=== PATIENT | male | born 1970 | race Caucasian/White ===

== ENCOUNTER 2017-12-23 00:07 | Emergency (ER) | payer MEDICARE, MEDICAID, SELFPAY ==
[2017-12-23] VITALS (23 sets, daily range): BP systolic 109–158; BP diastolic 71–82; PULSE 67–77; RESP 10–20; TEMP 36.5; O2SAT 95–98
--- NOTE | 2017-12-23 00:29 | ED.GENADUL_ITS ---
Disposition Clinical Impression: Chest pain Disposition: AGAINST MEDICAL ADVICE Instructions: Against Medical Advice (ED) Additional Instructions: It was recommended today that you stay in the emergency department for further testing and be admitted to the hospital for further diagnostic testing. You have refused this treatment plan. You are leaving AGAINST MEDICAL ADVICE and you may have life-threatening or lifestyle modifying disease. Please return to emergency department at anytime for further workup and treatment. Please follow-up with your doctor. Please take aspirin 325mg daily. Referrals: Juliann Hicks MD [Primary Care Provider] - Medical Decision Making - Lab Data Laboratory Tests 12/23/17 12/23/17 00:24 00:24 WBC 9.97 RBC 5.19 Hgb 14.8 Hct 43.6 MCV 84.0 MCH 28.5 MCHC 33.9 RDW 14.8 H Plt Count 349 MPV 9.8 Immature Gran % 0.6 Neutrophils % 48.8 Lymphocytes % 39.7 Monocytes % 6.5 Eosinophils % 3.4 Basophils % 1.0 Absolute Neutrophils 4.86 Absolute Lymphocytes 3.96 H Absolute Monocytes 0.65 Absolute Eosinophils 0.34 Absolute Basophils 0.10 Sodium 139 Potassium 3.6 Chloride 104 Carbon Dioxide 25.4 Anion Gap 9.6 BUN 6 L Creatinine 1.16 Estimated GFR/1.73 m2 >= 60.00 Glucose 194 H Calcium 8.2 L Magnesium 2.1 Total Bilirubin 0.2 AST 14 L ALT 31 Alkaline Phosphatase 95 Troponin I < 0.02 Total Protein 6.9 Albumin 3.9 Results reviewed for labs ordered during visit: Yes - Medical Decision Making 00:30 -- 47-year-old male with multiple medical problems including hypertension , hyperlipidemia, diabetes, smoker, here with chest pain. Pain is improved since onset and is now nearly resolved without treatment. ECG reviewed and interpreted by me: Normal sinus rhythm 76 bpm, upright T wave noted in V1, no STEMI, nondiagnostic. Plan to check troponin. PERC criteria applies. 1:38 -- Labs reviewed and trop neg cxr reviewed and interpreted by me: No pneumothorax, mediastinum normal Patient is high risk for ACS. Plan to admit for further diagnostics. I spoke with Dr. Gongora who will admit the patient. 1:57 --patient now wishes to leave AGAINST MEDICAL ADVICE. I explained to the patient that he may have life-threatening or lifestyle modifying disease that is not been ruled out and that additional diagnostic testing should be performed. Patient verbalized understanding of my concerns and refuses additional diagnostic testing. He does not wish to stay any longer and wants to go home. I again recommended he stay for further testing including serial blood tests and EKGs as well as potential stress testing or other needed test and he refused. I offered an abbreviated treatment course including ED observation and delta troponin at 4 hours and he refused. I strongly encourage the patient to follow-up with his primary care physician as soon as possible and return to the ER at any time for further testing. History of Present Illness - General Chief complaint: Chest Pain Stated complaint: CHEST PAIN Time Seen by Provider: 12/23/17 00:13 Source: patient, RN notes reviewed Mode of arrival: ambulatory Limitations: no limitations - History of Present Illness Initial comments: 47-year-old male with multiple medical problems including hypertension, hyperlipidemia, diabetes, GERD and anxiety disorder, smoker, presents with chief complaint of chest pain. Patient notes he woke up with chest pain about 15 minutes prior to arrival. Pain described as sharp and localized retrosternally. No radiation. Patient also notes an odd metallic taste in his mouth and is also had some discomfort and tingling in his left arm since onset of symptoms. - Related Data Atorvastatin Calcium 40 mg PO DAILY #90 tab-cap 03/30/17 Amlodipine Besylate [Norvasc] 10 mg PO DAILY #90 tab 07/22/17 Clopidogrel Bisulfate [Clopidogrel] 75 mg PO DAILY #90 tab 07/22/17 Fluticasone Propionate [Flonase] 50 mcg NS BID #1 inh NS 07/22/17 Labetalol HCl 200 mg PO See Instructions #135 tab-cap 07/22/17 Meclizine HCl 25 mg PO QID PRN #100 tab-cap 07/22/17 Omeprazole 20 mg PO DAILY #90 cap 07/22/17 Hydroxyzine HCl 25 mg PO QID PRN #100 tab-cap 09/01/17 Topiramate 100 mg PO BID #360 tab-cap 09/01/17 Bupropion HCl [Wellbutrin Xl] 150 mg PO DAILY #90 tab-cap 09/23/17 Proventil Hfa 2 puff IH Q4H PRN #1 inhaler 09/23/17 Allergies Allergy/AdvReac Type Severity Reaction Status Date / Time No Known Allergies Allergy Unverified 10/05/17 13:05 Review of Systems Constitutional: denies: fever Respiratory: denies: cough, shortness of breath Cardiovascular: chest pain. denies: palpitations Gastrointestinal: denies: abdominal pain, nausea, vomiting Neurological: denies: headache Comment: All other systems reviewed and negative Past Medical History - Past Medical History Medical history: diabetes, GERD, hyperlipidemia, hypertension hearing impaired Surgical history: no surgical history - Social History Smoking status: current everyday smoker Alcohol use: none (current sobriety since 2009) Drug use: none General Exam - General Limitations: no limitations General appearance: alert, in no apparent distress - Eye Eye exam: Absent: scleral icterus, conjunctival injection - ENT ENT exam: Present: mucous membranes moist - Neck Neck exam: Present: other (no jvd) - Respiratory Respiratory exam: Present: normal lung sounds bilaterally. Absent: wheezes, rales, rhonchi - Cardiovascular Cardiovascular Exam: Present: regular rate, normal rhythm, normal heart sounds - GI/Abdominal GI/Abdominal exam: Present: soft, normal bowel sounds. Absent: distended, tenderness - Extremities Exam Extremities exam: Absent: pedal edema, calf tenderness - Neurological Exam Neurological exam: Present: alert. Absent: altered - Psychiatric Psychiatric exam: Present: normal affect - Skin Skin exam: Present: warm, dry, intact. Absent: diaphoretic Course Vital Signs - 24 hr 12/23/17 00:10 Temperature 36.5 C Pulse 73 Respiratory 20 Rate Blood Pressure 131/82 Pulse Oximetry 98
[2017-12-23 00:39] LABS: Abs Immature Grans 0.06 k/cumm (0.0-0.09); Absolute Eosinophil Count 0.34 k/cumm (0.0-0.7); Absolute Lymphocyte Count 3.96 k/cumm (1.2-3.4); Absolute Monocyte Count 0.65 k/cumm (0.11-0.7); Absolute Neutrophil Count 4.86 k/cumm (1.2-6.7); Eosinophils % 3.4; HCT 43.6 % (40.0-50.0); HGB 14.8 g/dL (13.5-17.5); Immature Grans % 0.6; Lymphocytes % 39.7; Mean Corp. HGB Concentration 33.9 g/dL (32.0-36.0); Mean Corpuscular Hemoglobin 28.5 pg (27.0-33.0); Mean Platelet Volume 9.8 fL (8.0-11.0); Monocytes % 6.5; Neutrophils % 48.8; Platelet Count 349 x1000/uL (130-400); RBC 5.19 m/cumm (4.50-6.00); RBC Distribution Width 14.8 % (11.8-14.1); White Blood Cell Count 9.97 k/cumm (4.4-10.8)
[2017-12-23 00:57] LABS: ALT 31 U/L (12-78); AST 14 U/L (15-37); Albumin 3.9 g/dL (3.4-5.0); Alkaline Phosphatase 95 U/L (46-116); Anion Gap 9.6 mmol/L (3-11); BUN 6 mg/dL (7-18); Bilirubin, Total 0.2 mg/dL (0.2-1.0); CO2 25.4 mmol/L (21.0-32.0); CREATININE 1.16 mg/dL (0.70-1.30); Calcium 8.2 mg/dL (8.5-10.1); Chloride 104 mmol/L (98-107); Glucose 194 mg/dL (70-100); Magnesium 2.1 mg/dL (1.8-2.4); Potassium 3.6 mmol/L (3.5-5.1); Sodium 139 mmol/L (136-145); Total Protein 6.9 g/dL (6.4-8.2)
[2017-12-23 00:58] LABS: Troponin I < 0.02 ng/mL (0.00-0.06)
--- NOTE | 2017-12-23 01:35 | DI.REPORT_ITS ---
SYMPTOM/DIAGNOSIS: CHEST PAIN CHEST X-RAY: PA, lateral. Comparison 06/13/16 The heart is normal in size. The lungs are clear. The mediastinal structures and pleura appear intact. CONCLUSION: Normal chest.
--- NOTE | 2017-12-23 01:48 | HPE_ITS ---
HISTORY/PHYSICIAL- EMERGENCY ROOM CONSULTATION DATE: DECEMBER 23, 20172017 CHIEF COMPLAINT: Chest pain IMPRESSION: Chest pain. I would regard this as atypical. However the patient certainly has multiple coronary risk factors and will plan on rule out and might benefit, if negative, from stress test. ADDITIONAL NOTE @01:56 on 12/23/17: The patient has now made it known that he does not wish to stay in the hospital and is going to be leaving against medical advice. HISTORY OF PRESENT ILLNESS: The patient is a 47 year-old male with history of hypertension, hyperlipidemia and smoker. There is also reported history of stroke although the only documentation I can find at present references a normal MRI in 2017. At any rate, the patient states he was woken up this evening by chest discomfort. He has some difficulty characterizing this but there was no shortness of breath, nausea or diaphoresis. Apparently the pain lasted approximately 10 minutes but he came to the Emergency Room for evaluation. He has had no pain here. Initial evaluation of note for normal chest x-ray, EKG and negative troponin. Due to multiple coronary risk factors, he was admitted for rule out protocol. PAST MEDICAL HISTORY: 1. Anxiety 2. Gastroesophageal reflux disease 3. Hypertension 4. Hyperlipidemia 5. Migraine 6. Sleep apnea 7. History of stroke (see above) ALLERGIES: None known MEDICATIONS: Norvasc 10 daily Lipitor 40 daily Wellbutrin XL 150 daily Plavix 7 daily Flonase Vistaril 25 q.i.d. Labetalol unknown dose Prilosec 20 daily Ventolin Albuterol p.r.n. Topamax 100 b.i.d. PHYSICAL EXAMINATION: The patient is lying flat on the stretcher in no distress. Temperature 36.5, blood pressure 110/72, pulse 73, respirations 20, O2 sat 98% on room air. HENT: Unremarkable. Neck: Supple. Lungs: Clear. Heart: Regular rate and rhythm without murmurs, rubs or gallops. Abdomen: Soft and nontender. /Rectal: Deferred Extremities: Without edema. Calves are nontender. Neurological: The patient is alert and oriented and moves all four extremities. LABORATORY DATA: White count 99, hematocrit 43, platelets 349. Sodium 139, potassium 3.6, chloride 104, bicarb 25, BUN 6, creatinine 1.1. Glucose 194. Troponin negative. Chest x-ray is unremarkable. EKG: EKG shows normal sinus rhythm. There was some T-wave flattening in V-4 through 6 and one in AVL. These findings have been present to a degree on prior tracing.
--- NOTE | 2017-12-23 01:59 | DI.VRAD_ITS ---
EXAM: XR Chest, 2 Views CLINICAL HISTORY: 47 years old, male; Pain; Chest pain; Type not specified TECHNIQUE: Frontal and lateral views of the chest. COMPARISON: CR - CHEST 2 VIEWS PA,LAT 2016-06-13 18:08 FINDINGS: Lungs: Unremarkable. No consolidation. Pleural space: Unremarkable. No pneumothorax. Heart: Unremarkable. No cardiomegaly. Mediastinum: Unremarkable. Bones/joints: Unremarkable. IMPRESSION: Normal chest x-rays. Dictated and Authenticated by: Derik Gilmore MD. Ordering:LAURO NINO MD
[2017-12-23] MEDS: Aspirin 325 MG TAB PO (02:51)
[2017-12-23 04:16] LABS: Troponin I < 0.02 ng/mL (0.00-0.06)
--- NOTE | 2017-12-23 08:32 | PDOC.ERCMPRO ---
Care Management Progress Note 12/23-Dr. Vu requested exercise stress test for Alon Karmen. Order has been completed, signed, and faxed to [facility]. Called [facility] in [facility] and he stated they have the order and are all set. [facility] stated they will reach out to patient with appt time.
== END 2017-12-23 04:58 | disposition left against medical advice (07) ==
PROVIDERS: Emergency Provider Student in an Organized Health Care Education/Training Program; PCP Internal Medicine
DX: R07.9 Chest pain, unspecified (principal); R20.2 Paresthesia of skin; F17.210 Nicotine dependence, cigarettes, uncomplicated; Z53.29 Procedure and treatment not carried out because of patient's decision for other reasons; I10 Essential (primary) hypertension; E11.9 Type 2 diabetes mellitus without complications
CPT/HCPCS: 71046; 93005; 99283; 99285 ×2; 36415; 80053; 83735; 84484; 85025; 93010

== ENCOUNTER → 2017-12-28 00:10 | Outpatient (CLI) | payer MEDICARE, MEDICAID, SELFPAY ==
--- NOTE | 2017-12-28 08:30 | ETT_ITS ---
*[facility]* *[facility]* [address] [place] [address] Stress Electrocardiography Ibrahima protocol Date of study: 12/28/2017 *PATIENT PRESENTATION* Height: 162.6cm (64in) Blood Pressure: Weight: 81.8kg (180lb) BSA: 1.95m^2 Ordering physician: Modesto Vu Impressions: Normal study after maximal exercise. Summary: 1. Stress ECG conclusions: The stress ECG is negative. Ellis treadmill score: 7. This score predicts a low risk of cardiac events. 2. Stress: The target heart rate was not achieved. Indication: R07.9. History: Patient's presenting symptoms: asymptomatic. REASON FOR VISIT: PATIENT SEEN IN THE EMERGENCY ROOM 12/23/17 FOR COMPLAINT OF CHEST PAIN THAT HAD WOKEN PATIENT UP FROM SLEEP. CHEST PAIN IS DESCRIBED 5/10 SHARP, STERNAL, NONRADIATING, LASTING 10 MINUTES, WITH ASSOCIATED TINGLING/NUMBESS IN LEFT ARM AND ODD METALLIC TASTE IN MOUTH. WORKUP IN EMERGENCY ROOM INCLUDED NORMAL CHEST XRAY, EKG, AND NEGATIVE TROPONIN X 1. PAST MEDICAL HISTORY: HYPERTENSION, HYPERLIPIDEMIA, DIABETES, GASTROESOPHAGEAL REFLUX DISEASE, ANXIETY, MIGRAINE, SLEEP APNEA, HEARING IMPAIRED, VERTIGO. FAMILY HISTORY: UNSURE. SMOKING STATUS: CURRENT SMOKER. 29 PACK YEARS. EXERCISE ROUTINE: NONE. Risk factors: Current tobacco use. Hypertension. Dyslipidemia. Cholesterol: 168mg/dl. HDL: 35mg/dl. LDL: 96mg/dl. Triglycerides: 336mg/dl. ALLERGIES: NO KNOWN ALLERGIES. MEDICATIONS: AMLODIPINE BESYLATE 10MG, DAILY. ASPIRIN E.C. 325MG, DAILY. ATORVASTATIN CALCIUM 40MG, DAILY. BUPROPION HCL 150MG, DAILY. CLOPIDOGREL BISULFATE 75MG, DAILY. FLUTICASONE PROPIONATE 50MCG BASAL, BID. HYDROXYZINE HCL 25MG, PRN. LABETALOL HCL 100MG IN AM, 200MG IN PM. MECLIZINE HCL 25MG, PRN. OMEPRAZOLE 20MG, DAILY. TOPIRAMATE 100MG, BID. Protocol: Ibrahima protocol. Baseline ECG: SINUS RHYTHM. HEART RATE 88 BPM. Stress protocol: + +---+ + + !Stage !HR !BP (mmHg) !Symptoms ! + +---+ + + !Baseline supine !88 !140/82 (101)! ! + +---+ + + !Baseline standing !98 !136/80 (99) ! ! + +---+ + + !Stage I; 1.7mph, 10degrees; 3!117!158/84 (109)! ! !min ! ! ! ! + +---+ + + !Stage II; 2.5mph, 12degrees; !132!170/82 (111)!Hip pain ! !3 min ! ! ! ! + +---+ + + !Stage III; 3.4mph, 14degrees;!---! !Mild dyspnea, dizziness! !3 min ! ! ! ! + +---+ + + !Recovery; 1 min !128!150/72 (98) ! ! + +---+ + + !Recovery; 3 min !110!160/78 (105)! ! + +---+ + + !Recovery; 6 min !102!148/80 (103)!Resolved ! + +---+ + + * Stress results: The target heart rate was not achieved. The rate-pressure product for the peak heart rate and blood pressure was 73734tz Hg/min. Stress ECG: TREADMILL PORTION OF EXERCISE STRESS TEST ENDED IN 1LIM45ARU DUE TO PATIENT COMPLAINT OF HIP PAIN, SHORTNESS OF BREATH, AND DIZZINESS. APPROPRIATE HEART RATE AND BLOOD PRESSURE RESPONSE TO EXERCISE. HYPOTENSIVE RESPONSE WITH CESSATION OF EXERCISE. MAX HEART RATE ACHIEVED 135 BPM, 77% OF TARGET. PATIENT UNABLE TO REACH TARGET HEART RATE. APPROXIMATE METS 7.34. NO ANGINA REPORTED. COMPLAINTS OF WORSENING DIZZINESS, WHICH APPEARS TO BE A CHRONIC PROBLEM FOR PATIENT. NO ECTOPY NOTED. NO SIGNIFICANT ST SEGMENT CHANGES. MODERATELY DIMINISHED FUNCTIONAL CAPACITY. The stress ECG is negative. Ellis treadmill score: 7. This score predicts a low risk of cardiac events. Study data: Derik Ortiz MD supervised and was readily available during the procedure. This study was interpreted by [facility]. Study status: Routine. Consent: The risks, benefits, and alternatives to the procedure were explained to the patient and informed consent was obtained. Procedure: Initial setup. A baseline ECG was recorded. Surface ECG leads and manual cuff blood pressure measurements were monitored. Heart sounds: Normal. Lung sounds: Normal. Treadmill exercise testing was performed using the Ibrahima protocol. Study completion: The patient tolerated the procedure well and was discharged from the lab. Discharge: The patient left the laboratory in stable condition. Birthdate: Patient birthdate: 1970. Sex: Gender: male. Study date: Study date: 12/28/2017. Study time: 08:30 AM. Electronically signed by Derik Ortiz MD 12/28/2017 16:46
== END ==
PROVIDERS: PCP Internal Medicine; Visit Provider Student in an Organized Health Care Education/Training Program
DX: R07.89 Other chest pain (principal); R20.0 Anesthesia of skin; I10 Essential (primary) hypertension; E78.5 Hyperlipidemia, unspecified; E11.9 Type 2 diabetes mellitus without complications; F17.210 Nicotine dependence, cigarettes, uncomplicated
CPT/HCPCS: 93017; 93016; 93018

== ENCOUNTER → 2018-01-04 00:17 | Outpatient (CLI) | payer MEDICARE, MEDICAID, SELFPAY ==
--- NOTE | 2018-01-04 07:00 | MERGEMPI_ITS ---
*[facility]* *[facility]* [address] [place] [address] Myocardial Perfusion Imaging - SPECT Regadenoson Date of study: 01/04/2018 *PATIENT PRESENTATION* Height: 162.6cm (64in) Blood Pressure: Weight: 81.8kg (180lb) BSA: 1.95m^2 Referring physician: Berna Inman Ordering physician: rAiella Cardoza Aprn Impressions: Normal perfusion by Tc99m Sestamibi Imaging. Summary: 1. Myocardial perfusion imaging: No myocardial perfusion defects noted. 2. The calculated left ventricular ejection fraction after stress: 56%. No left ventricular regional motion abnormality. Indication: R07.9. History: REASON FOR VISIT: CHEST PAIN. PT HAD A REGULAR STRESS TEST ON 12/28/17 THE TARGET HEART RATE WAS NOT ACHIEVED. PT IS HERE TODAY FOR A LEXISCAN MPI STRESS TEST. Risk factors: CURRENT SMOKER. 29 PACK YEARS. Current tobacco use. Hypertension. Diabetes mellitus. Obesity. Dyslipidemia. Cholesterol: 168mg/dl. HDL: 35mg/dl. LDL: 96mg/dl. Triglycerides: 336mg/dl. ALLERGIES: NO KNOWN ALLERGIES. MEDICATIONS: AMLODIPINE BESYLATE 10 MG DAILY. ASPIRIN E.C. 325 MG DAILY. ATORVASTATIN CALCIUM 40 MG DAILY. CLOPIDOGREL BISULFATE 75 MG DAILY. FLONASE NASAL SPRAY TWICE A DAY. HYDROXYZINE HCL 25 MG PRN ANXIETY. LABETOLOL HCL 100 MG IN AM. LABETOLOL 200 MG IN EVENING. MECLIZINE HCL 25 MG QID. RANITIDINE HCL 150 MG TWICE A DAY. TOPIRAMATE 100 TWICE A DAY. Imaging Technique: Protocol: Regadenoson. Acquisition: Gated SPECT; 1 day - rest/stress. The patient was imaged in the supine position. Attenuation correction used. Isotope administration: - Rest. Tc[99m]-sestamibi. Dose: 10.6mCi. Injection time: 08:30 AM. Injection to stress time: 00:45. - Stress. Tc[99m]-sestamibi. Dose: 33mCi. Injection time: 09:55 AM. 1-2 min before end of exercise Baseline ECG: SINUS RHYTHM. HR 85 BPM. Stress protocol: +--------+---+ + + !Stage !HR !BP (mmHg) !Comments ! +--------+---+ + + !Baseline!85 !160/98 (119)! ! +--------+---+ + + !1 min !106!172/90 (117)!Inject Regadenoson.! +--------+---+ + + !3 min !96 !168/90 (116)! ! +--------+---+ + + !6 min !85 !166/88 (114)! ! +--------+---+ + + * Stress results: The rate-pressure product for the peak heart rate and blood pressure was 84582av Hg/min. Stress ECG: STRESS TEST ENDED IN 6 MINUTES AND 17 SECONDS. PT EXPERIENCED NO SIGNIFICANT SIDE EFFECTS FROM LEXISCAN INJECTION. HYPERTENSIVE BLOODPRESSURE AT BASELINE. NORMAL HEART RATE AND BLOOD PRESSURE RESPONSE TO LEXISCAN INJECTION. NO ECTOPY. NO ANGINA. NO SIGNIFICANT ST SEGMENT CHANGES. Myocardial perfusion: Imaging information: gated. No myocardial perfusion defects noted. Ventricular Function (Wall Motion): The calculated left ventricular ejection fraction after stress: 56%. No left ventricular regional motion abnormality. Study data: Derik Ortiz MD supervised and was readily available during the procedure. This study was interpreted by [facility]. Study status: Routine. Consent: The risks, benefits, and alternatives to the procedure were explained to the patient and informed consent was obtained. Procedure: Initial setup. A baseline ECG was recorded. Surface ECG leads and manual cuff blood pressure measurements were monitored. Heart sounds: Normal. Lung sounds: Normal. Regadenoson stress test. Stress testing was performed, with regadenoson by intravenous bolus, for a total dose of 0.4mgover 10.00sec, followed by a 5ml saline flush. The infusion was terminated due to per protocol. Study completion: All catheters inserted during the procedure were removed. The patient tolerated the procedure well and was discharged from the lab. Discharge: The patient left the laboratory in stable condition. Birthdate: Patient birthdate: 1970. Sex: Gender: male. Study date: Study date: 01/04/2018. Study time: 07:00 AM. Electronically signed by Derik Ortiz MD 01/04/2018 17:05
[2018-01-04] MEDS: Regadenoson 0.4 MG/5 ML SYR IVP (09:42)
== END ==
PROVIDERS: PCP Internal Medicine; Visit Provider Nurse Practitioner Adult Health
DX: R07.89 Other chest pain (principal); F17.200 Nicotine dependence, unspecified, uncomplicated; I10 Essential (primary) hypertension; I63.9 Cerebral infarction, unspecified
CPT/HCPCS: 78452; 93016 ×2; 93017; 93018 ×2; J2785

== ENCOUNTER 2018-01-20 14:28 | Emergency (ER) | payer MEDICARE, MEDICAID, SELFPAY ==
[2018-01-20 14:36] VITALS: BP 129/85; PULSE 82; RESP 18; TEMP 36.7; O2SAT 98
--- NOTE | 2018-01-20 15:01 | ED.GENADUL ---
Disposition Clinical Impression: Vertigo Disposition: HOME Condition: Fair Instructions: Vertigo (ED) Additional Instructions: Continue to encourage hydration. Take meclizine as previously prescribed if you have recurrence of your vertigo symptoms. If you develop headache, visual changes, vomiting, inability to stay hydrated, fever/chills or other new/worsening symptoms please seek care urgently once again. Please go to [facility] tomorrow to discuss your food shortage and other options throughout the end of the month. You may also discuss how to use your food stamps more sparingly. Please follow-up with primary care in the next week. Seek care urgently once again if you develop new or worsening symptoms. Referrals: Juliann Hicks MD [Primary Care Provider] - Medical Decision Making - Medical Decision Making Patient presents today with chief complaint of vertigo. He reports that at the moment he is asymptomatic. Did take his meclizine prior to arrival. Patient has long history of vertigo. He was concerned he may be dehydrated. He does report that he has been drinking a large amount of water over the past 24 hours. Believes at this time from being outside with friends early yesterday and not drinking much water in the 90+? heat. Patient appears hydrated on exam. He seems frustrated that he does not have his bottled water. I did advise a tap water is safe to drink here. Patient's primary complaint seems to be his lack of food secondary to shortness of food stamps. When I questioned him if he is ever discussed this with local services, he advised that he is not as of yet. I did encourage that he speak with them regarding his lack of food stamps particularly as he is reporting that 2-3 weeks out of the month he is unable to purchase food. States that he is on a limited income which makes it difficult for him to buy food. Patient is requesting food at this time. I did question, at length, if he was having any new symptoms and he denies anything new. Rather, he reports that he had a spell of vertigo, which he has had for years, which responded well to his meclizine as he has in the past. Patient received lunch. Reports that he is feeling much improved with a full stomach. We will send him home with a to go meal. Our healthcare administration intern spoke with the patient regarding local options to help with food. She gave him pamphlets on [facility]. Patient reports he will go there tomorrow to discuss his case. We will send him home with food for tonight. We discussed new/worsening symptoms and when to seek care urgently once again. All his questions and concerns were addressed and he is in agreement this plan. History of Present Illness - General Chief complaint: Dizzy/Sync Stated complaint: VERTIGO AND DEHYDRATED Time Seen by Provider: 01/20/18 14:45 Source: patient, RN notes reviewed Mode of arrival: ambulatory Limitations: no limitations - History of Present Illness Initial comments: Patient is a 47-year-old male presenting today with chief complaint of vertigo. Patient has long history of vertigo. Reports that he took his meclizine prior to arrival and symptoms have now resolved. Patient also has history of anxiety, CVA, hypertension, hyperlipidemia, GERD, CHINO, type 2 diabetes, bilateral deafness. Reports that starting yesterday he began having vertigo. States that typically when he has since onset of vertigo he becomes very fatigued and has visual changes. The onset of true dizziness. [place] that he had exacerbation of his vertigo secondary to dehydration. Reports he has been drinking a large amount of water over the past 24 hours. Is concerned that he ran out of a bottle of water and his need to drink tap water. He denies any headache. Denies any nausea vomiting. No abdominal pain. Patient has chronic tremor in the left hand which is unchanged. No new neuro deficits on questioning. Denies any head trauma. - Related Data Hydroxyzine HCl 25 mg PO QID PRN #100 tab-cap 09/01/17 Topiramate 100 mg PO BID #360 tab-cap 09/01/17 Aspirin E.c. [Ecotrin] 325 mg PO DAILY tab-cap 12/23/17 Amlodipine Besylate [Norvasc] 10 mg PO DAILY #90 tab 12/28/17 Atorvastatin Calcium 40 mg PO DAILY #90 tab-cap 12/28/17 Clopidogrel Bisulfate [Clopidogrel] 75 mg PO DAILY #90 tab 12/28/17 Fluticasone Propionate [Flonase] 50 mcg NS BID #1 inh NS 12/28/17 Labetalol HCl 200 mg PO See Instructions #135 tab-cap 12/28/17 Meclizine HCl 25 mg PO QID PRN #100 tab-cap 12/28/17 Ranitidine HCl 150 mg PO BID #180 tab-cap 12/28/17 Allergies Allergy/AdvReac Type Severity Reaction Status Date / Time No Known Allergies Allergy Unverified 01/20/18 14:39 Review of Systems Constitutional: no symptoms reported, see HPI Eyes: as per HPI ENT: denies: ear pain (Patient has a hearing aid in the right ear), throat pain, congestion Respiratory: no symptoms reported. denies: cough, shortness of breath Cardiovascular: denies: chest pain (Patient reports chronic chest pain but none currently), palpitations Gastrointestinal: as per HPI. denies: abdominal pain, nausea, vomiting, diarrhea Genitourinary: denies: urgency (Denies any change in urinary habits) Musculoskeletal: denies: back pain Skin: denies: rash Neurological: as per HPI, vertigo. denies: headache, abnormal gait Past Medical History - Past Medical History Medical history: CVA/TIA, diabetes, GERD, hyperlipidemia, hypertension hearing impaired, CHINO, migraine Surgical history: no surgical history Psychiatric history: anxiety - Social History Alcohol use: none (current sobriety since 2009) Drug use: none Living Situation: lives with parent(s) General Exam - General Limitations: no limitations General appearance: alert, in no apparent distress, obese - Head Head exam: Present: atraumatic - Eye Eye exam: Present: normal apperance, PERRL, EOMI. Absent: scleral icterus, conjunctival injection, nystagmus, periorbital swelling Pupils: Present: normal accommodation - ENT ENT exam: Present: normal exam, normal orophraynx, mucous membranes moist, TM's normal bilaterally, normal external ear exam - Neck Neck exam: Present: normal inspection. Absent: tenderness, lymphadenopathy - Respiratory Respiratory exam: Present: normal lung sounds bilaterally. Absent: respiratory distress - Cardiovascular Cardiovascular Exam: Present: regular rate, normal rhythm, normal heart sounds - GI/Abdominal GI/Abdominal exam: Present: soft, normal bowel sounds. Absent: distended, tenderness, guarding - Rectal Rectal exam: Present: deferred - Extremities Exam Extremities exam: Present: normal inspection (5/5 strength equal bilaterally in upper and lower extremities) - Back Exam Back exam: Present: normal inspection - Neurological Exam Neurological exam: Present: alert, CN II-XII intact, normal gait, reflexes normal. Absent: motor sensory deficit - Expanded Neurological Exam No standard instances Speech: Present: fluid speech Cranial nerves: EOM's Intact: Normal, Nystagmus: Normal, Facial Sensation: Normal Cerebellar function: Finger to Nose: Normal, Heel to Arroyo: Normal, Romberg: Normal Sensory exam: Upper Extremity Light Touch: Normal, Lower Extremity Light Touch: Normal Best Eye Response (Parsons): (4) open spontaneously Best Motor Response (Mary): (6) obeys commands Best Verbal Response (Mary): (5) oriented - Psychiatric Psychiatric exam: Present: normal affect, normal mood - Skin Skin exam: Present: warm, dry, normal color Course Vital Signs - 24 hr 01/20/18 14:36 Temperature 36.7 C Pulse 82 Respiratory 18 Rate Blood Pressure 129/85 Pulse Oximetry 98
--- NOTE | 2018-01-20 15:07 | ED.GENADUL_ITS ---
Disposition Clinical Impression: Vertigo Disposition: HOME Condition: Fair Instructions: Vertigo (ED) Additional Instructions: Continue to encourage hydration. Take meclizine as previously prescribed if you have recurrence of your vertigo symptoms. If you develop headache, visual changes, vomiting, inability to stay hydrated, fever/chills or other new/ worsening symptoms please seek care urgently once again. Please go to [employer] tomorrow to discuss your food shortage and other options throughout the end of the month. You may also discuss how to use your food stamps more sparingly. Please follow-up with primary care in the next week. Seek care urgently once again if you develop new or worsening symptoms. Referrals: Juliann Hicks MD [Primary Care Provider] - Medical Decision Making - Medical Decision Making Patient presents today with chief complaint of vertigo. He reports that at the moment he is asymptomatic. Did take his meclizine prior to arrival. Patient has long history of vertigo. He was concerned he may be dehydrated. He does report that he has been drinking a large amount of water over the past 24 hours. Believes at this time from being outside with friends early yesterday and not drinking much water in the 90+ heat. Patient appears hydrated on exam. He seems frustrated that he does not have his bottled water. I did advise a tap water is safe to drink here. Patient's primary complaint seems to be his lack of food secondary to shortness of food stamps. When I questioned him if he is ever discussed this with local services, he advised that he is not as of yet. I did encourage that he speak with them regarding his lack of food stamps particularly as he is reporting that 2-3 weeks out of the month he is unable to purchase food. States that he is on a limited income which makes it difficult for him to buy food. Patient is requesting food at this time. I did question, at length, if he was having any new symptoms and he denies anything new. Rather, he reports that he had a spell of vertigo, which he has had for years, which responded well to his meclizine as he has in the past. Patient received lunch. Reports that he is feeling much improved with a full stomach. We will send him home with a to go meal. Our ocular care technologist spoke with the patient regarding local options to help with food. She gave him pamphlets on [facility]. Patient reports he will go there tomorrow to discuss his case. We will send him home with food for tonight. We discussed new/worsening symptoms and when to seek care urgently once again. All his questions and concerns were addressed and he is in agreement this plan. History of Present Illness - General Chief complaint: Dizzy/Sync Stated complaint: VERTIGO AND DEHYDRATED Time Seen by Provider: 01/20/18 14:45 Source: patient, RN notes reviewed Mode of arrival: ambulatory Limitations: no limitations - History of Present Illness Initial comments: Patient is a 47-year-old male presenting today with chief complaint of vertigo. Patient has long history of vertigo. Reports that he took his meclizine prior to arrival and symptoms have now resolved. Patient also has history of anxiety, CVA, hypertension, hyperlipidemia, GERD, CHINO, type 2 diabetes, bilateral deafness. Reports that starting yesterday he began having vertigo. States that typically when he has since onset of vertigo he becomes very fatigued and has visual changes. The onset of true dizziness. [place] that he had exacerbation of his vertigo secondary to dehydration. Reports he has been drinking a large amount of water over the past 24 hours. Is concerned that he ran out of a bottle of water and his need to drink tap water. He denies any headache. Denies any nausea vomiting. No abdominal pain. Patient has chronic tremor in the left hand which is unchanged. No new neuro deficits on questioning. Denies any head trauma. - Related Data Hydroxyzine HCl 25 mg PO QID PRN #100 tab-cap 09/01/17 Topiramate 100 mg PO BID #360 tab-cap 09/01/17 Aspirin E.c. [Ecotrin] 325 mg PO DAILY tab-cap 12/23/17 Amlodipine Besylate [Norvasc] 10 mg PO DAILY #90 tab 12/28/17 Atorvastatin Calcium 40 mg PO DAILY #90 tab-cap 12/28/17 Clopidogrel Bisulfate [Clopidogrel] 75 mg PO DAILY #90 tab 12/28/17 Fluticasone Propionate [Flonase] 50 mcg NS BID #1 inh NS 12/28/17 Labetalol HCl 200 mg PO See Instructions #135 tab-cap 12/28/17 Meclizine HCl 25 mg PO QID PRN #100 tab-cap 12/28/17 Ranitidine HCl 150 mg PO BID #180 tab-cap 12/28/17 Allergies Allergy/AdvReac Type Severity Reaction Status Date / Time No Known Allergies Allergy Unverified 01/20/18 14:39 Review of Systems Constitutional: no symptoms reported, see HPI Eyes: as per HPI ENT: denies: ear pain (Patient has a hearing aid in the right ear), throat pain , congestion Respiratory: no symptoms reported. denies: cough, shortness of breath Cardiovascular: denies: chest pain (Patient reports chronic chest pain but none currently), palpitations Gastrointestinal: as per HPI. denies: abdominal pain, nausea, vomiting, diarrhea Genitourinary: denies: urgency (Denies any change in urinary habits) Musculoskeletal: denies: back pain Skin: denies: rash Neurological: as per HPI, vertigo. denies: headache, abnormal gait Past Medical History - Past Medical History Medical history: CVA/TIA, diabetes, GERD, hyperlipidemia, hypertension hearing impaired, CHINO, migraine Surgical history: no surgical history Psychiatric history: anxiety - Social History Alcohol use: none (current sobriety since 2009) Drug use: none Living Situation: lives with parent(s) General Exam - General Limitations: no limitations General appearance: alert, in no apparent distress, obese - Head Head exam: Present: atraumatic - Eye Eye exam: Present: normal apperance, PERRL, EOMI. Absent: scleral icterus, conjunctival injection, nystagmus, periorbital swelling Pupils: Present: normal accommodation - ENT ENT exam: Present: normal exam, normal orophraynx, mucous membranes moist, TM's normal bilaterally, normal external ear exam - Neck Neck exam: Present: normal inspection. Absent: tenderness, lymphadenopathy - Respiratory Respiratory exam: Present: normal lung sounds bilaterally. Absent: respiratory distress - Cardiovascular Cardiovascular Exam: Present: regular rate, normal rhythm, normal heart sounds - GI/Abdominal GI/Abdominal exam: Present: soft, normal bowel sounds. Absent: distended, tenderness, guarding - Rectal Rectal exam: Present: deferred - Extremities Exam Extremities exam: Present: normal inspection (5/5 strength equal bilaterally in upper and lower extremities) - Back Exam Back exam: Present: normal inspection - Neurological Exam Neurological exam: Present: alert, CN II-XII intact, normal gait, reflexes normal. Absent: motor sensory deficit - Expanded Neurological Exam No standard instances Speech: Present: fluid speech Cranial nerves: EOM's Intact: Normal, Nystagmus: Normal, Facial Sensation: Normal Cerebellar function: Finger to Nose: Normal, Heel to [place]: Normal, Romberg: Normal Sensory exam: Upper Extremity Light Touch: Normal, Lower Extremity Light Touch: Normal Best Eye Response (Mary): (4) open spontaneously Best Motor Response (Mary): (6) obeys commands Best Verbal Response (Mary): (5) oriented - Psychiatric Psychiatric exam: Present: normal affect, normal mood - Skin Skin exam: Present: warm, dry, normal color Course Vital Signs - 24 hr 01/20/18 14:36 Temperature 36.7 C Pulse 82 Respiratory 18 Rate Blood Pressure 129/85 Pulse Oximetry 98
[2018-01-20 17:07] VITALS: RESP 18
--- NOTE | 2018-01-20 17:09 | NUR.NOTE ---
Nursing Note: ate turkey sandwich here. a bag of sandwiches, chips, apple, banana went home with pt.
== END 2018-01-20 15:49 | disposition home or self-care (01) ==
PROVIDERS: Emergency Provider Student in an Organized Health Care Education/Training Program; PCP Internal Medicine
DX: R42 Dizziness and giddiness (principal); E11.9 Type 2 diabetes mellitus without complications; I10 Essential (primary) hypertension
CPT/HCPCS: 99281

== ENCOUNTER 2018-04-27 19:59 | Emergency (ER) | payer MEDICARE, SELFPAY ==
[2018-04-27] VITALS (33 sets, daily range): BP systolic 143–180; BP diastolic 84–103; PULSE 79–111; RESP 11–19; TEMP 36.6–37.4; O2SAT 95–99
--- NOTE | 2018-04-27 20:59 | DI.CT_ITS ---
SYMPTOMS/DIAGNOSIS: HEADACHE NONCONTRAST HEAD CT: Comparison is made with November,. No intracranial hemorrhage or skull fracture is seen. There is no evidence of mass or infarct. The ventricles are normal in size. The orbits and visualized portions of the sinuses and mastoid air cells are unremarkable. IMPRESSION: Negative head CT.
--- NOTE | 2018-04-27 21:05 | W.ED.GENAD ---
Discharge Plan Disposition Patient Disposition: HOME Condition: Good Discharge Details Chief Complaint: Headache Clinical Impression: Throbbing headache Primary Care Provider: Juliann Hicks ED Provider: Dwayne Crowell [place] Meds and New Rx's Prescriptions: Continue Cannabidiol oil 1 drp PO BID PRN (Reason: anxiety) RF: 0 bupropion HCl 150 mg tablet extended release 24 hr 150 mg PO QAM Qty: 90 RF: 1 ipratropium bromide 42 mcg (0.06 %) spray,non-aerosol 2 spray KALEE HS Qty: 1 RF: 0 hydroxyzine HCl 25 MG tablet 25 mg PO QID PRNQty: 100 RF: 3 topiramate 50 MG tablet 100 mg PO BID Qty: 360 RF: 3 atorvastatin 40 MG tablet 40 mg PO DAILY Qty: 90 RF: 3 labetalol 200 MG tablet 200 mg PO See Instructions Qty: 135 RF: 2 clopidogrel 75 MG tablet 75 mg PO DAILY Qty: 90 RF: 2 meclizine 25 MG tablet 25 mg PO QID PRNQty: 100 RF: 2 amlodipine [Norvasc] 10 MG tablet 10 mg PO DAILY Qty: 90 RF: 2 fluticasone 16 GM spray,suspension 50 mcg NS BID Qty: 1 RF: 0 ranitidine HCl 150 MG tablet 150 mg PO BID Qty: 180 RF: 3 Discharge Instructions Instructions: General Headache (ED) Additional Instructions: Stay hydrated and get some rest. Follow-up with primary care physician in the next week or so if continued bothersome headaches. Return to ED for fever, neurologic changes, severe worsening headache. Referrals: Juliann Hicks MD [Primary Care Provider] - Medical Decision Making Patient presenting with right-sided throbbing headache. Originally had told nursing 2 days. However, sounds like he had mild headache for a couple of days and then developed this right-sided throbbing headache which he describes as bad an hour prior to arrival. He had taken Tylenol this morning and resolved his mild headache. He has no fever. He has no meningeal signs. He has a normal neurologic exam. The tingling he complains of in his upper extremities is chronic and not new. He has no tenderness over the temporal artery. Suspect this is a migraine-like headache. Doubt that it is related to subarachnoid hemorrhage. Doubt temporal arteritis. Will treat with fluids, Reglan, Benadryl. Will get a head CT as he is only an hour into the severe headache. If his hemoglobin is normal not going to be overly concerned for subarachnoid. Check a sed rate but I doubt this is temporal arteritis. Patient laboratory studies are normal. Sed rate is normal. Head CT is negative per radiology. Patient is sleeping and when woken up reports no headache. He had received only Reglan and Benadryl and fluids. We did discuss the remote possibility of subarachnoid hemorrhage. However, given CT scan being negative within the 6-hour window of onset of headache with normal hemoglobin seems unlikely. He feels comfortable going home. Will follow up with primary care if continued intermittent headaches. Return to ED for fever, worsening severe headache, neurologic changes. Imaging Data Radiologic Study: Imaging: CT Scan Radiologist's impression: Patient Name: Alon Peraza #: [id number]: ER Ordering Provider: : [facility] Primary Care Provider: Juliann Hicks M.D.Date of Exam: 04/27/18ex: M : 1970Age: 48 Exam(s) EXAM: CT Head Without Intravenous Contrast EXAM DATE/TIME: 04/27/2018 9:05 PM CLINICAL HISTORY: 48 years old, male; Signs and symptoms; Other: Headache TECHNIQUE: Axial computed tomography images of the head/brain without intravenous contrast. All CT scans at this facility use at least one of these dose optimization techniques: automated exposure control; mA and/or kV adjustment per patient size (includes targeted exams where dose is matched to clinical indication); or iterative reconstruction. Coronal and sagittal reformatted images were created and reviewed. COMPARISON: CT HEAD WITHOUT CONTRAST 12/01/2014 10:53 PM FINDINGS: Brain: Unremarkable. No hemorrhage. No significant white matter disease. No edema. Ventricles: Unremarkable. No ventriculomegaly. Bones/joints: Unremarkable. No acute fracture. Sinuses: Unremarkable as visualized. No acute sinusitis. Mastoid air cells: Unremarkable as visualized. No mastoid effusion. Soft tissues: Unremarkable. IMPRESSION: 1. Unremarkable noncontrast CT of the brain. 2. If symptoms/signs persist, or if there is concern of an occult intracranial abnormality, then followup short interval CT or MRI would be recommended for further evaluation. Dictated and Authenticated by: Omkar Perez MD. Ordering:MARE MCRAE MD Lab Data Lab results reviewed: Yes I reviewed the patient's lab results. HPI General Mode of arrival: ambulatory. Date/Time Provider Initiated Documentation: 04/27/18 20:34. Limitations to Documentation: no limitations. Information obtained by: patient and old records reviewed. HPI Narrative: Patient presents to ED with complaint of right sided throbbing headache. Patient initially states he has had it for 2 days. On further questioning he had a headache Thursday but it was mild. Continue to have a mild headache on Thursday. Had difficulty sleeping Thursday night so this morning when he got up he went to the store and bought Tylenol. Took the Tylenol and his headache completely resolved. This evening about an hour prior headache returned and was worse. It is now throbbing and behind the right eye. Complains of tinnitus but that is chronic and old. Also complains of bilateral upper extremity tingling and numbness but that is also old. He denies any visual disturbance. He does have photophobia. He does have nausea but no vomiting. He has had no fever or URI symptoms. He is a smoker and when he coughs the headache is worse. He does feel some discomfort in the neck. He denies any trauma. He has had headaches similar to this, just not as severe. Related Data Home Medications Medication Instructions Recorded Confirmed hydroxyzine HCl 25 mg PO QID PRN #100 tab-cap 09/01/17 04/27/18 topiramate 100 mg PO BID #360 tab-cap 09/01/17 04/27/18 amlodipine [Norvasc] 10 mg PO DAILY #90 tab 12/28/17 04/01/18 atorvastatin 40 mg PO DAILY #90 tab-cap 12/28/17 04/01/18 clopidogrel 75 mg PO DAILY #90 tab 12/28/17 04/27/18 fluticasone 50 mcg NS BID #1 inh NS 12/28/17 04/27/18 labetalol 200 mg PO See Instructions #135 12/28/17 04/27/18 tab-cap meclizine 25 mg PO QID PRN #100 tab-cap 12/28/17 04/27/18 ranitidine HCl 150 mg PO BID #180 tab-cap 12/28/17 04/27/18 bupropion HCl XL 150 mg 24 hr 150 mg PO QAM #90 tab 18 04/27/18 tablet, extended release Cannabidiol 1 drp PO BID PRN 03/17/18 04/27/18 ipratropium bromide 42 mcg (0.06 2 spray KALEE HS #1 inh 03/31/18 04/27/18 %) nasal spray Previous Rx's Medication Instructions Recorded topiramate 100 mg PO BID #360 tab-cap 09/01/17 amlodipine [Norvasc] 10 mg PO DAILY #90 tab 12/28/17 atorvastatin 40 mg PO DAILY #90 tab-cap 12/28/17 clopidogrel 75 mg PO DAILY #90 tab 12/28/17 fluticasone 50 mcg NS BID #1 inh NS 12/28/17 labetalol 200 mg PO See Instructions #135 12/28/17 tab-cap ranitidine HCl 150 mg PO BID #180 tab-cap 12/28/17 bupropion HCl XL 150 mg 24 hr 150 mg PO QAM #90 tab 02/10/18 tablet, extended release ipratropium bromide 42 mcg (0.06 2 spray KALEE HS #1 inh 03/31/18 %) nasal spray Allergies Allergy/AdvReac Type Severity Reaction Status Date / Time No Known Allergies Allergy Verified 03/31/18 10:52 General Stated Complaint: Headache EDMUND: 2 Review of Systems Constitutional Denies chills, Denies fever(s) and Reports headache(s) Eyes Denies change in vision, Denies loss of vision, Denies eye pain and Reports photophobia ENT Denies vertigo, Denies otalgia, Reports headache(s), Denies nasal congestion, Reports neck pain, Denies sinus pain and Denies sore throat Cardiovascular Denies chest pain and Denies dyspnea Respiratory Reports cough (smoker's cough) and Denies dyspnea Gastrointestinal Denies abdominal pain, Denies diarrhea, Reports nausea and Denies vomiting Musculoskeletal Denies back pain, Denies arthralgias, Reports neck pain, Denies numbness and Reports tingling Integumentary/Breasts Denies rash Neurologic Denies abnormal speech, Denies confusion, Denies vertigo, Reports headache(s), Denies loss of vision, Denies numbness, Denies other visual disturbances, Denies sensory deficit and Reports tingling Psychiatric Denies confusion [facility] Anxiety (Chronic) Borderline diabetes (Chronic) CVA (cerebral vascular accident) (Chronic) HTN (hypertension) (Chronic) Hypercholesterolemia (Chronic) CHINO (obstructive sleep apnea) (Chronic) Deafness Family History Mother Essential hypertension Family History Mother Essential hypertension Medical History Anxiety (Chronic) Borderline diabetes (Chronic) CVA (cerebral vascular accident) (Chronic) HTN (hypertension) (Chronic) Hypercholesterolemia (Chronic) CHINO (obstructive sleep apnea) (Chronic) Deafness Social History household members: none housing: apartment lives independently: Yes number of children: 3 number of grandchildren: 2 current occupational status: employed and disabled 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 [employer] Smoking/Tobacco Use Status: Current every day alcohol intake: never seatbelt use: always working smoke detector in home: Yes fire extinguisher in home: Yes carbon monox detector in home: Yes Social History household members: none housing: apartment lives independently: Yes number of children: 3 number of grandchildren: 2 current occupational status: employed and disabled 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 [employer] Smoking/Tobacco Use Status: Current every day alcohol intake: never seatbelt use: always working smoke detector in home: Yes fire extinguisher in home: Yes carbon monox detector in home: Yes Exam Const General: cooperative, comfortable and no acute distress Orientation: alert and oriented x3 HENMT Head: normal to inspection, normocephalic, atraumatic and no temporal artery tenderness Face and sinus: normal facial exam and sinuses nontender Mouth: oropharynx normal and moist mucous membranes Throat: posterior oropharynx normal Eyes Pupils: PERRL EOM: EOM intact bilaterally Neck Neck: normal visual inspection, no meningeal signs, trachea midline and supple Resp Effort & Inspection: normal respiratory effort Auscultation: clear to auscultation bilaterally Cardio Rate: regular rate Rhythm: regular rhythm Heart Sounds: S1 normal and S2 normal Pulses: radial pulses present GI Palpation: soft, not firm, no guarding and nontender Skin General skin exam: no rashes or lesions noted Neuro General: alert, oriented x3, no focal motor deficits, CN's II-XI intact bilaterally and not confused Sensory Exam: no sensory deficits noted (has sensation in UE but complains decreased - old) Extrem General: normal to inspection, full ROM and no clubbing, cyanosis or edema Course Vital Signs Temperature 97.9 F 04/27/18 20:07 Pulse 90 04/27/18 20:07 Respiratory Rate 16 04/27/18 20:07 Blood Pressure 180/97 H 04/27/18 20:07 Pulse Oximetry 99 04/27/18 20:07 Temperature 97.9 F 04/27/18 20:07 Temperature Source Skin 04/27/18 20:07 Pulse 90 04/27/18 20:07 Respiratory Rate 16 04/27/18 20:07 Respiratory Effort 04/27/18 20:17 Blood Pressure 180/97 H 04/27/18 20:07 Blood Pressure Position Sitting 04/27/18 20:07 Pulse Oximetry 99 04/27/18 20:07 Oxygen Delivery Method Room Air 04/27/18 20:07 Oxygen Flow Rate 0 04/27/18 20:07
[2018-04-27 21:19] LABS: Absolute Lymphocyte Count 3.72 k/cumm (1.2-3.4); Absolute Monocyte Count 0.92 k/cumm (0.11-0.7); Basophils % 0.9; Eosinophils % 2.7; HCT 45.5 % (40.0-50.0); HGB 15.4 g/dL (13.5-17.5); Immature Grans % 0.9; Mean Corp. HGB Concentration 33.8 g/dL (32.0-36.0); Mean Corpuscular Hemoglobin 29.1 pg (27.0-33.0); Mean Corpuscular Volume 85.8 fL (80-95); Mean Platelet Volume 9.9 fL (8.0-11.0); Monocytes % 8.4; Neutrophils % 53.1; Platelet Count 365 x1000/uL (130-400); RBC Distribution Width 15.4 % (11.8-14.1); White Blood Cell Count 10.93 k/cumm (4.4-10.8)
[2018-04-27] MEDS: diphenhydrAMINE 50 MG/ML VIAL 25 MG IVP (21:24)
[2018-04-27] MEDS: Normal Saline Flush 10 ML SYR IVP (21:24)
[2018-04-27] MEDS: Normal Saline 1,000 ML 1000 ML IV (21:24)
[2018-04-27] MEDS: Metoclopramide 10 MG/2 ML VIAL IVP (21:25)
[2018-04-27 21:29] LABS: Anion Gap 10.4 mmol/L (3-11); BUN 10 mg/dL (7-18); CO2 27.6 mmol/L (21.0-32.0); CREATININE 1.16 mg/dL (0.70-1.30); Calcium 8.8 mg/dL (8.5-10.1); Chloride 101 mmol/L (98-107); Glucose 125 mg/dL (70-100); Potassium 3.9 mmol/L (3.5-5.1); Sodium 139 mmol/L (136-145)
--- NOTE | 2018-04-27 22:20 | DI.VRAD_ITS ---
EXAM: CT Head Without Intravenous Contrast EXAM DATE/TIME: 04/27/2018 9:05 PM CLINICAL HISTORY: 48 years old, male; Signs and symptoms; Other: Headache TECHNIQUE: Axial computed tomography images of the head/brain without intravenous contrast. All CT scans at this facility use at least one of these dose optimization techniques: automated exposure control; mA and/or kV adjustment per patient size (includes targeted exams where dose is matched to clinical indication); or iterative reconstruction. Coronal and sagittal reformatted images were created and reviewed. COMPARISON: CT HEAD WITHOUT CONTRAST 12/01/2014 10:53 PM FINDINGS: Brain: Unremarkable. No hemorrhage. No significant white matter disease. No edema. Ventricles: Unremarkable. No ventriculomegaly. Bones/joints: Unremarkable. No acute fracture. Sinuses: Unremarkable as visualized. No acute sinusitis. Mastoid air cells: Unremarkable as visualized. No mastoid effusion. Soft tissues: Unremarkable. IMPRESSION: 1. Unremarkable noncontrast CT of the brain. 2. If symptoms/signs persist, or if there is concern of an occult intracranial abnormality, then followup short interval CT or MRI would be recommended for further evaluation. Dictated and Authenticated by: Omkar Perez MD. Ordering:MARE MCRAE MD
[2018-04-27 22:55] LABS: ESR 9 MM/HR (0-15)
== END 2018-04-27 23:30 | disposition home or self-care (01) ==
LOC: ER 23:36
PROVIDERS: Emergency Provider Emergency Medicine; PCP Internal Medicine
DX: R51 Headache (principal); I10 Essential (primary) hypertension
CPT/HCPCS: 36415; 80048; 85652; 96361; 96374; 96375; 99284; 70450; 85025; J1200; J2765

== ENCOUNTER 2018-06-12 08:48 | Emergency (ER) | payer MEDICARE, SELFPAY ==
[2018-06-12 08:54] VITALS: BP 137/92; PULSE 95; RESP 18; TEMP 36.8; O2SAT 97
--- NOTE | 2018-06-12 09:03 | W.ED.GENAD ---
Discharge Plan Disposition Patient Disposition: HOME Condition: Stable Discharge Details Chief Complaint: RespSymp Clinical Impression: Cough, Bronchitis Primary Care Provider: Juliann Hicks ED Provider: Amarilys Calixto Home Meds and New Rx's Prescriptions: Continued Cannabidiol oil 1 drp PO BID PRN (Reason: anxiety) RF: 0 bupropion HCl 150 mg tablet extended release 24 hr 150 mg PO QAM Qty: 90 RF: 1 ipratropium bromide 42 mcg (0.06 %) spray,non-aerosol 2 spray KALEE HS Qty: 1 RF: 0 hydroxyzine HCl 25 MG tablet 25 mg PO QID PRNQty: 100 RF: 3 topiramate 50 MG tablet 100 mg PO BID Qty: 360 RF: 3 atorvastatin 40 MG tablet 40 mg PO DAILY Qty: 90 RF: 3 labetalol 200 MG tablet 200 mg PO See Instructions Qty: 135 RF: 2 clopidogrel 75 MG tablet 75 mg PO DAILY Qty: 90 RF: 2 meclizine 25 MG tablet 25 mg PO QID PRNQty: 100 RF: 2 amlodipine [Norvasc] 10 MG tablet 10 mg PO DAILY Qty: 90 RF: 2 fluticasone 16 GM spray,suspension 50 mcg NS BID Qty: 1 RF: 0 ranitidine HCl 150 MG tablet 150 mg PO BID Qty: 180 RF: 3 Discharge Instructions Instructions: Acute Bronchitis (ED), Acute Cough (ED) Additional Instructions: Take [id number] cough and cold medicine to help with your symptoms. Use the albuterol inhaler as needed and directed for shortness of breath. Attempt to quit smoking. Follow-up with your primary care doctor in 1 week for reevaluation. Return to the emergency department with any worsening or new concerning symptoms. Stand Alone Forms: Work Release Discharge Data Discharge Physician: Amarilys Cailxto Medical Decision Making 48yo M who is hearing loss, HTN, HLD, CVA, GERD who presents for cough with occasional yellow sputum, chest congestion, and shortness of breath since yesterday. Denies fever. States he has been eating and drinking normally. States received a flu shot this season. Patient is able to speak and understand and read lips. Vitals within normal limits. Afebrile. Patient appears nontoxic and in no acute distress. He is speaking in full sentences. Patient states he is mainly here for a work note. He has no wheezing so I do not see any indication for steroids. Patient offered chest x-ray but declines. As his symptoms have been present for 1 day, he has no fever and appears nontoxic, I do not see any indication for antibiotics but he was offered a prescription if his symptoms worsen and he declines. Patient was instructed to quit smoking. It was discussed that his symptoms are likely viral in nature but may turn bacterial, and to follow-up with his primary care doctor next week for reevaluation and to return here at any time if worse. HPI General Mode of arrival: ambulatory. Date/Time Provider Initiated Documentation: 06/12/18 09:02. Limitations to Documentation: no limitations. Information obtained by: patient. HPI Narrative: Pt is a 48yo M w/ a h/o deafness, HTN, HLD, CVA, GERD, Migraines who presents with c/o cough with occasional yellow sputum, chest congestion and shortness of breath since yesterday. Denies fever, recent antibiotics or steroids. States he received a flu shot this year. States he took NyQuil last night. 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 Related Data Home Medications Medication Instructions Recorded Confirmed hydroxyzine HCl 25 mg PO QID PRN #100 tab-cap 09/01/17 06/12/18 topiramate 100 mg PO BID #360 tab-cap 09/01/17 06/12/18 amlodipine [Norvasc] 10 mg PO DAILY #90 tab 12/28/17 06/12/18 atorvastatin 40 mg PO DAILY #90 tab-cap 12/28/17 06/12/18 clopidogrel 75 mg PO DAILY #90 tab 12/28/17 06/12/18 fluticasone 50 mcg NS BID #1 inh NS 12/28/17 06/12/18 labetalol 200 mg PO See Instructions #135 12/28/17 06/12/18 tab-cap meclizine 25 mg PO QID PRN #100 tab-cap 12/28/17 06/12/18 ranitidine HCl 150 mg PO BID #180 tab-cap 12/28/17 06/12/18 bupropion HCl XL 150 mg 24 hr 150 mg PO QAM #90 tab 02/10/18 06/12/18 tablet, extended release Cannabidiol 1 drp PO BID PRN 03/17/18 06/12/18 ipratropium bromide 42 mcg (0.06 2 spray KALEE HS #1 inh 03/31/18 06/12/18 %) nasal spray Previous Rx's Medication Instructions Recorded topiramate 100 mg PO BID #360 tab-cap 09/01/17 amlodipine [Norvasc] 10 mg PO DAILY #90 tab 12/28/17 atorvastatin 40 mg PO DAILY #90 tab-cap 12/28/17 clopidogrel 75 mg PO DAILY #90 tab 12/28/17 fluticasone 50 mcg NS BID #1 inh NS 12/28/17 labetalol 200 mg PO See Instructions #135 12/28/17 tab-cap ranitidine HCl 150 mg PO BID #180 tab-cap 12/28/17 bupropion HCl XL 150 mg 24 hr 150 mg PO QAM #90 tab 02/10/18 tablet, extended release ipratropium bromide 42 mcg (0.06 2 spray KALEE HS #1 inh 03/31/18 %) nasal spray Allergies Allergy/AdvReac Type Severity Reaction Status Date / Time No Known Allergies Allergy Verified 03/31/18 10:52 General Stated Complaint: RespSymp EDMUND: 3 Review of Systems Review of Systems All systems reviewed & are unremarkable except as noted in HPI and below Constitutional Reports as per HPI, Denies chills and Denies fever(s) Eyes Denies blurry vision ENT Denies dizziness, Denies sore throat and Denies throat swelling Cardiovascular Denies chest pain and Reports dyspnea Respiratory Reports chest congestion, Reports cough and Reports dyspnea Gastrointestinal Denies abdominal pain, Denies diarrhea and Denies vomiting Genitourinary Denies hematuria and Denies dysuria Musculoskeletal Denies back pain and Denies numbness Integumentary/Breasts Denies lesions and Denies rash Neurologic Denies dizziness and Denies numbness Allergic/Immunologic Denies throat swelling [facility], [facility]1983 Medical History Anxiety (Chronic) Borderline diabetes (Chronic) CVA (cerebral vascular accident) (Chronic) GERD (gastroesophageal reflux disease) (Chronic) HTN (hypertension) (Chronic) Hypercholesterolemia (Chronic) Migraine (Chronic) CHINO (obstructive sleep apnea) (Chronic) Deafness Family History Mother Essential hypertension Social History household members: none housing: apartment lives independently: Yes number of children: 3 number of grandchildren: 2 current occupational status: employed and disabled 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 [employer] Smoking/Tobacco Use Status: Current every day alcohol intake: never substance use type: does not use seatbelt use: always working smoke detector in home: Yes fire extinguisher in home: Yes carbon monox detector in home: Yes Exam Const General: cooperative and healthy appearing Orientation: alert and awake HENMT Head: normal to inspection Ears: hearing grossly normal bilaterally, external ears normal and TM's normal bilaterally General nose exam: external nose normal Face and sinus: normal facial exam and sinuses nontender Mouth: oral mucosae normal Teeth and gingiva: dentition normal Throat: posterior oropharynx normal Eyes General: appearance normal, both eyes and all related structures Eyelids: eyelids normal EOM: EOM intact bilaterally Neck Neck: normal visual inspection Lymphatic: no lymphadenopathy noted Chest Chest: normal inspection of the chest Resp Effort & Inspection: normal respiratory effort and able to speak in complete sentences Auscultation: clear to auscultation bilaterally Cardio Rate: regular rate Rhythm: regular rhythm GI Inspection: normal to inspection Palpation: soft, not firm, no guarding, no hepatosplenomegaly, no masses and nontender Auscultation: normal bowel sounds Skin General skin exam: no rashes or lesions noted Neuro General: alert and awake Cognition: normal cognition Speech: speech normal Gait: normal gait Motor: muscle tone normal throughout Sensory Exam: no sensory deficits noted Extrem General: normal to inspection, full ROM, normal capillary refill and no edema Psych Appearance: grossly normal Mental Status: mental status grossly normal Speech and Movement: speech and movement normal Affect: normal affect Thought Process: normal Course Vital Signs Temperature 98.2 F 06/12/18 08:54 Pulse 95 H 06/12/18 08:54 Respiratory Rate 18 06/12/18 08:54 Blood Pressure 137/92 H 06/12/18 08:54 Pulse Oximetry 97 06/12/18 08:54 Temperature 98.2 F 06/12/18 08:54 Temperature Source Temporal Artery Scan 06/12/18 08:54 Pulse 95 H 06/12/18 08:54 Respiratory Rate 18 06/12/18 08:54 Respiratory Effort 06/12/18 08:57 Blood Pressure 137/92 H 06/12/18 08:54 Blood Pressure Position Sitting 06/12/18 08:54 Pulse Oximetry 97 06/12/18 08:54 Oxygen Delivery Method Room Air 06/12/18 08:54 Oxygen Flow Rate 0 06/12/18 08:54
[2018-06-12] MEDS: Albuterol HFA 8 GM 60 PUFF INH IH (09:16)
== END 2018-06-12 09:18 | disposition home or self-care (01) ==
LOC: ER 09:17
PROVIDERS: Emergency Provider Physician Assistant; PCP Internal Medicine
DX: J20.9 Acute bronchitis, unspecified (principal); R06.02 Shortness of breath; I10 Essential (primary) hypertension; F17.210 Nicotine dependence, cigarettes, uncomplicated
CPT/HCPCS: 94640; 99283

== ENCOUNTER 2018-07-21 05:22 | Emergency (ER) | payer MEDICARE, SELFPAY ==
[2018-07-21 05:28] VITALS: BP 114/86; PULSE 79; RESP 18; TEMP 36; O2SAT 98
[2018-07-21 05:42] LABS: Bilirubin Negative (Negative); Blood Small (Negative); Clarity Clear; Glucose Negative (Negative); Ketones Negative (Negative); Leukocyte Esterase Negative (Negative); Nitrite Negative (Negative); Urobilinogen 0.2 EU/dL (Up TO 0.2)
[2018-07-21 05:48] LABS: Bacteria Rare HPF (Negative); C & S Indicated? No; Casts Negative LPF (Negative); Crystals Negative HPF (Negative); Epithelial Cells Negative HPF (Negative); Mucus Negative (Negative); WBC 0-2 HPF (0-5)
[2018-07-21] MEDS: Ibuprofen 600 MG TAB PO (05:53)
--- NOTE | 2018-07-21 06:02 | W.ED.GENAD ---
Discharge Plan Disposition Patient Disposition: HOME Condition: Improving Discharge Details Chief Complaint: FlankPain Clinical Impression: Low back pain Primary Care Provider: Juliann Hicks ED Provider: Adolfo Clark Home Meds and New Rx's Prescriptions: No Action Cannabidiol oil 1 drp PO BID PRN (Reason: anxiety) RF: 0 bupropion HCl 150 mg tablet extended release 24 hr 150 mg PO QAM Qty: 90 RF: 1 ipratropium bromide 42 mcg (0.06 %) spray,non-aerosol 2 spray KALEE HS Qty: 1 RF: 0 albuterol sulfate 90 mcg/actuation HFA aerosol inhaler 2 puff IH QID PRN (Reason: shortness of breath or wheezing) RF: 0 topiramate 50 MG tablet 100 mg PO BID Qty: 360 RF: 3 atorvastatin 40 MG tablet 40 mg PO DAILY Qty: 90 RF: 3 labetalol 200 MG tablet 200 mg PO See Instructions Qty: 135 RF: 2 clopidogrel 75 MG tablet 75 mg PO DAILY Qty: 90 RF: 2 meclizine 25 MG tablet 25 mg PO QID PRNQty: 100 RF: 2 amlodipine [Norvasc] 10 MG tablet 10 mg PO DAILY Qty: 90 RF: 2 fluticasone 16 GM spray,suspension 50 mcg NS BID Qty: 1 RF: 0 ranitidine HCl 150 MG tablet 150 mg PO BID Qty: 180 RF: 3 Discharge Instructions Instructions: Low Back Strain (ED) Additional Instructions: 1. Drink plenty of fluids. 2. Continue all medications as prescribed. 3. Acetaminophen 1000mg every 4 hours (up to 5 time a day) pain. 4. Ice sore areas frequently. Activity as tolerated Return to the Emergency Department (ED) if your condition worsens, does not improve as expected, or for ANY other concerns. Specifically, return if you have new or uncontrolled pain, worsening fever, difficulty breathing, vomiting, or are unable to drink fluids. Medical Decision Making 48-year-old gentleman with history of GERD, migraine headaches, hypertension and anxiety who presents with progressive low back pain. Pain localized to the lower lumbar region/sacroiliac joints and worse with positional change and direct palpation. Exam significant for a low lumbar and paraspinal tenderness which reproduces subjective pain. Bedside renal ultrasound negative for evidence of acute hydronephrosis or UVJ stone. Patient clinically improved after receiving OTC analgesia. He is chronically on clopidogrel and was discharged with plan for regular acetaminophen and outpatient follow-up as needed. Pt evaluated immediately prior to discharge with improved symptoms, normal vital signs, and tolerating PO. The patient feels appropriate for discharge home. Discussed clinical/diagnostic findings. Discharged with a clear plan for outpatient follow up. Given usual and customary return instructions prior to discharge. Medical Records Medical records reviewed: Yes I reviewed the patient's medical records. Imaging Data Radiologic Study: Attestation: I personally reviewed and interpreted this imaging study as follows: Imaging: Ultrasound (Bedside renal) My impression: Limited renal bedside Ultrasound. Findings include no significant bilateral hydronephrosis, hydroureter, or UVJ stone appreciated. Images obtained, reviewed, and interpreted independently by myself. Images saved on ultrasound system for review. Lab Data Lab results reviewed: Yes I reviewed the patient's lab results. Lab results narrative: UA with trace blood HPI General Date/Time Provider Initiated Documentation: 07/21/18 05:34. Related Data Home Medications Medication Instructions Recorded Confirmed topiramate 100 mg PO BID #360 tab-cap 09/01/17 07/21/18 amlodipine [Norvasc] 10 mg PO DAILY #90 tab 12/28/17 07/21/18 atorvastatin 40 mg PO DAILY #90 tab-cap 12/28/17 07/21/18 clopidogrel 75 mg PO DAILY #90 tab 12/28/17 07/21/18 fluticasone 50 mcg NS BID #1 inh NS 12/28/17 07/21/18 labetalol 200 mg PO See Instructions #135 12/28/17 07/21/18 tab-cap meclizine 25 mg PO QID PRN #100 tab-cap 12/28/17 07/21/18 ranitidine HCl 150 mg PO BID #180 tab-cap 12/28/17 07/21/18 bupropion HCl XL 150 mg 24 hr 150 mg PO QAM #90 tab 02/10/18 07/21/18 tablet, extended release Cannabidiol 1 drp PO BID PRN 03/17/18 07/21/18 ipratropium bromide 42 mcg (0.06 2 spray KALEE HS #1 inh 03/31/18 07/21/18 %) nasal spray albuterol sulfate HFA 90 2 puff IH QID PRN 06/15/18 07/21/18 mcg/actuation aerosol inhaler Previous Rx's Medication Instructions Recorded topiramate 100 mg PO BID #360 tab-cap 09/01/17 amlodipine [Norvasc] 10 mg PO DAILY #90 tab 12/28/17 atorvastatin 40 mg PO DAILY #90 tab-cap 12/28/17 clopidogrel 75 mg PO DAILY #90 tab 12/28/17 fluticasone 50 mcg NS BID #1 inh NS 12/28/17 labetalol 200 mg PO See Instructions #135 12/28/17 tab-cap ranitidine HCl 150 mg PO BID #180 tab-cap 12/28/17 bupropion HCl XL 150 mg 24 hr 150 mg PO QAM #90 tab 02/10/18 tablet, extended release ipratropium bromide 42 mcg (0.06 2 spray KALEE HS #1 inh 03/31/18 %) nasal spray Allergies Allergy/AdvReac Type Severity Reaction Status Date / Time No Known Allergies Allergy Verified 06/15/18 15:36 General Stated Complaint: FlankPain EDMUND: 3 Review of Systems Review of Systems All systems are reviewed and are unremarkable except as noted in HPI and below: CONSTITUTIONAL: no fevers/chills, no weakness or change in appetite EYES: no change in vision HEENT: no throat pain or difficulty swallowing; no neck pain CARDIOVASCULAR: no chest pain, palpitations, leg swelling, or diaphoresis RESPIRATORY: no cough, dyspnea, wheezing GASTROINTESTINAL: no abdominal pain, melena, nausea/emesis GENITOURINARY: Dysuria and urinary urgency, flank pain, MUSCULOSKELETAL: Bilateral low back pain, myalgias, arthralgias INTEGUMENTARY: no rash, no wounds NEUROLOGIC: no headache, focal weakness, difficulty with speech, numbness PSYCHIATRIC: no confusion, no anxiety HEME: no easy bruising or bleeding ALLERGIC: no urticaria PFSH Medical History Anxiety (Chronic) Borderline diabetes (Chronic) CVA (cerebral vascular accident) (Chronic) GERD (gastroesophageal reflux disease) (Chronic) HTN (hypertension) (Chronic) Hypercholesterolemia (Chronic) Migraine (Chronic) CHINO (obstructive sleep apnea) (Chronic) Deafness Social History household members: none housing: apartment lives independently: Yes number of children: 3 number of grandchildren: 2 highest education level completed: high school graduate current occupational status: employed and disabled 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 GENERAL: alert, active, no acute distress, well -hydrated, well-nourished HEENT: atraumatic/normocephalic, PERRLA, EOMI, conjunctiva clear, external ears/canals normal, nasal mucosa normal NECK: supple, full range of motion, no mass, normal lymphadenopathy, no thyromegaly CARDIOVASCULAR: RRR, no murmurs, nl pulses, no edema PULMONARY: nl effort, no audible wheezing or stridor, nl breath sounds with no focal deficit. no chest wall tenderness ABDOMEN: soft, non-tender, non-distended, no mass, no organomegaly EXTREMITY: normal muscle tone, all joints with FROM, no deformity or tenderness SKIN: no exanthem appreciated NEURO: gross motor exam normal, normal stance and gait PSYCH: alert and oriented, BACK: Mild low lumbar and bilateral para spinal tenderness which reproduces subjective pain. No erythema, ecchymosis, or soft tissue swelling. Course Vital Signs Temperature 96.8 F L 07/21/18 05:28 Pulse 79 07/21/18 05:28 Respiratory Rate 18 07/21/18 05:28 Blood Pressure 114/86 07/21/18 05:28 Pulse Oximetry 98 07/21/18 05:28 Temperature 96.8 F L 07/21/18 05:28 Temperature Source Temporal Artery Scan 07/21/18 05:28 Pulse 79 07/21/18 05:28 Respiratory Rate 18 07/21/18 05:28 Respiratory Effort 07/21/18 05:28 Blood Pressure 114/86 07/21/18 05:28 Blood Pressure Position Sitting 07/21/18 05:28 Pulse Oximetry 98 07/21/18 05:28 Oxygen Delivery Method Room Air 07/21/18 05:28 Oxygen Flow Rate 0 07/21/18 05:28 Pain Level 8 07/21/18 05:59 Lab/Test Results Lab/Test Results: Laboratory Tests Range/Units 07/21/18 05:36 Urine Color (Yellow) Yellow Urine Clarity Clear Urine pH (5-8) 6.0 Ur Specific [place] (1.005-1.025) 1.020 Urine Protein (Negative) mg/dL Negative Urine Ketones (Negative) mg/dL Negative Urine Blood (Negative) Small H Urine Nitrite (Negative) Negative Urine Bilirubin (Negative) Negative Urine Urobilinogen (Up TO 0.2) EU/dL 0.2 Ur Leukocyte Esterase (Negative) Negative Urine RBC (0-2) 5-10 H Urine WBC (0-5) HPF 0-2 Ur Epithelial Cells (Negative) HPF Negative Urine Crystals (Negative) HPF Negative Urine Bacteria (Negative) HPF Rare Urine Casts (Negative) LPF Negative Urine Mucus (Negative) Negative Ur Culture Indicated? No Urine Glucose (Negative) mg/dL Negative
== END 2018-07-21 06:50 | disposition home or self-care (01) ==
PROVIDERS: Emergency Provider Emergency Medicine; PCP Internal Medicine
DX: M54.5 Low back pain (principal); I10 Essential (primary) hypertension
CPT/HCPCS: 99284; 81003; 81015

== ENCOUNTER 2018-08-14 20:07 | Emergency (ER) | payer MEDICARE, SELFPAY ==
[2018-08-14 20:10] VITALS: BP 130/88; PULSE 96; RESP 16; TEMP 36.8; O2SAT 100
[2018-08-14 20:30] LABS: Bilirubin Negative (Negative); Blood Trace-intact (Negative); Clarity Clear; Glucose 100 mg/dL (Negative); Ketones Negative (Negative); Leukocyte Esterase Negative (Negative); Nitrite Negative (Negative); Urobilinogen 0.2 EU/dL (Up TO 0.2)
--- NOTE | 2018-08-14 20:32 | W.ED.GENAD ---
Discharge Plan Disposition Patient Disposition: HOME Condition: Good Discharge Details Chief Complaint: Dizzy/Sync Clinical Impression: Vertigo, Dehydration Primary Care Provider: Juliann Hicks ED Provider: Jeffry Marin Home Meds and New Rx's Prescriptions: No Action Cannabidiol oil 1 drp PO BID PRN (Reason: anxiety) RF: 0 acetaminophen 500 mg capsule 1,000 mg PO Q4H PRNRF: 0 cyclobenzaprine 10 mg tablet 10 mg PO TID PRN (Reason: muscle spasm) Qty: 14 RF: 0 ipratropium bromide 42 mcg (0.06 %) spray,non-aerosol 2 spray KALEE HS Qty: 1 RF: 0 albuterol sulfate 90 mcg/actuation HFA aerosol inhaler 2 puff IH QID PRN (Reason: shortness of breath or wheezing) RF: 0 topiramate 50 MG tablet 100 mg PO BID Qty: 360 RF: 3 atorvastatin 40 MG tablet 40 mg PO DAILY Qty: 90 RF: 3 labetalol 200 MG tablet 200 mg PO See Instructions Qty: 135 RF: 2 clopidogrel 75 MG tablet 75 mg PO DAILY Qty: 90 RF: 2 meclizine 25 MG tablet 25 mg PO QID PRNQty: 100 RF: 2 amlodipine [Norvasc] 10 MG tablet 10 mg PO DAILY Qty: 90 RF: 2 fluticasone propionate 16 GM spray,suspension 50 mcg NS BID Qty: 1 RF: 0 ranitidine HCl 150 MG tablet 150 mg PO BID Qty: 180 RF: 3 Discharge Instructions Instructions: Dehydration (ED), Vertigo (ED) Additional Instructions: Please drink 10-12 cups of water per day. Please continue to take your meclizine. Please eliminate carbs, bread, pasta, and sugars from your diet to help with your blood sugars. Please follow-up at your scheduled appointment with your primary care provider next week. If you notice any worsening of your symptoms, or any new symptoms such as vomiting, diarrhea, fever, chills, shortness of breath, chest pain, numbness, weakness, or fainting , please return immediately to the emergency department for reevaluation. Please follow up with your primary care provider as soon as possible for reassessment and reevaluation. As always, it was a pleasure participating in your medical care today. Referrals: Juliann Hicks MD [Primary Care Provider] - Medical Decision Making This is a pleasant 48-year-old male who presents for evaluation of mild dizziness which is improved with meclizine, as well as elevated blood sugar that he noted at home. He has a history of vertigo, and he states that his current dizziness is similar to his previous episodes. He has taken meclizine and is feeling much better after this. Does admit to not drinking much at all today, and feels that this is most likely the cause of his symptoms. Mucous membranes are slightly dry. Physical exam demonstrates minimal horizontal nystagmus, the patient ambulates very well, he shows no signs of a central event on neurologic exam or physical exam. No signs of trauma, no history of actual syncope. He denies any chest pain, the other complaint. His initial blood sugar at home per the patient was 250, but here it is 199-200. Patient is been eating regularly. With a currently benign blood sugar, he benign physical exam, and a negative EKG for a significant abnormality I feel he can be safely discharged home. I feel signs and symptoms are consistent with his chronic vertigo, improved with meclizine. Recommend continued hydration at home, avoidance of carb foods, sugary foods, and close follow-up with his primary care provider at his already scheduled appointment later this week for further evaluation of diabetes. Discussed red flags for which to return the patient understand. I have extensively reviewed the treatment plan and discharge instructions with the patient. I have addressed all patient concerns at this time. The patient was made aware of what symptoms to monitor for that would warrant a return to the emergency department. Discussed the plan with the patient, they demonstrate verbal understanding and agreement with our assessment and plan at this time. EKG 20: 18 Rate 89, intervals normal, normal sinus rhythm, no significant ST elevations or depressions, single inverted T wave in V1. Questionable Q wave in lead III and II. These findings were consistent on prior EKG on 12/23/17 [facility] General Date/Time Provider Initiated Documentation: 08/14/18 20:18. HPI Narrative: This is a 48-year-old male with past medical history of asthma, vertigo, high cholesterol, who has been checking his home glucose levels and his close follow-up scheduled with his PCP later this week for further evaluation of potential diabetes. Patient presents today for evaluation of dizziness. He did not think, pass out, or lose consciousness. Patient states that since noon he has been having mild room spinning sensation consistent with his chronic history of vertigo. He did take meclizine at home and this notably improved his symptoms. He feels that his symptoms are most likely secondary to not drinking much at all today, which is been a cause in the past. He denies any headache, chest pain, shortness of breath. He also did notice that his blood sugar was up on home Accu-Chek test, was 250 at home. Here in the ER his blood sugar is 200 on Accu-Chek. Patient denies any other complaints. Denies any numbness tingling or weakness. Of note he does admit to chronic left eye blurry vision and chronic left hand tremor. He denies any acute change in this. Other complaints at this time, no other modifying factors Related Data Home Medications Medication Instructions Recorded Confirmed topiramate 100 mg PO BID #360 tab-cap 09/01/17 07/21/18 amlodipine [Norvasc] 10 mg PO DAILY #90 tab 12/28/17 07/21/18 atorvastatin 40 mg PO DAILY #90 tab-cap 12/28/17 07/21/18 clopidogrel 75 mg PO DAILY #90 tab 12/28/17 07/21/18 fluticasone propionate 50 mcg NS BID #1 inh NS 12/28/17 07/21/18 labetalol 200 mg PO See Instructions #135 12/28/17 07/21/18 tab-cap meclizine 25 mg PO QID PRN #100 tab-cap 12/28/17 07/21/18 ranitidine HCl 150 mg PO BID #180 tab-cap 12/28/17 07/21/18 Cannabidiol 1 drp PO BID PRN 03/17/18 07/21/18 ipratropium bromide 42 mcg (0.06 2 spray KALEE HS #1 inh 03/31/18 07/21/18 %) nasal spray albuterol sulfate HFA 90 2 puff IH QID PRN 06/15/18 07/21/18 mcg/actuation aerosol inhaler acetaminophen 500 mg capsule 1,000 mg PO Q4H PRN cap 07/21/18 07/21/18 cyclobenzaprine 10 mg tablet 10 mg PO TID PRN #14 tab-cap 07/21/18 07/21/18 Previous Rx's Medication Instructions Recorded topiramate 100 mg PO BID #360 tab-cap 09/01/17 amlodipine [Norvasc] 10 mg PO DAILY #90 tab 12/28/17 atorvastatin 40 mg PO DAILY #90 tab-cap 12/28/17 clopidogrel 75 mg PO DAILY #90 tab 12/28/17 fluticasone propionate 50 mcg NS BID #1 inh NS 12/28/17 labetalol 200 mg PO See Instructions #135 12/28/17 tab-cap ranitidine HCl 150 mg PO BID #180 tab-cap 12/28/17 ipratropium bromide 42 mcg (0.06 2 spray KALEE HS #1 inh 03/31/18 %) nasal spray cyclobenzaprine 10 mg tablet 10 mg PO TID PRN #14 tab-cap 07/21/18 Allergies Allergy/AdvReac Type Severity Reaction Status Date / Time No Known Allergies Allergy Verified 07/21/18 13:51 General Stated Complaint: Dizzy/Sync EDMUND: 3 Review of Systems Review of Systems All systems reviewed & are unremarkable except as noted in HPI and below PFSH Social History Smoking/Tobacco Use Status: Current every day Alcohol Intake: never Drug use: Never Substance use type: does not use Household members: none Housing: apartment Number of Children: 3 number of grandchildren: 2 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 3.ENT: Atraumatic external nose and ears. Dry MM. Neck: Symmetric, trachea midline, No thyromegaly. 4.CVS: +S1/S2, No murmurs or gallops. Peripheral pulses 2+ and equal in all extremities. Brisk capillary refill in all extremities. 5.RESP: Unlabored respiratory effort. Clear to auscultation bilaterally. No wheezes rales or rhonchi 6.GI: Soft, Nontender/Nondistended, No hepatosplenomegaly. No guarding or rebound. 7.MSK: Normocephalic/Atraumatic, Extremities w/o deformity or ttp No cyanosis or clubbing, Normal movement of all extremities. Minimal tremor in left hand. Patient states that this is chronic. 8.Skin: Warm, Dry. No rashes or lesions. 9.Neuro: co founder and ceo II-XII grossly intact. Sensation grossly intact, no focal neurologic deficits. All 6 cardinal planes of vision are fully intact. No evidence of rotatory or vertical nystagmus. The patient demonstrated a normal [id number], good dexterity. There was no evidence of dysdiadochokinesia. Patient was able to ambulate without difficulty. There was no wide-based gait. [place], and [id number] are both normal on testing. Sensation was intact bilaterally as well as muscle strength bilaterally for all extremities. Patient was able to verbalize butter cup with no slurring, or miss pronunciation. Cerebellar function testing is normal. The patient demonstrates a normal hints exam with no findings concerning for a central event. No vertical nystagmus. He does have minimal horizontal nystagmus. The head impulse test is negative for any significant central abnormality. Normal test of skew. No suggestion of a central cerebellar event. 10.Psych: (AAO) x3. Appropriate mood and affect Course Vital Signs Temperature 36.8 C 08/14/18 20:10 Pulse 96 H 08/14/18 20:10 Respiratory Rate 16 08/14/18 20:10 Blood Pressure 130/88 08/14/18 20:10 Pulse Oximetry 100 08/14/18 20:10 Temperature 36.8 C 08/14/18 20:10 Temperature Source Temporal Artery Scan 08/14/18 20:10 Pulse 96 H 08/14/18 20:10 Respiratory Rate 16 08/14/18 20:10 Blood Pressure 130/88 08/14/18 20:10 Blood Pressure Position Sitting 08/14/18 20:10 Pulse Oximetry 100 08/14/18 20:10 Oxygen Delivery Method Room Air 08/14/18 20:10 Oxygen Flow Rate 0 08/14/18 20:10 Pain Level 0 08/14/18 20:10
[2018-08-14 20:34] VITALS: RESP 16
--- NOTE | 2018-08-14 20:38 | ED.GENADUL_ITS ---
Discharge Plan Disposition Patient Disposition: HOME Condition: Good Discharge Details Chief Complaint: Dizzy/Sync Clinical Impression: Vertigo, Dehydration Primary Care Provider: Juliann Hicks ED Provider: Jeffry Marin Home Meds and New Rx's Prescriptions: No Action Cannabidiol oil 1 drp PO BID PRN (Reason: anxiety) RF: 0 acetaminophen 500 mg capsule 1,000 mg PO Q4H PRNRF: 0 cyclobenzaprine 10 mg tablet 10 mg PO TID PRN (Reason: muscle spasm) Qty: 14 RF: 0 ipratropium bromide 42 mcg (0.06 %) spray,non-aerosol 2 spray KALEE HS Qty: 1 RF: 0 albuterol sulfate 90 mcg/actuation HFA aerosol inhaler 2 puff IH QID PRN (Reason: shortness of breath or wheezing) RF: 0 topiramate 50 MG tablet 100 mg PO BID Qty: 360 RF: 3 atorvastatin 40 MG tablet 40 mg PO DAILY Qty: 90 RF: 3 labetalol 200 MG tablet 200 mg PO See Instructions Qty: 135 RF: 2 clopidogrel 75 MG tablet 75 mg PO DAILY Qty: 90 RF: 2 meclizine 25 MG tablet 25 mg PO QID PRNQty: 100 RF: 2 amlodipine [Norvasc] 10 MG tablet 10 mg PO DAILY Qty: 90 RF: 2 fluticasone propionate 16 GM spray,suspension 50 mcg NS BID Qty: 1 RF: 0 ranitidine HCl 150 MG tablet 150 mg PO BID Qty: 180 RF: 3 Discharge Instructions Instructions: Dehydration (ED), Vertigo (ED) Additional Instructions: Please drink 10-12 cups of water per day. Please continue to take your meclizine. Please eliminate carbs, bread, pasta, and sugars from your diet to help with your blood sugars. Please follow-up at your scheduled appointment with your primary care provider next week. If you notice any worsening of your symptoms, or any new symptoms such as vomiting, diarrhea, fever, chills, shortness of breath, chest pain, numbness, weakness, or fainting , please return immediately to the emergency department for reevaluation. Please follow up with your primary care provider as soon as possible for reassessment and reevaluation. As always, it was a pleasure participating in your medical care today. Referrals: Juliann Hicks MD [Primary Care Provider] - Medical Decision Making This is a pleasant 48-year-old male who presents for evaluation of mild dizziness which is improved with meclizine, as well as elevated blood sugar that he noted at home. He has a history of vertigo, and he states that his current dizziness is similar to his previous episodes. He has taken meclizine and is feeling much better after this. Does admit to not drinking much at all today, and feels that this is most likely the cause of his symptoms. Mucous membranes are slightly dry. Physical exam demonstrates minimal horizontal nystagmus, the patient ambulates very well, he shows no signs of a central event on neurologic exam or physical exam. No signs of trauma, no history of actual syncope. He denies any chest pain, the other complaint. His initial blood sugar at home per the patient was 250, but here it is 199-200. Patient is been eating regularly. With a currently benign blood sugar, he benign physical exam, and a negative EKG for a significant abnormality I feel he can be safely discharged home. I feel signs and symptoms are consistent with his chronic vertigo, improved with meclizine. Recommend continued hydration at home, avoidance of carb foods, sugary foods, and close follow-up with his primary care provider at his already scheduled appointment later this week for further evaluation of diabetes. Discussed red flags for which to return the patient understand. I have extensively reviewed the treatment plan and discharge instructions with the patient. I have addressed all patient concerns at this time. The patient was made aware of what symptoms to monitor for that would warrant a return to the emergency department. Discussed the plan with the patient, they demonstrate verbal understanding and agreement with our assessment and plan at this time. EKG 20: 18 Rate 89, intervals normal, normal sinus rhythm, no significant ST elevations or depressions, single inverted T wave in V1. Questionable Q wave in lead III and II. These findings were consistent on prior EKG on 12/23/17 [facility] General Date/Time Provider Initiated Documentation: 08/14/18 20:18 . HPI Narrative: This is a 48-year-old male with past medical history of asthma, vertigo, high cholesterol, who has been checking his home glucose levels and his close follow-up scheduled with his PCP later this week for further evaluation of potential diabetes. Patient presents today for evaluation of dizziness. He did not think, pass out, or lose consciousness. Patient states that since noon he has been having mild room spinning sensation consistent with his chronic history of vertigo. He did take meclizine at home and this notably improved his symptoms. He feels that his symptoms are most likely secondary to not drinking much at all today, which is been a cause in the past. He denies any headache, chest pain, shortness of breath. He also did notice that his blood sugar was up on home Accu-Chek test, was 250 at home. Here in the ER his blood sugar is 200 on Accu-Chek. Patient denies any other complaints. Denies any numbness tingling or weakness. Of note he does admit to chronic left eye blurry vision and chronic left hand tremor. He denies any acute change in this. Other complaints at this time, no other modifying factors Related Data Home Medications Medication Instructions Recorded Confirmed topiramate 100 mg PO BID #360 tab-cap 09/01/17 07/21/18 amlodipine [Norvasc] 10 mg PO DAILY #90 tab 12/28/17 07/21/18 atorvastatin 40 mg PO DAILY #90 tab-cap 12/28/17 07/21/18 clopidogrel 75 mg PO DAILY #90 tab 12/28/17 07/21/18 fluticasone propionate 50 mcg NS BID #1 inh NS 12/28/17 07/21/18 labetalol 200 mg PO See Instructions #135 12/28/17 07/21/18 tab-cap meclizine 25 mg PO QID PRN #100 tab-cap 12/28/17 07/21/18 ranitidine HCl 150 mg PO BID #180 tab-cap 12/28/17 07/21/18 Cannabidiol 1 drp PO BID PRN 03/17/18 07/21/18 ipratropium bromide 42 mcg (0.06 2 spray KALEE HS #1 inh 03/31/18 07/21/18 %) nasal spray albuterol sulfate HFA 90 2 puff IH QID PRN 06/15/18 07/21/18 mcg/actuation aerosol inhaler acetaminophen 500 mg capsule 1,000 mg PO Q4H PRN cap 07/21/18 07/21/18 cyclobenzaprine 10 mg tablet 10 mg PO TID PRN #14 tab-cap 07/21/18 07/21/18 Previous Rx's Medication Instructions Recorded topiramate 100 mg PO BID #360 tab-cap 09/01/17 amlodipine [Norvasc] 10 mg PO DAILY #90 tab 12/28/17 atorvastatin 40 mg PO DAILY #90 tab-cap 12/28/17 clopidogrel 75 mg PO DAILY #90 tab 12/28/17 fluticasone propionate 50 mcg NS BID #1 inh NS 12/28/17 labetalol 200 mg PO See Instructions #135 12/28/17 tab-cap ranitidine HCl 150 mg PO BID #180 tab-cap 12/28/17 ipratropium bromide 42 mcg (0.06 2 spray KALEE HS #1 inh 03/31/18 %) nasal spray cyclobenzaprine 10 mg tablet 10 mg PO TID PRN #14 tab-cap 07/21/18 Allergies Allergy/AdvReac Type Severity Reaction Status Date / Time No Known Allergies Allergy Verified 07/21/18 13:51 General Stated Complaint: Dizzy/Sync EDMUND: 3 Review of Systems Review of Systems All systems reviewed & are unremarkable except as noted in HPI and below PFSH Social History Smoking/Tobacco Use Status: Current every day Alcohol Intake: never Drug use: Never Substance use type: does not use Household members: none Housing: apartment Number of Children: 3 number of grandchildren: 2 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 3.ENT: Atraumatic external nose and ears. Dry MM. Neck: Symmetric, trachea midline, No thyromegaly. 4.CVS: +S1/S2, No murmurs or gallops. Peripheral pulses 2+ and equal in all ex tremities. Brisk capillary refill in all extremities. 5.RESP: Unlabored respiratory effort. Clear to auscultation bilaterally. No wheezes rales or rhonchi 6.GI: Soft, Nontender/Nondistended, No hepatosplenomegaly. No guarding or rebound. 7.MSK: Normocephalic/Atraumatic, Extremities w/o deformity or ttp No cyanosis or clubbing, Normal movement of all extremities. Minimal tremor in left hand. Patient states that this is chronic. 8.Skin: Warm, Dry. No rashes or lesions. 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 Sensation grossly intact, no focal neurologic deficits. All 6 cardinal planes of vision are fully intact. No evidence of rotatory or vertical nystagmus. The patient demonstrated a normal ucilav-[id number], good dexterity. There was no evidence of dysdiadochokinesia. Patient was able to ambulate without difficulty. There was no wide-based gait. Romberg, and mabe-yk-zgux are both normal on testing. Sensation was intact bilaterally as well as muscle strength bilaterally for all extremities. Patient was able to verbalize butter cup with no slurring, or miss pronunciation. Cerebellar function testing is normal. The patient demonstrates a normal hints exam with no findings concerning for a central event. No vertical nystagmus. He does have minimal horizontal nystagmus. The head impulse test is negative for any significant central abnormality. Normal test of skew. No suggestion of a central cerebellar event. 10.Psych: (AAO) x3. Appropriate mood and affect Course Vital Signs Temperature 36.8 C 08/14/18 20:10 Pulse 96 H 08/14/18 20:10 Respiratory Rate 16 08/14/18 20:10 Blood Pressure 130/88 08/14/18 20:10 Pulse Oximetry 100 08/14/18 20:10 Temperature 36.8 C 08/14/18 20:10 Temperature Source Temporal Artery Scan 08/14/18 20:10 Pulse 96 H 08/14/18 20:10 Respiratory Rate 16 08/14/18 20:10 Blood Pressure 130/88 08/14/18 20:10 Blood Pressure Position Sitting 08/14/18 20:10 Pulse Oximetry 100 08/14/18 20:10 Oxygen Delivery Method Room Air 08/14/18 20:10 Oxygen Flow Rate 0 08/14/18 20:10 Pain Level 0 08/14/18 20:10
[2018-08-14 20:43] LABS: Bacteria Negative HPF (Negative); C & S Indicated? No; Casts Negative LPF (Negative); Crystals Negative HPF (Negative); Epithelial Cells Rare HPF (Negative); Mucus Negative (Negative); RBC 0-2 (0-2); WBC Negative HPF (0-5)
== END 2018-08-14 20:40 | disposition home or self-care (01) ==
PROVIDERS: Emergency Provider Student in an Organized Health Care Education/Training Program; PCP Internal Medicine
DX: R42 Dizziness and giddiness (principal); E86.0 Dehydration; I10 Essential (primary) hypertension; E11.9 Type 2 diabetes mellitus without complications
CPT/HCPCS: 93005; 99283; 81003; 81015; 93010; 99282

== ENCOUNTER 2018-08-17 01:45 | Emergency (ER) | payer MEDICARE, SELFPAY ==
[2018-08-17 01:47] VITALS: BP 135/76; PULSE 83; RESP 20; TEMP 36.2; O2SAT 96
--- NOTE | 2018-08-17 02:00 | W.ED.GENAD ---
Discharge Plan Disposition Patient Disposition: HOME Condition: Improving Discharge Details Chief Complaint: Dizzy/Sync Clinical Impression: Anxiety Reason For Visit: HETAL Primary Care Provider: Juliann Hicks ED Provider: Cecil Wolfe Home Meds and New Rx's Prescriptions: Continued Cannabidiol oil 1 drp PO BID PRN (Reason: anxiety) RF: 0 acetaminophen 500 mg capsule 1,000 mg PO Q4H PRNRF: 0 cyclobenzaprine 10 mg tablet 10 mg PO TID PRN (Reason: muscle spasm) Qty: 14 RF: 0 ipratropium bromide 42 mcg (0.06 %) spray,non-aerosol 2 spray KALEE HS Qty: 1 RF: 0 albuterol sulfate 90 mcg/actuation HFA aerosol inhaler 2 puff IH QID PRN (Reason: shortness of breath or wheezing) RF: 0 topiramate 50 MG tablet 100 mg PO BID Qty: 360 RF: 3 atorvastatin 40 MG tablet 40 mg PO DAILY Qty: 90 RF: 3 labetalol 200 MG tablet 200 mg PO See Instructions Qty: 135 RF: 2 clopidogrel 75 MG tablet 75 mg PO DAILY Qty: 90 RF: 2 meclizine 25 MG tablet 25 mg PO QID PRNQty: 100 RF: 2 amlodipine [Norvasc] 10 MG tablet 10 mg PO DAILY Qty: 90 RF: 2 fluticasone propionate 16 GM spray,suspension 50 mcg NS BID Qty: 1 RF: 0 ranitidine HCl 150 MG tablet 150 mg PO BID Qty: 180 RF: 3 Discharge Instructions Additional Instructions: Your blood glucose today was 139. We will make a follow-up appointment for you in clinic with Dr. Hicks. We will also ask our care management team to touch base with you for increased assistance with your financial obligations. Return for any acute concerns Medical Decision Making 48-year-old male presents from home via EMS after he felt dizzy and anxious at home. He admits that he did not eat much food today as he spent his money on recent home bills. He has been worried as he was recently diagnosed with diabetes, but has been attempting diet control with no current medications. Improved without intervention on route by EMS. He arrives feeling better, and without complaint. He did not have any chest pain, recent illness, did not fall. He arrives with normal vital signs. He is pleasant and in no acute distress. His exam is unrevealing. Screening chemistries and hemoglobin A1c obtained. Sodium 134, potassium 3.3, chloride 97, bicarb 23, BUN 10, creatinine 1.0, glucose 139. A1C pending. Improved with a meal. Do not find there is any evidence to pursue further workup. We will ask care management to touch base with the patient to improve his outpatient assistance. He stable for discharge to home. HPI General Mode of arrival: EMS. Date/Time Provider Initiated Documentation: 08/17/18 02:06. Limitations to Documentation: no limitations. Information obtained by: patient and EMS. History of Present Illness 48 year old M presents to the emergency department with the chief complaint of Anxious at home. Minimal food intake due to lack of money, described as mild, Patient reports no radiation. Patient started experiencing this minute(s) and it has been now resolved. No relieving factors improve symptom(s), No exacerbating factors reported . Patient notes no other symptoms. and other (Fitzgerald lightheaded and anxious); denies chest pain, headaches, loss of appetite and nausea/vomiting. Patient did receive the following treatments prior to arrival, none Related Data Home Medications Medication Instructions Recorded Confirmed topiramate 100 mg PO BID #360 tab-cap 09/01/17 08/17/18 amlodipine [Norvasc] 10 mg PO DAILY #90 tab 12/28/17 08/17/18 atorvastatin 40 mg PO DAILY #90 tab-cap 12/28/17 08/17/18 clopidogrel 75 mg PO DAILY #90 tab 12/28/17 08/17/18 fluticasone propionate 50 mcg NS BID #1 inh NS 12/28/17 08/17/18 labetalol 200 mg PO See Instructions #135 12/28/17 08/17/18 tab-cap meclizine 25 mg PO QID PRN #100 tab-cap 12/28/17 08/17/18 ranitidine HCl 150 mg PO BID #180 tab-cap 12/28/17 08/17/18 Cannabidiol 1 drp PO BID PRN 03/17/18 07/21/18 ipratropium bromide 42 mcg (0.06 2 spray KALEE HS #1 inh 03/31/18 08/17/18 %) nasal spray albuterol sulfate HFA 90 2 puff IH QID PRN 06/15/18 08/17/18 mcg/actuation aerosol inhaler acetaminophen 500 mg capsule 1,000 mg PO Q4H PRN cap 07/21/18 08/17/18 cyclobenzaprine 10 mg tablet 10 mg PO TID PRN #14 tab-cap 07/21/18 08/17/18 Previous Rx's Medication Instructions Recorded topiramate 100 mg PO BID #360 tab-cap 09/01/17 amlodipine [Norvasc] 10 mg PO DAILY #90 tab 12/28/17 atorvastatin 40 mg PO DAILY #90 tab-cap 12/28/17 clopidogrel 75 mg PO DAILY #90 tab 12/28/17 fluticasone propionate 50 mcg NS BID #1 inh NS 12/28/17 labetalol 200 mg PO See Instructions #135 12/28/17 tab-cap ranitidine HCl 150 mg PO BID #180 tab-cap 12/28/17 ipratropium bromide 42 mcg (0.06 2 spray KALEE HS #1 inh 03/31/18 %) nasal spray cyclobenzaprine 10 mg tablet 10 mg PO TID PRN #14 tab-cap 07/21/18 Allergies Allergy/AdvReac Type Severity Reaction Status Date / Time No Known Allergies Allergy Verified 08/17/18 01:58 General Stated Complaint: Dizzy/Sync EDMUND: 3 Review of Systems Review of Systems 8 systems reviewed and otherwise neg [facility] Medical History Anxiety (Chronic) Borderline diabetes (Chronic) CVA (cerebral vascular accident) (Chronic) Diabetes (Chronic) GERD (gastroesophageal reflux disease) (Chronic) HTN (hypertension) (Chronic) Hypercholesterolemia (Chronic) Migraine (Chronic) CHINO (obstructive sleep apnea) (Chronic) Deafness Family History Mother Essential hypertension Social History Smoking/Tobacco Use Status: Current every day Alcohol Intake: never Drug use: Never Substance use type: does not use Household members: none Housing: apartment Number of Children: 3 number of grandchildren: 2 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 Pleasant, well groomed, interactive. HEAD: Normocephalic, atraumatic ENT: Mucous membranes moist. EYES: PERRL, EOMI NECK: Full ROM, no KRISTINA, no menigismus CHEST/RESP: Nontender, clear to auscultation bilateral, no wheeze/rhonchi/rales CARDIOVASCULAR: RRR, no murmur, rub braydon. 2+ Rad pulse bilateral ABDOMEN: Soft, nontender, no mass. +Bowel sounds EXT: Full ROM, no edema, no rash Neuro: Grossly normal neurologic exam, conversant, interactive. Psych: Speech fluent, thoughts congruent, affect normal Course Vital Signs Temperature 36.2 C L 08/17/18 01:47 Pulse 83 08/17/18 01:47 Respiratory Rate 20 08/17/18 01:47 Blood Pressure 135/76 08/17/18 01:47 Pulse Oximetry 96 08/17/18 01:47 Temperature 36.2 C L 08/17/18 01:47 Pulse 83 08/17/18 01:47 Respiratory Rate 20 08/17/18 01:47 Blood Pressure 135/76 08/17/18 01:47 Blood Pressure Position Sitting 08/17/18 01:47 Pulse Oximetry 96 08/17/18 01:47 Oxygen Delivery Method Room Air 08/17/18 01:47 Oxygen Flow Rate 0 08/17/18 01:47 Pain Level 0 08/17/18 01:47
[2018-08-17 02:01] VITALS: RESP 18
--- NOTE | 2018-08-17 02:03 | ED.GENADUL_ITS ---
Discharge Plan Disposition Patient Disposition: HOME Condition: Improving Discharge Details Chief Complaint: Dizzy/Sync Clinical Impression: Anxiety Reason For Visit: HETAL Primary Care Provider: Juliann Hicks ED Provider: Cecil Wolfe Home Meds and New Rx's Prescriptions: Continued Cannabidiol oil 1 drp PO BID PRN (Reason: anxiety) RF: 0 acetaminophen 500 mg capsule 1,000 mg PO Q4H PRNRF: 0 cyclobenzaprine 10 mg tablet 10 mg PO TID PRN (Reason: muscle spasm) Qty: 14 RF: 0 ipratropium bromide 42 mcg (0.06 %) spray,non-aerosol 2 spray KALEE HS Qty: 1 RF: 0 albuterol sulfate 90 mcg/actuation HFA aerosol inhaler 2 puff IH QID PRN (Reason: shortness of breath or wheezing) RF: 0 topiramate 50 MG tablet 100 mg PO BID Qty: 360 RF: 3 atorvastatin 40 MG tablet 40 mg PO DAILY Qty: 90 RF: 3 labetalol 200 MG tablet 200 mg PO See Instructions Qty: 135 RF: 2 clopidogrel 75 MG tablet 75 mg PO DAILY Qty: 90 RF: 2 meclizine 25 MG tablet 25 mg PO QID PRNQty: 100 RF: 2 amlodipine [Norvasc] 10 MG tablet 10 mg PO DAILY Qty: 90 RF: 2 fluticasone propionate 16 GM spray,suspension 50 mcg NS BID Qty: 1 RF: 0 ranitidine HCl 150 MG tablet 150 mg PO BID Qty: 180 RF: 3 Discharge Instructions Additional Instructions: Your blood glucose today was 139. We will make a follow-up appointment for you in clinic with Dr. Hicks. We will also ask our care management team to touch base with you for increased assistance with your financial obligations. Return for any acute concerns Medical Decision Making 48-year-old male presents from home via EMS after he felt dizzy and anxious at home. He admits that he did not eat much food today as he spent his money on recent home bills. He has been worried as he was recently diagnosed with diabetes, but has been attempting diet control with no current medications. Improved without intervention on route by EMS. He arrives feeling better, and without complaint. He did not have any chest pain, recent illness, did not fall. He arrives with normal vital signs. He is pleasant and in no acute distress. His exam is unrevealing. Screening chemistries and hemoglobin A1c obtained. Sodium 134, potassium 3.3, chloride 97, bicarb 23, BUN 10, creatinine 1.0, glucose 139. A1C pending. Improved with a meal. Do not find there is any evidence to pursue further workup. We will ask care management to touch base with the patient to improve his outpatient assistance. He stable for discharge to home. HPI General Mode of arrival: EMS . Date/Time Provider Initiated Documentation: 08/17/18 02:06 . Limitations to Documentation: no limitations . Information obtained by: patient and EMS . History of Present Illness 48 year old M presents to the emergency department with the chief complaint of Anxious at home. Minimal food intake due to lack of money, described as mild, Pat ient reports no radiation. Patient started experiencing this minute(s) and it has been now resolved. No relieving factors improve symptom(s), No exacerbating factors reported . Patient notes no other symptoms. and other ([place] lightheaded and anxious); denies chest pain, headaches, loss of appetite and nausea/vomiting. Patient did receive the following treatments prior to arrival, none Related Data Home Medications Medication Instructions Recorded Confirmed topiramate 100 mg PO BID #360 tab-cap 09/01/17 08/17/18 amlodipine [Norvasc] 10 mg PO DAILY #90 tab 12/28/17 08/17/18 atorvastatin 40 mg PO DAILY #90 tab-cap 12/28/17 08/17/18 clopidogrel 75 mg PO DAILY #90 tab 12/28/17 08/17/18 fluticasone propionate 50 mcg NS BID #1 inh NS 12/28/17 08/17/18 labetalol 200 mg PO See Instructions #135 12/28/17 08/17/18 tab-cap meclizine 25 mg PO QID PRN #100 tab-cap 12/28/17 08/17/18 ranitidine HCl 150 mg PO BID #180 tab-cap 12/28/17 08/17/18 Cannabidiol 1 drp PO BID PRN 03/17/18 07/21/18 ipratropium bromide 42 mcg (0.06 2 spray KALEE HS #1 inh 03/31/18 08/17/18 %) nasal spray albuterol sulfate HFA 90 2 puff IH QID PRN 06/15/18 08/17/18 mcg/actuation aerosol inhaler acetaminophen 500 mg capsule 1,000 mg PO Q4H PRN cap 07/21/18 08/17/18 cyclobenzaprine 10 mg tablet 10 mg PO TID PRN #14 tab-cap 07/21/18 08/17/18 Previous Rx's Medication Instructions Recorded topiramate 100 mg PO BID #360 tab-cap 09/01/17 amlodipine [Norvasc] 10 mg PO DAILY #90 tab 12/28/17 atorvastatin 40 mg PO DAILY #90 tab-cap 12/28/17 clopidogrel 75 mg PO DAILY #90 tab 12/28/17 fluticasone propionate 50 mcg NS BID #1 inh NS 12/28/17 labetalol 200 mg PO See Instructions #135 12/28/17 tab-cap ranitidine HCl 150 mg PO BID #180 tab-cap 12/28/17 ipratropium bromide 42 mcg (0.06 2 spray KALEE HS #1 inh 03/31/18 %) nasal spray cyclobenzaprine 10 mg tablet 10 mg PO TID PRN #14 tab-cap 07/21/18 Allergies Allergy/AdvReac Type Severity Reaction Status Date / Time No Known Allergies Allergy Verified 08/17/18 01:58 General Stated Complaint: Dizzy/Sync EDMUND: 3 Review of Systems Review of Systems 8 systems reviewed and otherwise neg [facility] Medical History Anxiety (Chronic) Borderline diabetes (Chronic) CVA (cerebral vascular accident) (Chronic) Diabetes (Chronic) GERD (gastroesophageal reflux disease) (Chronic) HTN (hypertension) (Chronic) Hypercholesterolemia (Chronic) Migraine (Chronic) CHINO (obstructive sleep apnea) (Chronic) Deafness Family History Mother Essential hypertension Social History Smoking/Tobacco Use Status: Current every day Alcohol Intake: never Drug use: Never Substance use type: does not use Household members: none Housing: apartment Number of Children: 3 number of grandchildren: 2 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 Pleasant, well groomed, interactive. HEAD: Normocephalic, atraumatic ENT: Mucous membranes moist. EYES: PERRL, EOMI NECK: Full ROM, no KRISTINA, no menigismus CHEST/RESP: Nontender, clear to auscultation bilateral, no wheeze/rhonchi/rales CARDIOVASCULAR: RRR, no murmur, rub braydon. 2+ Rad pulse bilateral ABDOMEN: Soft, nontender, no mass. +Bowel sounds EXT: Full ROM, no edema, no rash Neuro: Grossly normal neurologic exam, conversant, interactive. Psych: Speech fluent, thoughts congruent, affect normal Course Vital Signs Temperature 36.2 C L 08/17/18 01:47 Pulse 83 08/17/18 01:47 Respiratory Rate 20 08/17/18 01:47 Blood Pressure 135/76 08/17/18 01:47 Pulse Oximetry 96 08/17/18 01:47 Temperature 36.2 C L 08/17/18 01:47 Pulse 83 08/17/18 01:47 Respiratory Rate 20 08/17/18 01:47 Blood Pressure 135/76 08/17/18 01:47 Blood Pressure Position Sitting 08/17/18 01:47 Pulse Oximetry 96 08/17/18 01:47 Oxygen Delivery Method Room Air 08/17/18 01:47 Oxygen Flow Rate 0 08/17/18 01:47 Pain Level 0 08/17/18 01:47
[2018-08-17 02:22] LABS: Anion Gap 13.3 mmol/L (3-11); BUN 10 mg/dL (7-18); CO2 23.7 mmol/L (21.0-32.0); CREATININE 1.06 mg/dL (0.70-1.30); Calcium 8.7 mg/dL (8.5-10.1); Chloride 97 mmol/L (98-107); Glucose 139 mg/dL (70-100); Potassium 3.3 mmol/L (3.5-5.1); Sodium 134 mmol/L (136-145)
[2018-08-17 02:29] LABS: Hemoglobin A1C 8.1 % (4.5-6.2)
--- NOTE | 2018-08-17 14:05 | PDOC.ERCMPRO ---
Care Management Progress Note 08/17-This CM was asked to call Alon as he states he is out of food and he is a diabetic. Called Alon, he is deaf, and had to speak through an hand wood sander. [facility] [employer] [facility] today. Also discussed the soup rudolph at the [facility]. Recommended that Alon call and talk with [facility] about diabetic education. Alon states he will go to [employer] this afternoon. Alon states they have a lot of pasta and canned foods that he can not have. Again, this CM reiterated that he needed to reach out to [facility] and discuss with the staff development educator. Alon states he has a f/u appt with [facility] medicine tomorrow. Alon has this CM's contact information if further assistance is needed.
--- NOTE | 2018-08-17 14:08 | CMPROGNOTE_ITS ---
Care Management Progress Note 08/17-This CM was asked to call Alon as he states he is out of food and he is a diabetic. 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 [facility] [employer] for food today. Also discussed the soup rudolph at the [facility]. Recommended that Alon call and talk with [facility] about diabetic education. Alon states he will go to [employer] this afternoon. Alon states they have a lot of pasta and canned foods that he can not have. Again, this CM reiterated that he needed to reach out to [facility] and discuss with the senior health educator. Alon states he has a f/u appt with [facility] medicine tomorrow. Alon has this CM's contact information if further assistance is needed.
[2018-08-18 15:43] LABS: Cholesterol 174 mg/dL (50-200); HDL Cholesterol 32 mg/dL (40-60); LDL CHOLESTEROL 104 mg/dL (<100); Triglyceride 249 mg/dL (30-150)
== END 2018-08-17 02:40 | disposition home or self-care (01) ==
LOC: ER 02:40
PROVIDERS: Emergency Provider Emergency Medicine; PCP Internal Medicine
DX: R42 Dizziness and giddiness (principal); F41.9 Anxiety disorder, unspecified; E11.9 Type 2 diabetes mellitus without complications; I10 Essential (primary) hypertension
CPT/HCPCS: 80048; 80061; 83721; 99283; 83036

== ENCOUNTER 2018-08-28 09:00 | Outpatient (CLI) | payer MEDICARE, SELFPAY ==
[2018-08-28 10:29] LABS: Cholesterol 133 mg/dL (50-200); HDL Cholesterol 26 mg/dL (40-60); LDL CHOLESTEROL 78 mg/dL (<100); Triglyceride 157 mg/dL (30-150)
== END 2018-08-28 09:20 ==
PROVIDERS: PCP Internal Medicine; Visit Provider Internal Medicine
DX: E78.01 Familial hypercholesterolemia (principal)
CPT/HCPCS: 36415; 80061; 83721

== ENCOUNTER 2019-08-05 23:03 | Emergency (ER) | payer MEDICARE, MEDICAID, SELFPAY ==
[2019-08-05 23:18] VITALS: BP 114/76; PULSE 75; RESP 161; TEMP 36.6; O2SAT 98
--- NOTE | 2019-08-05 23:22 | ED.GENADUL_ITS ---
Discharge Plan Disposition Patient Disposition: HOME Condition: Good Discharge Details Chief Complaint: DentalOral Clinical Impression: Dental infection Primary Care Provider: Juliann Hicks ED Provider: Silke Kang Home Meds and New Rx's Prescriptions: New penicillin V potassium 500 mg tablet 500 mg PO QID 7 Days Qty: 28 RF: 0 Continued Cannabidiol oil 1 drp PO BID PRN (Reason: anxiety) RF: 0 acetaminophen 500 mg capsule 1,000 mg PO Q4H PRNRF: 0 bupropion HCl [Wellbutrin XL] 150 mg tablet extended release 24 hr 150 mg PO QAM Qty: 30 RF: 1 Hold Instructions: Home Medication placed on hold at Doctor's office hydroxyzine HCl 25 mg tablet 25 mg PO QID PRNRF: 0 buspirone 5 mg tablet 5 mg PO BID Qty: 60 RF: 0 Hold Instructions: Home Medication placed on hold at Doctor's office meclizine 25 mg tablet 25 mg PO QID PRN (Reason: dizziness) Qty: 30 RF: 2 ranitidine HCl 150 mg tablet 150 mg PO BID Qty: 180 RF: 3 atorvastatin 40 mg tablet 40 mg PO DAILY Qty: 90 RF: 3 albuterol sulfate 90 mcg/actuation HFA aerosol inhaler 2 puff IH QID PRN (Reason: shortness of breath or wheezing) RF: 0 citalopram 10 mg tablet 10 mg PO QHS Qty: 30 RF: 1 Hold Instructions: Home Medication placed on hold at Doctor's office bisacodyl [Dulcolax (bisacodyl)] 10 mg suppository 10 mg CA .COMPLEX PRN (Reason: constipation) Qty: 5 RF: 0 (DME) OneTouch Verio Strip See Rx Instructions .ROUTE .MEDSUPPLY Qty: 100 RF: 3 (DME) lancets [OneTouch Delica Lancets] 33 gauge misc See Rx Instructions .ROUTE .MEDSUPPLY Qty: 100 RF: 3 benzonatate [Tessalon Perles] 100 mg capsule 100 mg PO BID-TID PRN (Reason: cough) Qty: 30 RF: 0 ipratropium bromide 42 mcg (0.06 %) spray,non-aerosol 2 spray KALEE HS Qty: 1 RF: 0 amlodipine [Norvasc] 10 mg tablet 10 mg PO DAILY Qty: 90 RF: 3 clopidogrel 75 mg tablet 75 mg PO DAILY Qty: 90 RF: 3 labetalol 200 mg tablet 200 mg PO See Instructions Qty: 135 RF: 3 topiramate 50 mg tablet 100 mg PO BID Qty: 360 RF: 3 Discharge Instructions Instructions: Penicillin V (By mouth), Benzocaine (By mouth), Dental Abscess (ED) Additional Instructions: Encourage water intake. Tylenol and/or ibuprofen as needed for discomfort. Please take the penicillin as prescribed. You will be given a dose for tonight and tomorrow morning, you will need to fill the remaining prescription at the pharmacy tomorrow. You may apply the Hurricaine gel every 8 hours as needed for discomfort. You will need definitive care with a dentist, attached is a list of local dentist. If you develop fever/chills, increased pain, difficulty swallowing or other new/worsening symptoms please seek care urgently once again. Referrals: Juliann Hicks MD [Primary Care Provider] - Discharge Data Discharge Date/Time-TO BE ENTERED AT DEPARTURE: 08/06/19 00:05 Medical Decision Making Patient is a pleasant 49-year-old gentleman. Patient is hard of hearing but communicates well by writing and prefers this method with us particularly as he is unable to read lips without a mask sign at this time. Communication is completed easily and seamlessly, patient is able to speak all of his answers. Her presents today with 1 day of right upper posterior dental pain that radiates up to the right ear. Denies any headache. No visual change. Denies any fevers or chills. Endorses severe pain with chewing and is having to chew on the contralateral side. Denies any difficulty swallowing. Has been able to hydrate. Tried Tylenol as well as hydrogen peroxide rinses to help with discomfort without success. On exam, patient does have mild swelling on the buccal side of the #2 tooth with associated discomfort. He has no area of fluctuance to suggest a drainable abscess. Ear exam is normal, no lymphadenopathy, no swelling under the tongue, no swelling in the posterior oropharynx. Appears well-hydrated. Plan to treat discomfort with christianity benzocaine. Encourage hydration. We will begin the patient on penicillin. He was given first dosing here and sent home dosing for tomorrow morning. He does have a dentist and I have asked that he call to schedule follow-up appointment. As he has had insurance changes, list of local dentist and what insurances they accept is also given to the patient. He was given return precautions. All his questions and concerns were addressed and he is in agreement with this plan. HPI General Mode of arrival: ambulatory . Date/Time Provider Initiated Documentation: 08/05/19 23:22 . Limitations to Documentation: no limitations . Information obtained by: patient and RN notes reviewed . History of Present Illness 49 year old M presents to the emergency department with the chief complaint of right upper dental pain, described as severe, with intensity rated at 8. Quality is described as aching, and is localized to the mouth. Patient reports radiation to (to right ear). Patient started experiencing this day(s) and it has been constant. No relieving factors improve symptom(s), No exacerbating factors reported . Patient notes no other symptoms.; denies cough, fever/chills, nausea/vomiting, rash, shortness of breath and weakness. Patient did receive the following treatments prior to arrival, none Related Data Home Medications Medication Instructions Recorded Confirmed Cannabidiol 1 drp PO BID PRN 03/17/18 05/31/19 albuterol sulfate 90 mcg/actuation 2 puff IH QID PRN 06/15/18 05/31/19 aerosol inhaler acetaminophen 500 mg capsule 1,000 mg PO Q4H PRN cap 07/21/18 05/31/19 bupropion HCl 150 mg 24 hr tablet, 150 mg PO QAM #30 tab 09/01/18 05/31/19 extended release citalopram 10 mg tablet 10 mg PO QHS #30 tab 10/13/18 05/31/19 buspirone 5 mg tablet 5 mg PO BID #60 tab 11/03/18 05/31/19 hydroxyzine HCl 25 mg tablet 25 mg PO QID PRN 11/03/18 05/31/19 meclizine 25 mg tablet 25 mg PO QID PRN #30 tab-cap 11/03/18 05/31/19 bisacodyl 10 mg rectal suppository 10 mg CA .COMPLEX PRN #5 each 12/23/18 05/31/19 atorvastatin 40 mg tablet 40 mg PO DAILY #90 tab-cap 01/04/19 08/05/19 ranitidine HCl 150 mg tablet 150 mg PO BID #180 tab-cap 01/04/19 08/05/19 benzonatate 100 mg capsule 100 mg PO BID-TID PRN #30 cap 02/25/19 05/31/19 blood sugar diagnostic #100 each 05/31/19 05/31/19 lancets 33 gauge #100 each 05/31/19 05/31/19 amlodipine 10 mg tablet 10 mg PO DAILY #90 tab 07/28/19 08/05/19 clopidogrel 75 mg tablet 75 mg PO DAILY #90 tab 07/28/19 08/05/19 ipratropium bromide 42 mcg (0.06 2 spray KALEE HS #1 inh 07/28/19 %) nasal spray labetalol 200 mg tablet 200 mg PO See Instructions #135 07/28/19 08/05/19 tab-cap topiramate 50 mg tablet 100 mg PO BID #360 tab-cap 07/28/19 08/05/19 penicillin V potassium 500 mg PO QID 7 Days #28 tab 08/05/19 Previous Rx's Medication Instructions Recorded bupropion HCl 150 mg 24 hr tablet, 150 mg PO QAM #30 tab 09/01/18 extended release citalopram 10 mg tablet 10 mg PO QHS #30 tab 10/13/18 buspirone 5 mg tablet 5 mg PO BID #60 tab 11/03/18 meclizine 25 mg tablet 25 mg PO QID PRN #30 tab-cap 11/03/18 bisacodyl 10 mg rectal suppository 10 mg CA .COMPLEX PRN #5 each 12/23/18 atorvastatin 40 mg tablet 40 mg PO DAILY #90 tab-cap 01/04/19 ranitidine HCl 150 mg tablet 150 mg PO BID #180 tab-cap 01/04/19 benzonatate 100 mg capsule 100 mg PO BID-TID PRN #30 cap 02/25/19 blood sugar diagnostic #100 each 05/31/19 lancets 33 gauge #100 each 05/31/19 amlodipine 10 mg tablet 10 mg PO DAILY #90 tab 07/28/19 clopidogrel 75 mg tablet 75 mg PO DAILY #90 tab 07/28/19 ipratropium bromide 42 mcg (0.06 2 spray KALEE HS #1 inh 07/28/19 %) nasal spray labetalol 200 mg tablet 200 mg PO See Instructions #135 03/05/20 tab-cap topiramate 50 mg tablet 100 mg PO BID #360 tab-cap 07/28/19 penicillin V potassium 500 mg PO QID 7 Days #28 tab 08/05/19 Allergies Allergy/AdvReac Type Severity Reaction Status Date / Time No Known Allergies Allergy Verified 05/31/19 13:42 General Stated Complaint: DentalOral EDMUND: 4 Review of Systems Constitutional Constitutional: Reports as per HPI, Denies chills, Denies fatigue, Denies fever(s), Denies headache(s) and Denies poor appetite Eyes Eyes: Denies change in vision and Denies irritation ENT Ears, Nose, Mouth, and Throat: Reports as per HPI, Reports dental pain, Denies dysphagia, Denies dizziness, Denies dry mouth, Denies ear discharge, Denies otalgia, Reports facial pain, Denies headache(s), Denies hoarseness, Denies lip swelling, Denies nasal congestion, Denies odynophagia and Denies sore throat Cardiovascular Cardiovascular: Reports as per HPI and Denies chest pain Respiratory Respiratory: Reports as per HPI and Denies cough Gastrointestinal Gastrointestinal: Reports as per HPI, Denies dysphagia, Denies nausea, Denies odynophagia and Denies vomiting Integumentary/Breasts Skin/Breast: Reports as per HPI, Denies erythema, Denies rash and Denies skin pain Neurologic Neurologic: Reports as per HPI, Denies dizziness and Denies headache(s) Endocrine Endocrine: Denies fatigue Allergic/Immunologic Allergic/Immunologic: Denies lip swelling [facility] Social History (Updated 05/31/19 @ 13:49 by Tigist Dias LPN) Smoking/Tobacco Use Status: Current every day Quit status: not considering quitting Alcohol Intake: never Drug use: Never Substance use type: does not use Household members: none Housing: apartment Number of Children: 3 number of grandchildren: 2 Communication Needs: Hard of Hearing Do you need help understanding health information?: Often 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 [employer] Current gender identity: male What type of physical activity do you participate in: none Seatbelt use: always Drive intox or ride w/intox semi driver: No Water heater temp set <120 deg: Yes Working smoke detector in home: Yes Fire extinguisher in home: Yes Carbon monox detector in home: Yes Do you feel safe at home: Yes Do you feel safe in your relationship?: Yes Exam Const General: cooperative, healthy appearing, comfortable, no acute distress, well developed and well groomed Nutritional Appearance: average body habitus and well nourished Orientation: alert and awake [facility] Head: normal to inspection, normocephalic and atraumatic Ears: hearing grossly normal bilaterally, external ears normal and TM's normal bilaterally General nose exam: external nose normal and nares normal Face and sinus: normal facial exam, sinuses nontender and face symmetric Mouth: oral mucosae normal, lip normal, tongue normal, salivary ducts normal, oropharynx normal and moist mucous membranes Teeth and gingiva: caries and poor dentition (swelling buccal side #2 tooth with discomfort on palp. No fluctuance palpab) Throat: posterior oropharynx normal, tonsils normal and uvula midline Eyes General: appearance normal, both eyes and all related structures Neck Neck: normal visual inspection, full ROM, no lymphadenopathy, supple and no anterior neck swelling Resp Effort & Inspection: normal respiratory effort, able to speak in complete sentences and no respiratory distress Auscultation: clear to auscultation bilaterally, no rales, no rhonchi and no wheezes Cardio Rate: regular rate Rhythm: regular rhythm Heart Sounds: S1 normal and S2 normal Skin General skin exam: no rashes or lesions noted Trauma: no lacerations or abrasions Neuro General: patient alert and patient awake Cognition: normal cognition Speech: speech normal Gait: normal gait Psych Appearance: grossly normal and well kempt Mental Status: mental status grossly normal Speech and Movement: speech and movement normal Course Vital Signs Vital signs: Vital Signs Temperature 36.6 C 08/05/19 23:18 Pulse 75 08/05/19 23:18 Respiratory Rate 161 H 08/05/19 23:18 Blood Pressure 114/76 08/05/19 23:18 Pulse Oximetry 98 08/05/19 23:18 Temperature 36.6 C 08/05/19 23:18 Pulse 75 08/05/19 23:18 Respiratory Rate 161 H 08/05/19 23:18 Blood Pressure 114/76 08/05/19 23:18 Blood Pressure Position Sitting 08/05/19 23:18 Pulse Oximetry 98 08/05/19 23:18 Oxygen Delivery Method Room Air 08/05/19 23:18 Oxygen Flow Rate 0 08/05/19 23:18 Pain Level 8 08/05/19 23:18
[2019-08-06 00:05] VITALS: BP 114/76; PULSE 75; RESP 20; TEMP 36.6; O2SAT 98
[2019-08-06] MEDS: Benzocaine 20% Gel 30 GM JAR MM (00:05)
[2019-08-06] MEDS: Penicillin V POTASSIUM 500 MG TAB 1000 MG PO (00:05)
== END 2019-08-06 00:05 | disposition home or self-care (01) ==
PROVIDERS: Emergency Provider Physician Assistant; PCP Internal Medicine
DX: R68.84 Jaw pain (principal); K04.7 Periapical abscess without sinus; H91.93 Unspecified hearing loss, bilateral; R22.0 Localized swelling, mass and lump, head
CPT/HCPCS: 99283

== ENCOUNTER 2019-09-30 02:32 | Outpatient (CLI) | payer MEDICARE, MEDICAID, SELFPAY ==
[2019-09-30 08:57] LABS: COMMENT (LAB VIEW ONLY) 130.81 mg/dL; Microalb ug/mg Crea 11.8 ug/mg Cr
[2019-09-30 08:59] LABS: Anion Gap 8.5 mmol/L (3-11); BUN 12 mg/dL (7-18); CO2 27.5 mmol/L (21.0-32.0); CREATININE 1.09 mg/dL (0.70-1.30); Calcium 9.5 mg/dL (8.5-10.1); Chloride 100 mmol/L (98-107); Cholesterol 212 mg/dL (<200); Glucose 299 mg/dL (74-106); HDL Cholesterol 34 mg/dL (40-60); Potassium 4.5 mmol/L (3.5-5.1); Sodium 136 mmol/L (136-145); Triglyceride 497 mg/dL (<150)
[2019-09-30 09:11] LABS: LDL CHOLESTEROL 97 mg/dL (<100)
== END 2019-09-30 02:52 ==
PROVIDERS: PCP Internal Medicine; Visit Provider Internal Medicine
DX: E78.00 Pure hypercholesterolemia, unspecified (principal); I10 Essential (primary) hypertension; E11.9 Type 2 diabetes mellitus without complications
CPT/HCPCS: 36415; 80048; 80061; 83721; 82043; 82570

== ENCOUNTER 2019-10-20 13:49 | Emergency (ER) | payer MEDICARE, MEDICAID, SELFPAY ==
[2019-10-20 13:56] VITALS: BP 154/98; PULSE 98; RESP 19; TEMP 36.4; O2SAT 97
--- NOTE | 2019-10-20 15:15 | DI.CT_ITS ---
EXAM: CT BRAIN NECK CTA CLINICAL HISTORY: headache, positional, posterior neck pain. TECHNIQUE: Imaging Protocol: Axial CT angiography was performed with multi-slice acquisition and mu lti-planar and/or 3D reconstructions. CONTRAST MATERIAL: Intravenous: Omnipaque 350 Contrast volume:structured data in ml COMPARISON: MR MRI IAC W/WO CONTRAST from 03/01/2014 MR MRI - BRAIN WO CONTRAST from 08/26/2016 CT RENAL COLIC WO CONTRAST from 07/24/[address] HEAD WO from 04/27/[address] HEAD WO from 04/27/2018 FINDINGS: CT Head W/O: Ventricles and Extra axial spaces: Normal in size and morphology for the patient's age. Hemorrhage: None. Cerebral parenchyma: Normal. Midline shift: None. Brainstem/Cerebellum: Normal. Calvarium: Normal. Visualized Paranasal sinuses/Mastoids: Clear. Soft Tissues: Unremarkable. CTA Brain W: Internal Carotid Arteries: Petrous: Normal. Cavernous: Normal. Cerebral: Normal. Middle Cerebral Arteries: Right: No aneurysm, occlusion or significant stenosis. Left: No aneurysm, occlusion or significant stenosis. Anterior Cerebral Arteries: Right: No aneurysm, occlusion or significant stenosis. Left: No aneurysm, occlusion or significant stenosis. Posterior cerebral Arteries: Right: No aneurysm, occlusion or significant stenosis. Left: No aneurysm, occlusion or significant stenosis. Vertebral Arteries: Right: No aneurysm, occlusion or significant stenosis. The right vertebral artery is dominant as was seen on previous exams. Left: No aneurysm. Contrast is visible in the mid to distal left vertebral artery which may be celine nstituted via collaterals. More distally into the neck, the vertebral artery is not visible. Basilar Artery: No aneurysm, occlusion or significant stenosis. CTA Neck W: Common Carotid: Right: No aneurysm, occlusion or significant stenosis. Left: No aneurysm, occlusion or significant stenosis. External Carotid: Right: No aneurysm, occlusion or significant stenosis. Left: No aneurysm, occlusion or significant stenosis. Internal Carotid: Right: No aneurysm, occlusion or significant stenosis. Left: No aneurysm, occlusion. There is soft plaque seen at the left common carotid bulb and proximal left internal carotid artery creating approximately 50 percent stenosis. Vertebral Artery: Right: No aneurysm, occlusion or significant stenosis. Left: The left vertebral artery is not visible. Findings could represent occlusion versus congenita lly diminutive vertebral artery.. Lung Apices: Normal. Bones: Normal. Soft Tissues: Normal. IMPRESSION: 1. Normal CTA examination of the [place]. 2. Unremarkable noncontrast CT Head. 3. 50 percent stenosis secondary to soft plaque in the proximal left internal carotid artery.. 4. Non visualization of the left vertebral artery which could be secondary to occlusion versus congen itally diminutive vessel. The distal left vertebral artery is reconstituted via collaterals. RADIATION DOSE DELIVERED: 1,099.93mGy.cm Total DLP 1,099.93mGy.cm Total DLP DATA REPOSITORY: All CT scans at this facility are submitted to the National Radiology Data Registry (NRDR) Dose Index Registry (DIR) with the [employer] ([employer]). RADIATION OPTIMIZATION: All CT scans at this facility use at least one of these dose optimization te chniques: automated exposure control; mA and/or kV adjustment per patient size (includes targeted exa ms where dose is matched to clinical indication); or iterative reconstruction.
--- NOTE | 2019-10-20 15:29 | W.ED.GENAD ---
Discharge Plan Disposition Patient Disposition: HOME Condition: Serious Discharge Details Chief Complaint: Headache Clinical Impression: Occlusion of left vertebral artery, Headache Primary Care Provider: Juliann Hicks ED Provider: Modesto Vu Home Meds and New Rx's Prescriptions: Continued ranitidine HCl 150 mg tablet 150 mg PO BID Qty: 180 RF: 3 atorvastatin 40 mg tablet 40 mg PO DAILY Qty: 90 RF: 3 Laxative (sennosides) 15 mg tablet 15 mg PO QHS PRN (Reason: constipation) Qty: 30 RF: 1 famotidine 40 mg tablet 20 mg PO BID Qty: 90 RF: 3 (DME) blood-glucose meter [OneTouch Verio Meter] Misc See Rx Instructions .ROUTE .MEDSUPPLY Qty: 1 RF: 0 albuterol sulfate 90 mcg/actuation HFA aerosol inhaler 2 puff IH QID PRN (Reason: shortness of breath or wheezing) RF: 0 (DME) blood sugar diagnostic [OneTouch Verio test strips] Strip See Rx Instructions .ROUTE .MEDSUPPLY Qty: 100 RF: 3 (DME) lancets [OneTouch Delica Lancets] 33 gauge misc See Rx Instructions .ROUTE .MEDSUPPLY Qty: 100 RF: 3 ipratropium bromide 42 mcg (0.06 %) spray,non-aerosol 2 spray KALEE HS Qty: 1 RF: 0 amlodipine [Norvasc] 10 mg tablet 10 mg PO DAILY Qty: 90 RF: 3 clopidogrel 75 mg tablet 75 mg PO DAILY Qty: 90 RF: 3 labetalol 200 mg tablet 200 mg PO See Instructions Qty: 135 RF: 3 topiramate 50 mg tablet 100 mg PO BID Qty: 360 RF: 3 meclizine 25 mg tablet 25 mg PO QID PRN (Reason: dizziness) Qty: 30 RF: 2 Discharge Instructions Instructions: Acute Headache (ED) Additional Instructions: Please follow-up with neurology regarding your headaches. Call tomorrow. Please contact your primary care physician to arrange follow-up. Return to the ER for any worsening or new concerning symptoms. Referrals: Juliann Hicks MD [Primary Care Provider] - Bibi Vang MD [ [facility] STAFF PHYSICIAN] - Discharge Data Discharge Date/Time-TO BE ENTERED AT DEPARTURE: 10/20/19 18:45 Medical Decision Making 49-year-old male with history of multiple medical problems including hypertension, migraine headaches, CVA with residual right paresthesia, here with intermittent headache over the past 3 days. Headache seems worse in the morning. He has had some associated neck pain as well. Currently has moderate left frontal parietal headache. Patient neurologically at baseline with no changes to chronic right paresthesia post remote CVA. Patient is afebrile with no signs of meningitis. 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 Left PICA is patent. No acute findings on the noncontrast head. 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 Approximately 50% stenosis of the proximal left ICA. I spoke with the radiologist who raises a question for potential prior dissection resulting in occlusion. [place] [facility] [place] [facility] 18:33 --I spoke with Dr. Pierre, neurology compensation and hris analyst [place] [facility] he reviewed the CTA and CT and feels occlusion is likely chronic and not related to any acute dissection. Patient reassessed and completely pain-free. Plan will be for discharge with outpatient follow-up. I will refer him to neurology. Disposition decision was made weighing the risks and benefits of hospitalization versus outpatient treatment, the risk for further decompensation, and the patient's wishes. The patient was stable and requested discharge. Prior to discharge, my usual and customary return precautions were reviewed with the patient - this included follow-up instructions and reason to return to the emergency department if condition worsens, does not improve as expected, or other new concerns arise. HPI General Mode of arrival: ambulatory. Date/Time Provider Initiated Documentation: 10/20/19 14:25. Limitations to Documentation: no limitations. Information obtained by: patient. HPI Narrative: 49-year-old male with history of remote CVA in 1997 and residual right-sided paresthesia chronic and unchanged, hypertension, diabetes, deafness, anxiety, migraine headache, here with chief complaint of headache. Patient notes a typical headache over the past 3 days. Headache seems worse in the morning when he wakes up. Headache has waxed and waned. Headache currently mild to moderate. He also notes associated pain in his neck intermittently. No recent trauma. He denies any new numbness or weakness. He does state he has chronic intermittent vertigo for years. Patient denies fevers. No neck stiffness. Related Data Home Medications Medication Instructions Recorded Confirmed albuterol sulfate 90 mcg/actuation 2 puff IH QID PRN 06/15/18 10/20/19 aerosol inhaler atorvastatin 40 mg tablet 40 mg PO DAILY #90 tab-cap 01/04/19 08/05/19 ranitidine HCl 150 mg tablet 150 mg PO BID #180 tab-cap 01/04/19 10/20/19 blood sugar diagnostic #100 each 05/31/19 05/31/19 lancets 33 gauge #100 each 05/31/19 05/31/19 amlodipine 10 mg tablet 10 mg PO DAILY #90 tab 07/28/19 10/20/19 clopidogrel 75 mg tablet 75 mg PO DAILY #90 tab 07/28/19 10/20/19 ipratropium bromide 42 mcg (0.06 2 spray KALEE HS #1 inh 07/28/19 10/20/19 %) nasal spray labetalol 200 mg tablet 200 mg PO See Instructions #135 07/28/19 10/20/19 tab-cap topiramate 50 mg tablet 100 mg PO BID #360 tab-cap 07/28/19 10/20/19 meclizine 25 mg tablet 25 mg PO QID PRN #30 tab-cap 09/13/19 10/20/19 blood-glucose meter #1 each 09/27/19 09/27/19 famotidine 40 mg tablet 20 mg PO BID #90 tab 09/27/19 10/20/19 sennosides 15 mg tablet 15 mg PO QHS PRN #30 tab 09/27/19 10/20/19 Previous Rx's Medication Instructions Recorded atorvastatin 40 mg tablet 40 mg PO DAILY #90 tab-cap 01/04/19 ranitidine HCl 150 mg tablet 150 mg PO BID #180 tab-cap 01/04/19 blood sugar diagnostic #100 each 05/31/19 lancets 33 gauge #100 each 05/31/19 amlodipine 10 mg tablet 10 mg PO DAILY #90 tab 07/28/19 clopidogrel 75 mg tablet 75 mg PO DAILY #90 tab 07/28/19 ipratropium bromide 42 mcg (0.06 2 spray KALEE HS #1 inh 07/28/19 %) nasal spray labetalol 200 mg tablet 200 mg PO See Instructions #135 07/28/19 tab-cap topiramate 50 mg tablet 100 mg PO BID #360 tab-cap 07/28/19 meclizine 25 mg tablet 25 mg PO QID PRN #30 tab-cap 09/13/19 blood-glucose meter #1 each 09/27/19 famotidine 40 mg tablet 20 mg PO BID #90 tab 09/27/19 sennosides 15 mg tablet 15 mg PO QHS PRN #30 tab 09/27/19 Allergies Allergy/AdvReac Type Severity Reaction Status Date / Time No Known Allergies Allergy Verified 10/20/19 14:03 General Stated Complaint: Headache EDMUND: 3 Review of Systems All systems reviewed & are unremarkable except as noted in HPI and below Constitutional Constitutional: Denies fever(s) Cardiovascular Cardiovascular: Denies chest pain [facility] Social History (Updated 05/31/19 @ 13:49 by Tigist Dias LPN) Smoking/Tobacco Use Status: Current every day Tobacco Type: cigarettes Quit status: not considering quitting Alcohol Intake: never Drug use: Never Substance use type: does not use Household members: none Housing: apartment Number of Children: 3 number of grandchildren: 2 Communication Needs: Hard of Hearing Do you need help understanding health information?: Often 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 [employer] Current gender identity: male What type of physical activity do you participate in: none Seatbelt use: always Drive intox or ride w/intox otr flatbed driver: No Water heater temp set <120 deg: Yes Working smoke detector in home: Yes Fire extinguisher in home: Yes Carbon monox detector in home: Yes Do you feel safe at home: Yes Do you feel safe in your relationship?: Yes Exam Const General: cooperative and no acute distress HENMT Mouth: moist mucous membranes Eyes Conjunctivae: normal conjunctivae Sclera: normal sclerae Neck Neck: full ROM and trachea midline Resp Auscultation: clear to auscultation bilaterally, no rales, no rhonchi and no wheezes Cardio Jugular venous pressure: no JVD Rate: regular rate and not tachycardic Rhythm: regular rhythm GI Palpation: soft, not firm, no guarding, no masses, not rigid and nontender Skin General skin exam: no rashes or lesions noted Neuro General: patient alert, patient awake, patient oriented x3 and tone normal Cognition: normal cognition Motor: strength 5/5 throughout Sensory Exam: other (Diminished sensation right upper extremity and right lower extremity) Coordination: rapid alternating movement UE normal (Normal) and other (Gtyxmo-ci-gezm normal on right, abnormal on left with some tremor) Extrem General: no edema Psych Appearance: grossly normal Mental Status: mental status grossly normal Course Vital Signs Vital signs: Vital Signs Temperature 36.4 C L 10/20/19 13:56 Pulse 98 H 10/20/19 13:56 Respiratory Rate 19 10/20/19 13:56 Blood Pressure 154/98 H 10/20/19 13:56 Pulse Oximetry 97 10/20/19 13:56 Temperature 36.4 C L 10/20/19 13:56 Temperature Source Temporal Artery Scan 10/20/19 13:56 Pulse 98 H 10/20/19 13:56 Respiratory Rate 19 10/20/19 13:56 Respiratory Effort 10/20/19 14:35 Blood Pressure 154/98 H 10/20/19 13:56 Blood Pressure Position Sitting 10/20/19 13:56 Pulse Oximetry 97 10/20/19 13:56 Oxygen Delivery Method Room Air 10/20/19 13:56 Oxygen Flow Rate 0 10/20/19 13:56 Pain Level 7 10/20/19 14:02
[2019-10-20 16:14] LABS: Abs Immature Grans 0.07 k/cumm (0.0-0.09); Absolute Basophil Count 0.07 k/cumm (0.0-0.2); Absolute Eosinophil Count 0.19 k/cumm (0.0-0.7); Absolute Monocyte Count 0.66 k/cumm (0.11-0.7); Absolute Neutrophil Count 4.64 k/cumm (1.2-6.7); Basophils % 0.9; Eosinophils % 2.3; HCT 41.2 % (40.0-50.0); HGB 13.7 g/dL (13.5-17.5); Immature Grans % 0.9 %; Lymphocytes % 31.6; Mean Corp. HGB Concentration 33.3 g/dL (32.0-36.0); Mean Corpuscular Hemoglobin 28.8 pg (27.0-33.0); Mean Corpuscular Volume 86.7 fL (80-95); Mean Platelet Volume 10.1 fL (8.0-11.0); Neutrophils % 56.3; Platelet Count 344 x1000/uL (130-400); RBC 4.75 m/cumm (4.50-6.00); White Blood Cell Count 8.23 k/cumm (4.4-10.8)
[2019-10-20 16:23] LABS: ALT 48 U/L (16-63); AST 25 U/L (15-37); Albumin 3.7 g/dL (3.4-5.0); Alkaline Phosphatase 76 U/L (46-116); Anion Gap 6.5 mmol/L (3-11); BUN 13 mg/dL (7-18); Bilirubin, Total 0.2 mg/dL (0.2-1.0); CO2 26.5 mmol/L (21.0-32.0); CREATININE 1.02 mg/dL (0.70-1.30); Calcium 8.6 mg/dL (8.5-10.1); Chloride 102 mmol/L (98-107); Glucose 217 mg/dL (74-106); Potassium 3.9 mmol/L (3.5-5.1); Sodium 135 mmol/L (136-145)
[2019-10-20] MEDS: Omnipaque 350 MG/ML 100 ML BTL IJ (16:39)
--- NOTE | 2019-10-20 16:55 | DI.VRAD_ITS ---
Addendum created by Charles Escobar MD on 10/20/2019 5:06:26 PM EDT THIS REPORT CONTAINS FINDINGS THAT MAY BE CRITICAL TO PATIENT CARE. The findings were verbally communicated via telephone conference with MICA LIAO at 5:06 PM EDT on 10/20/2019. The findings were acknowledged and understood. Initial report created on 10/20/2019 4:55:23 PM EDT PROCEDURE INFORMATION: Exam: CT Angiography Head Without And With Contrast Exam date and time: 10/20/2019 4:29 PM Age: 49 years old Clinical indication: Headache and other: Positional headache, posterior neck pain TECHNIQUE: Imaging protocol: Computed tomographic angiography of the head without and with intravenous contrast. 3D rendering: MIP and/or 3D reconstructed images were created by the technologist. Contrast material: OMNIPAQUE 350; Contrast volume: 100 ml; Contrast route: R AC; COMPARISON: CT HEAD WO 04/27/2018 9:47 PM FINDINGS: Anterior cerebral arteries: No occlusion or significant stenosis. No aneurysm. Right internal carotid artery: Intracranial segment is patent with no evidence of hemodynamically significant stenosis. No aneurysm. Right middle cerebral artery: No occlusion or significant stenosis. No aneurysm. Right posterior cerebral artery: No occlusion or significant stenosis. No aneurysm. Right vertebral artery: Intracranial right vertebral artery is patent. Right PICA is patent. Left internal carotid artery: Intracranial segment is patent with no evidence of hemodynamically significant stenosis. No aneurysm. Left middle cerebral artery: No occlusion or significant stenosis. No aneurysm. Left posterior cerebral artery: No occlusion or significant stenosis. No aneurysm. 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 The mid to superior intracranial left vertebral artery is patent. Left PICA is patent. Basilar artery: No occlusion or significant stenosis. No aneurysm. HEAD: Brain: No intracranial hemorrhage or extra-axial fluid collection. No evidence of mass effect or midline shift. Tapia-white matter differentiation is intact. Ventricles: Normal. No ventriculomegaly. Bones/joints: Unremarkable. No acute fracture. Sinuses: Visualized sinuses are normal. No fluid levels. Mastoid air cells: Visualized mastoids are normal. No mastoid effusion. Soft tissues: Unremarkable. IMPRESSION: 1. Complete occlusion of the inferior aspect of the intracranial left vertebral artery. Left PICA is patent. 2. No acute findings on non-contrast head CT images. PROCEDURE INFORMATION: Exam: CT Angiography Neck With Contrast Exam date and time: 10/20/2019 4:29 PM Age: 49 years old Clinical indication: Headache and other: Positional headache, posterior neck pain TECHNIQUE: Imaging protocol: Computed tomography angiography of the neck with intravenous contrast. 3D rendering: MIP and/or 3D reconstructed images were created by the technologist. Contrast material: OMNIPAQUE 350; Contrast volume: 100 ml; Contrast route: R AC; COMPARISON: CT HEAD WO 04/27/2018 9:47 PM FINDINGS: Limitations: Aortic arch and inferior most portions of the great vessel origins are not included within the [id number] of the examination. Right common carotid artery: Inferior most aspect of the right common carotid artery is not included within the [id number] of the examination. Visualized portions of the right common carotid artery are otherwise patent. Right internal carotid artery: Extracranial segment is patent with no significant stenosis (0% stenosis by NASCET criteria). No dissection or occlusion. Right external carotid artery: No occlusion or significant stenosis. Right vertebral artery: No significant stenosis. No dissection or occlusion. Left common carotid artery: Inferior most aspect of the left common carotid artery is not included within the [id number] of the examination. Visualized portions of the left common carotid artery are otherwise patent. Left internal carotid artery: Soft atherosclerotic plaques within the proximal extracranial left internal carotid artery cause approximately 50 % stenosis by NASCET criteria. Remaining portions of the extracranial left ICA are patent. Left external carotid artery: No occlusion or significant stenosis. 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 Bones/joints: No acute fracture. Soft tissues: Unremarkable. IMPRESSION: 1. 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 2. Approximately 50% stenosis of the proximal left ICA. REFERENCES: NASCET CRITERIA. The degree of internal carotid artery stenosis is based on NASCET criteria. Normal is no stenosis. Mild is less than 50% stenosis. Moderate is 50-69% stenosis. Severe is 70% to 99% stenosis. Total occlusion is no detectable patent lumen. Dictated and Authenticated by: Charles Escobar MD. Ordering:LAURO Salvador MD
[2019-10-20 17:06] VITALS: BP 150/82; PULSE 84; RESP 17; TEMP 37; O2SAT 98
[2019-10-20 18:45] VITALS: BP 134/84; PULSE 86; RESP 18; TEMP 36.6; O2SAT 97
== END 2019-10-20 18:45 | disposition home or self-care (01) ==
PROVIDERS: Emergency Provider Student in an Organized Health Care Education/Training Program; PCP Internal Medicine
DX: I65.02 Occlusion and stenosis of left vertebral artery (principal); R51 Headache; M54.2 Cervicalgia; I69.398 Other sequelae of cerebral infarction; R20.2 Paresthesia of skin; I10 Essential (primary) hypertension; H91.3 Deaf nonspeaking, not elsewhere classified; E11.9 Type 2 diabetes mellitus without complications
CPT/HCPCS: 36415; 70496; 70498; 80053; 99285; 85025; J3490

== ENCOUNTER 2019-10-21 11:37 | Outpatient (CLI) | payer MEDICARE, MEDICAID, SELFPAY ==
[2019-10-22 10:42] LABS: COVID-19 RT-PCR Result NEGATIVE (Negative)
== END 2019-10-21 11:57 ==
PROVIDERS: PCP Internal Medicine; Visit Provider Family Medicine
DX: Z03.818 Encounter for observation for suspected exposure to other biological agents ruled out (principal)
CPT/HCPCS: U0003

== ENCOUNTER 2019-11-14 03:16 | Emergency (ER) | payer MEDICARE, MEDICAID, SELFPAY ==
[2019-11-14 03:20] VITALS: BP 145/84; PULSE 88; RESP 16; TEMP 36.8; O2SAT 97
--- NOTE | 2019-11-14 03:31 | W.ED.GENAD ---
Discharge Plan Disposition Patient Disposition: HOME Condition: Good Discharge Details Chief Complaint: DentalOral Clinical Impression: Acute dehydration Primary Care Provider: Juliann Hicks ED Provider: Jeffry Marin Home Meds and New Rx's Prescriptions: Continued ranitidine HCl 150 mg tablet 150 mg PO BID Qty: 180 RF: 3 atorvastatin 40 mg tablet 40 mg PO DAILY Qty: 90 RF: 3 Laxative (sennosides) 15 mg tablet 15 mg PO QHS PRN (Reason: constipation) Qty: 30 RF: 1 famotidine 40 mg tablet 20 mg PO BID Qty: 90 RF: 3 albuterol sulfate 90 mcg/actuation HFA aerosol inhaler 2 puff IH QID PRN (Reason: shortness of breath or wheezing) RF: 0 acetaminophen 500 mg tablet 1,500 mg PO TID PRNRF: 0 Dexilant 60 mg capsule,biphase delayed releas 60 mg PO DAILY Qty: 90 RF: 3 ipratropium bromide 42 mcg (0.06 %) spray,non-aerosol 2 spray KALEE HS Qty: 1 RF: 0 amlodipine [Norvasc] 10 mg tablet 10 mg PO DAILY Qty: 90 RF: 3 clopidogrel 75 mg tablet 75 mg PO DAILY Qty: 90 RF: 3 labetalol 200 mg tablet 200 mg PO See Instructions Qty: 135 RF: 3 topiramate 50 mg tablet 100 mg PO BID Qty: 360 RF: 3 meclizine 25 mg tablet 25 mg PO QID PRN (Reason: dizziness) Qty: 30 RF: 2 (DME) blood-glucose meter [OneTouch Verio Meter] Misc See Rx Instructions .ROUTE .MEDSUPPLY Qty: 1 RF: 0 (DME) blood sugar diagnostic [OneTouch Verio test strips] Strip See Rx Instructions .ROUTE .MEDSUPPLY Qty: 100 RF: 3 (DME) lancets [OneTouch Delica Lancets] 33 gauge misc See Rx Instructions .ROUTE .MEDSUPPLY Qty: 100 RF: 3 Discharge Instructions Instructions: Dehydration (ED) Additional Instructions: At this time you are suffering from very mild dehydration. This is likely a combination of your sugars being slightly high, and the extra salty foods that you have had today. Please drink 10 to 12 cups of water over the next 12 hours. Avoid salty sugary or carbohydrate rich foods. Please fill the prescriptions that were given to you for the new glucose testing kit so you can check your blood sugar at home. If you notice any worsening of your symptoms, or any new symptoms such as vomiting, diarrhea, fever, chills, shortness of breath, chest pain, numbness, weakness, or fainting , please return immediately to the emergency department for reevaluation. Please follow up with your primary care provider as soon as possible for reassessment and reevaluation. As always, it was a pleasure participating in your medical care today. Referrals: Juliann Hicks MD [Primary Care Provider] - Medical Decision Making This is a pleasant 49-year-old male with a past medical history of diabetes, hypertension, high cholesterol, near deafness, who presents today for evaluation of dry mouth. Patient states that today he ate multiple Bready meals, as well as multiple preserved meats and cheeses. This evening when he woke up he noticed that his mouth was very dry took a cup of water and stated that it still felt dry and came to the ER for further evaluation. He denies pain or burning in his tongue or mouth. He denies any peripheral edema. He denies any chest pain shortness of breath numbness tingling or weakness. He denies any new medications, or any recent Benadryl or antihistamines. He does admit to a slight increase in urination after the salty and breaded foods. He denies any dysuria though. He has no other complaints at this time. He denies any other modifying factors. Sickle exam demonstrates no pitting edema or signs of fluid overload. Heart rate and vital signs are notably stable. Blood sugar is elevated at 200. Mucous membranes are dry appearing. After prolonged discussion his signs and symptoms appear clinically consistent with mild dehydration likely secondary to increased urination from having a salty foods and a slightly elevated sugar. Recommend continued water at home, and avoiding high carb foods, high sugary foods, and salty foods for the next 24 to 48 hours. I have refilled and given new prescriptions for diabetes testing kits at home. Discussed red flags for which to return I have extensively reviewed the treatment plan and discharge instructions with the patient. I have addressed all patient concerns at this time. The patient was made aware of what symptoms to monitor for that would warrant a return to the emergency department. Discussed the plan with the patient, they demonstrate verbal understanding and agreement with our assessment and plan at this time. HPI General Date/Time Provider Initiated Documentation: 11/14/19 03:17. HPI Narrative: This is a pleasant 49-year-old male with a past medical history of diabetes, hypertension, high cholesterol, near deafness, who presents today for evaluation of dry mouth. Patient states that today he ate multiple Bready meals, as well as multiple preserved meats and cheeses. This evening when he woke up he noticed that his mouth was very dry took a cup of water and stated that it still felt dry and came to the ER for further evaluation. He denies pain or burning in his tongue or mouth. He denies any peripheral edema. He denies any chest pain shortness of breath numbness tingling or weakness. He denies any new medications, or any recent Benadryl or antihistamines. He does admit to a slight increase in urination after the salty and breaded foods. He denies any dysuria though. He has no other complaints at this time. He denies any other modifying factors. Related Data Home Medications Medication Instructions Recorded Confirmed albuterol sulfate 90 mcg/actuation 2 puff IH QID PRN 06/15/18 10/20/19 aerosol inhaler atorvastatin 40 mg tablet 40 mg PO DAILY #90 tab-cap 01/04/19 08/05/19 ranitidine HCl 150 mg tablet 150 mg PO BID #180 tab-cap 01/04/19 10/20/19 amlodipine 10 mg tablet 10 mg PO DAILY #90 tab 07/28/19 10/20/19 clopidogrel 75 mg tablet 75 mg PO DAILY #90 tab 07/28/19 10/20/19 ipratropium bromide 42 mcg (0.06 2 spray KALEE HS #1 inh 07/28/19 10/20/19 %) nasal spray labetalol 200 mg tablet 200 mg PO See Instructions #135 07/28/19 10/20/19 tab-cap topiramate 50 mg tablet 100 mg PO BID #360 tab-cap 07/28/19 10/20/19 meclizine 25 mg tablet 25 mg PO QID PRN #30 tab-cap 09/13/19 10/20/19 famotidine 40 mg tablet 20 mg PO BID #90 tab 09/27/19 10/20/19 sennosides 15 mg tablet 15 mg PO QHS PRN #30 tab 09/27/19 10/20/19 acetaminophen 500 mg tablet 1,500 mg PO TID PRN tab 11/02/19 11/02/19 dexlansoprazole 60 mg 60 mg PO DAILY #90 cap 11/02/19 11/02/19 capsule,biphase delayed release blood sugar diagnostic [OneTouch #100 each 11/14/19 Verio test strips] blood-glucose meter [OneTouch #1 each 11/14/19 Verio Meter] lancets [OneTouch Delica Lancets] #100 each 11/14/19 Previous Rx's Medication Instructions Recorded atorvastatin 40 mg tablet 40 mg PO DAILY #90 tab-cap 01/04/19 ranitidine HCl 150 mg tablet 150 mg PO BID #180 tab-cap 01/04/19 amlodipine 10 mg tablet 10 mg PO DAILY #90 tab 07/28/19 clopidogrel 75 mg tablet 75 mg PO DAILY #90 tab 07/28/19 ipratropium bromide 42 mcg (0.06 2 spray KALEE HS #1 inh 07/28/19 %) nasal spray labetalol 200 mg tablet 200 mg PO See Instructions #135 07/28/19 tab-cap topiramate 50 mg tablet 100 mg PO BID #360 tab-cap 07/28/19 meclizine 25 mg tablet 25 mg PO QID PRN #30 tab-cap 09/13/19 famotidine 40 mg tablet 20 mg PO BID #90 tab 09/27/19 sennosides 15 mg tablet 15 mg PO QHS PRN #30 tab 09/27/19 dexlansoprazole 60 mg 60 mg PO DAILY #90 cap 11/02/19 capsule,biphase delayed release blood sugar diagnostic [OneTouch #100 each 11/14/19 Verio test strips] blood-glucose meter [OneTouch #1 each 11/14/19 Verio Meter] lancets [OneTouch Delica Lancets] #100 each 11/14/19 Allergies Allergy/AdvReac Type Severity Reaction Status Date / Time No Known Allergies Allergy Verified 11/14/19 03:26 General Stated Complaint: DentalOral EDMUND: 4 Review of Systems All systems reviewed & are unremarkable except as noted in HPI and below [facility] Medical History Anxiety (Chronic) Borderline diabetes (Chronic) CVA (cerebral vascular accident) (Chronic) Deafness Diabetes (Chronic) Type 2 GERD (gastroesophageal reflux disease) (Chronic) HTN (hypertension) (Chronic) Hypercholesterolemia (Chronic) Migraine (Chronic) CHINO (obstructive sleep apnea) (Chronic) Type 2 diabetes mellitus without complication (Acute ~07/2017) Family History Mother , in 50's Essential hypertension Alcohol abuse Substance abuse Other Breast cancer Social History Smoking/Tobacco Use Status: Current every day Tobacco Type: cigarettes Quit status: not considering quitting Alcohol Intake: never Drug use: Never Substance use type: does not use Household members: none Housing: apartment Number of Children: 3 number of grandchildren: 2 Communication Needs: Hard of Hearing Do you need help understanding health information?: Often 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 3.ENT: Atraumatic external nose and ears. Dry MM. Neck: Symmetric, trachea midline, No thyromegaly. 4.CVS: +S1/S2, No murmurs or gallops. Peripheral pulses 2+ and equal in all extremities. Brisk capillary refill in all extremities. 5.RESP: Unlabored respiratory effort. Clear to auscultation bilaterally. No wheezes rales or rhonchi 6.GI: Soft, Nontender/Nondistended, No hepatosplenomegaly. No guarding or rebound. 7.MSK: Normocephalic/Atraumatic, Extremities w/o deformity or ttp No cyanosis or clubbing, Normal movement of all extremities 8.Skin: Warm, Dry. No rashes or lesions. 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 Sensation grossly intact, no focal neurologic deficits. 10.Psych: (AAO) x3. Appropriate mood and affect Course Vital Signs Vital signs: Vital Signs Temperature 36.8 C 11/14/19 03:20 Pulse 88 11/14/19 03:20 Respiratory Rate 16 11/14/19 03:20 Blood Pressure 145/84 H 11/14/19 03:20 Pulse Oximetry 97 11/14/19 03:20 Temperature 36.8 C 11/14/19 03:20 Temperature Source Skin 11/14/19 03:20 Pulse 88 11/14/19 03:20 Respiratory Rate 16 11/14/19 03:20 Respiratory Effort Non-Labored 11/14/19 03:24 Blood Pressure 145/84 H 11/14/19 03:20 Blood Pressure Position Supine 11/14/19 03:20 Pulse Oximetry 97 11/14/19 03:20 Oxygen Delivery Method Room Air 11/14/19 03:20 Oxygen Flow Rate 0 11/14/19 03:20 Pain Level 0 11/14/19 03:20
== END 2019-11-14 03:42 | disposition home or self-care (01) ==
PROVIDERS: Emergency Provider Student in an Organized Health Care Education/Training Program; PCP Internal Medicine
DX: E86.0 Dehydration (principal); H91.93 Unspecified hearing loss, bilateral; I10 Essential (primary) hypertension; E11.9 Type 2 diabetes mellitus without complications
CPT/HCPCS: 99283

== ENCOUNTER 2019-11-30 14:44 | Emergency (ER) | payer MEDICARE, MEDICAID, SELFPAY ==
[2019-11-30 14:54] VITALS: BP 145/97; PULSE 92; RESP 16; TEMP 36.9
--- NOTE | 2019-11-30 15:06 | NUR.NOTE ---
Nursing Note: 74ml bladder scan post void.
[2019-11-30 15:08] LABS: Abs Immature Grans 0.04 k/cumm (0.0-0.09); Absolute Basophil Count 0.04 k/cumm (0.0-0.2); Absolute Eosinophil Count 0.14 k/cumm (0.0-0.7); Absolute Lymphocyte Count 2.95 k/cumm (1.2-3.4); Absolute Monocyte Count 0.55 k/cumm (0.11-0.7); Absolute Neutrophil Count 4.69 k/cumm (1.2-6.7); Basophils % 0.5; Eosinophils % 1.7; HCT 45.7 % (40.0-50.0); HGB 15.2 g/dL (13.5-17.5); Immature Grans % 0.5 %; Lymphocytes % 35.1; Mean Corp. HGB Concentration 33.3 g/dL (32.0-36.0); Mean Corpuscular Hemoglobin 28.4 pg (27.0-33.0); Mean Corpuscular Volume 85.4 fL (80-95); Mean Platelet Volume 9.8 fL (8.0-11.0); Monocytes % 6.5; Neutrophils % 55.7; Platelet Count 380 x1000/uL (130-400); RBC 5.35 m/cumm (4.50-6.00); RBC Distribution Width 14.8 % (11.8-14.1); White Blood Cell Count 8.41 k/cumm (4.4-10.8)
[2019-11-30 15:17] LABS: Bilirubin Negative (Negative); Blood Negative (Negative); Clarity Clear (Clear); Glucose Negative (Negative); Ketones Negative (Negative); Leukocyte Esterase Negative (Negative); Nitrite Negative (Negative); Urobilinogen 0.2 EU/dL (Up TO 0.2)
[2019-11-30 15:25] LABS: ALT 47 U/L (16-63); AST 25 U/L (15-37); Albumin 4.3 g/dL (3.4-5.0); Alkaline Phosphatase 87 U/L (46-116); Anion Gap 11.7 mmol/L (3-11); BUN 10 mg/dL (7-18); Bilirubin, Total 0.4 mg/dL (0.2-1.0); CO2 24.3 mmol/L (21.0-32.0); CREATININE 0.98 mg/dL (0.70-1.30); Calcium 9.2 mg/dL (8.5-10.1); Chloride 101 mmol/L (98-107); Glucose 112 mg/dL (74-106); Potassium 3.8 mmol/L (3.5-5.1); Sodium 137 mmol/L (136-145); Total Protein 7.8 g/dL (6.4-8.2)
--- NOTE | 2019-11-30 15:30 | DI.CT_ITS ---
EXAM: CT ABDOMEN PELVIS WO CLINICAL HISTORY: Sudden left flank pain, dysuria. TECHNIQUE: Imaging Protocol: Axial computed tomography images with coronal and sagittal reformatted images were created and reviewed. Oral: / no COMPARISON: CT RENAL COLIC WO CONTRAST from 07/24/[address] BRAIN NECK CTA from 10/20/2019 FINDINGS: Visualized portions of the lung bases are clear. No lower rib fractures or pneumothorax is seen. Th e liver is again noted to be enlarged and shows geographic fatty infiltration. The spleen, gallbladd er, adrenals and pancreas are unremarkable. There are no renal calculi or hydronephrosis. There is calcification in the aorta and mild calcification in the renal arteries. There is no evidence of ane urysm. The bladder and prostate are unremarkable. The appendix is normal. There is no small bowel or colonic dilatation. There is a normal quantity of stool. There are mild degenerative changes in the lumbar spine. There is a small fatty containing umbilical hernia. IMPRESSION: No evidence of renal calculi, hydronephrosis or other acute abnormality. RADIATION DOSE DELIVERED: Total DLP DATA REPOSITORY: All CT scans at this facility are submitted to the National Radiology Data Registry (NRDR) Dose Index Registry (DIR) with the [employer] (A[employer]). RADIATION OPTIMIZATION: All CT scans at this facility use at least one of these dose optimization te chniques: automated exposure control; mA and/or kV adjustment per patient size (includes targeted exa ms where dose is matched to clinical indication); or iterative reconstruction.
--- NOTE | 2019-11-30 15:34 | W.ED.GENAD ---
Discharge Plan Disposition Patient Disposition: HOME Condition: Good Discharge Details Chief Complaint: Abd Prob Clinical Impression: Abdominal pain Primary Care Provider: Juliann Hicks ED Provider: Silke Kang Meds and New Rx's Prescriptions: Continued ranitidine HCl 150 mg tablet 150 mg PO BID Qty: 180 RF: 3 atorvastatin 40 mg tablet 40 mg PO DAILY Qty: 90 RF: 3 Laxative (sennosides) 15 mg tablet 15 mg PO QHS PRN (Reason: constipation) Qty: 30 RF: 1 famotidine 40 mg tablet 20 mg PO BID Qty: 90 RF: 3 albuterol sulfate 90 mcg/actuation HFA aerosol inhaler 2 puff IH QID PRN (Reason: shortness of breath or wheezing) RF: 0 acetaminophen 500 mg tablet 1,500 mg PO TID PRNRF: 0 Dexilant 60 mg capsule,biphase delayed releas 60 mg PO DAILY Qty: 90 RF: 3 ipratropium bromide 42 mcg (0.06 %) spray,non-aerosol 2 spray KALEE HS Qty: 1 RF: 0 amlodipine [Norvasc] 10 mg tablet 10 mg PO DAILY Qty: 90 RF: 3 clopidogrel 75 mg tablet 75 mg PO DAILY Qty: 90 RF: 3 labetalol 200 mg tablet 200 mg PO See Instructions Qty: 135 RF: 3 topiramate 50 mg tablet 100 mg PO BID Qty: 360 RF: 3 meclizine 25 mg tablet 25 mg PO QID PRN (Reason: dizziness) Qty: 30 RF: 2 (DME) blood-glucose meter [OneTouch Verio Meter] Misc See Rx Instructions .ROUTE .MEDSUPPLY Qty: 1 RF: 0 (DME) OneTouch Verio test strips Strip See Rx Instructions .ROUTE .MEDSUPPLY Qty: 100 RF: 3 (DME) lancets [OneTouch Delica Lancets] 33 gauge misc See Rx Instructions .ROUTE .MEDSUPPLY Qty: 100 RF: 3 Discharge Instructions Instructions: Abdominal Pain (ED) Additional Instructions: Encourage water intake. Tylenol and ibuprofen as needed for discomfort. At this time, your imaging and labs are reassuring with no acute abnormality. Please follow-up with primary care in the next 3-5 days if pain is not improving. If you develop fever/chills, increased pain, inability stay hydrated or other new/worsening symptom please seek care urgently once again. Referrals: Juliann Hicks MD [Primary Care Provider] - Discharge Data Discharge Date/Time-TO BE ENTERED AT DEPARTURE: 11/30/19 17:32 Medical Decision Making <TAMAR Olmedo - Last Filed: 12/01/19 08:07> 49-year-old gentleman with history of diabetes presents with sudden onset left flank discomfort that radiates from his back to left lower quadrant associated with the urgency for urination. Post void residual was 78 cc. He reports the pain was worse at onset and is actually getting better now. He appears well, nontoxic. Denies recent illness, fever, nausea, vomiting, diarrhea, constipation, dysuria or hematuria. Given the sudden onset, I do question if this is a renal stone. Certainly cannot rule out diagnosis such as diverticulitis however given his lack of diarrhea or fever, less likely. Certainly could be UTI. Torsion is extremely low on my differential as he denies any pain radiating to his groin or testicles. Will obtain CBC, CMP and urinalysis. Based upon this will likely obtain advanced imaging. Laboratory values do not reveal any obvious emergent process. Urinalysis unremarkable. Will obtain CT abdomen and pelvis without contrast. Medical Records Medical records reviewed: Yes I reviewed the patient's medical records. Lab Data Lab results reviewed: Yes I reviewed the patient's lab results. Lab results narrative: Laboratory Tests Range/Units 11/30/19 11/30/19 11/30/19 15:00 15:00 15:00 WBC (4.4-10.8) k/cumm 8.41 RBC (4.50-6.00) m/cumm 5.35 Hgb (13.5-17.5) g/dL 15.2 Hct (40.0-50.0) % 45.7 MCV (80-95) fL 85.4 MCH (27.0-33.0) pg 28.4 MCHC (32.0-36.0) g/dL 33.3 RDW (11.8-14.1) % 14.8 H Plt Count (130-400) x1000/uL 380 MPV (8.0-11.0) fL 9.8 Immature Gran % % 0.5 Neutrophils % 55.7 Lymphocytes % 35.1 Monocytes % 6.5 Eosinophils % 1.7 Basophils % 0.5 Absolute Neutrophils (1.2-6.7) k/cumm 4.69 Absolute Lymphocytes (1.2-3.4) k/cumm 2.95 Absolute Monocytes (0.11-0.7) k/cumm 0.55 Absolute Eosinophils (0.0-0.7) k/cumm 0.14 Absolute Basophils (0.0-0.2) k/cumm 0.04 Sodium (136-145) mmol/L 137 Potassium (3.5-5.1) mmol/L 3.8 Chloride (98-107) mmol/L 101 Carbon Dioxide (21.0-32.0) mmol/L 24.3 Anion Gap (3-11) mmol/L 11.7 H BUN (7-18) mg/dL 10 Creatinine (0.70-1.30) mg/dL 0.98 Estimated GFR/1.73 m2 (mL/min/1.73m2) >= 60.00 Glucose (74-106) mg/dL 112 H Calcium (8.5-10.1) mg/dL 9.2 Total Bilirubin (0.2-1.0) mg/dL 0.4 AST (15-37) U/L 25 ALT (16-63) U/L 47 Alkaline Phosphatase (46-116) U/L 87 Total Protein (6.4-8.2) g/dL 7.8 Albumin (3.4-5.0) g/dL 4.3 Urine Color (Yellow) Yellow Urine Clarity (Clear) Clear Urine pH (5-8) 7.0 Ur Specific [place] (1.005-1.025) 1.010 Urine Protein (Negative) mg/dL Negative Urine Ketones (Negative) mg/dL Negative Urine Blood (Negative) Negative Urine Nitrite (Negative) Negative Urine Bilirubin (Negative) Negative Urine Urobilinogen (Up TO 0.2) EU/dL 0.2 Ur Leukocyte Esterase (Negative) Negative Urine Glucose (Negative) mg/dL Negative <TAMAR Nugent - Last Filed: 11/30/19 17:12> Patient is a pleasant 49-year-old male, well-known to myself. Care was transitioned to myself from Brody Serrano PA-C. Please see his initial notes regarding history, presentation and exam. Care was transitioned myself with CT pending. In brief, patient presented after sudden onset of left-sided flank pain. Primary concern was for nephrolithiasis particular the patient has had this historically. Urine did not show any evidence of infection. No GI complaints. Discussed these findings with the patient. I did review his FINDINGS: Heart: Trace pericardial effusion. Calcifications are noted in the region of the aortic valve. Liver: There is increased heterogeneous fatty infiltration of the liver. Gallbladder and bile ducts: Unremarkable. Pancreas: Unremarkable. Spleen: Unremarkable. Adrenals: Unremarkable. Kidneys and ureters: Mild stranding about both kidneys is likely physiologic. Stable small hypoattenuating structure along the lateral aspect of the right kidney is subcentimeter and statistically benign. No hydronephrosis. Both ureters are within normal limits. Stomach and bowel: Unremarkable. Appendix: No evidence of appendicitis. Intraperitoneal space: Unremarkable. Vasculature: Scattered vascular calcifications. Lymph nodes: No suspicious lympadenpathy. Bladder: Bladder is unremarkable. Reproductive: Unremarkable. Bones/joints: Unremarkable. Soft tissues: Small fat containing umbilical hernia without evidence of complication. Small fat containing bilateral inguinal hernias. IMPRESSION: No findings to explain the patient's left flank pain. Specifically no evidence of radiopaque calculus within the urinary tract. Increased heterogeneous fatty infiltration of the liver. Laboratory evaluation do not see any significant abnormality. Patient is resting comfortably. He reports that the pain continues to diminish although during his movements he can have small increases in discomfort. We did discuss that this could be muscularly based. At this point, I do feel the patient is safe for discharge. He does have a primary care locally with whom he will follow-up in the next few days if pain persist. He was given strict return precautions. All his questions and concerns were addressed and he is in agreement this plan. HPI <TAMAR Olmedo - Last Filed: 12/01/19 08:07> General Mode of arrival: ambulatory. Date/Time Provider Initiated Documentation: 11/30/19 14:50. Limitations to Documentation: no limitations. Information obtained by: patient. HPI Narrative: This is a 49-year-old gentleman with history of diabetes, anxiety, bilateral deafness, CVA, hypertension, familial hypercholesterolemia, GERD, current smoker, presenting with acute onset moderate left flank discomfort and feeling as though he needed to urinate. He reports that this began roughly 30 minutes ago and is slightly better now. He denies ever feeling like this or history of renal stones however looking his medical records states that he has had kidney stones. He denies recent illness or trauma. Denies fever, chills, nausea, vomiting, pain in his testicles or groin, hematuria. He denies any penile discharge. Related Data Home Medications Medication Instructions Recorded Confirmed albuterol sulfate 90 mcg/actuation 2 puff IH QID PRN 06/15/18 11/30/19 aerosol inhaler atorvastatin 40 mg tablet 40 mg PO DAILY #90 tab-cap 01/04/19 11/30/19 ranitidine HCl 150 mg tablet 150 mg PO BID #180 tab-cap 01/04/19 11/30/19 amlodipine 10 mg tablet 10 mg PO DAILY #90 tab 07/28/19 11/30/19 clopidogrel 75 mg tablet 75 mg PO DAILY #90 tab 07/28/19 11/30/19 ipratropium bromide 42 mcg (0.06 2 spray KALEE HS #1 inh 07/28/19 11/30/19 %) nasal spray labetalol 200 mg tablet 200 mg PO See Instructions #135 07/28/19 11/30/19 tab-cap topiramate 50 mg tablet 100 mg PO BID #360 tab-cap 07/28/19 11/30/19 meclizine 25 mg tablet 25 mg PO QID PRN #30 tab-cap 09/13/19 11/30/19 famotidine 40 mg tablet 20 mg PO BID #90 tab 09/27/19 11/30/19 sennosides 15 mg tablet 15 mg PO QHS PRN #30 tab 09/27/19 11/30/19 acetaminophen 500 mg tablet 1,500 mg PO TID PRN tab 11/02/19 11/30/19 dexlansoprazole 60 mg 60 mg PO DAILY #90 cap 11/02/19 11/30/19 capsule,biphase delayed release OneTouch Verio test strips #100 each 11/14/19 11/30/19 blood-glucose meter [OneTouch #1 each 11/14/19 11/30/19 Verio Meter] lancets [OneTouch Delica Lancets] #100 each 11/14/19 11/30/19 Previous Rx's Medication Instructions Recorded atorvastatin 40 mg tablet 40 mg PO DAILY #90 tab-cap 01/04/19 ranitidine HCl 150 mg tablet 150 mg PO BID #180 tab-cap 01/04/19 amlodipine 10 mg tablet 10 mg PO DAILY #90 tab 07/28/19 clopidogrel 75 mg tablet 75 mg PO DAILY #90 tab 07/28/19 ipratropium bromide 42 mcg (0.06 2 spray KALEE HS #1 inh 07/28/19 %) nasal spray labetalol 200 mg tablet 200 mg PO See Instructions #135 07/28/19 tab-cap topiramate 50 mg tablet 100 mg PO BID #360 tab-cap 07/28/19 meclizine 25 mg tablet 25 mg PO QID PRN #30 tab-cap 09/13/19 famotidine 40 mg tablet 20 mg PO BID #90 tab 09/27/19 sennosides 15 mg tablet 15 mg PO QHS PRN #30 tab 09/27/19 dexlansoprazole 60 mg 60 mg PO DAILY #90 cap 11/02/19 capsule,biphase delayed release OneTouch Verio test strips #100 each 11/14/19 blood-glucose meter [OneTouch #1 each 11/14/19 Verio Meter] lancets [OneTouch Delica Lancets] #100 each 11/14/19 Allergies Allergy/AdvReac Type Severity Reaction Status Date / Time No Known Allergies Allergy Verified 11/30/19 15:02 General Stated Complaint: Abd Prob EDMUND: 3 Review of Systems <TAMAR Olmedo - Last Filed: 12/01/19 08:07> Constitutional Constitutional: Denies fatigue and Denies fever(s) Cardiovascular Cardiovascular: Denies chest pain and Denies dyspnea Respiratory Respiratory: Denies cough and Denies dyspnea Gastrointestinal Gastrointestinal: Reports abdominal pain, Denies diarrhea, Denies nausea and Denies vomiting Genitourinary Genitourinary: Denies hematuria, Denies genital pain, Denies dysuria, Denies penile discharge and Denies testicular pain Musculoskeletal Musculoskeletal: Reports back pain Integumentary/Breasts Skin/Breast: Denies rash Endocrine Endocrine: Denies fatigue Hematologic/Lymphatic Hematologic/Lymphatic: Denies easy bleeding and Denies easy bruising PFSH <TAMAR Olmedo - Last Filed: 12/01/19 08:07> Medical History Anxiety (Chronic) Borderline diabetes (Chronic) CVA (cerebral vascular accident) (Chronic) Deafness Diabetes (Chronic) Type 2 GERD (gastroesophageal reflux disease) (Chronic) HTN (hypertension) (Chronic) Hypercholesterolemia (Chronic) Migraine (Chronic) CHINO (obstructive sleep apnea) (Chronic) Type 2 diabetes mellitus without complication (Acute ~07/2017) Family History Mother , in 50's Essential hypertension Alcohol abuse Substance abuse Other Breast cancer Social History Smoking/Tobacco Use Status: Current every day Tobacco Type: cigarettes Quit status: not considering quitting Alcohol Intake: never Drug use: Never Substance use type: does not use Household members: none Housing: apartment Number of Children: 3 number of grandchildren: 2 Communication Needs: Hard of Hearing Do you need help understanding health information?: Often 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 [employer] Current gender identity: male What type of physical activity do you participate in: none Seatbelt use: always Drive intox or ride w/intox crude oil driver: No Water heater temp set <120 deg: Yes Working smoke detector in home: Yes Fire extinguisher in home: Yes Carbon monox detector in home: Yes Do you feel safe at home: Yes Do you feel safe in your relationship?: Yes Exam <TAMAR Olmedo - Last Filed: 12/01/19 08:07> Const General: cooperative, healthy appearing, comfortable and no acute distress Orientation: alert and awake [facility] Head: normal to inspection, normocephalic and atraumatic Mouth: moist mucous membranes Eyes Conjunctivae: conjunctivae normal Neck Neck: normal visual inspection, trachea midline and supple Resp Effort & Inspection: normal respiratory effort and able to speak in complete sentences Auscultation: clear to auscultation bilaterally Cardio Rate: regular rate Rhythm: regular rhythm GI Palpation: soft, not firm, no guarding, not rigid and tender in the LLQ (and right flank) Auscultation: normal bowel sounds Back/Spine/Pelvis Back: no CVA tenderness and back tenderness (Mild left lumbar) Skin General skin exam: no rashes or lesions noted Neuro General: patient alert, patient awake, moves all extremities and no focal motor deficits Sensory Exam: no sensory deficits noted Extrem General: normal to inspection, full ROM, capillary refill normal, no pedal edema and no calf tenderness Psych Appearance: grossly normal Mental Status: mental status grossly normal Course <TAMAR Olmedo - Last Filed: 12/01/19 08:07> Vital Signs Vital signs: Vital Signs Temperature 36.9 C 11/30/19 14:54 Pulse 92 H 11/30/19 14:54 Respiratory Rate 16 11/30/19 14:54 Blood Pressure 145/97 H 11/30/19 14:54 Temperature 36.9 C 11/30/19 14:54 Temperature Source Rectal 11/30/19 14:54 Pulse 92 H 11/30/19 14:54 Respiratory Rate 16 11/30/19 14:54 Respiratory Effort Non-Labored 11/30/19 14:59 Blood Pressure 145/97 H 11/30/19 14:54 Blood Pressure Position Sitting 11/30/19 14:54 Oxygen Delivery Method Room Air 11/30/19 14:54 Oxygen Flow Rate 0 11/30/19 14:54 Pain Level 5 11/30/19 15:00 Lab/Test Results Lab/Test Results: Laboratory Tests Range/Units 11/30/19 11/30/19 11/30/19 15:00 15:00 15:00 WBC (4.4-10.8) k/cumm 8.41 RBC (4.50-6.00) m/cumm 5.35 Hgb (13.5-17.5) g/dL 15.2 Hct (40.0-50.0) % 45.7 MCV (80-95) fL 85.4 MCH (27.0-33.0) pg 28.4 MCHC (32.0-36.0) g/dL 33.3 RDW (11.8-14.1) % 14.8 H Plt Count (130-400) x1000/uL 380 MPV (8.0-11.0) fL 9.8 Immature Gran % % 0.5 Neutrophils % 55.7 Lymphocytes % 35.1 Monocytes % 6.5 Eosinophils % 1.7 Basophils % 0.5 Absolute Neutrophils (1.2-6.7) k/cumm 4.69 Absolute Lymphocytes (1.2-3.4) k/cumm 2.95 Absolute Monocytes (0.11-0.7) k/cumm 0.55 Absolute Eosinophils (0.0-0.7) k/cumm 0.14 Absolute Basophils (0.0-0.2) k/cumm 0.04 Sodium (136-145) mmol/L 137 Potassium (3.5-5.1) mmol/L 3.8 Chloride (98-107) mmol/L 101 Carbon Dioxide (21.0-32.0) mmol/L 24.3 Anion Gap (3-11) mmol/L 11.7 H BUN (7-18) mg/dL 10 Creatinine (0.70-1.30) mg/dL 0.98 Estimated GFR/1.73 m2 (mL/min/1.73m2) >= 60.00 Glucose (74-106) mg/dL 112 H Calcium (8.5-10.1) mg/dL 9.2 Total Bilirubin (0.2-1.0) mg/dL 0.4 AST (15-37) U/L 25 ALT (16-63) U/L 47 Alkaline Phosphatase (46-116) U/L 87 Total Protein (6.4-8.2) g/dL 7.8 Albumin (3.4-5.0) g/dL 4.3 Urine Color (Yellow) Yellow Urine Clarity (Clear) Clear Urine pH (5-8) 7.0 Ur Specific [place] (1.005-1.025) 1.010 Urine Protein (Negative) mg/dL Negative Urine Ketones (Negative) mg/dL Negative Urine Blood (Negative) Negative Urine Nitrite (Negative) Negative Urine Bilirubin (Negative) Negative Urine Urobilinogen (Up TO 0.2) EU/dL 0.2 Ur Leukocyte Esterase (Negative) Negative Urine Glucose (Negative) mg/dL Negative Sign Out <TAMAR Olmedo - Last Filed: 12/01/19 08:07> Sign Out Data: Sign Out Comment: Pending CT results, reevaluation and final disposition Last updated by Vinny Serrano PA at 11/30/19 16:16
--- NOTE | 2019-11-30 16:47 | DI.VRAD_ITS ---
PROCEDURE INFORMATION: Exam: CT Abdomen And Pelvis Without Contrast Exam date and time: 11/30/2019 3:33 PM Age: 49 years old Clinical indication: Other: Lt flank pain, dysuria TECHNIQUE: Imaging protocol: Computed tomography of the abdomen and pelvis without contrast. COMPARISON: CT RENAL COLIC WO CONTRAST 07/24/2017 5:10 AM FINDINGS: Heart: Trace pericardial effusion. Calcifications are noted in the region of the aortic valve. Liver: There is increased heterogeneous fatty infiltration of the liver. Gallbladder and bile ducts: Unremarkable. Pancreas: Unremarkable. Spleen: Unremarkable. Adrenals: Unremarkable. Kidneys and ureters: Mild stranding about both kidneys is likely physiologic. Stable small hypoattenuating structure along the lateral aspect of the right kidney is subcentimeter and statistically benign. No hydronephrosis. Both ureters are within normal limits. Stomach and bowel: Unremarkable. Appendix: No evidence of appendicitis. Intraperitoneal space: Unremarkable. Vasculature: Scattered vascular calcifications. Lymph nodes: No suspicious lympadenpathy. Bladder: Bladder is unremarkable. Reproductive: Unremarkable. Bones/joints: Unremarkable. Soft tissues: Small fat containing umbilical hernia without evidence of complication. Small fat containing bilateral inguinal hernias. IMPRESSION: No findings to explain the patient's left flank pain. Specifically no evidence of radiopaque calculus within the urinary tract. Increased heterogeneous fatty infiltration of the liver. Dictated and Authenticated by: Haseeb Haines MD. Ordering:JULIO Casillas MD
[2019-11-30 17:30] VITALS: BP 138/92; PULSE 80; RESP 16; TEMP 37; O2SAT 98
== END 2019-11-30 17:32 | disposition home or self-care (01) ==
PROVIDERS: Physician Assistant; Emergency Provider Physician Assistant; PCP Internal Medicine
DX: R10.32 Left lower quadrant pain (principal); M54.5 Low back pain; R39.15 Urgency of urination; E11.9 Type 2 diabetes mellitus without complications; I10 Essential (primary) hypertension; Z87.442 Personal history of urinary calculi
CPT/HCPCS: 36415; 80053; 99284; 74176; 81003; 85025; 99285

== ENCOUNTER 2020-01-13 21:27 | Emergency (ER) | payer MEDICARE, MEDICAID, SELFPAY ==
[2020-01-13] VITALS (21 sets, daily range): BP systolic 78–130; BP diastolic 61–77; PULSE 76–84; RESP 9–16; TEMP 36.6; O2SAT 95–98
--- NOTE | 2020-01-13 21:30 | RT.EKG_ITS ---
APPROVED REPORT Exam: Resting ECG Patient Location: E HR:77 bpm ECG Measurements Heart Rate 77 AXIS MN 144 P 13 QRSd 96 QRS -1 QT 380 T 74 QTc 431 Conclusion Sinus rhythm...normal P axis, V-rate 60- 99 Inferior infarct, old...Q >35mS, II III aVF NONSPECIFIC ST-T CHANGES No STEMI Abnormal Electrocardiogram
[2020-01-13 22:05] LABS: Abs Immature Grans 0.06 10^3/uL (0.0-0.06); Absolute Basophil Count 0.06 10^3/uL (0.0-0.2); Absolute Eosinophil Count 0.21 10^3/uL (0.0-0.7); Absolute Lymphocyte Count 3.34 10^3/uL (1.2-3.4); Absolute Monocyte Count 0.74 10^3/uL (0.1-0.8); Absolute Neutrophil Count 5.61 10^3/uL (1.2-6.7); Basophils % 0.6; Eosinophils % 2.1; HCT 44.3 % (40.0-50.0); HGB 14.2 g/dL (13.5-17.5); Immature Grans % 0.6; Lymphocytes % 33.3; MCH 28.1 pg (27.0-33.0); MCHC 32.1 % (32.0-36.0); MCV 87.7 fL (80-95); MPV 9.7 fL (8.0-11.0); Monocytes % 7.4; Nucleated RBC 0 %; Platelet Count 328 10^3/uL (130-400); RBC 5.05 10^6/uL (4.36-5.78); RDW 13.7 % (11.8-14.1); RDW-SD 43.8 fL; WBC 10.02 10^3/uL (4.4-10.8)
[2020-01-13] MEDS: Aspirin 81 MG CHEW 324 MG CH (22:11)
--- NOTE | 2020-01-13 22:28 | DI.RAD_ITS ---
EXAM: XR CHEST 2V PA LATERAL CLINICAL HISTORY: chest pain TECHNIQUE: 2D digital imaging was performed. COMPARISON: CR CHEST 2 VIEWS PA,LAT from 12/23/2017 FINDINGS: The heart is not enlarged. The lungs are clear and well expanded. No pleural effusion seen. Mediastin al contours appear intact. IMPRESSION: Normal chest RADIATION DOSE DELIVERED: Total DLP
[2020-01-13 22:30] LABS: ALT 31 U/L (16-63); AST 14 U/L (15-37); Alkaline Phosphatase 63 U/L (46-116); Anion Gap 11.7 mmol/L (3-11); BUN 9 mg/dL (7-18); Bilirubin, Total 0.3 mg/dL (0.2-1.0); CO2 24.3 mmol/L (21.0-32.0); CREATININE 0.91 mg/dL (0.70-1.30); Calcium 8.9 mg/dL (8.5-10.1); Chloride 102 mmol/L (98-107); Glucose 119 mg/dL (74-106); Magnesium 1.9 mg/dL (1.8-2.4); Potassium 3.5 mmol/L (3.5-5.1); Sodium 138 mmol/L (136-145); Troponin I < 0.05 ng/mL (<0.06)
--- NOTE | 2020-01-13 22:33 | DI.VRAD_ITS ---
PROCEDURE INFORMATION: Exam: XR Chest, 2 Views Exam date and time: 01/13/2020 10:28 PM Age: 49 years old Clinical indication: Chest pain; Type not specified TECHNIQUE: Imaging protocol: XR of the chest Views: 2 views. COMPARISON: CR CHEST 2 VIEWS PA,LAT 12/23/2017 1:27 AM FINDINGS: Lungs: Question mild peribronchial thickening and perihilar stranding suggesting possible bronchitis. Normal pulmonary expansion. Pulmonary vasculature grossly normal. No infiltrates. Pleural space: No pleural effusion. No pneumothorax. Heart/Mediastinum: Heart size normal. No tracheal/mediastinal shift. Bones/joints: No acute osseous abnormalities are identified. Chronic healed fracture of the left posterolateral 9th rib. IMPRESSION: Question mild peribronchial thickening and perihilar stranding suggesting possible bronchitis. No gross pulmonary infiltrates. Dictated and Authenticated by: Mitchell Buchanan MD. Ordering:JULIO Casillas MD
--- NOTE | 2020-01-13 22:41 | W.ED.GENAD ---
Discharge Plan Disposition Patient Disposition: HOME Condition: Stable Discharge Details Chief Complaint: Chest Pain Clinical Impression: Chest pain Primary Care Provider: Juliann Hicks ED Provider: Vinny Serrano Home Meds and New Rx's Prescriptions: Continued ranitidine HCl 150 mg tablet 150 mg PO BID Qty: 180 RF: 3 atorvastatin 80 mg tablet 80 mg PO DAILY Qty: 90 RF: 3 Laxative (sennosides) 15 mg tablet 30 mg PO QHS PRN (Reason: constipation) Qty: 180 RF: 3 Trulicity 0.75 mg/0.5 mL pen injector 0.75 mg SC QWEEK Qty: 4 RF: 0 albuterol sulfate 90 mcg/actuation HFA aerosol inhaler 2 puff IH QID PRN (Reason: shortness of breath or wheezing) RF: 0 acetaminophen 500 mg tablet 1,500 mg PO TID PRNRF: 0 Dexilant 60 mg capsule,biphase delayed releas 60 mg PO DAILY Qty: 90 RF: 3 ipratropium bromide 42 mcg (0.06 %) spray,non-aerosol 2 spray KALEE HS Qty: 1 RF: 0 amlodipine [Norvasc] 10 mg tablet 10 mg PO DAILY Qty: 90 RF: 3 clopidogrel 75 mg tablet 75 mg PO DAILY Qty: 90 RF: 3 labetalol 200 mg tablet 200 mg PO See Instructions Qty: 135 RF: 3 topiramate 50 mg tablet 100 mg PO BID Qty: 360 RF: 3 meclizine 25 mg tablet 25 mg PO QID PRN (Reason: dizziness) Qty: 30 RF: 2 (DME) blood-glucose meter [OneTouch Verio Meter] Misc See Rx Instructions .ROUTE .MEDSUPPLY Qty: 1 RF: 0 (DME) OneTouch Verio test strips Strip See Rx Instructions .ROUTE .MEDSUPPLY Qty: 100 RF: 3 (DME) lancets [OneTouch Delica Lancets] 33 gauge misc See Rx Instructions .ROUTE .MEDSUPPLY Qty: 100 RF: 3 Discharge Instructions Instructions: Chest Pain (ED) Additional Instructions: At this time you responded nicely to the GI cocktail and your work-up here in the ER has been unremarkable for obvious emergent process. Please watch for new or worsening symptoms and return to the ER for any concerns. I recommend you contact your primary care provider on Thursday for prompt outpatient reevaluation. As we discussed, if symptoms persist outpatient evaluation through cardiology, GI, endoscopy, stress test, echocardiogram, etc. may all be indicated. Medical Decision Making 49-year-old gentleman with history of obesity, diabetes, anxiety, CVA, hypertension, hypercholesterolemia, GERD, current smoker, presenting with right-sided chest pain that began around 6:00 this evening. Pain does not radiate, nothing makes it better or worse. Is intermittent in nature. Changes between moderate and sharp and then low dull. No overwhelmingly cardiac in nature. Pain is nonreproducible. Will get a single dose aspirin, obtain cardiac work-up and discussed with patient staying in the ER for 3 hours for repeat EKG and troponin for cardiac rule out. EDACS score of 14. Age of 49, male, known coronary artery disease yes, diaphoresis no radiation of pain no pain occurred or worsened with inspiration no pain is reproduced by palpation no. Aspirin, labs pending. Initial laboratory values reveal a white count of 10.02 hemoglobin 14.2 hematocrit 44.3 platelet count 328. Chemistries unremarkable. Creatinine 0.91 with a GFR greater than 60. Glucose 119. Magnesium 1.9. Initial troponin less than 0.05. Did not obtain a d-dimer per the PERC criteria. Discussed initial work-up with patient. Patient agreeable to obtaining repeat troponin and EKG. At this time he was given Mylanta and lidocaine On reevaluation he reports that the Mylanta and lidocaine have alleviated his symptoms completely, he is currently asymptomatic. I was called into the room around 1120, patient states that he would like to leave. Patient reports that he is asymptomatic but the longer he stays here the more anxious he is becoming. He does not understand why he needs to be connected to the registered nurse cardiac telemetry. We discussed in length my concerns and the importance of a repeat troponin and EKG at [address] in the presence of JESS Funes. Patient understands that if he chooses to leave now he will leave AGAINST MEDICAL ADVICE. The more we discussed this, although he was upset that he was going to be in the ER for another hour and a half, he was agreeable to await repeat EKG and troponin. At time of signout to Dr. Crowell, repeat EKG, troponin and final disposition pending. Medical Records Medical records reviewed: Yes I reviewed the patient's medical records. Imaging Data Radiologic Study: Attestation: I personally reviewed and interpreted this imaging study as follows: Imaging: X-Ray Radiologist's impression: Question mild peribronchial thickening and perihilar stranding suggesting possible bronchitis, no gross pulmonary infiltrates Lab Data Lab results reviewed: Yes I reviewed the patient's lab results. Lab results narrative: Laboratory Tests Range/Units 01/13/20 01/13/20 21:58 21:58 WBC (4.4-10.8) 10^3/uL 10.02 RBC (4.36-5.78) 10^6/uL 5.05 Hgb (13.5-17.5) g/dL 14.2 Hct (40.0-50.0) % 44.3 MCV (80-95) fL 87.7 MCH (27.0-33.0) pg 28.1 MCHC (32.0-36.0) % 32.1 RDW (11.8-14.1) % 13.7 Plt Count (130-400) 10^3/uL 328 MPV (8.0-11.0) fL 9.7 Immature Gran % 0.6 Neutrophils % 56.0 Lymphocytes % 33.3 Monocytes % 7.4 Eosinophils % 2.1 Basophils % 0.6 Nucleated RBC % % 0 Absolute Neutrophils (1.2-6.7) 10^3/uL 5.61 Absolute Lymphocytes (1.2-3.4) 10^3/uL 3.34 Absolute Monocytes (0.1-0.8) 10^3/uL 0.74 Absolute Eosinophils (0.0-0.7) 10^3/uL 0.21 Absolute Basophils (0.0-0.2) 10^3/uL 0.06 Sodium (136-145) mmol/L 138 Potassium (3.5-5.1) mmol/L 3.5 Chloride (98-107) mmol/L 102 Carbon Dioxide (21.0-32.0) mmol/L 24.3 Anion Gap (3-11) mmol/L 11.7 H BUN (7-18) mg/dL 9 Creatinine (0.70-1.30) mg/dL 0.91 Estimated GFR/1.73 m2 (mL/min/1.73m2) >= 60.00 Glucose (74-106) mg/dL 119 H Calcium (8.5-10.1) mg/dL 8.9 Magnesium (1.8-2.4) mg/dL 1.9 Total Bilirubin (0.2-1.0) mg/dL 0.3 AST (15-37) U/L 14 L ALT (16-63) U/L 31 Alkaline Phosphatase (46-116) U/L 63 Troponin I (<0.06) ng/mL < 0.05 Total Protein (6.4-8.2) g/dL 7.0 Albumin (3.4-5.0) g/dL 4.0 ECG Data Attestation: I personally reviewed and interpreted this ECG (s) as follows: Interpretation: Reviewed and interpreted with Dr. Crowell, please see his official report. Sinus rhythm, ventricular of 77. Nonspecific ST-T changes, no STEMI HPI General Mode of arrival: ambulatory. Date/Time Provider Initiated Documentation: 01/13/20 21:34. Limitations to Documentation: no limitations. Information obtained by: patient. HPI Narrative: This is a 49-year-old gentleman with history of anxiety, diabetes, CVA, deafness, GERD, hypertension, hypercholesteremia, migraine, current smoker, presenting to the ER with what he describes as a right sided anterior chest wall pain. Began around 6 PM. At that time he reports mild dizziness but that resolved completely. The room did not feel as though it was spinning. He was not off balance to walk. It was more of a lightheaded sensation. He does report mild diarrhea-loose stools for 3 days and concern for mild dehydration. He reports the pain has been intermittent since it began, nothing makes it worse or better, it does not radiate. The pain has been moderate and sharp at times and other times is just a dull ache or tightness. He reports somewhat similar episodes in the past, not exactly the same, but it never lasted for this long and that is what prompted him to come to the ER. He denies recent illness or trauma. He denies headache, visual changes, radiation of pain into his neck, back, shoulder, down his arms, abdominal pain, nausea, vomiting, change of bowel or bladder function, numbness, tingling, weakness, pain or swelling in his legs. Denies early cardiac history with his family. Patient has never personally had a stress test or echocardiogram. Related Data Home Medications Medication Instructions Recorded Confirmed albuterol sulfate 90 mcg/actuation 2 puff IH QID PRN 06/15/18 01/13/20 aerosol inhaler ranitidine HCl 150 mg tablet 150 mg PO BID #180 tab-cap 01/04/19 01/13/20 amlodipine 10 mg tablet 10 mg PO DAILY #90 tab 07/28/19 01/13/20 clopidogrel 75 mg tablet 75 mg PO DAILY #90 tab 07/28/19 01/13/20 ipratropium bromide 42 mcg (0.06 2 spray KALEE HS #1 inh 07/28/19 01/13/20 %) nasal spray labetalol 200 mg tablet 200 mg PO See Instructions #135 07/28/19 01/13/20 tab-cap topiramate 50 mg tablet 100 mg PO BID #360 tab-cap 07/28/19 01/13/20 meclizine 25 mg tablet 25 mg PO QID PRN #30 tab-cap 09/13/19 01/13/20 acetaminophen 500 mg tablet 1,500 mg PO TID PRN tab 11/02/19 01/13/20 dexlansoprazole 60 mg 60 mg PO DAILY #90 cap 11/02/19 01/13/20 capsule,biphase delayed release OneTouch Verio test strips #100 each 11/14/19 01/13/20 blood-glucose meter [OneTouch #1 each 11/14/19 01/13/20 Verio Meter] lancets [OneTouch Delica Lancets] #100 each 11/14/19 01/13/20 atorvastatin 80 mg tablet 80 mg PO DAILY #90 tab 12/14/19 01/13/20 dulaglutide 0.75 mg/0.5 mL 0.75 mg SC QWEEK #4 syringe 12/14/19 01/13/20 subcutaneous pen injector sennosides 15 mg tablet 30 mg PO QHS PRN #180 tab 12/14/19 12/14/19 Previous Rx's Medication Instructions Recorded ranitidine HCl 150 mg tablet 150 mg PO BID #180 tab-cap 01/04/19 amlodipine 10 mg tablet 10 mg PO DAILY #90 tab 07/28/19 clopidogrel 75 mg tablet 75 mg PO DAILY #90 tab 07/28/19 ipratropium bromide 42 mcg (0.06 2 spray KALEE HS #1 inh 07/28/19 %) nasal spray labetalol 200 mg tablet 200 mg PO See Instructions #135 07/28/19 tab-cap topiramate 50 mg tablet 100 mg PO BID #360 tab-cap 07/28/19 meclizine 25 mg tablet 25 mg PO QID PRN #30 tab-cap 09/13/19 dexlansoprazole 60 mg 60 mg PO DAILY #90 cap 11/02/19 capsule,biphase delayed release OneTouch Verio test strips #100 each 11/14/19 blood-glucose meter [OneTouch #1 each 11/14/19 Verio Meter] lancets [OneTouch Delica Lancets] #100 each 11/14/19 atorvastatin 80 mg tablet 80 mg PO DAILY #90 tab 12/14/19 dulaglutide 0.75 mg/0.5 mL 0.75 mg SC QWEEK #4 syringe 12/14/19 subcutaneous pen injector sennosides 15 mg tablet 30 mg PO QHS PRN #180 tab 12/14/19 Allergies Allergy/AdvReac Type Severity Reaction Status Date / Time No Known Allergies Allergy Verified 01/11/20 14:30 General Stated Complaint: Chest Pain EDMUND: 2 Review of Systems Constitutional Constitutional: Denies fatigue, Denies fever(s), Denies headache(s) and Denies weakness Eyes Eyes: Denies change in vision ENT Ears, Nose, Mouth, and Throat: Denies headache(s) and Denies neck pain Cardiovascular Cardiovascular: Reports chest pain and Denies dyspnea Respiratory Respiratory: Reports cough (Mild, baseline, smoker.) and Denies dyspnea Gastrointestinal Gastrointestinal: Denies abdominal pain, Denies nausea and Denies vomiting Genitourinary Genitourinary: Denies dysuria Musculoskeletal Musculoskeletal: Denies back pain, Denies neck pain, Denies numbness and Denies tingling Integumentary/Breasts Skin/Breast: Denies rash Neurologic Neurologic: Denies headache(s), Denies numbness, Denies tingling and Denies weakness Endocrine Endocrine: Denies fatigue [facility] Medical History Anxiety (Chronic) Borderline diabetes (Chronic) CVA (cerebral vascular accident) (Chronic) Deafness Diabetes (Chronic) Type 2 GERD (gastroesophageal reflux disease) (Chronic) HTN (hypertension) (Chronic) Hypercholesterolemia (Chronic) Migraine (Chronic) CHINO (obstructive sleep apnea) (Chronic) Type 2 diabetes mellitus without complication (Acute ~07/2017) Family History Mother , in 50's Essential hypertension Alcohol abuse Substance abuse Other Breast cancer Social History Smoking/Tobacco Use Status: Current every day Tobacco Type: cigarettes Quit status: not considering quitting Alcohol Intake: never Drug use: Never Substance use type: does not use Household members: none Housing: apartment Number of Children: 3 number of grandchildren: 2 Communication Needs: Hard of Hearing Do you need help understanding health information?: Often 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 [employer] Current gender identity: male What type of physical activity do you participate in: none Seatbelt use: always Drive intox or ride w/intox lokie driver: No Water heater temp set <120 deg: Yes Working smoke detector in home: Yes Fire extinguisher in home: Yes Carbon monox detector in home: Yes Do you feel safe at home: Yes Do you feel safe in your relationship?: Yes Exam Const General: cooperative, healthy appearing, comfortable and no acute distress Orientation: alert, awake and oriented x3 HENMT Head: normal to inspection, normocephalic and atraumatic Mouth: moist mucous membranes Eyes Conjunctivae: conjunctivae normal Sclera: sclerae normal Neck Neck: normal visual inspection, full ROM, no meningeal signs, trachea midline, supple and nontender Chest Chest: normal inspection of the chest and normal palpation of entire chest wall Resp Effort & Inspection: normal respiratory effort and able to speak in complete sentences Auscultation: clear to auscultation bilaterally Cardio Rate: regular rate Rhythm: regular rhythm GI Inspection: obesity Palpation: soft, not firm, no guarding, not rigid and nontender Auscultation: normal bowel sounds Back/Spine/Pelvis Back: No back tenderness Skin General skin exam: no rashes or lesions noted Neuro General: patient alert, patient awake, patient oriented x3, moves all extremities and no focal motor deficits Cranial Nerves: CN's II-XI intact bilaterally Cognition: normal cognition Speech: speech normal Gait: normal gait Motor: muscle tone normal throughout and strength 5/5 throughout Sensory Exam: no sensory deficits noted Extrem General: normal to inspection, full ROM, capillary refill normal and no pedal edema Psych Appearance: grossly normal Mental Status: mental status grossly normal Course Vital Signs Vital signs: Vital Signs Temperature 36.6 C 01/13/20 21:32 Pulse 82 01/13/20 21:32 Respiratory Rate 16 01/13/20 21:32 Blood Pressure 130/77 01/13/20 21:32 Pulse Oximetry 98 01/13/20 21:32 Temperature 36.6 C 01/13/20 21:32 Temperature Source Tympanic 01/13/20 21:32 Pulse 82 01/13/20 21:32 Respiratory Rate 16 01/13/20 21:36 Respiratory Effort Non-Labored 01/13/20 21:36 Respiratory Depth Normal 01/13/20 21:36 Respiratory Pattern Normal 01/13/20 21:36 Blood Pressure 130/77 01/13/20 21:32 Blood Pressure Position Sitting 01/13/20 21:32 Pulse Oximetry 98 01/13/20 21:32 Oxygen Delivery Method Room Air 01/13/20 21:32 Oxygen Flow Rate 0 01/13/20 21:32 Lab/Test Results Lab/Test Results: Laboratory Tests Range/Units 01/13/20 01/13/20 21:58 21:58 WBC (4.4-10.8) 10^3/uL 10.02 RBC (4.36-5.78) 10^6/uL 5.05 Hgb (13.5-17.5) g/dL 14.2 Hct (40.0-50.0) % 44.3 MCV (80-95) fL 87.7 MCH (27.0-33.0) pg 28.1 MCHC (32.0-36.0) % 32.1 RDW (11.8-14.1) % 13.7 Plt Count (130-400) 10^3/uL 328 MPV (8.0-11.0) fL 9.7 Immature Gran % 0.6 Neutrophils % 56.0 Lymphocytes % 33.3 Monocytes % 7.4 Eosinophils % 2.1 Basophils % 0.6 Nucleated RBC % % 0 Absolute Neutrophils (1.2-6.7) 10^3/uL 5.61 Absolute Lymphocytes (1.2-3.4) 10^3/uL 3.34 Absolute Monocytes (0.1-0.8) 10^3/uL 0.74 Absolute Eosinophils (0.0-0.7) 10^3/uL 0.21 Absolute Basophils (0.0-0.2) 10^3/uL 0.06 Sodium (136-145) mmol/L 138 Potassium (3.5-5.1) mmol/L 3.5 Chloride (98-107) mmol/L 102 Carbon Dioxide (21.0-32.0) mmol/L 24.3 Anion Gap (3-11) mmol/L 11.7 H BUN (7-18) mg/dL 9 Creatinine (0.70-1.30) mg/dL 0.91 Estimated GFR/1.73 m2 (mL/min/1.73m2) >= 60.00 Glucose (74-106) mg/dL 119 H Calcium (8.5-10.1) mg/dL 8.9 Magnesium (1.8-2.4) mg/dL 1.9 Total Bilirubin (0.2-1.0) mg/dL 0.3 AST (15-37) U/L 14 L ALT (16-63) U/L 31 Alkaline Phosphatase (46-116) U/L 63 Troponin I (<0.06) ng/mL < 0.05 Total Protein (6.4-8.2) g/dL 7.0 Albumin (3.4-5.0) g/dL 4.0
[2020-01-14] VITALS: PULSE 77; O2SAT 96
[2020-01-14 00:01] VITALS: BP 91/47; PULSE 78; PULSE 83; RESP 14; O2SAT 98
== END 2020-01-14 01:10 | disposition left against medical advice (07) ==
PROVIDERS: Physician Assistant; Emergency Provider Emergency Medicine; PCP Internal Medicine
DX: R07.81 Pleurodynia (principal); R42 Dizziness and giddiness; F41.9 Anxiety disorder, unspecified; Z53.29 Procedure and treatment not carried out because of patient's decision for other reasons; E11.9 Type 2 diabetes mellitus without complications; I10 Essential (primary) hypertension; H91.93 Unspecified hearing loss, bilateral
CPT/HCPCS: 36415; 80053; 93005; 99285; 71046; 83735; 84484; 85025; 93010

== ENCOUNTER 2020-01-16 17:41 | Emergency (ER) | payer MEDICARE, MEDICAID, SELFPAY ==
[2020-01-16] VITALS (13 sets, daily range): BP systolic 125–156; BP diastolic 70–84; PULSE 78–93; RESP 14–21; TEMP 36.7; O2SAT 96–100
--- NOTE | 2020-01-16 18:15 | RT.EKG_ITS ---
APPROVED REPORT Exam: Resting ECG Patient Location: E HR:81 bpm ECG Measurements Heart Rate 81 AXIS MD 145 P 17 QRSd 100 QRS 1 QT 359 T 81 QTc 417 Conclusion Sinus rhythm...normal P axis, V-rate 60- 99 Inferior infarct, old...Q >35mS, II III aVF. Sinus. T wave inversion in aVL, seen in previous. No STEMI. Nondiagnostic.
--- NOTE | 2020-01-16 18:16 | ED.GENADUL_ITS ---
Discharge Plan Disposition Patient Disposition: HOME Condition: Improving Discharge Details Chief Complaint: Headache Clinical Impression: Headache, Dizziness, Dehydration Primary Care Provider: Juliann Hicks ED Provider: Amarilys Calixto Home Meds and New Rx's Prescriptions: Continued ranitidine HCl 150 mg tablet 150 mg PO BID Qty: 180 RF: 3 atorvastatin 80 mg tablet 80 mg PO DAILY Qty: 90 RF: 3 Laxative (sennosides) 15 mg tablet 30 mg PO QHS PRN (Reason: constipation) Qty: 180 RF: 3 Trulicity 0.75 mg/0.5 mL pen injector 0.75 mg SC QWEEK Qty: 4 RF: 0 albuterol sulfate 90 mcg/actuation HFA aerosol inhaler 2 puff IH QID PRN (Reason: shortness of breath or wheezing) RF: 0 acetaminophen 500 mg tablet 1,500 mg PO TID PRNRF: 0 Dexilant 60 mg capsule,biphase delayed releas 60 mg PO DAILY Qty: 90 RF: 3 ipratropium bromide 42 mcg (0.06 %) spray,non-aerosol 2 spray KALEE HS Qty: 1 RF: 0 amlodipine [Norvasc] 10 mg tablet 10 mg PO DAILY Qty: 90 RF: 3 clopidogrel 75 mg tablet 75 mg PO DAILY Qty: 90 RF: 3 labetalol 200 mg tablet 200 mg PO See Instructions Qty: 135 RF: 3 topiramate 50 mg tablet 100 mg PO BID Qty: 360 RF: 3 meclizine 25 mg tablet 25 mg PO QID PRN (Reason: dizziness) Qty: 30 RF: 2 (DME) blood-glucose meter [OneTouch Verio Meter] Misc See Rx Instructions .ROUTE .MEDSUPPLY Qty: 1 RF: 0 (DME) OneTouch Verio test strips Strip See Rx Instructions .ROUTE .MEDSUPPLY Qty: 100 RF: 3 (DME) lancets [OneTouch Delica Lancets] 33 gauge misc See Rx Instructions .ROUTE .MEDSUPPLY Qty: 100 RF: 3 Discharge Instructions Instructions: Dehydration (ED), Dizziness (ED), General Headache (ED) Additional Instructions: Drink plenty of fluids and get plenty of rest. Alternate tylenol and motrin as needed and directed for pain. Continue all of your regular medications including your plavix as directed. Follow-up with your primary care doctor in 1 week. Return to the emergency department with any worsening or new concerning sympt oms. Discharge Data Discharge Physician: Amarilys Calixto Medical Decision Making 49-year-old male with a history of deafness, anxiety, diabetes, CVA, GERD, hypertension, hyperlipidemia, migraines, sleep apnea who presents with headache, dizziness and nausea since this morning. Patient appears nontoxic. He has no focal deficits. No meningeal signs. Differential diagnosis includes acute CVA, dehydration, viral illness. History and presentation not consistent with subarachnoid hemorrhage. Will place an IV, bolus IV fluids, IV Tylenol, screening labs, CTA head and neck and reassess. Due to complaint of dizziness, EKG ordered which noted a rate of 81, sinus with no acute ST ischemic changes. Labs and imaging reviewed. CTA head negative for acute findings. 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 Review of ED note from 10/20/2019 noted that patient had this at that time and it was reviewed with neurology felt that it was chronic. Case discussed again with [facility] neurology who reviewed images and feel that this is chronic and no acute change. He is advised to continue with Plavix. Patient reassessed and he states he feels completely better and is requesting to go home. Advised to follow up with the primary care doctor for re-evaluation. Usual and customary return precautions given prior to discharge. Medical Records Medical records reviewed: Yes I reviewed the patient's medical records. Imaging Data Radiologic Study: Radiologist's impression: XR Chest, 2 Views Exam date and time: 01/16/2020 8:34 PM Age: 49 years old Clinical indication: Patient HX: Headache, dizziness; Additional info: R/O acute process TECHNIQUE: Imaging protocol: XR of the chest Views: 2 views. COMPARISON: CR XR CHEST 2V PA LATERAL 01/13/2020 10:28 PM FINDINGS: Lungs: Clear lungs. Pleural space: No pneumothorax. No sizable pleural effusion. Heart/Mediastinum: No cardiomegaly. Bones/joints: Unremarkable. IMPRESSION: Clear lungs. CT Angiography Head Without And With Contrast Exam date and time: 01/16/2020 7:33 PM Age: 49 years old Clinical indication: Pain; Dizziness and giddiness; Patient HX: Headache, dizziness; Additional info: R/O acute process TECHNIQUE: Imaging protocol: Computed tomographic angiography of the head without and with intravenous contrast. 3D rendering (Not supervised by radiologist): MIP and/or 3D reconstructed images were created by the technologist. COMPARISON: CT BRAIN NECK CTA 10/20/2019 4:24 PM FINDINGS: ANTERIOR CIRCULATION: Right internal carotid artery: Intracranial segment is patent with no significant stenosis or occlusion. No aneurysm. Right middle cerebral artery: No occlusion or significant stenosis. No aneurysm. Right anterior cerebral artery: No occlusion or significant stenosis. No aneurysm. Left internal carotid artery: Intracranial segment is patent with no significant stenosis. No aneurysm. Left middle cerebral artery: No occlusion or significant stenosis. No aneurysm. Left anterior cerebral artery: No occlusion or significant stenosis. No aneurysm. POSTERIOR CIRCULATION: Right vertebral artery: No occlusion or significant stenosis. No aneurysm. Left vertebral artery: No occlusion or significant stenosis. No aneurysm. Basilar artery: No occlusion or significant stenosis. No aneurysm. Right posterior cerebral artery: No occlusion or significant stenosis. No aneurysm. Left posterior cerebral artery: No occlusion or significant stenosis. No aneurysm. HEAD: Brain: No evidence for acute transcortical infarct. No mass effect or midline shift. No extra-axial collection. No acute intracranial hemorrhage. Basal cisterns are patent. Cerebral ventricles: Normal. No ventriculomegaly. Bones/joints: Unremarkable. No acute fracture. Paranasal sinuses: Visualized sinuses are normal. No fluid levels. Mastoid air cells: Visualized mastoids are normal. No mastoid effusion. Soft tissues: Unremarkable. IMPRESSION: 1. No evidence for acute transcortical infarct, acute intracranial hemorrhage, or mass effect. 2. No significant stenosis or aneurysm. CT Angiography Neck With Contrast Exam date and time: 01/16/2020 7:33 PM Age: 49 years old Clinical indication: Pain; Dizziness and giddiness; Patient HX: Headache, dizziness; Additional info: R/O acute process TECHNIQUE: Imaging protocol: Computed tomography angiography of the neck with intravenous contrast. 3D rendering (Not supervised by radiologist): MIP and/or 3D reconstructed images were created by the technologist. COMPARISON: CT BRAIN NECK CTA 10/20/2019 4:24 PM FINDINGS: Right common carotid artery: No stenosis. No dissection or occlusion. Right internal carotid artery: Atherosclerotic disease involving the origin of the right internal carotid artery resulting in mild stenosis. Right external carotid artery: No occlusion or stenosis of the origin. Right vertebral artery: No stenosis. No dissection or occlusion. Left common carotid artery: No stenosis. No dissection or occlusion. Left internal carotid artery: Atherosclerotic disease involving the origin of the left internal carotid artery resulting in moderate stenosis. Left external carotid artery: No occlusion or stenosis of the origin. Left vertebral artery: Occlusion of the left vertebral artery. Bones/joints: No acute fracture. Soft tissues: Normal. No significant soft tissue swelling. IMPRESSION: 1. Occlusion of the left vertebral artery. 2. Atherosclerotic disease involving the origin of the right internal carotid artery resulting in mild stenosis. 3. Atherosclerotic disease involving the origin of the left internal carotid artery resulting in moderate stenosis. REFERENCES: NASCET CRITERIA. The degree of internal carotid artery stenosis is based on NASCET criteria. Normal is no stenosis. Mild is less than 50% stenosis. Moderate is 50-69% stenosis. Severe is 70% to 99% stenosis. Total occlusion is no detectable patent lumen. Lab Data Lab results reviewed: Yes I reviewed the patient's lab results. Labs: Laboratory Tests Range/Units 01/16/20 01/16/20 01/16/20 18:17 18:17 18:17 WBC (4.4-10.8) 10^3/uL 11.09 H RBC (4.36-5.78) 10^6/uL 5.02 Hgb (13.5-17.5) g/dL 13.9 Hct (40.0-50.0) % 43.7 MCV (80-95) fL 87.1 MCH (27.0-33.0) pg 27.7 MCHC (32.0-36.0) % 31.8 L RDW (11.8-14.1) % 13.6 Plt Count (130-400) 10^3/uL 329 MPV (8.0-11.0) fL 9.6 Immature Gran % 0.7 Neutrophils % 61.8 Lymphocytes % 28.1 Monocytes % 6.8 Eosinophils % 2.0 Basophils % 0.6 Nucleated RBC % % 0 Absolute Neutrophils (1.2-6.7) 10^3/uL 6.85 H Absolute Lymphocytes (1.2-3.4) 10^3/uL 3.12 Absolute Monocytes (0.1-0.8) 10^3/uL 0.75 Absolute Eosinophils (0.0-0.7) 10^3/uL 0.22 Absolute Basophils (0.0-0.2) 10^3/uL 0.07 PT (9.3-11.0) sec 9.7 INR (0.9-1.1) 1.0 APTT (21.0-31.4) sec 23.6 Sodium (136-145) mmol/L 137 Potassium (3.5-5.1) mmol/L 3.5 Chloride (98-107) mmol/L 103 Carbon Dioxide (21.0-32.0) mmol/L 24.5 Anion Gap (3-11) mmol/L 9.5 BUN (7-18) mg/dL 12 Creatinine (0.70-1.30) mg/dL 0.97 Estimated GFR/1.73 m2 (mL/min/1.73m2) >= 60.00 Glucose (74-106) mg/dL 148 H Calcium (8.5-10.1) mg/dL 8.9 Magnesium (1.8-2.4) mg/dL 1.6 L Total Bilirubin (0.2-1.0) mg/dL 0.2 AST (15-37) U/L 11 L ALT (16-63) U/L 28 Alkaline Phosphatase (46-116) U/L 64 Troponin I (<0.06) ng/mL < 0.05 Total Protein (6.4-8.2) g/dL 6.7 Albumin (3.4-5.0) g/dL 3.7 ECG Data Attestation: I personally reviewed and interpreted this ECG (s) as follows: Interpretation: Rate of 81, sinus, no acute ST elevation or depression. T wave inversion in aVL, seen in previous. AK 145. QRS 100. QTc 417. HPI General Mode of arrival: ambulatory . Date/Time Provider Initiated Documentation: 01/16/20 18:14 . Limitations to Documentation: no limitations . Information obtained by: patient . HPI Narrative: Patient is a 49-year-old male with a history of anxiety, diabetes, hypertension, hyperlipidemia, CVA, obstructive sleep apnea who presents with headache, dizziness and nausea today. Patient states in a few hours after awakening this morning he developed diffuse headache which was aching and approximately 5/10. He states he took some Tylenol earlier this morning with some relief. He states he feels he may be dehydrated and has not been drinking much lately and did not sleep well last night. He denies any fever, neck pain, chest pain, shortness of breath, abdominal pain, vomiting, diarrhea, recent travel, recent known sick contacts. Related Data Home Medications Medication Instructions Recorded Confirmed albuterol sulfate 90 mcg/actuation 2 puff IH QID PRN 06/15/18 01/13/20 aerosol inhaler ranitidine HCl 150 mg tablet 150 mg PO BID #180 tab-cap 01/04/19 01/13/20 amlodipine 10 mg tablet 10 mg PO DAILY #90 tab 07/28/19 01/13/20 clopidogrel 75 mg tablet 75 mg PO DAILY #90 tab 07/28/19 01/13/20 ipratropium bromide 42 mcg (0.06 2 spray KALEE HS #1 inh 07/28/19 01/13/20 %) nasal spray labetalol 200 mg tablet 200 mg PO See Instructions #135 07/28/19 01/13/20 tab-cap topiramate 50 mg tablet 100 mg PO BID #360 tab-cap 07/28/19 01/13/20 meclizine 25 mg tablet 25 mg PO QID PRN #30 tab-cap 09/13/19 01/13/20 acetaminophen 500 mg tablet 1,500 mg PO TID PRN tab 11/02/19 01/13/20 dexlansoprazole 60 mg 60 mg PO DAILY #90 cap 11/02/19 01/13/20 capsule,biphase delayed release OneTouch Verio test strips #100 each 11/14/19 01/13/20 blood-glucose meter [OneTouch #1 each 11/14/19 01/13/20 Verio Meter] lancets [OneTouch Delica Lancets] #100 each 11/14/19 01/13/20 atorvastatin 80 mg tablet 80 mg PO DAILY #90 tab 12/14/19 01/13/20 dulaglutide 0.75 mg/0.5 mL 0.75 mg SC QWEEK #4 syringe 12/14/19 01/13/20 subcutaneous pen injector sennosides 15 mg tablet 30 mg PO QHS PRN #180 tab 12/14/19 12/14/19 Previous Rx's Medication Instructions Recorded ranitidine HCl 150 mg tablet 150 mg PO BID #180 tab-cap 01/04/19 amlodipine 10 mg tablet 10 mg PO DAILY #90 tab 07/28/19 clopidogrel 75 mg tablet 75 mg PO DAILY #90 tab 07/28/19 ipratropium bromide 42 mcg (0.06 2 spray KALEE HS #1 inh 07/28/19 %) nasal spray labetalol 200 mg tablet 200 mg PO See Instructions #135 07/28/19 tab-cap topiramate 50 mg tablet 100 mg PO BID #360 tab-cap 07/28/19 meclizine 25 mg tablet 25 mg PO QID PRN #30 tab-cap 09/13/19 dexlansoprazole 60 mg 60 mg PO DAILY #90 cap 11/02/19 capsule,biphase delayed release OneTouch Verio test strips #100 each 11/14/19 blood-glucose meter [OneTouch #1 each 11/14/19 Verio Meter] lancets [OneTouch Delica Lancets] #100 each 11/14/19 atorvastatin 80 mg tablet 80 mg PO DAILY #90 tab 12/14/19 dulaglutide 0.75 mg/0.5 mL 0.75 mg SC QWEEK #4 syringe 12/14/19 subcutaneous pen injector sennosides 15 mg tablet 30 mg PO QHS PRN #180 tab 12/14/19 Allergies Allergy/AdvReac Type Severity Reaction Status Date / Time No Known Allergies Allergy Verified 01/11/20 14:30 General Stated Complaint: Headache EDMUND: 3 Review of Systems All systems reviewed & are unremarkable except as noted in HPI and below Constitutional Constitutional: Reports as per HPI, Denies chills, Denies fever(s) and Reports headache(s) Eyes Eyes: Denies blurry vision ENT Ears, Nose, Mouth, and Throat: Reports dizziness, Reports headache(s), Denies sore throat and Denies throat swelling Cardiovascular Cardiovascular: Denies chest pain and Denies dyspnea Respiratory Respiratory: Denies cough and Denies dyspnea Gastrointestinal Gastrointestinal: Denies abdominal pain, Denies diarrhea and Denies vomiting Genitourinary Genitourinary: Denies hematuria and Denies dysuria Musculoskeletal Musculoskeletal: Denies back pain and Denies numbness Integumentary/Breasts Skin/Breast: Denies lesions and Denies rash Neurologic Neurologic: Reports dizziness, Reports headache(s), Denies localized weakness and Denies numbness Allergic/Immunologic Allergic/Immunologic: Denies throat swelling [facility] Medical History (Updated 01/16/20 @ 22:09 by Amarilys Calixto DO) Anxiety (Chronic) Borderline diabetes (Chronic) CVA (cerebral vascular accident) (Chronic) Deafness GERD (gastroesophageal reflux disease) (Chronic) HTN (hypertension) (Chronic) Hypercholesterolemia (Chronic) Migraine (Chronic) CHINO (obstructive sleep apnea) (Chronic) Sinusitis, acute (Resolved) Type 2 diabetes mellitus without complication (Acute ~07/2017) Family History Mother , in 50's Essential hypertension Alcohol abuse Substance abuse Other Breast cancer Social History Smoking/Tobacco Use Status: Current every day Tobacco Type: cigarettes Quit status: not considering quitting Alcohol Intake: never Drug use: Never Substance use type: does not use Household members: none Housing: apartment Number of Children: 3 number of grandchildren: 2 Communication Needs: Hard of Hearing Do you need help understanding health information?: Often 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 [employer] Current gender identity: male What type of physical activity do you participate in: none Seatbelt use: always Drive intox or ride w/intox team driver: No Water heater temp set <120 deg: Yes Working smoke detector in home: Yes Fire extinguisher in home: Yes Carbon monox detector in home: Yes Do you feel safe at home: Yes Do you feel safe in your relationship?: Yes Exam Const General: cooperative and healthy appearing Orientation: alert and awake HENMT Head: normal to inspection Ears: hearing grossly normal bilaterally, external ears normal and TM's normal bilaterally General nose exam: external nose normal Face and sinus: normal facial exam Mouth: oral mucosae normal Teeth and gingiva: dentition normal Throat: posterior oropharynx normal Eyes General: appearance normal, both eyes and all related structures Eyelids: eyelids normal Pupils: PERRL EOM: EOM intact bilaterally Neck Neck: normal visual inspection Lymphatic: no lymphadenopathy noted Chest Chest: normal inspection of the chest Resp Effort & Inspection: normal respiratory effort and able to speak in complete sentences Auscultation: clear to auscultation bilaterally Cardio Rate: regular rate Rhythm: regular rhythm GI Inspection: normal to inspection Palpation: soft, not firm, no guarding, no hepatosplenomegaly, no masses and nontender Auscultation: normal bowel sounds Back/Spine/Pelvis Back: no CVA tenderness Skin General skin exam: no rashes or lesions noted Neuro General: patient alert, patient awake, gait normal, moves all extremities, no meningeal signs and no focal motor deficits Cranial Nerves: CN's II-XI intact bilaterally Cognition: normal cognition Speech: speech normal Gait: normal gait Motor: muscle tone normal throughout and strength 5/5 throughout Sensory Exam: no sensory deficits noted Extrem General: normal to inspection, full ROM and capillary refill normal Psych Appearance: grossly normal Mental Status: mental status grossly normal Speech and Movement: speech and movement normal Affect: normal affect Thought Process: normal Course Vital Signs Vital signs: Vital Signs Temperature 98.1 F 01/16/20 17:53 Pulse 93 H 01/16/20 17:53 Blood Pressure 156/83 H 01/16/20 17:53 Pulse Oximetry 96 01/16/20 17:53 Temperature 98.1 F 01/16/20 17:53 Temperature Source Oral 01/16/20 17:53 Pulse 93 H 01/16/20 17:53 Respiratory Effort Non-Labored 01/16/20 17:55 Blood Pressure 156/83 H 01/16/20 17:53 Blood Pressure Position Sitting 01/16/20 17:53 Pulse Oximetry 96 01/16/20 17:53 Oxygen Delivery Method Room Air 01/16/20 17:53 Oxygen Flow Rate 0 01/16/20 17:53 Pain Level 6 01/16/20 18:09
[2020-01-16] MEDS: Normal Saline 1,000 ML 1000 ML IV ×2 (18:20→19:58)
[2020-01-16 18:29] LABS: Abs Immature Grans 0.08 10^3/uL (0.0-0.06); Absolute Basophil Count 0.07 10^3/uL (0.0-0.2); Absolute Eosinophil Count 0.22 10^3/uL (0.0-0.7); Absolute Lymphocyte Count 3.12 10^3/uL (1.2-3.4); Absolute Monocyte Count 0.75 10^3/uL (0.1-0.8); Absolute Neutrophil Count 6.85 10^3/uL (1.2-6.7); Basophils % 0.6; HCT 43.7 % (40.0-50.0); HGB 13.9 g/dL (13.5-17.5); Immature Grans % 0.7; Lymphocytes % 28.1; MCH 27.7 pg (27.0-33.0); MCHC 31.8 % (32.0-36.0); MCV 87.1 fL (80-95); MPV 9.6 fL (8.0-11.0); Monocytes % 6.8; Neutrophils % 61.8; Nucleated RBC 0 %; Platelet Count 329 10^3/uL (130-400); RBC 5.02 10^6/uL (4.36-5.78); RDW 13.6 % (11.8-14.1); WBC 11.09 10^3/uL (4.4-10.8)
[2020-01-16 18:42] LABS: PTT Activated 23.6 sec (21.0-31.4); Prothrombin Time 9.7 sec (9.3-11.0)
[2020-01-16 18:44] LABS: ALT 28 U/L (16-63); AST 11 U/L (15-37); Albumin 3.7 g/dL (3.4-5.0); Alkaline Phosphatase 64 U/L (46-116); Anion Gap 9.5 mmol/L (3-11); BUN 12 mg/dL (7-18); Bilirubin, Total 0.2 mg/dL (0.2-1.0); CO2 24.5 mmol/L (21.0-32.0); CREATININE 0.97 mg/dL (0.70-1.30); Calcium 8.9 mg/dL (8.5-10.1); Chloride 103 mmol/L (98-107); Glucose 148 mg/dL (74-106); Magnesium 1.6 mg/dL (1.8-2.4); Potassium 3.5 mmol/L (3.5-5.1); Sodium 137 mmol/L (136-145); Total Protein 6.7 g/dL (6.4-8.2)
[2020-01-16 18:45] LABS: Troponin I < 0.05 ng/mL (<0.06)
--- NOTE | 2020-01-16 19:30 | DI.RAD_ITS ---
EXAM: XR CHEST 2V PA LATERAL CLINICAL HISTORY: headache, dizziness, r/o acute disease TECHNIQUE: COMPARISON: CR CHEST 2 VIEWS PA,LAT from 08/14/2014 CR,XR XR CHEST 2V PA LATERAL from 01/13/2020 FINDINGS: Heart is not enlarged. Lungs are predominantly clear with some changes of scarring. On the lateral view, there is question of vague nodularity or masslike radiodensity projected infrahi lar posteriorly. Bloody of intrapulmonary mass not excluded. Correlation with chest CT recommended. No pleural effusion or pneumothorax. IMPRESSION: Chest CT recommended to exclude lower lobe pulmonary mass due to questionable finding on today's ches t radiograph as described above. RADIATION DOSE DELIVERED: Total DLP
--- NOTE | 2020-01-16 19:30 | DI.CT_ITS ---
EXAM: CT BRAIN NECK CTA CLINICAL HISTORY: headache, dizziness, r/o acute process. TECHNIQUE: Imaging Protocol: Axial CT angiography was performed with multi-slice acquisition and mu lti-planar and/or 3D reconstructions. CONTRAST MATERIAL: Intravenous: Omnipaque 350 Contrast volume:structured data in ml Incidental COMPARISON: CT CT BRAIN NECK CTA from 10/20/[address] BRAIN NECK CTA from 10/20/[address] ABDOMEN PELVIS WO from 11/30/2019 FINDINGS: CT angiography of the cervical cranial region was performed according to the usual protocol. Initial noncontrast scanning of the cranial region is unremarkable. Visualized lung apices are clear. Visualized portions of thoracic aorta and pulmonary arterial circul ation are unremarkable. There is no evidence of a cervical mass or adenopathy. The tracheal laryngeal structures appear intact. The common, internal, and external carotid arteries are within normal limits in the cervical region w ith no evidence of aneurysm, stenosis, or dissection. There is a previously noted chronic occlusion of the left vertebral artery. Right vertebral artery i s patent throughout and unremarkable. Intracranial portions of the internal carotid arteries appear normal with no evidence of aneurysm, st enosis, or dissection. Intracranial vertebral arteries and basilar artery appear normal with no evidence of aneurysm, stenos is or dissection. No aneurysm identified in the region of the [id number]. The anterior, middle, and posterior cer ebral arteries and major branches appear intact with no evidence of aneurysm, stenosis, or dissection . No enhancing brain lesion identified. IMPRESSION: No evidence of acute process. Previously noted chronic occlusion left vertebral artery. RADIATION DOSE DELIVERED: 1,289.91mGy.cmTotal DLP 1,289.91mGy.cm Total DLP DATA REPOSITORY: All CT scans at this facility are submitted to the National Radiology Data Registry (NRDR) Dose Index Registry (DIR) with the [employer] ([employer]). RADIATION OPTIMIZATION: All CT scans at this facility use at least one of these dose optimization te chniques: automated exposure control; mA and/or kV adjustment per patient size (includes targeted exa ms where dose is matched to clinical indication); or iterative reconstruction.
[2020-01-16] MEDS: ACETAMINOPHEN 1,000 MG/100 ML BTL 400 MG IVPB (19:58)
[2020-01-16] MEDS: Omnipaque 350 MG/ML 100 ML BTL IJ (20:30)
[2020-01-16] MEDS: Normal Saline - Diluent 50 ML VIAL IV (20:31)
--- NOTE | 2020-01-16 20:45 | DI.VRAD_ITS ---
PROCEDURE INFORMATION: Exam: CT Angiography Head Without And With Contrast Exam date and time: 01/16/2020 7:33 PM Age: 49 years old Clinical indication: Pain; Dizziness and giddiness; Patient HX: Headache, dizziness; Additional info: R/O acute process TECHNIQUE: Imaging protocol: Computed tomographic angiography of the head without and with intravenous contrast. 3D rendering (Not supervised by radiologist): MIP and/or 3D reconstructed images were created by the technologist. COMPARISON: CT BRAIN NECK CTA 10/20/2019 4:24 PM FINDINGS: ANTERIOR CIRCULATION: Right internal carotid artery: Intracranial segment is patent with no significant stenosis or occlusion. No aneurysm. Right middle cerebral artery: No occlusion or significant stenosis. No aneurysm. Right anterior cerebral artery: No occlusion or significant stenosis. No aneurysm. Left internal carotid artery: Intracranial segment is patent with no significant stenosis. No aneurysm. Left middle cerebral artery: No occlusion or significant stenosis. No aneurysm. Left anterior cerebral artery: No occlusion or significant stenosis. No aneurysm. POSTERIOR CIRCULATION: Right vertebral artery: No occlusion or significant stenosis. No aneurysm. Left vertebral artery: No occlusion or significant stenosis. No aneurysm. Basilar artery: No occlusion or significant stenosis. No aneurysm. Right posterior cerebral artery: No occlusion or significant stenosis. No aneurysm. Left posterior cerebral artery: No occlusion or significant stenosis. No aneurysm. HEAD: Brain: No evidence for acute transcortical infarct. No mass effect or midline shift. No extra-axial collection. No acute intracranial hemorrhage. Basal cisterns are patent. Cerebral ventricles: Normal. No ventriculomegaly. Bones/joints: Unremarkable. No acute fracture. Paranasal sinuses: Visualized sinuses are normal. No fluid levels. Mastoid air cells: Visualized mastoids are normal. No mastoid effusion. Soft tissues: Unremarkable. IMPRESSION: 1. No evidence for acute transcortical infarct, acute intracranial hemorrhage, or mass effect. 2. No significant stenosis or aneurysm. PROCEDURE INFORMATION: Exam: CT Angiography Neck With Contrast Exam date and time: 01/16/2020 7:33 PM Age: 49 years old Clinical indication: Pain; Dizziness and giddiness; Patient HX: Headache, dizziness; Additional info: R/O acute process TECHNIQUE: Imaging protocol: Computed tomography angiography of the neck with intravenous contrast. 3D rendering (Not supervised by radiologist): MIP and/or 3D reconstructed images were created by the technologist. COMPARISON: CT BRAIN NECK CTA 10/20/2019 4:24 PM FINDINGS: Right common carotid artery: No stenosis. No dissection or occlusion. Right internal carotid artery: Atherosclerotic disease involving the origin of the right internal carotid artery resulting in mild stenosis. Right external carotid artery: No occlusion or stenosis of the origin. Right vertebral artery: No stenosis. No dissection or occlusion. Left common carotid artery: No stenosis. No dissection or occlusion. Left internal carotid artery: Atherosclerotic disease involving the origin of the left internal carotid artery resulting in moderate stenosis. Left external carotid artery: No occlusion or stenosis of the origin. Left vertebral artery: Occlusion of the left vertebral artery. Bones/joints: No acute fracture. Soft tissues: Normal. No significant soft tissue swelling. IMPRESSION: 1. Occlusion of the left vertebral artery. 2. Atherosclerotic disease involving the origin of the right internal carotid artery resulting in mild stenosis. 3. Atherosclerotic disease involving the origin of the left internal carotid artery resulting in moderate stenosis. REFERENCES: NASCET CRITERIA. The degree of internal carotid artery stenosis is based on NASCET criteria. Normal is no stenosis. Mild is less than 50% stenosis. Moderate is 50-69% stenosis. Severe is 70% to 99% stenosis. Total occlusion is no detectable patent lumen. THIS REPORT CONTAINS FINDINGS THAT MAY BE CRITICAL TO PATIENT CARE. The findings were verbally communicated via telephone conference with TAMAR Kang at 8:40 PM EDT on 01/16/2020. The findings were acknowledged and understood. Dictated and Authenticated by: José Miguel Rosales MD. Ordering:CLAY Panda MD
--- NOTE | 2020-01-16 20:48 | DI.VRAD_ITS ---
PROCEDURE INFORMATION: Exam: XR Chest, 2 Views Exam date and time: 01/16/2020 8:34 PM Age: 49 years old Clinical indication: Patient HX: Headache, dizziness; Additional info: R/O acute process TECHNIQUE: Imaging protocol: XR of the chest Views: 2 views. COMPARISON: CR XR CHEST 2V PA LATERAL 01/13/2020 10:28 PM FINDINGS: Lungs: Clear lungs. Pleural space: No pneumothorax. No sizable pleural effusion. Heart/Mediastinum: No cardiomegaly. Bones/joints: Unremarkable. IMPRESSION: Clear lungs. Dictated and Authenticated by: José Miguel Rosales MD. Ordering:CLAY Panda MD
== END 2020-01-16 22:55 | disposition home or self-care (01) ==
PROVIDERS: Emergency Provider Physician Assistant; PCP Internal Medicine
DX: E86.0 Dehydration (principal); R51 Headache; R42 Dizziness and giddiness; H91.93 Unspecified hearing loss, bilateral; I10 Essential (primary) hypertension; E11.9 Type 2 diabetes mellitus without complications; Z79.84 Long term (current) use of oral hypoglycemic drugs
CPT/HCPCS: 36415; 70496; 70498; 80053; 93005; 96361; 96365; 99285; 71046; 83735; 84484; 85025; 85610; 85730; 93010; J0131; J3490

== ENCOUNTER 2020-05-10 10:33 | Outpatient (CLI) | payer MEDICARE, MEDICAID, SELFPAY ==
--- NOTE | 2020-05-10 14:00 | DI.RAD_ITS ---
EXAM: XR RIBS LT W PA LAT CHEST CLINICAL HISTORY: L lateral rib pain, r/o frx and pneumothorax, rib pain, pleurodynia, R07.81 TECHNIQUE: COMPARISON: CR,XR XR CHEST 2V PA LATERAL from 01/16/2020 FINDINGS: PA and lateral chest and 4 additional views of the ribs were obtained. The heart is not enlarged. T he lungs are clear and normally expanded. There is minimal smooth deformity of the left 9th rib posteriorly, this may represent an old fracture . There is no evidence of acute rib injury. IMPRESSION: Negative examination of the chest and left ribs. RADIATION DOSE DELIVERED: Total DLP
== END 2020-05-10 10:53 ==
PROVIDERS: PCP Internal Medicine; Visit Provider Family Medicine
DX: R07.81 Pleurodynia (principal)
CPT/HCPCS: 71046; 71100

== ENCOUNTER 2020-10-14 09:07 | Emergency (ER) | payer MEDICARE, MEDICAID, SELFPAY ==
--- NOTE | 2020-10-14 09:08 | ED.GENADUL_ITS ---
Discharge Plan Disposition Patient Disposition: HOME Condition: Improving Discharge Details Clinical Impression: Vertigo Primary Care Provider: Juliann Hicks ED Provider: Amarilys Calixto Home Meds and New Rx's Prescriptions: New meclizine 12.5 mg tablet 12.5 mg PO TID PRN (Reason: dizziness) Qty: 14 RF: 0 Continued atorvastatin 80 mg tablet 80 mg PO DAILY Qty: 90 RF: 3 Laxative (sennosides) 15 mg tablet 30 mg PO QHS PRN (Reason: constipation) Qty: 180 RF: 3 hydrocodone-acetaminophen 5-325 mg tablet 1 tab PO Q8H MDD 15 mg hydrocodone PRN (Reason: pain) Qty: 15 RF: 0 albuterol sulfate 90 mcg/actuation HFA aerosol inhaler 2 puff IH QID PRN (Reason: shortness of breath or wheezing) RF: 0 acetaminophen 500 mg tablet 1,500 mg PO TID PRNRF: 0 Dexilant 60 mg capsule,biphase delayed releas 60 mg PO DAILY Qty: 90 RF: 3 famotidine 20 mg tablet 20 mg PO DAILY RF: 0 labetalol 200 mg tablet 200 mg PO See Instructions Qty: 135 RF: 3 ipratropium bromide 42 mcg (0.06 %) spray,non-aerosol 2 spray KALEE HS Qty: 1 RF: 0 amlodipine [Norvasc] 10 mg tablet 10 mg PO DAILY Qty: 90 RF: 3 clopidogrel 75 mg tablet 75 mg PO DAILY Qty: 90 RF: 3 topiramate 50 mg tablet 100 mg PO BID Qty: 360 RF: 3 meclizine 25 mg tablet 25 mg PO QID PRN (Reason: dizziness) Qty: 30 RF: 2 (DME) blood-glucose meter [OneTouch Verio Meter] Misc See Rx Instructions .ROUTE .MEDSUPPLY Qty: 1 RF: 0 (DME) OneTouch Verio test strips Strip See Rx Instructions .ROUTE .MEDSUPPLY Qty: 100 RF: 3 (DME) lancets [OneTouch Delica Lancets] 33 gauge misc See Rx Instructions .ROUTE .MEDSUPPLY Qty: 100 RF: 3 Discharge Instructions Instructions: Vertigo (ED) Additional Instructions: Apply ice to the affected area several times daily for 20 minutes at a time. Alternate tylenol and motrin as needed and directed for pain. Your prescription for meclizine has been sent electronically to your pharmacy. Call the pharmacy to make sure your prescription is ready before pickup. Take the prescription as directed. Follow-up with your primary care doctor in 1 week. Return to the emergency department with any worsening or new concerning symptoms. Discharge Data Discharge Date/Time-TO BE ENTERED AT DEPARTURE: 10/14/20 11:27 Discharge Physician: Amarilys Calixto Medical Decision Making 0920 -- 50-year-old male with a history of vertigo, obesity, hypertension, hyperlipidemia, diabetes and CVA presents for vertigo since this morning. Patient is deaf and is able to read lips but history was obtained through language line. Vitals within normal limits. Patient appears comfortable and nontoxic. Normal ENT exam. No focal deficits. Suspect most likely this is an exacerbation of his vertigo, which may be worsened with potential dehydration. Will place an IV, check screening labs, chest x-ray, CT head and EKG and give bolus IV fluids and meclizine p.o. and reassess. EKG notes a rate of 73, sinus, no STEMI, nondiagnostic. 1120 -- Labs and imaging reviewed and unremarkable. CT head negative. Chest x- ray negative. Patient reassessed and he feels much better and he is requesting to go home. He was given 2 tabs meclizine for home and a prescription sent electronically to his pharmacy. Advised to follow up with the primary care doctor for re-evaluation. Usual and customary return precautions given prior to discharge. Medical Records Medical records reviewed: Yes I reviewed the patient's medical records. Imaging Data Radiologic Study: Radiologist's impression: CT Head Without Contrast Exam date and time: 10/14/2020 9:49 AM Age: 50 years old Clinical indication: Other: Dizziness, R/O acute disease TECHNIQUE: Imaging protocol: Computed tomography of the head without contrast. Radiation optimization: All CT scans at this facility use at least one of these dose optimization techniques: automated exposure control; mA and/or kV adjustment per patient size (includes targeted exams where dose is matched to clinical indication); or iterative reconstruction. COMPARISON: CT BRAIN NECK CTA 01/16/2020 8:05 PM FINDINGS: Brain: Normal. No hemorrhage. Unremarkable white matter. No mass effect. Cerebral ventricles: No ventriculomegaly. Bones/joints: Unremarkable. No acute fracture. Paranasal sinuses: Small amount ethmoid sinus mucosal thickening. No fluid levels. Mastoid air cells: Visualized mastoid air cells are well aerated. Vasculature: Mild atherosclerotic calcification of the carotid siphons. Soft tissues: Unremarkable. IMPRESSION: No acute intracranial abnormality. XR Chest Exam date and time: 10/14/2020 9:49 AM Age: 50 years old Clinical indication: Other: Dizziness, R/O acute disease TECHNIQUE: Imaging protocol: XR of the chest. Views: 2 views. COMPARISON: CR XR RIBS LT W PA LAT CHEST 05/10/2020 2:28 PM FINDINGS: Lungs: No consolidation. Pleural spaces: No pleural effusion. No pneumothorax. Heart/Mediastinum: No cardiomegaly. Bones/joints: Unremarkable. IMPRESSION: No acute findings. Lab Data Lab results reviewed: Yes I reviewed the patient's lab results. Labs: Laboratory Tests Range/Units 10/14/20 10/14/20 09:53 09:53 WBC (4.4-10.8) 10^3/uL 7.55 RBC (4.36-5.78) 10^6/uL 4.73 Hgb (13.5-17.5) g/dL 13.9 Hct (40.0-50.0) % 42.7 MCV (80-95) fL 90.3 MCH (27.0-33.0) pg 29.4 MCHC (32.0-36.0) % 32.6 RDW (11.8-14.1) % 14.6 H Plt Count (130-400) 10^3/uL 343 MPV (8.0-11.0) fL 9.1 Immature Gran % 0.8 Neutrophils % 60.1 Lymphocytes % 28.5 Monocytes % 7.2 Eosinophils % 2.6 Basophils % 0.8 Nucleated RBC % % 0 Absolute Neutrophils (1.2-6.7) 10^3/uL 4.54 Absolute Lymphocytes (1.2-3.4) 10^3/uL 2.15 Absolute Monocytes (0.1-0.8) 10^3/uL 0.54 Absolute Eosinophils (0.0-0.7) 10^3/uL 0.20 Absolute Basophils (0.0-0.2) 10^3/uL 0.06 Sodium (136-145) mmol/L 139 Potassium (3.5-5.1) mmol/L 4.1 Chloride (98-107) mmol/L 104 Carbon Dioxide (21.0-32.0) mmol/L 24.6 Anion Gap (3-11) mmol/L 10.4 BUN (7-18) mg/dL 12 Creatinine (0.70-1.30) mg/dL 0.9 Estimated GFR/1.73 m2 (mL/min/1.73m2) >= 60.00 Glucose (74-106) mg/dL 145 H Calcium (8.5-10.1) mg/dL 8.4 L Total Bilirubin (0.2-1.0) mg/dL 0.4 AST (15-37) U/L 10 L ALT (16-63) U/L 21 Alkaline Phosphatase (46-116) U/L 84 Total Protein (6.4-8.2) g/dL 6.9 Albumin (3.4-5.0) g/dL 3.8 ECG Data Attestation: I personally reviewed and interpreted this ECG (s) as follows: Interpretation: Rate of 73, sinus, no acute ST elevation or depression. LA 147. QTc 434. HPI General Mode of arrival: ambulatory . Date/Time Provider Initiated Documentation: 10/14/20 09:07 . Limitations to Documentation: no limitations . Information obtained by: patient . HPI Narrative: Patient is a 50-year-old male with a history of deafness, hypertension, hyperlipidemia, diabetes, anxiety, depression who presents for vertigo since this morning. Patient states he has had a history of vertigo for several years and states this feels similar to that. He describes a lightheadedness and spinning sensation that is worse with head movement. He states he has been out in the sun for the past 2 days and thinks he also may has not been drinking as much water. He states upon standing a few times today he saw black stars in his eyes which was resolved upon sitting. He states he drank some water this morning which usually helps with his symptoms but this did not help as much as usual. He also states he usually has meclizine at home for this that he takes as needed but he ran out recently. He does admit to some mild diffuse headache. He denies any fever, neck pain, chest pain, shortness of breath, cough, abdominal pain, nausea, vomiting, recent illness or new medications. Related Data Home Medications Medication Instructions Recorded Confirmed albuterol sulfate 90 mcg/actuation 2 puff IH QID PRN 06/15/18 10/14/20 aerosol inhaler amlodipine 10 mg tablet 10 mg PO DAILY #90 tab 07/28/19 10/14/20 clopidogrel 75 mg tablet 75 mg PO DAILY #90 tab 07/28/19 10/14/20 ipratropium bromide 42 mcg (0.06 2 spray KALEE HS #1 inh 07/28/19 06/24/20 %) nasal spray topiramate 50 mg tablet 100 mg PO BID #360 tab-cap 07/28/19 10/14/20 meclizine 25 mg tablet 25 mg PO QID PRN #30 tab-cap 09/13/19 10/14/20 acetaminophen 500 mg tablet 1,500 mg PO TID PRN tab 11/02/19 10/14/20 dexlansoprazole 60 mg 60 mg PO DAILY #90 cap 11/02/19 10/14/20 capsule,biphase delayed release OneTouch Verio test strips #100 each 11/14/19 06/24/20 blood-glucose meter [OneTouch #1 each 11/14/19 06/24/20 Verio Meter] lancets [OneTouch Delica Lancets] #100 each 11/14/19 06/24/20 atorvastatin 80 mg tablet 80 mg PO DAILY #90 tab 12/14/19 10/14/20 sennosides 15 mg tablet 30 mg PO QHS PRN #180 tab 12/14/19 06/24/20 hydrocodone 5 mg-acetaminophen 325 1 tab PO Q8H PRN #15 tab MDD 15 mg 05/10/20 06/24/20 mg tablet hydrocodone famotidine 20 mg tablet 20 mg PO DAILY 06/20/20 10/14/20 labetalol 200 mg tablet 200 mg PO See Instructions #135 06/20/20 10/14/20 tab-cap meclizine 12.5 mg PO TID PRN #14 tab 10/14/20 Previous Rx's Medication Instructions Recorded amlodipine 10 mg tablet 10 mg PO DAILY #90 tab 07/28/19 clopidogrel 75 mg tablet 75 mg PO DAILY #90 tab 07/28/19 ipratropium bromide 42 mcg (0.06 2 spray KALEE HS #1 inh 03/05/20 %) nasal spray topiramate 50 mg tablet 100 mg PO BID #360 tab-cap 07/28/19 meclizine 25 mg tablet 25 mg PO QID PRN #30 tab-cap 09/13/19 dexlansoprazole 60 mg 60 mg PO DAILY #90 cap 11/02/19 capsule,biphase delayed release OneTouch Verio test strips #100 each 11/14/19 blood-glucose meter [OneTouch #1 each 11/14/19 Verio Meter] lancets [OneTouch Delica Lancets] #100 each 11/14/19 atorvastatin 80 mg tablet 80 mg PO DAILY #90 tab 12/14/19 sennosides 15 mg tablet 30 mg PO QHS PRN #180 tab 12/14/19 hydrocodone 5 mg-acetaminophen 325 1 tab PO Q8H PRN #15 tab MDD 15 mg 05/10/20 mg tablet hydrocodone labetalol 200 mg tablet 200 mg PO See Instructions #135 06/20/20 tab-cap meclizine 12.5 mg PO TID PRN #14 tab 10/14/20 Allergies Allergy/AdvReac Type Severity Reaction Status Date / Time dulaglutide [From [facility]] AdvReac diarrhea Verified 06/20/20 15:30 General EDMUND: 3 Review of Systems All systems reviewed & are unremarkable except as noted in HPI and below Constitutional Constitutional: Reports as per HPI, Denies chills and Denies fever(s) Eyes Eyes: Denies blurry vision ENT Ears, Nose, Mouth, and Throat: Reports dizziness, Denies sore throat and Denies throat swelling Cardiovascular Cardiovascular: Denies chest pain and Denies dyspnea Respiratory Respiratory: Denies cough and Denies dyspnea Gastrointestinal Gastrointestinal: Denies abdominal pain, Denies diarrhea and Denies vomiting Genitourinary Genitourinary: Denies hematuria and Denies dysuria Musculoskeletal Musculoskeletal: Denies back pain and Denies numbness Integumentary/Breasts Skin/Breast: Denies lesions and Denies rash Neurologic Neurologic: Reports dizziness, Denies localized weakness and Denies numbness Allergic/Immunologic Allergic/Immunologic: Denies throat swelling [facility] Medical History (Updated 10/14/20 @ 11:18 by Amarilys Calixto DO) Anxiety Borderline diabetes CVA (cerebral vascular accident) Deafness Diarrhea due to drug GERD (gastroesophageal reflux disease) HTN (hypertension) Hypercholesterolemia Migraine CHINO (obstructive sleep apnea) Sinusitis, acute Type 2 diabetes mellitus without complication (~07/2017) Family History Mother , in 50's Essential hypertension Alcohol abuse Substance abuse Other Breast cancer Social History Smoking/Tobacco Use Status: Current every day Tobacco Type: cigarettes Quit status: not considering quitting Smoking risk assessment performed?: Yes Alcohol Intake: never Drug use: Never Substance use type: does not use Household members: none Housing: apartment Number of Children: 3 number of grandchildren: 2 Communication Needs: Hard of Hearing Do you need help understanding health information?: Often 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 [employer] Current gender identity: male What type of physical activity do you participate in: none Seatbelt use: always Drive intox or ride w/intox assembly line driver: No Water heater temp set <120 deg: Yes Working smoke detector in home: Yes Fire extinguisher in home: Yes Carbon monox detector in home: Yes Do you feel safe at home: Yes Do you feel safe in your relationship?: Yes Exam Const General: cooperative and no acute distress HENMT Head: normal to inspection Ears: hearing grossly normal bilaterally, external ears normal and TM's normal bilaterally General nose exam: external nose normal Mouth: oral mucosae normal Eyes General: appearance normal, both eyes and all related structures Neck Neck: normal visual inspection Resp Effort & Inspection: normal respiratory effort and able to speak in complete sentences Auscultation: clear to auscultation bilaterally Cardio Rate: regular rate Rhythm: regular rhythm GI Palpation: soft, not firm, no hepatosplenomegaly, not rigid and nontender Skin General skin exam: no rashes or lesions noted Neuro General: patient alert, patient awake, patient oriented x3, gait normal, moves all extremities, no meningeal signs and no focal motor deficits Cranial Nerves: CN's II-XI intact bilaterally Motor: muscle tone normal throughout and strength 5/5 throughout Extrem General: normal to inspection and full ROM Psych Appearance: grossly normal Affect: normal affect
[2020-10-14 09:14] VITALS: BP 111/69; PULSE 76; RESP 18; TEMP 36.3; O2SAT 98
--- NOTE | 2020-10-14 09:15 | RT.EKG_ITS ---
APPROVED REPORT Exam: Resting ECG Reason for Exam: dizziness Patient Location: E HR:73 bpm ECG Measurements Heart Rate 73 AXIS NV 147 P 31 QRSd 96 QRS 16 QT 394 T 66 QTc 434 Conclusion Sinus rhythm...normal P axis, V-rate 60- 99. No STEMI. I have reviewed and interpreted ECG and agree with software generated interpretation.
--- NOTE | 2020-10-14 09:45 | DI.RAD_ITS ---
Exam(s) XR CHEST 2V PA LATERAL EXAM: XR CHEST 2V PA LATERAL CLINICAL HISTORY: dizziness, r/o acute disease TECHNIQUE: 2D digital imaging was performed. COMPARISON: CR XR RIBS LT W PA LAT CHEST from 05/10/2020 FINDINGS: The heart is not enlarged. The lungs are clear and well expanded. No pleural effusion seen. Mediastin al contours appear intact. IMPRESSION: Normal chest. RADIATION DOSE DELIVERED: Total DLP
--- NOTE | 2020-10-14 09:45 | DI.CT_ITS ---
Exam(s) CT HEAD WO EXAM: CT HEAD WO CLINICAL HISTORY: dizziness, r/o acute process. TECHNIQUE: Imaging Protocol: Axial computed tomography images with coronal and sagittal reformatted images were created and reviewed COMPARISON: CT CT BRAIN NECK CTA from 01/16/2020 FINDINGS: The ventricular system is normal in appearance. No evidence of acute intracranial hemorrhage, mass effect, or midline shift. The orbital structures are unremarkable. The temporal bone structures appear intact. Calvarium: Normal. Mild mucoperiosteal thickening of maxillary and ethmoid sinuses noted. IMPRESSION: No evidence of acute intracranial process. RADIATION DOSE DELIVERED: 756.3mGy.cm Total DLP 756.3mGy.cm Total DLP DATA REPOSITORY: All CT scans at this facility are submitted to the National Radiology Data Registry (NRDR) Dose Index Registry (DIR) with the [employer] ([employer]). RADIATION OPTIMIZATION: All CT scans at this facility use at least one of these dose optimization te chniques: automated exposure control; mA and/or kV adjustment per patient size (includes targeted exa ms where dose is matched to clinical indication); or iterative reconstruction.
[2020-10-14 09:59] LABS: Abs Immature Grans 0.06 10^3/uL (0.0-0.06); Absolute Basophil Count 0.06 10^3/uL (0.0-0.2); Absolute Lymphocyte Count 2.15 10^3/uL (1.2-3.4); Absolute Monocyte Count 0.54 10^3/uL (0.1-0.8); Absolute Neutrophil Count 4.54 10^3/uL (1.2-6.7); Basophils % 0.8; Eosinophils % 2.6; HCT 42.7 % (40.0-50.0); HGB 13.9 g/dL (13.5-17.5); Immature Grans % 0.8; Lymphocytes % 28.5; MCH 29.4 pg (27.0-33.0); MCHC 32.6 % (32.0-36.0); MCV 90.3 fL (80-95); MPV 9.1 fL (8.0-11.0); Monocytes % 7.2; Neutrophils % 60.1; Nucleated RBC 0 %; Platelet Count 343 10^3/uL (130-400); RBC 4.73 10^6/uL (4.36-5.78); RDW 14.6 % (11.8-14.1); RDW-SD 48.2 fL; WBC 7.55 10^3/uL (4.4-10.8)
[2020-10-14 10:12] LABS: ALT 21 U/L (16-63); AST 10 U/L (15-37); Albumin 3.8 g/dL (3.4-5.0); Alkaline Phosphatase 84 U/L (46-116); Anion Gap 10.4 mmol/L (3-11); BUN 12 mg/dL (7-18); Bilirubin, Total 0.4 mg/dL (0.2-1.0); CO2 24.6 mmol/L (21.0-32.0); CREATININE 0.9 mg/dL (0.70-1.30); Calcium 8.4 mg/dL (8.5-10.1); Chloride 104 mmol/L (98-107); Glucose 145 mg/dL (74-106); Potassium 4.1 mmol/L (3.5-5.1); Sodium 139 mmol/L (136-145); Total Protein 6.9 g/dL (6.4-8.2)
[2020-10-14] MEDS: Normal Saline 1,000 ML 1000 ML IV (10:22)
[2020-10-14] MEDS: Meclizine 25 MG TAB PO (10:22)
--- NOTE | 2020-10-14 11:06 | DI.VRAD_ITS ---
PROCEDURE INFORMATION: Exam: CT Head Without Contrast Exam date and time: 10/14/2020 9:49 AM Age: 50 years old Clinical indication: Other: Dizziness, R/O acute disease TECHNIQUE: Imaging protocol: Computed tomography of the head without contrast. Radiation optimization: All CT scans at this facility use at least one of these dose optimization techniques: automated exposure control; mA and/or kV adjustment per patient size (includes targeted exams where dose is matched to clinical indication); or iterative reconstruction. COMPARISON: CT BRAIN NECK CTA 01/16/2020 8:05 PM FINDINGS: Brain: Normal. No hemorrhage. Unremarkable white matter. No mass effect. Cerebral ventricles: No ventriculomegaly. Bones/joints: Unremarkable. No acute fracture. Paranasal sinuses: Small amount ethmoid sinus mucosal thickening. No fluid levels. Mastoid air cells: Visualized mastoid air cells are well aerated. Vasculature: Mild atherosclerotic calcification of the carotid siphons. Soft tissues: Unremarkable. IMPRESSION: No acute intracranial abnormality. Dictated and Authenticated by: Mitchell Colón MD. Ordering:CLAY Panda MD
--- NOTE | 2020-10-14 11:08 | DI.VRAD_ITS ---
PROCEDURE INFORMATION: Exam: XR Chest Exam date and time: 10/14/2020 9:49 AM Age: 50 years old Clinical indication: Other: Dizziness, R/O acute disease TECHNIQUE: Imaging protocol: XR of the chest. Views: 2 views. COMPARISON: CR XR RIBS LT W PA LAT CHEST 05/10/2020 2:28 PM FINDINGS: Lungs: No consolidation. Pleural spaces: No pleural effusion. No pneumothorax. Heart/Mediastinum: No cardiomegaly. Bones/joints: Unremarkable. IMPRESSION: No acute findings. Dictated and Authenticated by: Mitchell Colón MD. Ordering:CLAY Panda MD
[2020-10-14 11:18] VITALS: BP 137/84; PULSE 74; TEMP 36.5; O2SAT 98
[2020-10-14] MEDS: Meclizine 12.5 MG TAB 25 MG PO (11:28)
== END 2020-10-14 11:27 | disposition home or self-care (01) ==
PROVIDERS: Emergency Provider Physician Assistant; PCP Internal Medicine
DX: R42 Dizziness and giddiness (principal); H90.3 Sensorineural hearing loss, bilateral; E86.0 Dehydration
CPT/HCPCS: 36415; 80053; 93005; 96360; 99285; 70450; 71046; 85025; 93010; 99284

== ENCOUNTER 2021-01-07 10:59 | Emergency (ER) | payer MEDICARE, MEDICAID, SELFPAY ==
[2021-01-07] VITALS (16 sets, daily range): BP systolic 122–132; BP diastolic 69–84; PULSE 80–87; RESP 11–16; TEMP 36.7; O2SAT 95–98
--- NOTE | 2021-01-07 11:00 | RT.EKG_ITS ---
APPROVED REPORT Exam: Resting ECG Reason for Exam: chest pain Patient Location: E HR:86 bpm ECG Measurements Heart Rate 86 AXIS IA 150 P 21 QRSd 88 QRS 3 QT 347 T 81 QTc 416 Conclusion Sinus rhythm...normal P axis, V-rate 60- 99
--- NOTE | 2021-01-07 11:08 | ED.GENADUL_ITS ---
Discharge Plan Disposition Patient Disposition: HOME Condition: Stable Discharge Details Clinical Impression: Cough, Vertigo, Daily headache, Chest pain Primary Care Provider: Juliann Hicks ED Provider: Derik Boston Home Meds and New Rx's Prescriptions: New prednisone 20 mg tablet 60 mg PO DAILY 5 Days Qty: 15 RF: 0 Continued Laxative (sennosides) 15 mg tablet 30 mg PO QHS PRN (Reason: constipation) Qty: 180 RF: 3 hydrocodone-acetaminophen 5-325 mg tablet 1 tab PO Q8H MDD 15 mg hydrocodone PRN (Reason: pain) Qty: 15 RF: 0 albuterol sulfate 90 mcg/actuation HFA aerosol inhaler 2 puff IH QID PRN (Reason: shortness of breath or wheezing) RF: 0 acetaminophen 500 mg tablet 1,500 mg PO TID PRNRF: 0 labetalol 200 mg tablet 200 mg PO See Instructions Qty: 135 RF: 3 amlodipine [Norvasc] 10 mg tablet 10 mg PO DAILY Qty: 90 RF: 3 atorvastatin 80 mg tablet 80 mg PO DAILY Qty: 90 RF: 3 clopidogrel 75 mg tablet 75 mg PO DAILY Qty: 90 RF: 3 Dexilant 60 mg capsule,biphase delayed releas 60 mg PO DAILY Qty: 90 RF: 3 topiramate 50 mg tablet 100 mg PO BID Qty: 360 RF: 3 bupropion HCl 150 mg tablet extended release 24 hr 150 mg PO QAM Qty: 90 RF: 3 ipratropium bromide 42 mcg (0.06 %) spray,non-aerosol 2 spray KALEE HS Qty: 1 RF: 0 meclizine 25 mg tablet 25 mg PO QID PRN (Reason: dizziness) Qty: 30 RF: 2 famotidine 20 mg tablet 20 mg PO DAILY Qty: 90 RF: 3 (DME) blood-glucose meter [OneTouch Verio Meter] Misc See Rx Instructions .ROUTE .MEDSUPPLY Qty: 1 RF: 0 (DME) OneTouch Verio test strips Strip See Rx Instructions .ROUTE .MEDSUPPLY Qty: 100 RF: 3 (DME) lancets [OneTouch Delica Lancets] 33 gauge misc See Rx Instructions .ROUTE .MEDSUPPLY Qty: 100 RF: 3 meclizine 12.5 mg tablet 12.5 mg PO TID PRN (Reason: dizziness) Qty: 14 RF: 0 Discharge Instructions Instructions: Vertigo (ED), Acute Cough (ED) Additional Instructions: your blood work and chest xray did not show concerning findings your covid test is still pending follow up with your primary care provider within a week if you feel more ill, have worsening pain or difficulty breathing return to the emergency department Stand Alone Forms: PENDING COVID-19 TESTING Medical Decision Making 50 yo male with hx of cva, t2dm, vertigo, frequent headaches/migraines, anxiety, htn, who is deaf comes in with multiple complaints but primary complaint on my exam is cough. He states he has had 3 days of productive cough and when he coughs he has anterior chest pain. Denies chest pain when he is not having a cough. HE states he has not had a fever. HE is vaccinated for covid. He also has had a headache not the worst of his life for 2 days and feels similar to his prior headaches he has had. He also has a history of vertigo and has had intermittent dizziness when he turns his head similar to prior. He is deaf and refused languange line as he prefers lip reading. He is walking with steady gait, has no focal motor or sensation deficits, does have very mild nystagmus when looking to the left in both eyes and it is horizontal nystagmus. HAs clear lungs, no murmurs, no leg swelling or calf tenderness. Based on his cough and well appearance suspect uri vs allergies but will obtain xray to evaluate for possible infiltrate. Symptoms seem more infectious but given heart score of 3 will obtain ecg and troponin. He is wells score low and perc negative so doubt PE at this time and has no tearing back pain so doubt disseciton. His headache and vertigo symptoms he gets frequently and are not worse than normal and exam is reassuring against central vertigo. no findings on history or exam to suggest intracranial hemorrhage or special loan officer infection patient remains stable and labs are unremarkable as is chest xray. He has no symptoms now other than dry cough and lungs are clear, will trial a short course of prednisone as he does use albuterol for reactive airway disease per patient. Given 3 days of symptoms do not feel delta troponin indicated. HE was advised to f/u with pcp and return precautions givfen Differential Diagnosis Differential Diagnosis: vertigo, migraine, pneumonia, nstemi Medical Records Medical records reviewed: Yes I reviewed the patient's medical records. Imaging Data Radiologic Study: Attestation: I personally reviewed and interpreted this imaging study as follows: Imaging: X-Ray My impression: no acute findings ECG Data Attestation: I personally reviewed and interpreted this ECG (s) as follows: Prior ECG tracings: available for review Interpretation: sinus rhythm, rate of 86, no acute st t wave ischemic findings HPI General Mode of arrival: ambulatory . Date/Time Provider Initiated Documentation: 01/07/21 11:02 . Limitations to Documentation: no limitations . Information obtained by: patient . History of Present Illness 50 year old M presents to the emergency department with the chief complaint of cough, described as moderate, Patient started experiencing this day(s) (3) and it has been constant. No relieving factors improve symptom(s), No exacerbating factors reported . Patient notes chest pain. Patient did receive the following treatments prior to arrival, none Related Data Home Medications Medication Instructions Recorded Confirmed albuterol sulfate 90 mcg/actuation 2 puff IH QID PRN 06/15/18 10/14/20 aerosol inhaler ipratropium bromide 42 mcg (0.06 2 spray KALEE HS #1 inh 07/28/19 06/24/20 %) nasal spray meclizine 25 mg tablet 25 mg PO QID PRN #30 tab-cap 09/13/19 10/14/20 acetaminophen 500 mg tablet 1,500 mg PO TID PRN tab 11/02/19 10/14/20 OneTouch Verio test strips #100 each 11/14/19 06/24/20 blood-glucose meter [OneTouch #1 each 11/14/19 06/24/20 Verio Meter] lancets [OneTouch Delica Lancets] #100 each 11/14/19 06/24/20 sennosides 15 mg tablet 30 mg PO QHS PRN #180 tab 12/14/19 06/24/20 hydrocodone 5 mg-acetaminophen 325 1 tab PO Q8H PRN #15 tab MDD 15 mg 05/10/20 06/24/20 mg tablet hydrocodone labetalol 200 mg tablet 200 mg PO See Instructions #135 06/20/20 10/14/20 tab-cap meclizine 12.5 mg PO TID PRN #14 tab 10/14/20 amlodipine 10 mg tablet 10 mg PO DAILY #90 tab 10/17/20 10/17/20 atorvastatin 80 mg tablet 80 mg PO DAILY #90 tab 10/17/20 10/17/20 bupropion HCl 150 mg 24 hr tablet, 150 mg PO QAM #90 tab 10/17/20 10/17/20 extended release clopidogrel 75 mg tablet 75 mg PO DAILY #90 tab 10/17/20 10/17/20 dexlansoprazole 60 mg 60 mg PO DAILY #90 cap 10/17/20 10/17/20 capsule,biphase delayed release topiramate 50 mg tablet 100 mg PO BID #360 tab-cap 10/17/20 10/17/20 famotidine 20 mg tablet 20 mg PO DAILY #90 tab 11/19/20 prednisone 60 mg PO DAILY 5 Days #15 tab 01/07/21 Previous Rx's Medication Instructions Recorded ipratropium bromide 42 mcg (0.06 2 spray KALEE HS #1 inh 07/28/19 %) nasal spray meclizine 25 mg tablet 25 mg PO QID PRN #30 tab-cap 09/13/19 OneTouch Verio test strips #100 each 11/14/19 blood-glucose meter [OneTouch #1 each 11/14/19 Verio Meter] lancets [OneTouch Delica Lancets] #100 each 11/14/19 sennosides 15 mg tablet 30 mg PO QHS PRN #180 tab 12/14/19 hydrocodone 5 mg-acetaminophen 325 1 tab PO Q8H PRN #15 tab MDD 15 mg 05/10/20 mg tablet hydrocodone labetalol 200 mg tablet 200 mg PO See Instructions #135 06/20/20 tab-cap meclizine 12.5 mg PO TID PRN #14 tab 10/14/20 amlodipine 10 mg tablet 10 mg PO DAILY #90 tab 10/17/20 atorvastatin 80 mg tablet 80 mg PO DAILY #90 tab 10/17/20 bupropion HCl 150 mg 24 hr tablet, 150 mg PO QAM #90 tab 10/17/20 extended release clopidogrel 75 mg tablet 75 mg PO DAILY #90 tab 10/17/20 dexlansoprazole 60 mg 60 mg PO DAILY #90 cap 10/17/20 capsule,biphase delayed release topiramate 50 mg tablet 100 mg PO BID #360 tab-cap 10/17/20 famotidine 20 mg tablet 20 mg PO DAILY #90 tab 11/19/20 prednisone 60 mg PO DAILY 5 Days #15 tab 01/07/21 Allergies Allergy/AdvReac Type Severity Reaction Status Date / Time [facility] AdvReac diarrhea Verified 01/07/21 11:08 General Stated Complaint: Chest Pain EDMUND: 2 Review of Systems All systems reviewed & are unremarkable except as noted in HPI and below Constitutional Constitutional: Denies chills, Denies fever(s) and Denies weakness Cardiovascular Cardiovascular: Denies dyspnea Respiratory Respiratory: Denies dyspnea Gastrointestinal Gastrointestinal: Denies abdominal pain and Denies vomiting Neurologic Neurologic: Denies weakness [facility] Medical History (Updated 01/07/21 @ 12:32 by Derik Boston MD) Anxiety Borderline diabetes CVA (cerebral vascular accident) Deafness Diarrhea due to drug GERD (gastroesophageal reflux disease) HTN (hypertension) Hypercholesterolemia Migraine CHINO (obstructive sleep apnea) Sinusitis, acute Type 2 diabetes mellitus without complication (~07/2017) Family History Mother , in 50's Essential hypertension Alcohol abuse Substance abuse Other Breast cancer Social History Smoking/Tobacco Use Status: Current every day Tobacco Type: cigarettes Quit status: not considering quitting Smoking risk assessment performed?: Yes Alcohol Intake: never Drug use: Never Substance use type: does not use Household members: none Housing: apartment Number of Children: 3 number of grandchildren: 2 Communication Needs: Hard of Hearing Do you need help understanding health information?: Often 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 [employer] Current gender identity: male What type of physical activity do you participate in: none Seatbelt use: always 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 Water heater temp set <120 deg: Yes Working smoke detector in home: Yes Fire extinguisher in home: Yes Carbon monox detector in home: Yes Do you feel safe at home: Yes Do you feel safe in your relationship?: Yes Exam Const General: no acute distress Orientation: alert HENMT Head: normal to inspection Ears: external ears normal General nose exam: external nose normal Mouth: moist mucous membranes Eyes General: appearance normal, both eyes and all related structures Neck Neck: normal visual inspection Chest Chest: normal inspection of the chest Resp Effort & Inspection: normal respiratory effort and able to speak in complete sentences Cardio Rate: regular rate GI Palpation: soft and nontender Skin General skin exam: no rashes or lesions noted Neuro General: patient alert and patient oriented x3 Extrem General: normal to inspection Psych Mental Status: mental status grossly normal Course Vital Signs Vital signs: Vital Signs Temperature 36.7 C 01/07/21 11:05 Temperature 36.7 C 01/07/21 11:05 Temperature Source Skin 01/07/21 11:05 Pain Level 5 01/07/21 11:05
--- NOTE | 2021-01-07 11:15 | DI.RAD_ITS ---
Exam(s) XR CHEST 2V PA LATERAL EXAM: XR CHEST 2V PA LATERAL CLINICAL HISTORY: chest pain. TECHNIQUE: 2D digital imaging was performed. COMPARISON: CR,XR XR CHEST 2V PA LATERAL from 10/14/2020 FINDINGS: Heart size is normal. The mediastinum is not widened. Lungs are clear. No infiltrates nor pleural effusions. IMPRESSION: No acute pulmonary findings. DATA REPOSITORY: RADIATION DOSE DELIVERED:
[2021-01-07] MEDS: Ketorolac 15 MG/ML VIAL IVP (11:34)
[2021-01-07 11:37] LABS: Abs Immature Grans 0.09 10^3/uL (0.0-0.06); Absolute Basophil Count 0.07 10^3/uL (0.0-0.2); Absolute Eosinophil Count 0.18 10^3/uL (0.0-0.7); Absolute Lymphocyte Count 2.56 10^3/uL (1.2-3.4); Absolute Monocyte Count 0.63 10^3/uL (0.1-0.8); Absolute Neutrophil Count 5.32 10^3/uL (1.2-6.7); Basophils % 0.8; HCT 41.5 % (40.0-50.0); HGB 13.7 g/dL (13.5-17.5); Lymphocytes % 28.9; MCH 29.3 pg (27.0-33.0); MCV 88.7 fL (80-95); MPV 9.3 fL (8.0-11.0); Monocytes % 7.1; Neutrophils % 60.2; Nucleated RBC 0 %; Platelet Count 364 10^3/uL (130-400); RBC 4.68 10^6/uL (4.36-5.78); RDW 14.7 % (11.8-14.1); RDW-SD 47.5 fL; WBC 8.85 10^3/uL (4.4-10.8)
[2021-01-07 11:43] LABS: Source Nasal/Nares
[2021-01-07 11:46] LABS: Magnesium 1.8 mg/dL (1.8-2.4)
[2021-01-07 11:52] LABS: ALT 37 U/L (16-63); AST 20 U/L (15-37); Alkaline Phosphatase 76 U/L (46-116); Anion Gap 7.5 mmol/L (3-11); BUN 12 mg/dL (7-18); Bilirubin, Total 0.3 mg/dL (0.2-1.0); CO2 26.5 mmol/L (21.0-32.0); CREATININE 0.9 mg/dL (0.70-1.30); Chloride 104 mmol/L (98-107); Glucose 182 mg/dL (74-106); Potassium 3.9 mmol/L (3.5-5.1); Sodium 138 mmol/L (136-145); Total Protein 6.9 g/dL (6.4-8.2); Troponin I < 0.05 ng/mL (<0.06)
[2021-01-07 13:33] LABS: COVID-19 PCR Negative (Negative)
--- NOTE | 2021-01-07 13:43 | NUR.NOTE ---
Message left with sign-language answering service--Negative Covid test result.Nursing Note:
== END 2021-01-07 12:46 | disposition home or self-care (01) ==
PROVIDERS: Emergency Provider Emergency Medicine; PCP Internal Medicine
DX: R05 Cough (principal); R07.9 Chest pain, unspecified; R42 Dizziness and giddiness; R51.9 Headache, unspecified; H91.93 Unspecified hearing loss, bilateral; Z20.822 Contact with and (suspected) exposure to COVID-19; Z03.818 Encounter for observation for suspected exposure to other biological agents ruled out
CPT/HCPCS: 36415; 80053; 87635; 93005; 96374; 99285; 71046; 83735; 84484; 85025; 93010; J1885

== ENCOUNTER 2021-01-29 20:52 | Emergency (ER) | payer MEDICARE, MEDICAID, SELFPAY ==
[2021-01-29 21:02] VITALS: BP 127/83; PULSE 75; RESP 14; TEMP 36.6; O2SAT 94
--- NOTE | 2021-01-29 21:20 | W.ED.GENAD ---
Discharge Plan Disposition Patient Disposition: HOME Condition: Stable Discharge Details Clinical Impression: Nasal congestion, Encounter for medication refill Primary Care Provider: Juliann Hicks ED Provider: Vinny Serrano Home Meds and New Rx's Prescriptions: Continued Laxative (sennosides) 15 mg tablet 30 mg PO QHS PRN (Reason: constipation) Qty: 180 RF: 3 labetalol 200 mg tablet 200 mg PO See Instructions RF: 0 albuterol sulfate 90 mcg/actuation HFA aerosol inhaler 2 puff IH QID PRN (Reason: shortness of breath or wheezing) RF: 0 acetaminophen 500 mg tablet 1,500 mg PO TID PRNRF: 0 amlodipine [Norvasc] 10 mg tablet 10 mg PO DAILY Qty: 90 RF: 3 atorvastatin 80 mg tablet 80 mg PO DAILY Qty: 90 RF: 3 clopidogrel 75 mg tablet 75 mg PO DAILY Qty: 90 RF: 3 Dexilant 60 mg capsule,biphase delayed releas 60 mg PO DAILY Qty: 90 RF: 3 topiramate 50 mg tablet 100 mg PO BID Qty: 360 RF: 3 bupropion HCl 150 mg tablet extended release 24 hr 150 mg PO QAM Qty: 90 RF: 3 ipratropium bromide 42 mcg (0.06 %) spray,non-aerosol 2 spray KALEE HS Qty: 1 RF: 0 meclizine 25 mg tablet 25 mg PO QID PRN (Reason: dizziness) Qty: 30 RF: 2 famotidine 20 mg tablet 20 mg PO DAILY Qty: 90 RF: 3 (DME) OneTouch Verio test strips Strip See Rx Instructions .ROUTE .MEDSUPPLY Qty: 100 RF: 3 (DME) lancets [OneTouch Delica Lancets] 33 gauge misc See Rx Instructions .ROUTE .MEDSUPPLY Qty: 100 RF: 3 meclizine 12.5 mg tablet 12.5 mg PO TID PRN (Reason: dizziness) Qty: 14 RF: 0 Discharge Instructions Additional Instructions: Covid test is pending, I recommend quarantining until the test comes back. If it is negative there is no need for quarantine longer however if positive you will need to quarantine for a longer period of time. A single dose of amlodipine was given now and I have given you 2 additional tablets until you are able to get your refill on Thursday. No clear indication for antibiotic therapy at this time. [id number] medications such as antihistamines or decongestions for symptomatic control. Please watch for new or worsening symptoms and return to the ER for any concerns. Lastly, please reach out to your primary care provider office tomorrow to discuss your ongoing symptoms and need for outpatient reevaluation. Discharge Data Discharge Date/Time-TO BE ENTERED AT DEPARTURE: 01/29/21 22:23 Medical Decision Making 50-year-old gentleman presents as he ran out of his amlodipine 3 days ago although currently blood pressure 127/83, pulse 75. He is afebrile, lungs are clear to auscultation O2 sats are 94% on room air. Also reports clear nasal congestion, sinus pressure, mild dry cough over the past few days. Given his presentation extremely low suspicion for strep pharyngitis or pneumonia. Symptoms have only been present for a few days, afebrile, no lymphadenopathy, no purulent drainage, no clear indication for antibiotic therapy. Will obtain Covid swab and recommend quarantining until test has resulted negative. Will provide a single dose of amlodipine now and will discharge home with 2 additional tablets that he will take 1 tablet once daily for the next 2 days until he can get his refill. We will also provide a single dose of loratadine for his congestion. Patient is comfortable with this plan and has no additional questions or concerns. Standard discharge and return precautions provided This documentation was generated using Image [employer] dictation system, please disregard any oddities of phrase or misspellings. Medical Records Medical records reviewed: Yes I reviewed the patient's medical records. HPI General Mode of arrival: ambulatory. Date/Time Provider Initiated Documentation: 01/29/21 20:58. Limitations to Documentation: no limitations (Patient is deaf but able to read lips without difficulty). Information obtained by: patient. HPI Narrative: This is a 50-year-old gentleman, past medical history of anxiety, CVA, deafness, GERD, migraines, hypertension, diabetes, presenting to the ER for evaluation of stuffy nose, sinus pressure, mild dry cough for 3 days and also concerned as he is out of his amlodipine. Patient states that he is able to fill his amlodipine prescription on Thursday but does not have the money to do so until then. He denies headache, ear pain, fever, sore throat, purulent nasal drainage, productive cough, shortness of breath, chest pain abdominal pain, nausea, vomiting. Patient did take swyo-bfx-bcaetul NyQuil which seemed to help alleviate some of his symptoms. Dizziness was stated in his triage note but he denies this to me, staff reports facial pressure. Patient denies recent sick contacts or travel. Related Data Home Medications Medication Instructions Recorded Confirmed albuterol sulfate 90 mcg/actuation 2 puff IH QID PRN 06/15/18 01/29/21 aerosol inhaler ipratropium bromide 42 mcg (0.06 2 spray KALEE HS #1 inh 07/28/19 01/29/21 %) nasal spray meclizine 25 mg tablet 25 mg PO QID PRN #30 tab-cap 09/13/19 01/29/21 acetaminophen 500 mg tablet 1,500 mg PO TID PRN tab 11/02/19 01/29/21 OneTouch Verio test strips #100 each 11/14/19 01/17/21 lancets [OneTouch Delica Lancets] #100 each 11/14/19 01/17/21 sennosides 15 mg tablet 30 mg PO QHS PRN #180 tab 12/14/19 01/29/21 meclizine 12.5 mg PO TID PRN #14 tab 10/14/20 01/29/21 amlodipine 10 mg tablet 10 mg PO DAILY #90 tab 10/17/20 01/29/21 atorvastatin 80 mg tablet 80 mg PO DAILY #90 tab 10/17/20 01/29/21 bupropion HCl 150 mg 24 hr tablet, 150 mg PO QAM #90 tab 10/17/20 01/29/21 extended release clopidogrel 75 mg tablet 75 mg PO DAILY #90 tab 10/17/20 01/29/21 dexlansoprazole 60 mg 60 mg PO DAILY #90 cap 10/17/20 01/29/21 capsule,biphase delayed release topiramate 50 mg tablet 100 mg PO BID #360 tab-cap 10/17/20 01/29/21 famotidine 20 mg tablet 20 mg PO DAILY #90 tab 11/19/20 01/29/21 labetalol 200 mg tablet 200 mg PO See Instructions tab-cap 01/17/21 01/29/21 Previous Rx's Medication Instructions Recorded ipratropium bromide 42 mcg (0.06 2 spray KALEE HS #1 inh 07/27/ %) nasal spray meclizine 25 mg tablet 25 mg PO QID PRN #30 tab-cap 09/13/19 OneTouch Verio test strips #100 each 11/14/19 lancets [OneTouch Delica Lancets] #100 each 11/14/19 sennosides 15 mg tablet 30 mg PO QHS PRN #180 tab 12/14/19 meclizine 12.5 mg PO TID PRN #14 tab 10/14/20 amlodipine 10 mg tablet 10 mg PO DAILY #90 tab 10/17/20 atorvastatin 80 mg tablet 80 mg PO DAILY #90 tab 10/17/20 bupropion HCl 150 mg 24 hr tablet, 150 mg PO QAM #90 tab 10/17/20 extended release clopidogrel 75 mg tablet 75 mg PO DAILY #90 tab 10/17/20 dexlansoprazole 60 mg 60 mg PO DAILY #90 cap 10/17/20 capsule,biphase delayed release topiramate 50 mg tablet 100 mg PO BID #360 tab-cap 10/17/20 famotidine 20 mg tablet 20 mg PO DAILY #90 tab 11/19/20 Allergies Allergy/AdvReac Type Severity Reaction Status Date / Time dulaglutide [From [facility]] AdvReac diarrhea Verified 01/17/21 13:55 General Stated Complaint: GenMedical EDMUND: 4 Review of Systems Constitutional Constitutional: Denies fever(s) and Denies headache(s) ENT Ears, Nose, Mouth, and Throat: Denies otalgia, Denies headache(s), Reports nasal discharge, Denies neck pain, Reports sinus pressure and Denies sore throat Cardiovascular Cardiovascular: Denies chest pain and Denies dyspnea Respiratory Respiratory: Reports cough and Denies dyspnea Gastrointestinal Gastrointestinal: Denies abdominal pain, Denies nausea and Denies vomiting Musculoskeletal Musculoskeletal: Denies neck pain Integumentary/Breasts Skin/Breast: Denies rash Neurologic Neurologic: Denies headache(s) [facility] Medical History Anxiety Borderline diabetes CVA (cerebral vascular accident) Deafness Diarrhea due to drug GERD (gastroesophageal reflux disease) Headache HTN (hypertension) Hypercholesterolemia Migraine CHINO (obstructive sleep apnea) Sinusitis, acute Type 2 diabetes mellitus without complication (~07/2017) Family History Mother , in 50's Essential hypertension Alcohol abuse Substance abuse Other Breast cancer Social History Smoking/Tobacco Use Status: Current every day Tobacco Type: cigarettes Quit status: not considering quitting Smoking risk assessment performed?: Yes Alcohol Intake: never Drug use: Never Substance use type: does not use Household members: none Housing: apartment Number of Children: 3 number of grandchildren: 2 Communication Needs: Hard of Hearing Do you need help understanding health information?: Often 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 [employer] Current gender identity: male What type of physical activity do you participate in: none Seatbelt use: always Drive 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 or ride w/intox 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: No Water heater temp set <120 deg: Yes Working smoke detector in home: Yes Fire extinguisher in home: Yes Carbon monox detector in home: Yes Do you feel safe at home: Yes Do you feel safe in your relationship?: Yes Exam Const General: cooperative, healthy appearing, comfortable and no acute distress Orientation: alert and awake HENMT Head: normal to inspection, normocephalic and atraumatic Ears: external ears normal, TM's normal bilaterally and EAC's normal General nose exam: nasal discharge clear Face and sinus: sinus tenderness frontal and maxillary Mouth: moist mucous membranes Throat: posterior oropharynx normal Eyes General: appearance normal, both eyes and all related structures Alignment and Position: alignment normal Periorbital: periorbital findings normal Eyelids: eyelids normal Conjunctivae: conjunctivae normal Sclera: sclerae normal Cornea: corneas normal Pupils: PERRL EOM: EOM intact bilaterally Direct ophthalmoscopy: normal light reflex Neck Neck: normal visual inspection, full ROM, no lymphadenopathy, no meningeal signs, trachea midline, supple and nontender Resp Effort & Inspection: normal respiratory effort and able to speak in complete sentences Auscultation: clear to auscultation bilaterally Cardio Rate: regular rate Rhythm: regular rhythm GI Palpation: soft and nontender Skin General skin exam: no rashes or lesions noted Neuro General: patient alert, patient awake, moves all extremities and no focal motor deficits Sensory Exam: no sensory deficits noted Psych Appearance: grossly normal Mental Status: mental status grossly normal Course Vital Signs Vital signs: Vital Signs Temperature 36.6 C 01/29/21 21:02 Pulse 75 01/29/21 21:02 Respiratory Rate 14 01/29/21 21:02 Blood Pressure 127/83 01/29/21 21:02 Pulse Oximetry 94 01/29/21 21:02 Temperature 36.6 C 01/29/21 21:02 Temperature Source Oral 01/29/21 21:02 Pulse 75 01/29/21 21:02 Respiratory Rate 14 01/29/21 21:02 Respiratory Effort Non-Labored 01/29/21 21:05 Respiratory Depth Normal 01/29/21 21:05 Respiratory Pattern Normal 01/29/21 21:05 Blood Pressure 127/83 01/29/21 21:02 Blood Pressure Position Sitting 01/29/21 21:02 Pulse Oximetry 94 01/29/21 21:02 Oxygen Delivery Method Room Air 01/29/21 21:02 Oxygen Flow Rate 0 01/29/21 21:02 Pain Level 7 01/29/21 21:02
[2021-01-29] MEDS: Loratidine 10 MG TAB PO (21:32)
[2021-01-29] MEDS: amLODIPine 10 MG TAB PO (22:03)
[2021-01-31 18:06] LABS: COVID-19 RT-PCR UVMMC Result Positive (Negative)
--- NOTE | 2021-01-31 18:44 | W.ED.FU ---
Date of service: 01/31/21 Time of Service: 18:45 Follow Up Plan: Positive Covid result obtained from Lab, Patient called and voicemail left with Hard of hearing answering service.
== END 2021-01-29 22:23 | disposition home or self-care (01) ==
PROVIDERS: Emergency Provider Physician Assistant; PCP Internal Medicine
DX: U07.1 COVID-19 (principal); I10 Essential (primary) hypertension
CPT/HCPCS: 99283; U0003; U0005

== ENCOUNTER 2021-02-04 13:09 | Outpatient (CLI) | payer MEDICARE, MEDICAID, SELFPAY ==
[2021-02-04 15:03] VITALS: BP 133/82; PULSE 85; RESP 20; TEMP 36.9; O2SAT 96
[2021-02-04 15:35] VITALS: BP 134/86; PULSE 83; RESP 20; TEMP 36.7; O2SAT 96
[2021-02-04] MEDS: Normal Saline 500 ML 30 ML IV (15:46)
[2021-02-04 16:04] VITALS: BP 114/71; PULSE 78; RESP 20; TEMP 36.7; O2SAT 95
[2021-02-04 17:06] VITALS: BP 132/82; PULSE 86; RESP 20; TEMP 36.3; O2SAT 95
== END 2021-02-04 13:10 | disposition home or self-care (01) ==
PROVIDERS: PCP Internal Medicine; Visit Provider Family Medicine
DX: U07.1 COVID-19 (principal)
CPT/HCPCS: 96365

== ENCOUNTER 2021-03-04 18:49 | Emergency (ER) | payer MEDICARE, MEDICAID, SELFPAY ==
[2021-03-04 19:05] VITALS: BP 166/92; PULSE 90; RESP 18; TEMP 37.2; O2SAT 100
--- NOTE | 2021-03-04 19:15 | RT.EKG_ITS ---
APPROVED REPORT Exam: Resting ECG Reason for Exam: dizzy Patient Location: E HR:83 bpm ECG Measurements Heart Rate 83 AXIS TX 148 P 33 QRSd 94 QRS -5 QT 366 T 66 QTc 431 Conclusion Sinus rhythm...normal P axis, V-rate 60- 99. Sinus. No STEMI. I have reviewed and interpreted ECG and agree with software generated interpretation.
[2021-03-04 19:37] VITALS: BP 127/75; PULSE 80; PULSE 83; RESP 12; O2SAT 97
[2021-03-04 19:43] LABS: Absolute Eosinophil Count 0.33 10^3/uL (0.0-0.7); Absolute Lymphocyte Count 3.07 10^3/uL (1.2-3.4); Absolute Monocyte Count 0.58 10^3/uL (0.1-0.8); Absolute Neutrophil Count 4.81 10^3/uL (1.2-6.7); Basophils % 1.1; Eosinophils % 3.7; HCT 41.2 % (40.0-50.0); HGB 13.3 g/dL (13.5-17.5); Immature Grans % 1.1; Lymphocytes % 34.1; MCH 28.7 pg (27.0-33.0); MCHC 32.3 % (32.0-36.0); MPV 9.2 fL (8.0-11.0); Monocytes % 6.5; Neutrophils % 53.5; Nucleated RBC 0 %; Platelet Count 351 10^3/uL (130-400); RBC 4.63 10^6/uL (4.36-5.78); RDW 14.5 % (11.8-14.1); RDW-SD 46.5 fL; WBC 8.99 10^3/uL (4.4-10.8)
[2021-03-04 20:00] LABS: ALT 29 U/L (16-63); AST 16 U/L (15-37); Albumin 3.9 g/dL (3.4-5.0); Alkaline Phosphatase 82 U/L (46-116); Anion Gap 10.7 mmol/L (3-11); BUN 10 mg/dL (7-18); Bilirubin, Total 0.2 mg/dL (0.2-1.0); CO2 23.3 mmol/L (21.0-32.0); CREATININE 0.9 mg/dL (0.70-1.30); Calcium 8.7 mg/dL (8.5-10.1); Chloride 102 mmol/L (98-107); Glucose 192 mg/dL (74-106); Magnesium 1.9 mg/dL (1.8-2.4); Potassium 3.4 mmol/L (3.5-5.1); Sodium 136 mmol/L (136-145)
[2021-03-04 20:02] LABS: Troponin I < 0.05 ng/mL (<0.06)
--- NOTE | 2021-03-04 20:15 | DI.CT_ITS ---
Exam(s) CT BRAIN NECK CTA EXAM: CT BRAIN NECK CTA CLINICAL HISTORY: dizziness, r/o acute mass, cva. TECHNIQUE: Imaging Protocol: Axial CT angiography was performed with multi-slice acquisition and mu lti-planar and/or 3D reconstructions. CONTRAST MATERIAL: Intravenous: Omnipaque 350 Contrast volume:85 cc COMPARISON: CT CT BRAIN NECK CTA from 01/16/2020 FINDINGS: CTA Neck W: Aortic arch anatomy: There is mild stenosis of the origin the great vessels off the aortic arch. Anterior circulation: Both common carotid arteries ascend with normal luminal diameters. Some noncalcified plaque is noted at the level the distal left common carotid artery and carotid bulb and proximal left internal carot id artery. Similar findings on the right side. There is approximately 60 percent stenosis at the pr oximal left internal carotid artery and approximately 40 percent stenosis proximal right internal car otid artery, similar to previous. Both internal carotid arteries are patent in the upper neck and sk ull base-carotid canals. Posterior circulation: The left vertebral artery is again noted to be occluded approximately not opacified within foramen tr ansversarium Right vertebral artery is patent without significant stenosis at its origin nor intraluminal thrombus nor dissection. It is sends in the foramen transversarium with 5 millimeter luminal diameter and fo darlene the basilar artery at the skull base. CTA Brain W: Anterior circulation: Both internal carotid arteries are patent in the skull base-carotid canals as well as within the cave rnous sinuses. Both supraclinoid aspects are patent and nonaneurysmal. Both A1 segments are patent and appear uncha nged. Both anterior cerebral arteries are patent. There is no evidence of aneurysm at the level of the anterior communicating artery Both middle cerebral arteries are patent. Posterior circulation: Basilar artery is formed at the skull base by the patent right vertebral artery.. The basilar artery ascends with normal luminal diameter. Distally it gives off patent bilateral superior cerebellar ar teries and above this level terminates as patent bilateral posterior cerebral arteries. No aneurysms evident. CT BRAIN: There is no evidence of intracranial hemorrhage, mass effect, or shift of midline structures. There are no extra-axial fluid collections. Ventricles are not enlarged or shifted. There are no ring enh ancing lesions in the brain and no abnormal meningeal enhancement. IMPRESSION: 1. 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 The dominant right vertebral artery remains patent. 2. Moderate stenosis in the proximal left internal carotid artery and mild-moderate stenosis in the proximal right internal carotid artery in the neck. 3. No acute intracranial findings. RADIATION DOSE DELIVERED: 2,131.3mGy.cm Total DLP DATA REPOSITORY: All CT scans at this facility are submitted to the National Radiology Data Registry (NRDR) Dose Index Registry (DIR) with the [employer] ([employer]). RADIATION OPTIMIZATION: All CT scans at this facility use at least one of these dose optimization te chniques: automated exposure control; mA and/or kV adjustment per patient size (includes targeted exa ms where dose is matched to clinical indication); or iterative reconstruction.
--- NOTE | 2021-03-04 20:15 | DI.RAD_ITS ---
Exam(s) XR CHEST 2V PA LATERAL EXAM: XR CHEST 2V PA LATERAL CLINICAL HISTORY: dizziness, r/o acute disease. TECHNIQUE: 2D digital imaging was performed. COMPARISON: CR XR CHEST 2V PA LATERAL from 01/07/2021 FINDINGS: Heart size is normal. The mediastinum is not widened. Lungs are clear. No infiltrates nor pleural effusions. IMPRESSION: No acute pulmonary findings. DATA REPOSITORY: RADIATION DOSE DELIVERED:
--- NOTE | 2021-03-04 20:23 | ED.GENADUL_ITS ---
Discharge Plan Disposition Patient Disposition: HOME Condition: Stable Discharge Details Clinical Impression: Vertigo Primary Care Provider: Juliann Hicks ED Provider: Amarilys Calixto Home Meds and New Rx's Prescriptions: Continued Laxative (sennosides) 15 mg tablet 30 mg PO QHS PRN (Reason: constipation) Qty: 180 RF: 3 labetalol 200 mg tablet 200 mg PO See Instructions RF: 0 albuterol sulfate 90 mcg/actuation HFA aerosol inhaler 2 puff IH QID PRN (Reason: shortness of breath or wheezing) RF: 0 acetaminophen 500 mg tablet 1,500 mg PO TID PRNRF: 0 amlodipine [Norvasc] 10 mg tablet 10 mg PO DAILY Qty: 90 RF: 3 atorvastatin 80 mg tablet 80 mg PO DAILY Qty: 90 RF: 3 clopidogrel 75 mg tablet 75 mg PO DAILY Qty: 90 RF: 3 Dexilant 60 mg capsule,biphase delayed releas 60 mg PO DAILY Qty: 90 RF: 3 topiramate 50 mg tablet 100 mg PO BID Qty: 360 RF: 3 bupropion HCl 150 mg tablet extended release 24 hr 150 mg PO QAM Qty: 90 RF: 3 ipratropium bromide 42 mcg (0.06 %) spray,non-aerosol 2 spray KALEE HS Qty: 1 RF: 0 meclizine 25 mg tablet 25 mg PO QID PRN (Reason: dizziness) Qty: 30 RF: 2 famotidine 20 mg tablet 20 mg PO DAILY Qty: 90 RF: 3 (DME) OneTouch Verio test strips Strip See Rx Instructions .ROUTE .MEDSUPPLY Qty: 100 RF: 3 (DME) lancets [OneTouch Delica Lancets] 33 gauge misc See Rx Instructions .ROUTE .MEDSUPPLY Qty: 100 RF: 3 meclizine 12.5 mg tablet 12.5 mg PO TID PRN (Reason: dizziness) Qty: 14 RF: 0 Discharge Instructions Instructions: Vertigo (ED) Additional Instructions: Your lab work and imaging today is reassuring and does not note evidence of any acute significant findings. Based on your chronic findings on the CAT scan of your head today, it is recommended that you consider obtaining an MRI of your brain for further evaluation. Please refer to the CAT scan of your brain report for further discussion regarding this finding. Drink plenty of fluids and get plenty of rest. Take your meclizine that you have at home as needed and directed for symptoms of dizziness. Take the Valium that you were given tonight to help with feelings of anxiety, dizziness or to help with sleep. Call your primary care doctor tomorrow to schedule a follow-up appointment for reevaluation. Return immediately to the emergency department if you develop any worsening or new concerning symptoms. Discharge Data Discharge Date/Time-TO BE ENTERED AT DEPARTURE: 03/04/21 23:04 Discharge Physician: Amarilys Calixto Medical Decision Making 50-year-old male with a history of obesity, vertigo, diabetes, hypertension, migraine, anxiety and depression presents for several episodes of vertigo since yesterday. States this feels slightly different than his previous episodes of vertigo but did have some relief with meclizine. He states he feels he is fully recovered from COVID-19 since last month. EKG notes a rate of 83, sinus, no STEMI and nondiagnostic. No focal deficits on exam. Considering patient's age and history, will obtain screening labs, CTA brain neck, chest x-ray and give fluids and meclizine, IV Tylenol and reassess. Labs and imaging reviewed and unremarkable for acute findings. Troponin negative. Normal white blood cell count. CTA head and neck note multiple stable occlusions but no acute findings. There is a finding of mild medialization of the temporal lobe uncus with recommendation for MRI for further evaluation. These findings were discussed with patient using language line and he was advised to follow-up with his primary care doctor for further evaluation and consideration for outpatient MRI. Patient feels much better and feels good to go home. He was given 2 tabs of Valium to go. He does admit to intermittent symptoms of anxiety since yesterday which he thinks may be contributing. Advised to follow up with the primary care doctor for re-evaluation. Usual and customary return precautions given prior to discharge. Medical Records Medical records reviewed: Yes I reviewed the patient's medical records. Imaging Data Radiologic Study: Radiologist's impression: XR Chest Exam date and time: 03/04/2021 8:23 PM Age: 50 years old Clinical indication: Patient HX: Dizziness, R/O acute disease TECHNIQUE: Imaging protocol: XR of the chest. Views: 2 views. COMPARISON: CR XR CHEST 2V PA LATERAL 01/07/2021 11:47 AM FINDINGS: Lungs: Unremarkable. No consolidation. Pleural spaces: Unremarkable. No pleural effusion. No pneumothorax. Heart/Mediastinum: Unremarkable. No cardiomegaly. Bones/joints: Unremarkable. IMPRESSION: No acute findings. CT Angiography Head With Contrast, Arteriography Exam date and time: 03/04/2021 8:23 PM Age: 50 years old Clinical indication: Dizziness and giddiness; Patient HX: Dizziness, R/O acute mass, CVA TECHNIQUE: Imaging protocol: Computed tomography angiography of the head with contrast. Exam focused on the arteries. 3D rendering (Not supervised by radiologist): MIP and/or 3D reconstructed images were created by the technologist. COMPARISON: CT BRAIN NECK CTA 01/16/2020 8:05 PM FINDINGS: ANTERIOR CIRCULATION: Right internal carotid artery: Mild calcified plaque of the cavernous and intradural right internal carotid artery, with moderate stenosis of the anterior paraclinoid segment. No evidence of aneurysm formation or occlusion. Right middle cerebral artery: Unremarkable. No occlusion or significant stenosis. No aneurysm. Right anterior cerebral artery: Unremarkable. No occlusion or significant stenosis. No aneurysm. Left internal carotid artery: Mild calcified plaque of the cavernous left internal carotid artery, with mild vessel stenosis. No evidence of occlusion or aneurysm formation. Left middle cerebral artery: Unremarkable. No occlusion or significant stenosis. No aneurysm. Left anterior cerebral artery: Unremarkable. No occlusion or significant stenosis. No aneurysm. POSTERIOR CIRCULATION: Right vertebral artery: Unremarkable. No occlusion or significant stenosis. No aneurysm. Left vertebral artery: The proximal left V4 segment does not opacify. There is distal opacification of the V4 segment to the left posterior inferior cerebellar artery, likely via reconstitution from the vertebrobasilar junction. Basilar artery: Unremarkable. No occlusion or significant stenosis. No aneurysm. Right posterior cerebral artery: Unremarkable. No occlusion or significant stenosis. No aneurysm. Left posterior cerebral artery: Unremarkable. No occlusion or significant stenosis. No aneurysm. Brain: Mild medialization of the right temporal lobe uncus, stable. No focal mass is identified. Cerebral ventricles: No ventriculomegaly. Bones/joints: Unremarkable. No acute fracture. Soft tissues: Unremarkable. IMPRESSION: 1. 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 2. Moderate stenosis of the anterior paraclinoid right internal carotid artery. 3. Mild medialization of the right temporal lobe uncus. The etiology is not clear from the current examination. MRI with dedicated hippocampal imaging may be of benefit for further evaluation. 4. No CT evidence of acute transcortical infarction. CT Angiography Neck With Contrast Exam date and time: 03/04/2021 8:23 PM Age: 50 years old Clinical indication: Dizziness and giddiness; Patient HX: Dizziness, R/O acute mass, CVA TECHNIQUE: Imaging protocol: Computed tomography angiography of the neck with contrast. 3D rendering (Not supervised by radiologist): MIP and/or 3D reconstructed images were created by the technologist. COMPARISON: CT BRAIN NECK CTA 01/16/2020 8:05 PM FINDINGS: Right common carotid artery: Mild narrowing of the distal right common carotid artery secondary to atheromatous plaque, mildly ulcerated. Right internal carotid artery: Predominantly atheromatous plaque at the right internal carotid artery origin. Stenosis measures 22% by NASCET criteria. Right external carotid artery: No occlusion or stenosis of the origin. Left common carotid artery: Mild narrowing of the distal left common carotid artery secondary to atheromatous plaque. Left internal carotid artery: Atheromatous plaque at the left internal carotid artery origin with stenosis measuring 62% by NASCET criteria. Left external carotid artery: No occlusion or stenosis of the origin. Right vertebral artery: No stenosis. No dissection or occlusion. Left vertebral artery: Complete occlusion of the left vertebral artery at its origin, stable from the prior CT angiogram. Aorta: Moderate atherosclerosis at the aortic arch and great vessel origins. Lymph nodes: Mediastinal lymphadenopathy is incompletely evaluated. Soft tissues: Normal. No significant soft tissue swelling. Bones/joints: No acute fracture. IMPRESSION: 1. Complete occlusion of the left vertebral artery, stable. 2. Stable atherosclerotic disease of the neck, with moderate stenosis at the left internal carotid artery origin and mild stenosis of the right internal carotid artery origin. REFERENCES: NASCET CRITERIA. The degree of internal carotid artery stenosis is based on NASCET criteria. Normal is no stenosis. Mild is less than 50% stenosis. Moderate is 50-69% stenosis. Severe is 70% to 99% stenosis. Total occlusion is no detectable patent lumen. Dictated and Authenticated by: Dwayne Aggarwal MD. Lab Data Lab results reviewed: Yes I reviewed the patient's lab results. Labs: Laboratory Tests Range/Units 03/04/21 03/04/21 19:32 19:32 WBC (4.4-10.8) 10^3/uL 8.99 RBC (4.36-5.78) 10^6/uL 4.63 Hgb (13.5-17.5) g/dL 13.3 L Hct (40.0-50.0) % 41.2 MCV (80-95) fL 89.0 MCH (27.0-33.0) pg 28.7 MCHC (32.0-36.0) % 32.3 RDW (11.8-14.1) % 14.5 H Plt Count (130-400) 10^3/uL 351 MPV (8.0-11.0) fL 9.2 Immature Gran % 1.1 Neutrophils % 53.5 Lymphocytes % 34.1 Monocytes % 6.5 Eosinophils % 3.7 Basophils % 1.1 Nucleated RBC % % 0 Absolute Neutrophils (1.2-6.7) 10^3/uL 4.81 Absolute Lymphocytes (1.2-3.4) 10^3/uL 3.07 Absolute Monocytes (0.1-0.8) 10^3/uL 0.58 Absolute Eosinophils (0.0-0.7) 10^3/uL 0.33 Absolute Basophils (0.0-0.2) 10^3/uL 0.10 Sodium (136-145) mmol/L 136 Potassium (3.5-5.1) mmol/L 3.4 L Chloride (98-107) mmol/L 102 Carbon Dioxide (21.0-32.0) mmol/L 23.3 Anion Gap (3-11) mmol/L 10.7 BUN (7-18) mg/dL 10 Creatinine (0.70-1.30) mg/dL 0.9 Estimated GFR/1.73 m2 (mL/min/1.73m2) >= 60.00 Glucose (74-106) mg/dL 192 H Calcium (8.5-10.1) mg/dL 8.7 Magnesium (1.8-2.4) mg/dL 1.9 Total Bilirubin (0.2-1.0) mg/dL 0.2 AST (15-37) U/L 16 ALT (16-63) U/L 29 Alkaline Phosphatase (46-116) U/L 82 Troponin I (<0.06) ng/mL < 0.05 Total Protein (6.4-8.2) g/dL 7.0 Albumin (3.4-5.0) g/dL 3.9 ECG Data Attestation: I personally reviewed and interpreted this ECG (s) as follows: Interpretation: EKG notes a rate of 83, sinus, no STEMI and nondiagnostic. HPI General Mode of arrival: ambulatory . Date/Time Provider Initiated Documentation: 03/04/21 19:28 . Limitations to Documentation: no limitations . Information obtained by: patient . HPI Narrative: Patient is a 50-year-old male with a history of obesity, vertigo, diabetes, hypertension, migraine, anxiety and depression presents for several episodes of vertigo since yesterday. He states this feels slightly different than his previous episodes of vertigo and that he feels like his eyes are crossing does admit that he did have some relief with meclizine yesterday. He describes it as a spinning sensation that is worse with moving around and with head movement. He does admit to occasional headache but denies any blurry vision, nausea, vomiting, fever, chest pain, shortness of breath, abdominal pain. Related Data Home Medications Medication Instructions Recorded Confirmed albuterol sulfate 90 mcg/actuation 2 puff IH QID PRN 06/15/18 03/06/21 aerosol inhaler ipratropium bromide 42 mcg (0.06 2 spray KALEE HS #1 inh 07/28/19 03/06/21 %) nasal spray meclizine 25 mg tablet 25 mg PO QID PRN #30 tab-cap 09/13/19 03/06/21 acetaminophen 500 mg tablet 1,500 mg PO TID PRN tab 11/02/19 03/06/21 OneTouch Verio test strips #100 each 11/14/19 03/06/21 lancets [OneTouch Delica Lancets] #100 each 11/14/19 03/06/21 sennosides 15 mg tablet 30 mg PO QHS PRN #180 tab 12/14/19 03/06/21 meclizine 12.5 mg PO TID PRN #14 tab 10/14/20 03/06/21 amlodipine 10 mg tablet 10 mg PO DAILY #90 tab 10/17/20 03/06/21 atorvastatin 80 mg tablet 80 mg PO DAILY #90 tab 10/17/20 03/06/21 bupropion HCl 150 mg 24 hr tablet, 150 mg PO QAM #90 tab 10/17/20 03/06/21 extended release clopidogrel 75 mg tablet 75 mg PO DAILY #90 tab 10/17/20 03/06/21 dexlansoprazole 60 mg 60 mg PO DAILY #90 cap 10/17/20 03/06/21 capsule,biphase delayed release topiramate 50 mg tablet 100 mg PO BID #360 tab-cap 10/17/20 03/06/21 famotidine 20 mg tablet 20 mg PO DAILY #90 tab 11/19/20 03/06/21 labetalol 200 mg tablet 200 mg PO See Instructions tab-cap 01/17/21 03/06/21 Previous Rx's Medication Instructions Recorded ipratropium bromide 42 mcg (0.06 2 spray KALEE HS #1 inh 07/28/19 %) nasal spray meclizine 25 mg tablet 25 mg PO QID PRN #30 tab-cap 09/13/19 OneTouch Verio test strips #100 each 11/14/19 lancets [OneTouch Delica Lancets] #100 each 11/14/19 sennosides 15 mg tablet 30 mg PO QHS PRN #180 tab 12/14/19 meclizine 12.5 mg PO TID PRN #14 tab 10/14/20 amlodipine 10 mg tablet 10 mg PO DAILY #90 tab 10/17/20 atorvastatin 80 mg tablet 80 mg PO DAILY #90 tab 10/17/20 bupropion HCl 150 mg 24 hr tablet, 150 mg PO QAM #90 tab 10/17/20 extended release clopidogrel 75 mg tablet 75 mg PO DAILY #90 tab 10/17/20 dexlansoprazole 60 mg 60 mg PO DAILY #90 cap 10/17/20 capsule,biphase delayed release topiramate 50 mg tablet 100 mg PO BID #360 tab-cap 10/17/20 famotidine 20 mg tablet 20 mg PO DAILY #90 tab 11/19/20 Allergies Allergy/AdvReac Type Severity Reaction Status Date / Time dulaglutide [From [facility]] AdvReac diarrhea Verified 03/05/21 14:08 General Stated Complaint: Dizzy/Sync EDMUND: 3 Review of Systems All systems reviewed & are unremarkable except as noted in HPI and below Constitutional Constitutional: Reports as per HPI, Denies chills and Denies fever(s) Eyes Eyes: Denies blurry vision ENT Ears, Nose, Mouth, and Throat: Reports dizziness, Denies sore throat and Denies throat swelling Cardiovascular Cardiovascular: Denies chest pain and Denies dyspnea Respiratory Respiratory: Denies cough and Denies dyspnea Gastrointestinal Gastrointestinal: Denies abdominal pain, Denies diarrhea and Denies vomiting Genitourinary Genitourinary: Denies hematuria and Denies dysuria Musculoskeletal Musculoskeletal: Denies back pain and Denies numbness Integumentary/Breasts Skin/Breast: Denies lesions and Denies rash Neurologic Neurologic: Reports dizziness, Denies localized weakness and Denies numbness Allergic/Immunologic Allergic/Immunologic: Denies throat swelling [facility] Medical History (Updated 03/04/21 @ 22:48 by Amarilys Calixto DO) Anxiety Borderline diabetes CVA (cerebral vascular accident) Deafness Diarrhea due to drug GERD (gastroesophageal reflux disease) HTN (hypertension) Hypercholesterolemia Migraine CHINO (obstructive sleep apnea) Sinusitis, acute Type 2 diabetes mellitus without complication (~07/2017) Family History Mother , in 50's Essential hypertension Alcohol abuse Substance abuse Other Breast cancer Social History Smoking/Tobacco Use Status: Current every day Tobacco Type: cigarettes Quit status: not considering quitting Smoking risk assessment performed?: Yes Alcohol Intake: never Drug use: Never Substance use type: does not use Household members: none Housing: apartment Number of Children: 3 number of grandchildren: 2 Communication Needs: Hard of Hearing Do you need help understanding health information?: Often 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 [employer] Current gender identity: male What type of physical activity do you participate in: none Seatbelt use: always 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 Water heater temp set <120 deg: Yes Working smoke detector in home: Yes Fire extinguisher in home: Yes Carbon monox detector in home: Yes Do you feel safe at home: Yes Do you feel safe in your relationship?: Yes Exam Const General: cooperative and no acute distress HENMT Head: normal to inspection Ears: hearing grossly normal bilaterally and external ears normal Face and sinus: normal facial exam Mouth: oral mucosae normal Eyes General: appearance normal, both eyes and all related structures Pupils: PERRL EOM: EOM intact bilaterally Neck Neck: normal visual inspection and No submandibular swelling Lymphatic: no lymphadenopathy noted Chest Chest: normal inspection of the chest and no tenderness Resp Effort & Inspection: normal respiratory effort and able to speak in complete sentences Auscultation: clear to auscultation bilaterally Cardio Rate: regular rate Rhythm: regular rhythm GI Inspection: normal to inspection Palpation: soft, not firm, not rigid and nontender Auscultation: normal bowel sounds Back/Spine/Pelvis Thoracic/Lumbar Spine: thoracic and lumbar spine normal to inspection Skin General skin exam: no rashes or lesions noted Neuro General: patient alert, patient awake, patient oriented x3, moves all extremities, no meningeal signs and no focal motor deficits Cranial Nerves: CN's II-XI intact bilaterally Cognition: normal cognition Speech: speech normal Motor: muscle tone normal throughout and strength 5/5 throughout Sensory Exam: no sensory deficits noted Extrem General: normal to inspection, full ROM, capillary refill normal, no calf tenderness bilaterally and no edema Psych Appearance: grossly normal Mental Status: mental status grossly normal Speech and Movement: speech and movement normal Affect: normal affect Course Vital Signs Vital signs: Vital Signs Temperature 99.0 F 03/04/21 19:05 Pulse 90 03/04/21 19:05 Respiratory Rate 18 03/04/21 19:05 Blood Pressure 166/92 H 03/04/21 19:05 Pulse Oximetry 100 03/04/21 19:05 Temperature 99.0 F 03/04/21 19:05 Temperature Source Skin 03/04/21 19:05 Pulse 83 03/04/21 19:37 Pulse 80 03/04/21 19:37 Respiratory Rate 12 03/04/21 19:37 Respiratory Effort Non-Labored 03/04/21 19:38 Respiratory Depth Normal 03/04/21 19:38 Respiratory Pattern Normal 03/04/21 19:38 Blood Pressure 127/75 03/04/21 19:37 Blood Pressure Mean 87 03/04/21 19:37 Pulse Oximetry 97 03/04/21 19:37 Pain Level 5 03/04/21 19:05 Lab/Test Results Lab/Test Results: Laboratory Tests Range/Units 03/04/21 03/04/21 19:32 19:32 WBC (4.4-10.8) 10^3/uL 8.99 RBC (4.36-5.78) 10^6/uL 4.63 Hgb (13.5-17.5) g/dL 13.3 L Hct (40.0-50.0) % 41.2 MCV (80-95) fL 89.0 MCH (27.0-33.0) pg 28.7 MCHC (32.0-36.0) % 32.3 RDW (11.8-14.1) % 14.5 H Plt Count (130-400) 10^3/uL 351 MPV (8.0-11.0) fL 9.2 Immature Gran % 1.1 Neutrophils % 53.5 Lymphocytes % 34.1 Monocytes % 6.5 Eosinophils % 3.7 Basophils % 1.1 Nucleated RBC % % 0 Absolute Neutrophils (1.2-6.7) 10^3/uL 4.81 Absolute Lymphocytes (1.2-3.4) 10^3/uL 3.07 Absolute Monocytes (0.1-0.8) 10^3/uL 0.58 Absolute Eosinophils (0.0-0.7) 10^3/uL 0.33 Absolute Basophils (0.0-0.2) 10^3/uL 0.10 Sodium (136-145) mmol/L 136 Potassium (3.5-5.1) mmol/L 3.4 L Chloride (98-107) mmol/L 102 Carbon Dioxide (21.0-32.0) mmol/L 23.3 Anion Gap (3-11) mmol/L 10.7 BUN (7-18) mg/dL 10 Creatinine (0.70-1.30) mg/dL 0.9 Estimated GFR/1.73 m2 (mL/min/1.73m2) >= 60.00 Glucose (74-106) mg/dL 192 H Calcium (8.5-10.1) mg/dL 8.7 Magnesium (1.8-2.4) mg/dL 1.9 Total Bilirubin (0.2-1.0) mg/dL 0.2 AST (15-37) U/L 16 ALT (16-63) U/L 29 Alkaline Phosphatase (46-116) U/L 82 Troponin I (<0.06) ng/mL < 0.05 Total Protein (6.4-8.2) g/dL 7.0 Albumin (3.4-5.0) g/dL 3.9
[2021-03-04] MEDS: Normal Saline 1,000 ML 1000 ML IV (20:32)
[2021-03-04] MEDS: Meclizine 25 MG TAB PO (20:32)
[2021-03-04] MEDS: Omnipaque 350 MG/ML 100 ML BTL IJ (20:58)
[2021-03-04] MEDS: Normal Saline - Diluent 50 ML VIAL IV (20:59)
--- NOTE | 2021-03-04 21:42 | DI.VRAD_ITS ---
PROCEDURE INFORMATION: Exam: CT Angiography Head With Contrast, Arteriography Exam date and time: 03/04/2021 8:23 PM Age: 50 years old Clinical indication: Dizziness and giddiness; Patient HX: Dizziness, R/O acute mass, CVA TECHNIQUE: Imaging protocol: Computed tomography angiography of the head with contrast. Exam focused on the arteries. 3D rendering (Not supervised by radiologist): MIP and/or 3D reconstructed images were created by the technologist. COMPARISON: CT BRAIN NECK CTA 01/16/2020 8:05 PM FINDINGS: ANTERIOR CIRCULATION: Right internal carotid artery: Mild calcified plaque of the cavernous and intradural right internal carotid artery, with moderate stenosis of the anterior paraclinoid segment. No evidence of aneurysm formation or occlusion. Right middle cerebral artery: Unremarkable. No occlusion or significant stenosis. No aneurysm. Right anterior cerebral artery: Unremarkable. No occlusion or significant stenosis. No aneurysm. Left internal carotid artery: Mild calcified plaque of the cavernous left internal carotid artery, with mild vessel stenosis. No evidence of occlusion or aneurysm formation. Left middle cerebral artery: Unremarkable. No occlusion or significant stenosis. No aneurysm. Left anterior cerebral artery: Unremarkable. No occlusion or significant stenosis. No aneurysm. POSTERIOR CIRCULATION: Right vertebral artery: Unremarkable. No occlusion or significant stenosis. No aneurysm. Left vertebral artery: The proximal left V4 segment does not opacify. There is distal opacification of the V4 segment to the left posterior inferior cerebellar artery, likely via reconstitution from the vertebrobasilar junction. Basilar artery: Unremarkable. No occlusion or significant stenosis. No aneurysm. Right posterior cerebral artery: Unremarkable. No occlusion or significant stenosis. No aneurysm. Left posterior cerebral artery: Unremarkable. No occlusion or significant stenosis. No aneurysm. Brain: Mild medialization of the right temporal lobe uncus, stable. No focal mass is identified. Cerebral ventricles: No ventriculomegaly. Bones/joints: Unremarkable. No acute fracture. Soft tissues: Unremarkable. IMPRESSION: 1. 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 2. Moderate stenosis of the anterior paraclinoid right internal carotid artery. 3. Mild medialization of the right temporal lobe uncus. The etiology is not clear from the current examination. MRI with dedicated hippocampal imaging may be of benefit for further evaluation. 4. No CT evidence of acute transcortical infarction. PROCEDURE INFORMATION: Exam: CT Angiography Neck With Contrast Exam date and time: 03/04/2021 8:23 PM Age: 50 years old Clinical indication: Dizziness and giddiness; Patient HX: Dizziness, R/O acute mass, CVA TECHNIQUE: Imaging protocol: Computed tomography angiography of the neck with contrast. 3D rendering (Not supervised by radiologist): MIP and/or 3D reconstructed images were created by the technologist. COMPARISON: CT BRAIN NECK CTA 01/16/2020 8:05 PM FINDINGS: Right common carotid artery: Mild narrowing of the distal right common carotid artery secondary to atheromatous plaque, mildly ulcerated. Right internal carotid artery: Predominantly atheromatous plaque at the right internal carotid artery origin. Stenosis measures 22% by NASCET criteria. Right external carotid artery: No occlusion or stenosis of the origin. Left common carotid artery: Mild narrowing of the distal left common carotid artery secondary to atheromatous plaque. Left internal carotid artery: Atheromatous plaque at the left internal carotid artery origin with stenosis measuring 62% by NASCET criteria. Left external carotid artery: No occlusion or stenosis of the origin. Right vertebral artery: No stenosis. No dissection or occlusion. Left vertebral artery: Complete occlusion of the left vertebral artery at its origin, stable from the prior CT angiogram. Aorta: Moderate atherosclerosis at the aortic arch and great vessel origins. Lymph nodes: Mediastinal lymphadenopathy is incompletely evaluated. Soft tissues: Normal. No significant soft tissue swelling. Bones/joints: No acute fracture. IMPRESSION: 1. Complete occlusion of the left vertebral artery, stable. 2. Stable atherosclerotic disease of the neck, with moderate stenosis at the left internal carotid artery origin and mild stenosis of the right internal carotid artery origin. REFERENCES: NASCET CRITERIA. The degree of internal carotid artery stenosis is based on NASCET criteria. Normal is no stenosis. Mild is less than 50% stenosis. Moderate is 50-69% stenosis. Severe is 70% to 99% stenosis. Total occlusion is no detectable patent lumen. Dictated and Authenticated by: Dwayne Aggarwal MD. Ordering:CLAY Panda MD
--- NOTE | 2021-03-04 21:45 | DI.VRAD_ITS ---
PROCEDURE INFORMATION: Exam: XR Chest Exam date and time: 03/04/2021 8:23 PM Age: 50 years old Clinical indication: Patient HX: Dizziness, R/O acute disease TECHNIQUE: Imaging protocol: XR of the chest. Views: 2 views. COMPARISON: CR XR CHEST 2V PA LATERAL 01/07/2021 11:47 AM FINDINGS: Lungs: Unremarkable. No consolidation. Pleural spaces: Unremarkable. No pleural effusion. No pneumothorax. Heart/Mediastinum: Unremarkable. No cardiomegaly. Bones/joints: Unremarkable. IMPRESSION: No acute findings. Dictated and Authenticated by: Dwayne Aggarwal MD. Ordering:CLAY Panda MD
[2021-03-04] MEDS: ACETAMINOPHEN 1,000 MG/100 ML BTL 400 MG IVPB (22:05)
[2021-03-04] MEDS: Normal Saline 500 ML IV (22:05)
[2021-03-04 22:53] VITALS: BP 141/80; PULSE 81; RESP 16; O2SAT 97
[2021-03-04] MEDS: diazePAM 5 MG TAB 10 MG PO (23:03)
== END 2021-03-04 23:04 | disposition home or self-care (01) ==
PROVIDERS: Emergency Provider Physician Assistant; PCP Internal Medicine
DX: R42 Dizziness and giddiness (principal); U09.9 Post COVID-19 condition, unspecified
CPT/HCPCS: 36415; 70496; 70498; 80053; 93005; 96361; 96365; 99285; 71046; 83735; 84484; 85025; 93010; J0131; J3490

== ENCOUNTER 2021-05-10 13:13 | Emergency (ER) | payer MEDICARE, MEDICAID, SELFPAY ==
[2021-05-10 13:42] VITALS: BP 119/75; PULSE 82; RESP 16; TEMP 36.8; O2SAT 99
--- NOTE | 2021-05-10 14:11 | ED.GENADUL_ITS ---
Discharge Plan Disposition Patient Disposition: HOME Condition: Stable Discharge Details Clinical Impression: Diarrhea Primary Care Provider: Juliann Hicks ED Provider: Wendy Persaud Home Meds and New Rx's Prescriptions: New ondansetron HCl [Zofran] 4 mg tablet 4 mg PO Q8H PRNQty: 10 RF: 0 Continued Laxative (sennosides) 15 mg tablet 30 mg PO QHS PRN (Reason: constipation) Qty: 180 RF: 3 bupropion HCl 300 mg tablet extended release 24 hr 300 mg PO QAM Qty: 30 RF: 1 albuterol sulfate 90 mcg/actuation HFA aerosol inhaler 2 puff IH QID PRN (Reason: shortness of breath or wheezing) RF: 0 acetaminophen 500 mg tablet 1,500 mg PO TID PRNRF: 0 amlodipine [Norvasc] 10 mg tablet 10 mg PO DAILY Qty: 90 RF: 3 atorvastatin 80 mg tablet 80 mg PO DAILY Qty: 90 RF: 3 clopidogrel 75 mg tablet 75 mg PO DAILY Qty: 90 RF: 3 Dexilant 60 mg capsule,biphase delayed releas 60 mg PO DAILY Qty: 90 RF: 3 topiramate 50 mg tablet 100 mg PO BID Qty: 360 RF: 3 bupropion HCl 150 mg tablet extended release 24 hr 150 mg PO QAM Qty: 90 RF: 3 ipratropium bromide 42 mcg (0.06 %) spray,non-aerosol 2 spray KALEE HS Qty: 1 RF: 0 meclizine 25 mg tablet 25 mg PO QID PRN (Reason: dizziness) Qty: 30 RF: 2 famotidine 20 mg tablet 20 mg PO DAILY Qty: 90 RF: 3 labetalol 200 mg tablet 200 mg PO See Instructions Qty: 135 RF: 3 (DME) OneTouch Verio test strips Strip See Rx Instructions .ROUTE .MEDSUPPLY Qty: 100 RF: 3 (DME) lancets [OneTouch Delica Lancets] 33 gauge misc See Rx Instructions .ROUTE .MEDSUPPLY Qty: 100 RF: 3 meclizine 12.5 mg tablet 12.5 mg PO TID PRN (Reason: dizziness) Qty: 14 RF: 0 Discharge Instructions Instructions: Acute Diarrhea (ED) Additional Instructions: Please stay out of work until your Covid test result returns Take Zofran as needed for nausea and vomiting You may take [id number] Imodium as needed for diarrhea Keep yourself hydrated Check your blood sugars Please return earlier should you have chest pain, shortness of breath, fever, chills, or with new or worsening complaints Stand Alone Forms: Work Release Referrals: Juliann Hicks MD [Primary Care Provider] - Discharge Data Discharge Date/Time-TO BE ENTERED AT DEPARTURE: 05/10/21 16:02 Medical Decision Making Patient appears well, he is requesting a work note and a Covid test He is ambulatory with steady gait and his vitals are stable I have given patient a lab slip to have stool sample performed I considered cardiac performing laboratory evaluation, however patient has not had an episode of diarrhea in the emergency room appears well, is ambulatory with steady gait and has stable vitals, at this time making patient is stable for discharge home with supportive care And a Covid swab was performed and pending at this time Given Zofran for home We will take Imodium Return precautions discussed and patient expressed understanding Repeat evaluation with primary care physician on Thursday recommending Medical Records Medical records reviewed: Yes I reviewed the patient's medical records. HPI General Mode of arrival: ambulatory . Date/Time Provider Initiated Documentation: 05/10/21 13:33 . Limitations to Documentation: no limitations . Information obtained by: patient . HPI Narrative: This 51-year-old male presents with diarrhea for the past 3 days. He states he felt nausea today. He denies any chest pain or shortness of breath. He denies any current dizziness or weakness. He is Covid vaccinated. He denies any cough or fever. He denies any blood in stool. He denies recent antibiotic use. He denies any exotic travel or spoiled food consumption but is known to him. His blood sugars have been stable at home per patient. He denies any additional complaints at this time. Related Data Home Medications Medication Instructions Recorded Confirmed albuterol sulfate 90 mcg/actuation 2 puff IH QID PRN 06/15/18 05/10/21 aerosol inhaler ipratropium bromide 42 mcg (0.06 2 spray KALEE HS #1 inh 07/28/19 05/10/21 %) nasal spray meclizine 25 mg tablet 25 mg PO QID PRN #30 tab-cap 09/13/19 05/10/21 acetaminophen 500 mg tablet 1,500 mg PO TID PRN tab 11/02/19 05/10/21 OneTouch Verio test strips #100 each 11/14/19 05/10/21 lancets [OneTouch Delica Lancets] #100 each 11/14/19 05/10/21 sennosides 15 mg tablet 30 mg PO QHS PRN #180 tab 12/14/19 05/10/21 meclizine 12.5 mg PO TID PRN #14 tab 10/14/20 05/10/21 amlodipine 10 mg tablet 10 mg PO DAILY #90 tab 10/17/20 05/10/21 atorvastatin 80 mg tablet 80 mg PO DAILY #90 tab 10/17/20 05/10/21 bupropion HCl 150 mg 24 hr tablet, 150 mg PO QAM #90 tab 10/17/20 05/10/21 extended release clopidogrel 75 mg tablet 75 mg PO DAILY #90 tab 10/17/20 05/10/21 dexlansoprazole 60 mg 60 mg PO DAILY #90 cap 10/17/20 05/10/21 capsule,biphase delayed release topiramate 50 mg tablet 100 mg PO BID #360 tab-cap 10/17/20 05/10/21 famotidine 20 mg tablet 20 mg PO DAILY #90 tab 11/19/20 05/10/21 bupropion HCl 300 mg 24 hr tablet, 300 mg PO QAM #30 tab 03/26/21 05/10/21 extended release labetalol 200 mg tablet 200 mg PO See Instructions #135 04/25/21 05/10/21 tab-cap ondansetron HCl [Zofran] 4 mg PO Q8H PRN #10 tab 05/10/21 Previous Rx's Medication Instructions Recorded ipratropium bromide 42 mcg (0.06 2 spray KALEE HS #1 inh 07/28/19 %) nasal spray meclizine 25 mg tablet 25 mg PO QID PRN #30 tab-cap 09/13/19 OneTouch Verio test strips #100 each 11/14/19 lancets [OneTouch Delica Lancets] #100 each 11/14/19 sennosides 15 mg tablet 30 mg PO QHS PRN #180 tab 12/14/19 meclizine 12.5 mg PO TID PRN #14 tab 10/14/20 amlodipine 10 mg tablet 10 mg PO DAILY #90 tab 10/17/20 atorvastatin 80 mg tablet 80 mg PO DAILY #90 tab 10/17/20 bupropion HCl 150 mg 24 hr tablet, 150 mg PO QAM #90 tab 10/17/20 extended release clopidogrel 75 mg tablet 75 mg PO DAILY #90 tab 10/17/20 dexlansoprazole 60 mg 60 mg PO DAILY #90 cap 10/17/20 capsule,biphase delayed release topiramate 50 mg tablet 100 mg PO BID #360 tab-cap 10/17/20 famotidine 20 mg tablet 20 mg PO DAILY #90 tab 11/19/20 bupropion HCl 300 mg 24 hr tablet, 300 mg PO QAM #30 tab 03/26/21 extended release labetalol 200 mg tablet 200 mg PO See Instructions #135 04/25/21 tab-cap ondansetron HCl [Zofran] 4 mg PO Q8H PRN #10 tab 05/10/21 Allergies Allergy/AdvReac Type Severity Reaction Status Date / Time dulaglutide [From [facility]] AdvReac diarrhea Verified 05/10/21 13:45 General Stated Complaint: Nausea/Vomit/Diar EDMUND: 3 Review of Systems All systems reviewed & are unremarkable except as noted in HPI and below PFSH All Active Problems (Updated 05/10/21 @ 14:31 by TAMAR Dash) Diarrhea (Acute) Vertigo (Acute) COVID-19 (Acute 01/2021) Vertigo (Acute) Nocturnal hypoxemia due to obesity (Chronic) 68% constance on room air during sleep study Daily headache (Acute) Probably due to hypoxia from [place]. 68% sat on Rm Air during sleep study Type 2 diabetes mellitus without complication (Acute ~07/2017) Constipation (Chronic) Financial problems (Chronic) Umbilical hernia (Acute) Flat feet, bilateral (Acute) Anxiety (Acute 09/07/12) 11/03/18 BECKS = 26 Bilateral deafnesses (Acute 02/20/14) Essential hypertension (Acute 09/07/12) Familial hypercholesterolemia (Acute 09/07/12) Gastroesophageal reflux disease (Acute 08/29/13) H/O acute bronchitis with bronchospasm (Acute 10/08/16) Migraine headache (Acute 03/23/14) Nephrolithiasis (Acute 07/24/17) Obesity (BMI 30-39.9) (Acute 01/09/15) Obstructive sleep apnea (Chronic 09/06/14) Untreated. 09/04/2014:Severe obstructive sleep apnea with associated signficant nocturnal hypoxemia; Constance 68% on RA, average 90% Sensorineural hearing loss, bilateral (Acute 12/27/13) Smoker (Acute 08/29/13) 1 ppd Vertigo (Acute 02/20/14) Depression (Chronic) 11/03/18 PHQ9 = 10 Medical History (Updated 05/10/21 @ 14:31 by TAMAR Dash) Anxiety Borderline diabetes CVA (cerebral vascular accident) Deafness Diarrhea due to drug GERD (gastroesophageal reflux disease) HTN (hypertension) Hypercholesterolemia Migraine CHINO (obstructive sleep apnea) Sinusitis, acute Family History Mother , in 50's Essential hypertension Alcohol abuse Substance abuse Other Breast cancer Social History Smoking/Tobacco Use Status: Current every day Tobacco Type: cigarettes Quit status: not considering quitting Smoking risk assessment performed?: Yes Alcohol Intake: never Drug use: Never Substance use type: does not use Household members: none Housing: apartment Number of Children: 3 number of grandchildren: 2 Communication Needs: Hard of Hearing Do you need help understanding health information?: Often 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 [employer] Current gender identity: male What type of physical activity do you participate in: none Seatbelt use: always Drive intox or ride w/intox local combination truck driver: No Water heater temp set <120 deg: Yes Working smoke detector in home: Yes Fire extinguisher in home: Yes Carbon monox detector in home: Yes Do you feel safe at home: Yes Do you feel safe in your relationship?: Yes Exam Const General: cooperative, comfortable and no acute distress Eyes Pupils: PERRL Resp Effort & Inspection: normal respiratory effort Auscultation: clear to auscultation bilaterally Cardio Rate: regular rate Rhythm: regular rhythm GI Other: Nontender abdominal exam Skin General skin exam: no rashes or lesions noted Neuro General: patient alert and patient oriented x3 Course Vital Signs Vital signs: Vital Signs Temperature 36.8 C 05/10/21 13:42 Pulse 82 05/10/21 13:42 Respiratory Rate 16 05/10/21 13:42 Blood Pressure 119/75 05/10/21 13:42 Pulse Oximetry 99 05/10/21 13:42 Temperature 36.8 C 05/10/21 13:42 Temperature Source Skin 05/10/21 13:42 Pulse 82 05/10/21 13:42 Respiratory Rate 16 05/10/21 13:42 Respiratory Effort Non-Labored 05/10/21 13:42 Blood Pressure 119/75 05/10/21 13:42 Blood Pressure Position Sitting 05/10/21 13:42 Pulse Oximetry 99 05/10/21 13:42 Oxygen Delivery Method Room Air 05/10/21 13:42 Oxygen Flow Rate 0 05/10/21 13:42 Pain Level 0 05/10/21 13:42
[2021-05-11 17:18] LABS: COVID-19 RT-PCR UVMMC Result Negative (Negative)
== END 2021-05-10 16:02 | disposition home or self-care (01) ==
PROVIDERS: Emergency Provider Physician Assistant; PCP Internal Medicine
DX: R19.7 Diarrhea, unspecified (principal); R11.0 Nausea; I10 Essential (primary) hypertension; E11.9 Type 2 diabetes mellitus without complications; Z20.822 Contact with and (suspected) exposure to COVID-19
CPT/HCPCS: 87635; 99283; U0003; U0005

== ENCOUNTER 2021-06-24 10:59 | Outpatient (CLI) | payer MEDICARE, MEDICAID, SELFPAY ==
[2021-06-24] MEDS: Albuterol HFA 18 GM 200 PUFF INH IH (14:16)
[2021-06-24] MEDS: Inhaler, Assist Device 1 EACH MC (14:17)
--- NOTE | 2021-06-25 13:51 | W.PFT ---
Date of service: 06/24/21 Time of Service: 13:10 Pulmonary Function Test Result Requesting Provider Duchene Indications: Dyspnea Interpretation Spirometry: There is no airflow limitation. There is technically no bronchodilator effect but FEV1 increased by 250cc with bronchodilator administration. Lung Volumes: Normal lung volumes Diffusion Capacity: Normal diffusion Airway Pressure: Airways resistance is normal Impression Normal pulmonary function test Clinical Correlation therefore is recommended.
== END 2021-06-24 11:00 | disposition home or self-care (01) ==
PROVIDERS: PCP Internal Medicine; Visit Provider Student in an Organized Health Care Education/Training Program
DX: E66.9 Obesity, unspecified (principal); G47.36 Sleep related hypoventilation in conditions classified elsewhere; R06.09 Other forms of dyspnea; F17.210 Nicotine dependence, cigarettes, uncomplicated
CPT/HCPCS: 94060; 94726; 94729

== ENCOUNTER 2021-06-24 11:05 | Outpatient (CLI) | payer MEDICARE, MEDICAID, SELFPAY | END 2021-06-24 11:06 | disposition home or self-care (01) | PROVIDERS: PCP Internal Medicine; Visit Provider Student in an Organized Health Care Education/Training Program | DX: G47.36 Sleep related hypoventilation in conditions classified elsewhere | CPT/HCPCS: 94762 ==

== ENCOUNTER 2021-12-10 14:52 | Emergency (ER) | payer MEDICARE, MEDICAID, SELFPAY ==
[2021-12-10 14:58] VITALS: BP 133/85; PULSE 86; RESP 20; TEMP 36.3; O2SAT 97
--- NOTE | 2021-12-10 15:15 | RT.EKG_ITS ---
APPROVED REPORT Exam: Resting ECG Reason for Exam: dizziness Patient Location: E HR:74 bpm ECG Measurements Heart Rate 74 AXIS [place] 159 P 22 QRSd 92 QRS -7 QT 383 T 57 QTc 426 Conclusion Sinus rhythm...normal P axis, V-rate 60- 99 Inferior infarct, old...Q >35mS, II III aVF. Sinus. No STEMI. I have reviewed and interpreted ECG and agree with software generated interpretation.
[2021-12-10 16:18] LABS: Abs Immature Grans 0.07 10^3/uL (0.0-0.06); Absolute Basophil Count 0.08 10^3/uL (0.0-0.2); Absolute Eosinophil Count 0.21 10^3/uL (0.0-0.7); Absolute Lymphocyte Count 2.64 10^3/uL (1.2-3.4); Absolute Monocyte Count 0.71 10^3/uL (0.1-0.8); Absolute Neutrophil Count 4.78 10^3/uL (1.2-6.7); Basophils % 0.9; Eosinophils % 2.5; HCT 43.5 % (40.0-50.0); HGB 14.2 g/dL (13.5-17.5); Immature Grans % 0.8; Lymphocytes % 31.1; MCH 27.8 pg (27.0-33.0); MCHC 32.6 % (32.0-36.0); MCV 85 fL (80-95); MPV 9.5 fL (8.0-11.0); Monocytes % 8.4; Neutrophils % 56.3; Platelet Count 301 10^3/uL (130-400); RDW 14.3 % (11.8-14.1); RDW-SD 44.2 fL; WBC 8.49 10^3/uL (4.4-10.8)
[2021-12-10 16:36] LABS: ALT 20 U/L (16-63); AST 8 U/L (15-37); Albumin 3.8 g/dL (3.4-5.0); Alkaline Phosphatase 67 U/L (46-116); Anion Gap 9.2 mmol/L (3-11); BUN 15 mg/dL (7-18); Bilirubin, Total 0.2 mg/dL (0.2-1.0); CO2 23.8 mmol/L (21.0-32.0); CREATININE 0.9 mg/dL (0.70-1.30); Calcium 8.8 mg/dL (8.5-10.1); Chloride 106 mmol/L (98-107); Glucose 125 mg/dL (74-106); Potassium 3.8 mmol/L (3.5-5.1); Sodium 139 mmol/L (136-145); Total Protein 6.9 g/dL (6.4-8.2); Troponin I < 50 ng/L (<or=60)
[2021-12-10] MEDS: Normal Saline 1,000 ML 1000 ML IV (16:54)
[2021-12-10] MEDS: Meclizine 12.5 MG TAB PO (16:54)
[2021-12-10 16:56] VITALS: RESP 16
[2021-12-10 17:21] LABS: Bilirubin Negative (Negative); Blood Negative (Negative); Clarity Clear (Clear); Glucose Negative (Negative); Ketones Negative (Negative); Leukocyte Esterase Negative (Negative); Nitrite Negative (Negative); Specific Gravity 1.015 (1.005-1.025); Urobilinogen 0.2 EU/dL (Up TO 0.2); pH 6.5 (5-8)
[2021-12-10] MEDS: Ketorolac 15 MG/ML VIAL 10 MG IVP (17:50)
--- NOTE | 2021-12-10 18:09 | W.ED.GENAD ---
Discharge Plan Disposition Patient Disposition: HOME Condition: Improving Discharge Details Clinical Impression: Vertigo Primary Care Provider: Juliann Hicks ED Provider: Froylan Mijares Home Meds and New Rx's Prescriptions: New meclizine 25 mg tablet 25 mg PO TID PRN (Reason: dizziness) Qty: 20 0RF Continued acetaminophen 500 mg tablet 1,500 mg PO TID PRN labetalol 200 mg tablet 200 mg PO See Instructions Qty: 135 3RF Rx Instructions: Take 1/2 tablet (100 mg) in the AM & 1 tablet (200 mg in the evening) famotidine 20 mg tablet 20 mg PO DAILY Qty: 90 3RF albuterol sulfate 90 mcg/actuation HFA aerosol inhaler 2 puff IH QID PRN (Reason: shortness of breath or wheezing) Qty: 1 12RF clopidogrel 75 mg tablet 75 mg PO DAILY Qty: 90 3RF atorvastatin 80 mg tablet 80 mg PO DAILY Qty: 90 3RF topiramate 50 mg tablet 100 mg PO BID Qty: 360 3RF topiramate 100 mg tablet 100 mg PO BID Qty: 180 3RF Discharge Instructions Instructions: Vertigo (ED) Additional Instructions: At this time your labs are reassuring and your symptoms are improving which is beneficial. If you have any new or significant worsening of symptoms or change in your symptoms please return immediately to the emergency department for reassessment. If not improving in the next week please call your primary care office for arrangement of follow-up appointment. Stand Alone Forms: Work Release Referrals: Juliann Hicks MD [Primary Care Provider] - 1 week Discharge Data Discharge Date/Time-TO BE ENTERED AT DEPARTURE: 12/10/21 18:37 Medical Decision Making Patient presenting to the emergency department for chief complaint of vertigo. Patient reports past history of vertigo and that today's episode was similar to episodes he has had in the past. He states slight feeling of rotation to the left and a mild headache both which are common for patient and denies any difference in pattern from previous episodes. Patient does have significant past medical history of hypertension, type 2 diabetes, CVA, recurrent headaches and vertigo. Patient does have decreased hearing but is able to communicate appropriately. Physical exam is unremarkable with no noted nystagmus, hints exam not revealing central source, normal cranial nerve exam, and otherwise unremarkable presentation with patient appearing stable. Given patient's history will check EKG, labs and give IV fluids and additional meclizine due to patient taking some prior to arrival with some benefit but not full resolution. For headache will give patient acetaminophen. Please see physician interpretation for full interpretation of EKG. Patient is in sinus rhythm rate of 74 with possible old inferior infarct but no acute STEMI is noted. Compared to 2 previous EKGs I do not notice any significant change in pattern. Reviewed patient's labs and CBC is unremarkable nondiagnostic, CMP shows a slight elevated glucose at 125 with low AST of 8 otherwise nondiagnostic, troponin less than 50 urine is also nondiagnostic. Patient reassessed and states improvement of dizziness but does have slight headache remaining. Did give patient 10 mg of ketorolac after discussion with patient whom states he does take other NSAIDs while on Plavix for occasional headaches. We will continue to monitor patient. Reassessed patient and patient is requesting to go home and states that he is improving. Will discharge patient and I suspect that these are more acute findings with chronic history of similar episodes. After discussion of diagnosis and plan of care patient has no further needs, questions, or concerns and states clear understanding to return to the emergency department for any worsening symptoms. This documentation was generated using [employer] dictation system, please disregard any oddities of phrase or misspellings. HPI General Mode of arrival: ambulatory. Date/Time Provider Initiated Documentation: 12/10/21 15:23. Limitations to Documentation: no limitations. Information obtained by: patient and RN notes reviewed. History of Present Illness 51 year old M presents to the emergency department with the chief complaint of Dizziness, described as similar to prior episodes, Quality is described as other (Denies pain), Patient started experiencing this hour(s) (1) and it has been constant. Medication improves symptom(s), No exacerbating factors reported . Patient notes no other symptoms.. Patient did receive the following treatments prior to arrival, other (Meclizine) Related Data Home Medications Medication Instructions Recorded Confirmed acetaminophen 500 mg tablet 1,500 mg PO TID PRN 11/02/19 08/21/21 albuterol sulfate 90 mcg/actuation 2 puff inhalation QID PRN 08/21/21 aerosol inhaler shortness of breath or wheezing #1 unit atorvastatin 80 mg tablet 80 mg PO DAILY #90 tabs 10/08/21 clopidogrel 75 mg tablet 75 mg PO DAILY #90 tabs 10/08/21 topiramate 50 mg tablet 100 mg PO BID #360 tab-caps 10/08/21 topiramate 100 mg tablet 100 mg PO BID #180 tabs 10/09/21 famotidine 20 mg tablet 20 mg PO DAILY #90 tabs 12/04/21 12/04/21 labetalol 200 mg tablet 200 mg PO See Instructions #135 12/04/21 12/04/21 tab-caps meclizine 25 mg tablet 25 mg PO TID PRN dizziness #20 tabs 12/10/21 Previous Rx's Medication Instructions Recorded albuterol sulfate 90 mcg/actuation 2 puff inhalation QID PRN 08/21/21 aerosol inhaler shortness of breath or wheezing #1 unit atorvastatin 80 mg tablet 80 mg PO DAILY #90 tabs 10/08/21 clopidogrel 75 mg tablet 75 mg PO DAILY #90 tabs 10/08/21 topiramate 50 mg tablet 100 mg PO BID #360 tab-caps 10/08/21 topiramate 100 mg tablet 100 mg PO BID #180 tabs 10/09/21 famotidine 20 mg tablet 20 mg PO DAILY #90 tabs 12/04/21 labetalol 200 mg tablet 200 mg PO See Instructions #135 12/04/21 tab-caps meclizine 25 mg tablet 25 mg PO TID PRN dizziness #20 tabs 12/10/21 Allergies Allergy/AdvReac Type Severity Reaction Status Date / Time dulaglutide [From [facility]] AdvReac diarrhea Verified 08/21/21 14:27 General Stated Complaint: Dizzy/Sync EDMUND: 4 Review of Systems Constitutional Constitutional: Denies body ache(s), Denies chills, Denies fever(s) and Denies headache(s) Eyes Eyes: Denies change in vision and Denies loss of vision ENT Ears, Nose, Mouth, and Throat: Reports vertigo, Reports dizziness, Denies otalgia, Denies headache(s) and Denies neck pain Cardiovascular Cardiovascular: Denies chest pain, Denies syncope and Reports dyspnea Respiratory Respiratory: Reports dyspnea Gastrointestinal Gastrointestinal: Denies abdominal pain, Denies nausea and Denies vomiting Musculoskeletal Musculoskeletal: Denies abnormal gait, Denies neck pain and Denies numbness Integumentary/Breasts Skin/Breast: Denies rash Neurologic Neurologic: Reports as per HPI, Denies abnormal movements, Denies abnormal speech, Denies abnormal gait, Reports vertigo, Reports dizziness, Denies syncope, Denies headache(s), Denies lack of coordination, Denies localized weakness, Denies loss of vision, Denies memory loss, Denies numbness, Denies other visual disturbances, Denies sensory deficit and Denies paresthesias Psychiatric Psychiatric: Denies memory loss PFSH All Active Problems (Updated 12/10/21 @ 18:10 by Froylan Mijares NP) Essential hypertension (Acute 09/07/12) Type 2 diabetes mellitus without complication (Acute ~07/2017) Obstructive sleep apnea (Chronic 09/06/14) Untreated. 09/04/2014:Severe obstructive sleep apnea with associated signficant nocturnal hypoxemia; Constance 68% on RA, average 90% Nocturnal hypoxemia due to obesity (Chronic) 68% constance on room air during sleep study Daily headache (Acute) Probably due to hypoxia from [place]. 68% sat on Rm Air during sleep study Smoker (Acute 08/29/13) 1 ppd Familial hypercholesterolemia (Acute 09/07/12) Sensorineural hearing loss, bilateral (Acute 12/27/13) Obesity (BMI 30-39.9) (Acute 01/09/15) Gastroesophageal reflux disease (Acute 08/29/13) Vertigo (Acute 02/20/14) Medical History (Updated 12/10/21 @ 18:10 by Froylan Mijares NP) Anxiety (09/07/12) 11/03/18 BECKS = 26 Anxiety Borderline diabetes Constipation COVID-19 (01/2021) CVA (cerebral vascular accident) Deafness Depression 11/03/18 PHQ9 = 10 Diarrhea Diarrhea due to drug Financial problems Flat feet, bilateral GERD (gastroesophageal reflux disease) H/O acute bronchitis with bronchospasm (10/08/16) History of [place] measles (02/20/14) HTN (hypertension) Hypercholesterolemia Lipoma (08/29/13) Migraine Migraine headache (03/23/14) Nephrolithiasis (07/24/17) CHINO (obstructive sleep apnea) Sinusitis, acute Umbilical hernia Family History Mother , in 50's Essential hypertension Alcohol abuse Substance abuse Other Breast cancer Social History Smoking/Tobacco Use Status: Current every day Tobacco Type: cigarettes Quit status: not considering quitting Smoking risk assessment performed?: Yes Alcohol Intake: never Drug use: Never Substance use type: does not use Household members: none Housing: apartment Number of Children: 3 number of grandchildren: 2 Communication Needs: Hard of Hearing Do you need help understanding health information?: Often 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 [employer] Current gender identity: male What type of physical activity do you participate in: none Seatbelt use: always Drive intox or ride w/intox local hazmat driver: No Water heater temp set <120 deg: Yes Working smoke detector in home: Yes Fire extinguisher in home: Yes Carbon monox detector in home: Yes Do you feel safe at home: Yes Do you feel safe in your relationship?: Yes Exam Const General: cooperative, healthy appearing, no acute distress and well groomed Orientation: alert, awake and oriented x3 HENMT Head: normal to inspection Ears: hearing grossly normal bilaterally Mouth: oral mucosae normal and moist mucous membranes Throat: posterior oropharynx normal Eyes Visual Baeza: normal visual baeza by confrontation Alignment and Position: alignment normal Periorbital: periorbital findings normal Eyelids: eyelids normal Sclera: sclerae normal Pupils: PERRL EOM: EOM intact bilaterally Neck Neck: normal visual inspection, full ROM and no meningeal signs Resp Effort & Inspection: normal respiratory effort and able to speak in complete sentences Auscultation: clear to auscultation bilaterally Cardio Rate: regular rate Rhythm: regular rhythm Heart Sounds: S1 normal and S2 normal Neuro General: patient alert, patient awake, patient oriented x3, gait normal, tone normal, moves all extremities, CN's II-XI intact bilaterally and not confused Cognition: normal cognition Speech: speech normal Motor: muscle tone normal throughout, strength 5/5 throughout, no pronator drift, no movement abnormalities noted and no fasciculations Sensory Exam: no sensory deficits noted Coordination: Romberg test normal, Does not sway with eyes open, rapid alternating movement UE normal and rapid alternating movement LE normal Course Vital Signs Vital signs: Vital Signs Temperature 36.3 C L 12/10/21 14:58 Pulse 86 12/10/21 14:58 Respiratory Rate 20 12/10/21 14:58 Blood Pressure 133/85 12/10/21 14:58 Pulse Oximetry 97 12/10/21 14:58 Temperature 36.3 C L 12/10/21 14:58 Temperature Source Skin 12/10/21 14:58 Pulse 86 12/10/21 14:58 Respiratory Rate 16 12/10/21 16:56 Respiratory Effort Non-Labored 12/10/21 16:56 Respiratory Depth Normal 12/10/21 16:56 Respiratory Pattern Normal 12/10/21 16:56 Blood Pressure 133/85 12/10/21 14:58 Blood Pressure Position Sitting 12/10/21 14:58 Pulse Oximetry 97 12/10/21 14:58 Oxygen Delivery Method Room Air 12/10/21 14:58 Oxygen Flow Rate 0 12/10/21 14:58 Pain Level 0 12/10/21 14:58 Comment 12/10/21 14:58 Lab/Test Results Lab/Test Results: Laboratory Tests Range/Units 12/10/21 12/10/21 12/10/21 16:06 16:06 17:10 WBC (4.4-10.8) 10^3/uL 8.49 RBC (4.36-5.78) 10^6/uL 5.10 Hgb (13.5-17.5) g/dL 14.2 Hct (40.0-50.0) % 43.5 MCV (80-95) fL 85 MCH (27.0-33.0) pg 27.8 MCHC (32.0-36.0) % 32.6 RDW (11.8-14.1) % 14.3 H Plt Count (130-400) 10^3/uL 301 MPV (8.0-11.0) fL 9.5 Immature Gran % 0.8 Neutrophils % 56.3 Lymphocytes % 31.1 Monocytes % 8.4 Eosinophils % 2.5 Basophils % 0.9 Nucleated RBC % (0.0-0.3) % 0.0 Absolute Neutrophils (1.2-6.7) 10^3/uL 4.78 Absolute Lymphocytes (1.2-3.4) 10^3/uL 2.64 Absolute Monocytes (0.1-0.8) 10^3/uL 0.71 Absolute Eosinophils (0.0-0.7) 10^3/uL 0.21 Absolute Basophils (0.0-0.2) 10^3/uL 0.08 Sodium (136-145) mmol/L 139 Potassium (3.5-5.1) mmol/L 3.8 Chloride (98-107) mmol/L 106 Carbon Dioxide (21.0-32.0) mmol/L 23.8 Anion Gap (3-11) mmol/L 9.2 BUN (7-18) mg/dL 15 Creatinine (0.70-1.30) mg/dL 0.9 Estimated GFR/1.73 m2 (mL/min/1.73m2) >= 60.00 Glucose (74-106) mg/dL 125 H Calcium (8.5-10.1) mg/dL 8.8 Magnesium (1.8-2.4) mg/dL 2.0 Total Bilirubin (0.2-1.0) mg/dL 0.2 AST (15-37) U/L 8 L ALT (16-63) U/L 20 Alkaline Phosphatase (46-116) U/L 67 Troponin I (<or=60) ng/L < 50 Total Protein (6.4-8.2) g/dL 6.9 Albumin (3.4-5.0) g/dL 3.8 Urine Color (Yellow) Yellow Urine Clarity (Clear) Clear Urine pH (5-8) 6.5 Ur Specific Pitman (1.005-1.025) 1.015 Urine Protein (Negative) mg/dL Negative Urine Ketones (Negative) mg/dL Negative Urine Blood (Negative) Negative Urine Nitrite (Negative) Negative Urine Bilirubin (Negative) Negative Urine Urobilinogen (Up TO 0.2) EU/dL 0.2 Ur Leukocyte Esterase (Negative) Negative Urine Glucose (Negative) mg/dL Negative
== END 2021-12-10 18:37 | disposition home or self-care (01) ==
PROVIDERS: Emergency Provider Nurse Practitioner Family; PCP Internal Medicine
DX: R42 Dizziness and giddiness (principal)
CPT/HCPCS: 36415; 80053; 93005; 96361; 96365; 96375; 99284; 81003; 83735; 84484; 85025; 93010; 99283; J0131; J1885

== ENCOUNTER 2022-04-16 14:09 | Emergency (ER) | payer MEDICARE, MEDICAID, SELFPAY ==
[2022-04-16] VITALS (29 sets, daily range): BP systolic 141–183; BP diastolic 70–91; PULSE 79–97; RESP 11–20; TEMP 37.2; O2SAT 97
--- NOTE | 2022-04-16 14:00 | RT.EKG_ITS ---
APPROVED REPORT Exam: Resting ECG Reason for Exam: sob chest pain Patient Location: E HR:87 bpm ECG Measurements Heart Rate [address] 158 P 15 QRSd 91 QRS -10 QT 366 T 68 QTc 441 Conclusion Sinus rhythm...normal P axis, V-rate 60- 99 Inferior infarct, old...Q >35mS, II III aVF sinus rhythm, left axis, normal intervals, non ischemic
--- NOTE | 2022-04-16 14:15 | DI.RAD_ITS ---
Exam(s) XR PORTABLE CHEST AP EXAM: XR PORTABLE CHEST AP CLINICAL HISTORY: Chest pain, SOB TECHNIQUE: 2D digital imaging was performed of the chest. One image was obtained. An AP view was ob tained. COMPARISON: CR,XR XR CHEST 2V PA LATERAL from 03/04/2021 FINDINGS: MEDIASTINUM: Normal. HEART: Normal. PULMONARY VASCULATURE: Normal. LUNGS: Clear. PLEURAL SPACE: No pleural effusion or pneumothorax. BONE:Within normal limits for the patient's age. OTHER FINDINGS:Normal. IMPRESSION: No acute pulmonary findings. DATA REPOSITORY: RADIATION DOSE DELIVERED:
--- NOTE | 2022-04-16 14:33 | ED.GENADUL_ITS ---
Discharge Plan Disposition Patient Disposition: Home Condition: Stable Discharge Details Clinical Impression: COVID Primary Care Provider: Yifan Grewal ED Provider: Froylan Mijares Home Meds and New Rx's Prescriptions: Continued Januvia 50 mg tablet 50 mg PO DAILY Qty: 90 1RF dexlansoprazole [Dexilant] 60 mg capsule,biphase delayed releas 60 mg PO DAILY Qty: 90 3RF acetaminophen 500 mg tablet 1,500 mg PO TID PRN famotidine 20 mg tablet 20 mg PO DAILY Qty: 90 3RF labetalol 200 mg tablet 200 mg PO See Instructions Qty: 135 3RF Rx Instructions: Take 1/2 tablet (100 mg) in the AM & 1 tablet (200 mg in the evening) prednisone 20 mg tablet 20 mg PO DAILY PRN (Reason: headaches) Qty: 10 0RF albuterol sulfate 90 mcg/actuation HFA aerosol inhaler 2 puff IH QID PRN (Reason: shortness of breath or wheezing) Qty: 1 12RF clopidogrel 75 mg tablet 75 mg PO DAILY Qty: 90 3RF atorvastatin 80 mg tablet 80 mg PO DAILY Qty: 90 3RF topiramate 100 mg tablet 100 mg PO BID Qty: 180 3RF meclizine 25 mg tablet 25 mg PO TID PRN (Reason: dizziness) Qty: 20 0RF Discharge Instructions Instructions: COVID-19 (Coronavirus Disease 2019) (ED) Additional Instructions: Your labs are none worrisome for cardiac source of your chest pain but you are positive for COVID. This makes sense with your symptoms with having cough, sore throat, and chest pain along with not feeling well. It is recommended that you remain isolated for the next 4 days and then if you are fever free and having some improvement of symptoms you may return to work and other activities but it is recommended that you wear a mask for a total of 10 days since onset of your symptoms. It is very important during viral illness that you stay well-hydrated and get plenty of rest. If you develop any new or worsening symptoms such as shortness of breath or difficulty breathing please return immediately to the emergency department for reassessment. Stand Alone Forms: Work Release Referrals: Yifan Grewal DO [Primary Care Provider] - 1 week (If not improving or for recheck of symptoms) Discharge Data Discharge Date/Time-TO BE ENTERED AT DEPARTURE: 04/16/22 18:35 Medical Decision Making <Sarah Forrest NP - Last Filed: 04/17/22 08:33> 51-year-old male with past medical history of type 2 diabetes, hypertension, obstructive sleep apnea, obesity, daily smoker, high cholesterol and bilateral hearing loss and vertigo presents to the ER with a chief complaint of generalized chest pain, shortness of breath and productive cough with dark chavez sputum which began 2 days ago. Patient reports that when he stands up he gets lightheaded. He does have some mild scattered bilateral expiratory wheezes on auscultation. He denies any fever chills no nausea vomiting diarrhea. He does take clopidogrel daily. He is vaccinated for COVID Cardiac work-up ordered including chest x-ray, CBC shows no leukocytosis, PT PTT INR within normal limits, EKG was reviewed by Dr. Dolly Maldonado ER attending, old EKG available for review. Please see his official report. Care is to be handed off to oncoming provider Chuck Mijares NP pending repeat troponin. Medical Records Medical records reviewed: Yes I reviewed the patient's medical records. Lab Data Lab results reviewed: Yes I reviewed the patient's lab results. Labs: Laboratory Tests Range/Units 04/16/22 04/16/22 04/16/22 14:30 14:30 14:30 WBC (4.4-10.8) 10^3/uL 8.22 RBC (4.36-5.78) 10^6/uL 5.07 Hgb (13.5-17.5) g/dL 14.3 Hct (40.0-50.0) % 44.3 MCV (80-95) fL 87 MCH (27.0-33.0) pg 28.2 MCHC (32.0-36.0) % 32.3 RDW (11.8-14.1) % 14.2 H Plt Count (130-400) 10^3/uL 317 MPV (8.0-11.0) fL 10.1 Immature Gran % 1.2 Neutrophils % 59.5 Lymphocytes % 27.0 Monocytes % 8.6 Eosinophils % 2.6 Basophils % 1.1 Nucleated RBC % (0.0-0.3) % 0.0 Absolute Neutrophils (1.2-6.7) 10^3/uL 4.89 Absolute Lymphocytes (1.2-3.4) 10^3/uL 2.22 Absolute Monocytes (0.1-0.8) 10^3/uL 0.71 Absolute Eosinophils (0.0-0.7) 10^3/uL 0.21 Absolute Basophils (0.0-0.2) 10^3/uL 0.09 PT (9.3-11.0) sec 9.3 INR (0.9-1.1) 0.9 APTT (21.0-27.5) sec 25.2 Sodium (136-145) mmol/L 136 Potassium (3.5-5.1) mmol/L 3.7 Chloride (98-107) mmol/L 102 Carbon Dioxide (21.0-32.0) mmol/L 25.9 Anion Gap (3-11) mmol/L 8.1 BUN (7-18) mg/dL 11 Creatinine (0.70-1.30) mg/dL 1.1 Est GFR (CKD-EPI 2020) (mL/min/1.73m2) 81.78 Glucose (74-106) mg/dL 258 H Calcium (8.5-10.1) mg/dL 8.5 Magnesium (1.8-2.4) mg/dL 1.8 Total Bilirubin (0.2-1.0) mg/dL 0.3 AST (15-37) U/L 11 L ALT (16-63) U/L 26 Alkaline Phosphatase (46-116) U/L 79 Troponin I (<or=60) ng/L < 50 NT-Pro-B Natriuret Pep (<300) pg/mL 38 Total Protein (6.4-8.2) g/dL 7.6 Albumin (3.4-5.0) g/dL 4.1 Sign Out Yes <Froylan Mijares NP - Last Filed: 04/17/22 22:06> 51-year-old male with past medical history of type 2 diabetes, hypertension, obstructive sleep apnea, obesity, daily smoker, high cholesterol and bilateral hearing loss and vertigo presents to the ER with a chief complaint of generalized chest pain, shortness of breath and productive cough with dark chavez sputum which began 2 days ago. Patient reports that when he stands up he gets lightheaded. He does have some mild scattered bilateral expiratory wheezes on auscultation. He denies any fever chills no nausea vomiting diarrhea. He does take clopidogrel daily. He is vaccinated for COVID Cardiac work-up ordered including chest x-ray, CBC shows no leukocytosis, PT PTT INR within normal limits, EKG was reviewed by Dr. Dolly Maldonado ER attending, old EKG available for review. Please see his official report. Care is to be handed off to oncoming provider Chuck Mijares NP pending repeat troponin. 1600-signout received from Sarah Forrest NP. Please see initial HPI, physical exam and initial plan of care. Patient signed out to me in stable condition pending repeat troponin with chief differential to include viral illness with rule out of cardiac. Reviewed patient's labs and patient is COVID-positive, second troponin is negative. Discussed findings with patient along with standard viral therapy. Patient is vaccinated and boosted and given that labs and vital signs are otherwise appropriate I do feel that patient is okay with outpatient monitoring of symptoms and conservative management. Discussed with patient return and follow-up precautions. After discussion of diagnosis and plan of care patient has no further needs, questions, or concerns and states clear understanding to return to the emergency department for any worsening symptoms. This documentation was generated using [employer] dictation system, please disregard any oddities of phrase or misspellings. HPI <Sarah Forrest NP - Last Filed: 04/17/22 08:33> General Mode of arrival: ambulatory . Date/Time Provider Initiated Documentation: 04/16/22 14:23 . Limitations to Documentation: physical limitation (Bilateral hearing loss, hard of hearing) . Information obtained by: patient, RN notes reviewed and old records reviewed . HPI Narrative: 51-year-old male with past medical history of type 2 diabetes, hypertension, obstructive sleep apnea, obesity, daily smoker, high cholesterol and bilateral hearing loss and vertigo presents to the ER with a chief complaint of generalized chest pain, shortness of breath and productive cough with dark chavez sputum which began 2 days ago. Patient reports that when he stands up he gets lightheaded. He does have some mild scattered bilateral expiratory wheezes on auscultation. He denies any fever chills no nausea vomiting diarrhea. He does take clopidogrel daily. He is vaccinated for COVID Related Data Home Medications Medication Instructions Recorded Confirmed acetaminophen 500 mg tablet 1,500 mg PO TID PRN 11/02/19 04/16/22 albuterol sulfate 90 mcg/actuation 2 puff inhalation QID PRN 08/21/21 04/16/22 aerosol inhaler shortness of breath or wheezing #1 unit atorvastatin 80 mg tablet 80 mg PO DAILY #90 tabs 10/08/21 04/16/22 clopidogrel 75 mg tablet 75 mg PO DAILY #90 tabs 10/08/21 04/16/22 topiramate 100 mg tablet 100 mg PO BID #180 tabs 10/09/21 04/16/22 famotidine 20 mg tablet 20 mg PO DAILY #90 tabs 12/04/21 04/16/22 meclizine 25 mg tablet 25 mg PO TID PRN dizziness #20 tabs 12/10/21 04/16/22 labetalol 200 mg tablet 200 mg PO See Instructions #135 02/18/22 04/16/22 tab-caps prednisone 20 mg tablet 20 mg PO DAILY PRN headaches #10 02/18/22 04/16/22 tabs dexlansoprazole 60 mg 60 mg PO DAILY #90 caps 03/20/22 04/16/22 capsule,biphase delayed release (Dexilant) sitagliptin phosphate 50 mg tablet 50 mg PO DAILY #90 tabs 03/20/22 04/16/22 (Hima) Previous Rx's Medication Instructions Recorded albuterol sulfate 90 mcg/actuation 2 puff inhalation QID PRN 08/21/21 aerosol inhaler shortness of breath or wheezing #1 unit atorvastatin 80 mg tablet 80 mg PO DAILY #90 tabs 10/08/21 clopidogrel 75 mg tablet 75 mg PO DAILY #90 tabs 10/08/21 topiramate 100 mg tablet 100 mg PO BID #180 tabs 10/09/21 famotidine 20 mg tablet 20 mg PO DAILY #90 tabs 12/04/21 meclizine 25 mg tablet 25 mg PO TID PRN dizziness #20 tabs 12/10/21 labetalol 200 mg tablet 200 mg PO See Instructions #135 02/18/22 tab-caps prednisone 20 mg tablet 20 mg PO DAILY PRN headaches #10 02/18/22 tabs dexlansoprazole 60 mg 60 mg PO DAILY #90 caps 03/20/22 capsule,biphase delayed release (Dexilant) sitagliptin phosphate 50 mg tablet 50 mg PO DAILY #90 tabs 03/20/22 (Januvia) Allergies Allergy/AdvReac Type Severity Reaction Status Date / Time metformin Allergy Severe Diarrhea Verified 04/16/22 14:24 dulaglutide [From Trulicity] AdvReac diarrhea Verified 04/16/22 14:24 General Stated Complaint: Chest Pain EDMUND: 2 Review of Systems <Sarah Forrest NP - Last Filed: 04/17/22 08:33> All systems reviewed & are unremarkable except as noted in HPI and below Cardiovascular Cardiovascular: Reports chest pain, Denies radiating jaw, neck or arm pain and Reports dyspnea Respiratory Respiratory: Reports change in phlegm color, Reports cough, Reports excessive phlegm production and Reports dyspnea PFSH <Sarah Forrest NP - Last Filed: 04/17/22 08:33> All Active Problems (Updated 04/16/22 @ 18:18 by Froylan Mijares NP) COVID (Acute) Tremor (Acute) Essential hypertension (Acute 09/07/12) Type 2 diabetes mellitus without complication (Acute ~07/2017) Obstructive sleep apnea (Chronic 09/06/14) Untreated. 09/04/2014:Severe obstructive sleep apnea with associated signficant nocturnal hypoxemia; Constance 68% on RA, average 90% Nocturnal hypoxemia due to obesity (Chronic) 68% constance on room air during sleep study Daily headache (Acute) Probably due to hypoxia from [place]. 68% sat on Rm Air during sleep study Smoker (Acute 08/29/13) 1 ppd Familial hypercholesterolemia (Acute 09/07/12) Sensorineural hearing loss, bilateral (Acute 12/27/13) Obesity (BMI 30-39.9) (Acute 01/09/15) Gastroesophageal reflux disease (Acute 08/29/13) Vertigo (Acute 02/20/14) Medical History Anxiety (09/07/12) 11/03/18 BECKS = 26 Anxiety Borderline diabetes Constipation COVID-19 (01/2021) CVA (cerebral vascular accident) Deafness Depression 11/03/18 PHQ9 = 10 Diarrhea Diarrhea due to drug Financial problems Flat feet, bilateral GERD (gastroesophageal reflux disease) H/O acute bronchitis with bronchospasm (10/08/16) History of [place] measles (02/20/14) HTN (hypertension) Hypercholesterolemia Lipoma (08/29/13) Migraine Migraine headache (03/23/14) Nephrolithiasis (07/24/17) [place] (obstructive sleep apnea) Sinusitis, acute Umbilical hernia Family History Mother , in 50's Essential hypertension Alcohol abuse Substance abuse Other Breast cancer Social History Smoking/Tobacco Use Status: Current every day Tobacco Type: cigarettes Quit status: not considering quitting Smoking risk assessment performed?: Yes Alcohol Intake: never Drug use: Never Substance use type: does not use Household members: none Housing: apartment Number of Children: 3 number of grandchildren: 2 Communication Needs: Hard of Hearing Do you need help understanding health information?: Often 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 Appears stated age. Normal body habitus. Head: Normocephalic, no trauma. Eyes: Pupils PERRL, Red reflex noted, EOM's intact. Eyelids symmetrical without lesions, discharge, or swelling. ENT: Bilateral TM's WNL, External ear normal to inspection, no mastoid TTP, swelling, or erythema, Nasal turbinates WNL, no nasal discharge. Normal dentition, Posterior pharynx WNL, no exudate. Chest: RRR, Normal S1, S2, distal pulses intact. Resp: Bilateral scattered expiratory wheezes with auscultation. Abdomen: Soft, non-distended, Normoactive bowel sounds all 4 quads. Musculoskeletal: Normal gait, 5/5 strength to all four extremities. Skin: No suspicious rashes or lesions. Capillary refill less than 2 sec. Neurologic: Cranial nerves II-XII intact. Alert and oriented x 3. Motor: No deficits noted. Sensory: Intact bilaterally all 4 extremities. Reflexes: DTR's intact bilaterally.. Hematologic/Lymphatic: No ecchymosis, no lymphadenopathy. Course <Sarah Forrest NP - Last Filed: 04/17/22 08:33> Vital Signs Vital signs: Vital Signs Temperature 37.2 C 04/16/22 14:13 Pulse 89 04/16/22 14:13 Respiratory Rate 20 04/16/22 14:13 Blood Pressure 149/79 H 04/16/22 14:13 Pulse Oximetry 97 04/16/22 14:13 Temperature 37.2 C 04/16/22 14:13 Temperature Source Temporal Artery Scan 04/16/22 14:13 Pulse 89 04/16/22 14:13 Respiratory Rate 14 04/16/22 14:24 Respiratory Effort Short of Breath 04/16/22 14:24 Respiratory Depth Normal 04/16/22 14:24 Respiratory Pattern Normal 04/16/22 14:24 Blood Pressure 149/79 H 04/16/22 14:13 Blood Pressure Position Sitting 04/16/22 14:13 Pulse Oximetry 97 04/16/22 14:13 Oxygen Delivery Method Room Air 04/16/22 14:13 Oxygen Flow Rate 0 04/16/22 14:13 Pain Level 0 04/16/22 14:24 Sign Out <Saarh Forrest NP - Last Filed: 04/17/22 08:33> Sign Out Data: Sign Out Comment: Pending repeat troponin and fluvid. Last updated by Sarah Forrest NP at 04/16/22 16:09
[2022-04-16 14:38] LABS: Absolute Basophil Count 0.09 10^3/uL (0.0-0.2); Absolute Eosinophil Count 0.21 10^3/uL (0.0-0.7); Absolute Lymphocyte Count 2.22 10^3/uL (1.2-3.4); Absolute Monocyte Count 0.71 10^3/uL (0.1-0.8); Absolute Neutrophil Count 4.89 10^3/uL (1.2-6.7); Basophils % 1.1; Eosinophils % 2.6; HCT 44.3 % (40.0-50.0); HGB 14.3 g/dL (13.5-17.5); Immature Grans % 1.2; MCH 28.2 pg (27.0-33.0); MCHC 32.3 % (32.0-36.0); MCV 87 fL (80-95); MPV 10.1 fL (8.0-11.0); Monocytes % 8.6; Neutrophils % 59.5; Platelet Count 317 10^3/uL (130-400); RBC 5.07 10^6/uL (4.36-5.78); RDW 14.2 % (11.8-14.1); RDW-SD 45.1 fL; WBC 8.22 10^3/uL (4.4-10.8)
[2022-04-16 14:50] LABS: INR 0.9 (0.9-1.1); PTT Activated 25.2 sec (21.0-27.5); Prothrombin Time 9.3 sec (9.3-11.0)
[2022-04-16 14:59] LABS: ALT 26 U/L (16-63); AST 11 U/L (15-37); Albumin 4.1 g/dL (3.4-5.0); Alkaline Phosphatase 79 U/L (46-116); Anion Gap 8.1 mmol/L (3-11); BUN 11 mg/dL (7-18); Bilirubin, Total 0.3 mg/dL (0.2-1.0); CO2 25.9 mmol/L (21.0-32.0); CREATININE 1.1 mg/dL (0.70-1.30); Calcium 8.5 mg/dL (8.5-10.1); Chloride 102 mmol/L (98-107); Estimated GFR 81.78 (mL/min/1.73m2); Glucose 258 mg/dL (74-106); Magnesium 1.8 mg/dL (1.8-2.4); NT-proBNP 38 pg/mL (<300); Potassium 3.7 mmol/L (3.5-5.1); Sodium 136 mmol/L (136-145); Total Protein 7.6 g/dL (6.4-8.2); Troponin I < 50 ng/L (<or=60)
[2022-04-16 16:30] LABS: Influenza A PCR Negative (Negative); Influenza B PCR Negative (Negative); RSV PCR Negative (Negative)
[2022-04-16 16:56] LABS: COVID-19 PCR Positive (Negative); Source Nasopharynx
[2022-04-16 18:13] LABS: Troponin I < 50 ng/L (<or=60)
== END 2022-04-16 18:35 | disposition home or self-care (01) ==
PROVIDERS: Registered Nurse Emergency; Emergency Provider Nurse Practitioner Family; PCP Family Medicine
DX: U07.1 COVID-19 (principal); I10 Essential (primary) hypertension; E11.9 Type 2 diabetes mellitus without complications; E78.00 Pure hypercholesterolemia, unspecified; F17.210 Nicotine dependence, cigarettes, uncomplicated; Z86.73 Personal history of transient ischemic attack (TIA), and cerebral infarction without residual deficits; Z86.16 Personal history of COVID-19
CPT/HCPCS: 36415; 80053; 87637; 93005; 99283; 99285; 71045; 83735; 83880; 84484; 85025; 85610; 85730; 93010

== ENCOUNTER → 2022-05-14 12:23 | Outpatient (BNVA) | payer MEDICARE, MEDICAID, SELFPAY | PROVIDERS: PCP Family Medicine; Referring Provider Family Medicine; Visit Provider Nurse Practitioner Adult Health | DX: G25.0 Essential tremor (principal); F41.9 Anxiety disorder, unspecified; I10 Essential (primary) hypertension; E11.9 Type 2 diabetes mellitus without complications; G43.909 Migraine, unspecified, not intractable, without status migrainosus; G47.33 Obstructive sleep apnea (adult) (pediatric) | CPT/HCPCS: 99204; 99215 ==

== ENCOUNTER → 2022-08-13 12:21 | Outpatient (BNVA) | payer MEDICARE, MEDICAID, SELFPAY | PROVIDERS: PCP Family Medicine; Referring Provider Family Medicine; Visit Provider Nurse Practitioner Adult Health | DX: G43.909 Migraine, unspecified, not intractable, without status migrainosus (principal); G25.0 Essential tremor | CPT/HCPCS: 99213; 99214 ==

== ENCOUNTER 2022-10-18 06:35 | Emergency (ER) | payer MEDICARE, MEDICAID, SELFPAY ==
--- NOTE | 2022-10-18 06:45 | DI.CT_ITS ---
Exam(s) CT ABDOMEN PELVIS W EXAM: CT ABDOMEN PELVIS W CLINICAL HISTORY: diarrhea, generalized abdominal pain. TECHNIQUE: Imaging Protocol: Axial computed tomography images with coronal and sagittal reformatted images were created and reviewed CONTRAST MATERIAL: Intravenous: Omnipaque-350 100cc Oral: None COMPARISON: CT CT BRAIN NECK CTA from 03/04/2021 FINDINGS: VISUALIZED LUNG BASES: No nodules nor pleural effusions evident. ABDOMEN: There is no ascites. LIVER: There is a small area of subcapsular hypodensity in the right hepatic lobe near the gallbladde r fossa measuring 1.7 x 1.5 cm. Possibly significant or possibly just focal steatosis.. Does not centeno ve the appearance of a simple cyst. May be a hemangioma but difficult to assess with this type of st udy. No dilated intrahepatic ducts. GALLBLADDER/BILIARY: No obvious gallbladder pathology. CBD is not dilated. PANCREAS: No evidence of pancreatic mass nor dilatation of the pancreatic duct. SPLEEN: Spleen is not enlarged. No obvious intrasplenic lesions. Splenic and portal veins are paten t. ADRENALS: There are no significant adrenal masses. KIDNEYS:No cysts evident. No solid renal masses. No calculi nor hydronephrosis.. ABDOMINAL AORTA: Atherosclerotic abdominal aorta and iliac arteries. There is a mild for views a for m infrarenal abdominal aortic aneurysm with maximum external diameter 2.5 cm but with abundant athero sclerotic plaque in the abdominal aorta at this level. Below this level the inferior mesenteric vikram ry is patent. There is atherosclerotic involvement of the aortic bifurcation as well as the nondilat ed iliac arteries. LYMPH NODES:There is no retroperitoneal nor paraaortic adenopathy. ABDOMINAL WALL: There is a fat only containing anterior abdominal wall midline umbilical hernia. No inguinal hernias. GI: There is a mild enteritis pattern. Also fluid-filled colon. No bowel obstruction. No free air. No abscess. PELVIS: GI: No evidence of appendicitis.No evidence of sigmoid diverticulitis. LYMPH NODES: There is no intrapelvic nor inguinal adenopathy. REPRODUCTIVE: Prostate size normal. Seminal vesicles unremarkable. URINARY BLADDER: Mild uniform thickening of the urinary bladder wall. No diverticuli in the bladder. OSSEOUS: No fractures and no significant osseous lesions. IMPRESSION: 1. Fluid-filled small and large bowel loops, probably enteritis. No bowel obstruction.. 2. Advanced atherosclerotic involvement of the abdominal aorta and iliac arteries. There is a mild f usiform infrarenal abdominal aortic aneurysm with maximum diameter only 2.5 cm but with abundant athe rosclerotic involvement at this level. 3. Anterior abdominal wall umbilical fat containing hernia. No bowel loops therein. No evidence of bowel obstruction. 4. Mild uniform thickening of the urinary bladder wall. RADIATION DOSE DELIVERED: 904.26mGy.cm Total DLP DATA REPOSITORY: All CT scans at this facility are submitted to the National Radiology Data Registry (NRDR) Dose Index Registry (DIR) with the [employer] (ACR). RADIATION OPTIMIZATION: All CT scans at this facility use at least one of these dose optimization te chniques: automated exposure control; mA and/or kV adjustment per patient size (includes targeted exa ms where dose is matched to clinical indication); or iterative reconstruction.
[2022-10-18 06:48] VITALS: BP 134/77; PULSE 80; RESP 16; TEMP 36.6; O2SAT 99
--- NOTE | 2022-10-18 06:51 | W.ED.GENAD ---
Discharge Plan Discharge Details Chief Complaint: Nausea/Vomit/Diar Primary Care Provider: Yifan Grewal ED Provider: Jeffry Marin Home Meds and New Rx's Prescriptions: No Action dexlansoprazole [Dexilant] 60 mg capsule,biphase delayed releas 60 mg PO DAILY Qty: 90 3RF Januvia 50 mg tablet 50 mg PO DAILY Qty: 90 3RF acetaminophen 500 mg tablet 1,500 mg PO TID PRN famotidine 20 mg tablet 20 mg PO DAILY Qty: 90 3RF labetalol 200 mg tablet 200 mg PO See Instructions Qty: 135 3RF Rx Instructions: Take 1/2 tablet (100 mg) in the AM & 1 tablet (200 mg in the evening) albuterol sulfate 90 mcg/actuation HFA aerosol inhaler 2 puff IH QID PRN (Reason: shortness of breath or wheezing) Qty: 1 12RF clopidogrel 75 mg tablet 75 mg PO DAILY Qty: 90 3RF topiramate 100 mg tablet 100 mg PO BID Qty: 180 3RF atorvastatin 80 mg tablet 80 mg PO DAILY Qty: 90 3RF meclizine 25 mg tablet 25 mg PO TID PRN (Reason: dizziness) Qty: 20 0RF Medical Decision Making 51-year-old male with past medical history of type 2 diabetes, hypertension, obstructive sleep apnea, obesity, daily smoker, high cholesterol and bilateral hearing loss and vertigo since today for evaluation of diarrhea. Patient states that a few weeks ago he had mild diarrhea which resolved on its own without intervention. Then again 2 days ago he had return of his diarrhea, he did cause a diffuse and watery, multiple episodes throughout the day. No blood. He denies drinking out of any streams, recent antibiotic use, any camping, or eating any game or wild animals. He admits to mild achiness and crampiness throughout. He denies any vomiting. He denies any fever or chills. No other complaints at this time. Exam demonstrates mild abdominal distention, mild achiness throughout. Dry mucous membranes. Concern for potential infectious diarrhea. Will send for stool cultures, C. difficile, get a CT scan of the abdomen to rule out enteritis or colitis, monitor closely and reassess. Patient will be signed out to my colleague Dr. Boston for follow-up on labs and imaging. HPI General Date/Time Provider Initiated Documentation: 10/18/22 06:41. HPI Narrative: 51-year-old male with past medical history of type 2 diabetes, hypertension, obstructive sleep apnea, obesity, daily smoker, high cholesterol and bilateral hearing loss and vertigo since today for evaluation of diarrhea. Patient states that a few weeks ago he had mild diarrhea which resolved on its own without intervention. Then again 2 days ago he had return of his diarrhea, he did cause a diffuse and watery, multiple episodes throughout the day. No blood. He denies drinking out of any streams, recent antibiotic use, any camping, or eating any game or wild animals. He admits to mild achiness and crampiness throughout. He denies any vomiting. He denies any fever or chills. No other complaints at this time. Related Data Home Medications Medication Instructions Recorded Confirmed acetaminophen 500 mg tablet 1,500 mg PO TID PRN 11/02/19 10/18/22 albuterol sulfate 90 mcg/actuation 2 puff inhalation QID PRN 08/21/21 10/18/22 aerosol inhaler shortness of breath or wheezing #1 unit clopidogrel 75 mg tablet 75 mg PO DAILY #90 tabs 10/08/21 10/18/22 topiramate 100 mg tablet 100 mg PO BID #180 tabs 10/09/21 10/18/22 famotidine 20 mg tablet 20 mg PO DAILY #90 tabs 12/04/21 10/18/22 meclizine 25 mg tablet 25 mg PO TID PRN dizziness #20 tabs 12/10/21 10/18/22 labetalol 200 mg tablet 200 mg PO See Instructions #135 02/18/22 10/18/22 tab-caps dexlansoprazole 60 mg 60 mg PO DAILY #90 caps 03/20/22 10/18/22 capsule,biphase delayed release (Dexilant) sitagliptin phosphate 50 mg tablet 50 mg PO DAILY #90 tabs 06/12/22 10/18/22 (Januvia) atorvastatin 80 mg tablet 80 mg PO DAILY #90 tabs 10/14/22 10/18/22 Previous Rx's Medication Instructions Recorded albuterol sulfate 90 mcg/actuation 2 puff inhalation QID PRN 08/21/21 aerosol inhaler shortness of breath or wheezing #1 unit clopidogrel 75 mg tablet 75 mg PO DAILY #90 tabs 10/08/21 topiramate 100 mg tablet 100 mg PO BID #180 tabs 10/09/21 famotidine 20 mg tablet 20 mg PO DAILY #90 tabs 12/04/21 meclizine 25 mg tablet 25 mg PO TID PRN dizziness #20 tabs 12/10/21 labetalol 200 mg tablet 200 mg PO See Instructions #135 02/18/22 tab-caps dexlansoprazole 60 mg 60 mg PO DAILY #90 caps 03/20/22 capsule,biphase delayed release (Dexilant) sitagliptin phosphate 50 mg tablet 50 mg PO DAILY #90 tabs 06/12/22 (Januvia) atorvastatin 80 mg tablet 80 mg PO DAILY #90 tabs 10/14/22 Allergies Allergy/AdvReac Type Severity Reaction Status Date / Time metformin Allergy Severe Diarrhea Verified 10/18/22 06:51 dulaglutide [[facility] AdvReac diarrhea Verified 10/18/22 06:51 General Stated Complaint: Nausea/Vomit/Diar EDMUND: 3 Review of Systems All systems reviewed & are unremarkable except as noted in HPI and below PFSH All Active Problems Essential hypertension (Acute 09/07/12) Familial hypercholesterolemia (Acute 09/07/12) Gastroesophageal reflux disease (Acute 08/29/13) Obesity (BMI 30-39.9) (Acute 01/09/15) Obstructive sleep apnea (Chronic 09/06/14) Untreated. 09/04/2014:Severe obstructive sleep apnea with associated signficant nocturnal hypoxemia; Constance 68% on RA, average 90% Sensorineural hearing loss, bilateral (Acute 12/27/13) Smoker (Acute 08/29/13) 1 ppd Vertigo (Acute 02/20/14) Type 2 diabetes mellitus without complication (Acute ~07/2017) Daily headache (Acute) Probably due to hypoxia from CHINO. 68% sat on Rm Air during sleep study Nocturnal hypoxemia due to obesity (Chronic) 68% constance on room air during sleep study Tremor (Acute) COVID (Acute) Essential tremor (Acute) Medical History Anxiety (09/07/12) 11/03/18 BECKS = 26 Anxiety Borderline diabetes Constipation COVID-19 (01/2021) CVA (cerebral vascular accident) Deafness Depression 11/03/18 PHQ9 = 10 Diarrhea Diarrhea due to drug Financial problems Flat feet, bilateral GERD (gastroesophageal reflux disease) H/O acute bronchitis with bronchospasm (10/08/16) History of Israeli measles (02/20/14) HTN (hypertension) Hypercholesterolemia Lipoma (08/29/13) Migraine Migraine headache (03/23/14) Nephrolithiasis (07/24/17) CHINO (obstructive sleep apnea) Sinusitis, acute Umbilical hernia Family History Mother , in 50's Essential hypertension Alcohol abuse Substance abuse Other Breast cancer Social History Smoking/Tobacco Use Status: Current every day Tobacco Type: cigarettes Quit status: not considering quitting Smoking risk assessment performed?: Yes Alcohol Intake: never Drug use: Never Substance use type: does not use Household members: none Housing: apartment Number of Children: 3 number of grandchildren: 2 Communication Needs: Hard of Hearing Do you need help understanding health information?: Often 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 3.ENT: Atraumatic external nose and ears. Notably dry MM. Neck: Symmetric, trachea midline, No thyromegaly. 4.CVS: +S1/S2, No murmurs or gallops. Peripheral pulses 2+ and equal in all extremities. Brisk capillary refill in all extremities. 5.RESP: Unlabored respiratory effort. Clear to auscultation bilaterally. No wheezes rales or rhonchi 6.GI: Soft, Nontender/Nondistended, No hepatosplenomegaly. No guarding or rebound. Mild diffuse achiness. 7.MSK: Normocephalic/Atraumatic, Extremities w/o deformity or ttp No cyanosis or clubbing, Normal movement of all extremities 8.Skin: Warm, Dry. No rashes or lesions. 9.Neuro: [employer] II-XII grossly intact. Sensation grossly intact, no focal neurologic deficits. 10.Psych: (AAO) x3. Appropriate mood and affect Course Vital Signs Vital signs: Vital Signs Temperature 36.6 C 10/18/22 06:48 Pulse 80 10/18/22 06:48 Respiratory Rate 16 10/18/22 06:48 Blood Pressure 134/77 10/18/22 06:48 Pulse Oximetry 99 10/18/22 06:48 Temperature 36.6 C 10/18/22 06:48 Temperature Source Oral 10/18/22 06:48 Pulse 80 10/18/22 06:48 Respiratory Rate 16 10/18/22 06:48 Respiratory Effort Normal 10/18/22 06:48 Blood Pressure 134/77 10/18/22 06:48 Blood Pressure Position Sitting 10/18/22 06:48 Pulse Oximetry 99 10/18/22 06:48 Oxygen Delivery Method Room Air 10/18/22 06:48 Oxygen Flow Rate 0 10/18/22 06:48
[2022-10-18 07:14] LABS: Lactate 0.9 mmol/L (0.6-1.4)
[2022-10-18] MEDS: Normal Saline 1,000 ML 1000 ML IV (07:14)
[2022-10-18 07:16] LABS: Absolute Basophil Count 0.11 10^3/uL (0.0-0.2); Absolute Lymphocyte Count 2.45 10^3/uL (1.2-3.4); Absolute Monocyte Count 0.71 10^3/uL (0.1-0.8); Absolute Neutrophil Count 6.39 10^3/uL (1.2-6.7); Basophils % 1.1; HCT 43.6 % (40.0-50.0); HGB 14.1 g/dL (13.5-17.5); Lymphocytes % 24.6; MCH 27.9 pg (27.0-33.0); MCHC 32.3 % (32.0-36.0); MCV 86 fL (80-95); MPV 9.4 fL (8.0-11.0); Monocytes % 7.1; Neutrophils % 64.2; Platelet Count 336 10^3/uL (130-400); RBC 5.06 10^6/uL (4.36-5.78); RDW 13.9 % (11.8-14.1); RDW-SD 43.2 fL; WBC 9.96 10^3/uL (4.4-10.8)
[2022-10-18 07:33] LABS: ALT 31 U/L (16-63); AST 13 U/L (15-37); Albumin 3.8 g/dL (3.4-5.0); Alkaline Phosphatase 88 U/L (46-116); Anion Gap 7.6 mmol/L (3-11); BUN 17 mg/dL (7-18); Bilirubin, Total 0.3 mg/dL (0.2-1.0); CO2 24.4 mmol/L (21.0-32.0); Calcium 8.5 mg/dL (8.5-10.1); Chloride 101 mmol/L (98-107); Estimated GFR 91.12 (mL/min/1.73m2); Glucose 227 mg/dL (74-106); Lipase 33 U/L (16-77); Potassium 3.8 mmol/L (3.5-5.1); Sodium 133 mmol/L (136-145)
[2022-10-18] MEDS: Omnipaque 350 MG/ML 100 ML BTL IJ (08:18)
[2022-10-18] MEDS: Normal Saline - Diluent 50 ML VIAL IJ (08:18)
[2022-10-18] MEDS: Normal Saline Flush 10 ML SYR IVP (08:21)
--- NOTE | 2022-10-18 08:33 | DI.VRAD_ITS ---
PROCEDURE INFORMATION: Exam: CT Abdomen And Pelvis With Contrast Exam date and time: 10/18/2022 8:16 AM Age: 52 years old Clinical indication: Other: Diarrhea, generalized abdominal pain TECHNIQUE: Imaging protocol: Computed tomography of the abdomen and pelvis with contrast. Contrast material: OMNIPAQUE 350; Contrast volume: 100 ml; Contrast route: INTRAVENOUS (IV); COMPARISON: CT ABDOMEN PELVIS WO 11/30/2019 4:23 PM FINDINGS: Coronary arteries: Coronary artery calcifications. Liver: Hepatomegaly. 1.5 cm hypodensity in the liver adjacent to the gallbladder fossa, possible focal steatosis but cannot exclude underlying lesion. Consider nonemergent follow-up. Gallbladder and bile ducts: No radiodense calculi seen. Pancreas: No CT evidence for acute pancreatitis. Spleen: No splenomegaly. Adrenal glands: No mass. Kidneys and ureters: No hydronephrosis or evidence for pyelonephritis. Stomach and bowel: No intestinal obstruction is evident. Fluid in nondilated small bowel, nonspecific. Fluid-filled colon. Appendix: No evidence of appendicitis. Intraperitoneal space: No free air. Vasculature: Arterial calcifications. Atherosclerotic changes in the aorta and its branches. Lymph nodes: No acute findings. Urinary bladder: No acute findings. Reproductive: Suspect small hydroceles, incompletely imaged. Bones/joints: No pertinent acute abnormality seen. Soft tissues: Fat containing inguinal hernias. Fat containing umbilical hernia. IMPRESSION: 1. Fluid-filled small and large bowel, nonspecific but suggestive of mild inflammation. 2. Nonacute findings for which follow-up may be indicated, as outlined above. Dictated and Authenticated by: Bhavna Reveles MD. Ordering:HAYLEE Teran MD
--- NOTE | 2022-10-18 08:50 | W.EDPROG ---
Date of service: 10/18/22 Time of Service: 08:50 Medical Decision Making pt stable, labs unremarkable and ct shows evidence of mild inflammation of small and large bowel consistent with likely viral gastroenteritis. He is not able to provide a stool sample. He has no abdominal tenderness on my exam. Do not feel he requires antibiotics at this time, he will bring back a sample for stool studies. He has f/u with his pcp already set up, return precautions given Imaging Data Radiologic Study: Attestation: I personally reviewed and interpreted this imaging study as follows: Imaging: CT Scan Radiologist's impression: IMPRESSION: 1. Fluid-filled small and large bowel, nonspecific but suggestive of mild inflammation. 2. Nonacute findings for which follow-up may be indicated, as outlined above. Lab Data Lab results reviewed: Yes I reviewed the patient's lab results. Sign Out Sign Out Data: Sign Out Comment: Nausea vomiting diarrhea, follow-up on CT scan and stool studies Last updated by Jeffry Marin DO at 10/18/22 08:12 Discharge Plan Disposition Patient Disposition: Home Condition: Stable Discharge Details Clinical Impression: Diarrhea, Abdominal pain Primary Care Provider: Yifan Grewal ED Provider: Derik Boston Home Meds and New Rx's Prescriptions: Continued dexlansoprazole [Dexilant] 60 mg capsule,biphase delayed releas 60 mg PO DAILY Qty: 90 3RF Januvia 50 mg tablet 50 mg PO DAILY Qty: 90 3RF acetaminophen 500 mg tablet 1,500 mg PO TID PRN famotidine 20 mg tablet 20 mg PO DAILY Qty: 90 3RF labetalol 200 mg tablet 200 mg PO See Instructions Qty: 135 3RF Rx Instructions: Take 1/2 tablet (100 mg) in the AM & 1 tablet (200 mg in the evening) albuterol sulfate 90 mcg/actuation HFA aerosol inhaler 2 puff IH QID PRN (Reason: shortness of breath or wheezing) Qty: 1 12RF clopidogrel 75 mg tablet 75 mg PO DAILY Qty: 90 3RF topiramate 100 mg tablet 100 mg PO BID Qty: 180 3RF atorvastatin 80 mg tablet 80 mg PO DAILY Qty: 90 3RF meclizine 25 mg tablet 25 mg PO TID PRN (Reason: dizziness) Qty: 20 0RF Discharge Instructions Instructions: Acute Diarrhea (ED) Additional Instructions: your blood work did not show any concerning findings Your cat scan showed findings consistent with a viral stomach bug. You also had a small area on your liver that is likely a small fat collection, but you should let your primary care provider know if this and have imaging done in the future to monitor this follow up as scheduled with your primary care provider If you feel more ill, have severe worsening pain or persistent vomiting return to the emergency department
[2022-10-18 09:06] VITALS: BP 132/69; PULSE 78; RESP 18; O2SAT 98
== END 2022-10-18 09:07 | disposition home or self-care (01) ==
PROVIDERS: Student in an Organized Health Care Education/Training Program; Emergency Provider Emergency Medicine; PCP Family Medicine
DX: R19.7 Diarrhea, unspecified (principal); R10.9 Unspecified abdominal pain; E11.9 Type 2 diabetes mellitus without complications; F17.210 Nicotine dependence, cigarettes, uncomplicated; I10 Essential (primary) hypertension
CPT/HCPCS: 36415; 80053; 83690; 96360; 99284; 99285; 74177; 83605; 85025; J3490

== ENCOUNTER 2023-03-01 11:36 | Emergency (ER) | payer MEDICARE, SELFPAY ==
[2023-03-01 11:41] VITALS: BP 123/74; PULSE 77; RESP 22; O2SAT 98
--- NOTE | 2023-03-01 12:43 | W.ED.GENAD ---
Discharge Plan Disposition Patient Disposition: Home Discharge Details Clinical Impression: FAN Primary Care Provider: Yifan Grewal ED Provider: Froylan Mijares Home Meds and New Rx's Prescriptions: New albuterol sulfate [Ventolin HFA] 90 mcg/actuation HFA aerosol inhaler 1 - 2 puff inhalation Q6H PRN (Reason: shortness of breath or wheezing) Qty: 6.7 0RF benzonatate 200 mg capsule 200 mg PO TID PRN (Reason: cough) Qty: 30 0RF prednisone 20 mg tablet 40 mg PO DAILY Qty: 8 0RF Continued dexlansoprazole [Dexilant] 60 mg capsule,biphase delayed releas 60 mg PO DAILY Qty: 90 3RF (DME) pen needle, diabetic [Pen Needle] 31 gauge x 5/16 needle See Rx Instructions .ROUTE .MEDSUPPLY Qty: 100 3RF Rx Instructions: As directed to administer insulin once daily. Dispense covered brand. acetaminophen 500 mg tablet 1,500 mg PO TID PRN albuterol sulfate 90 mcg/actuation HFA aerosol inhaler 2 puff IH QID PRN (Reason: shortness of breath or wheezing) Qty: 1 12RF topiramate 100 mg tablet 100 mg PO BID Qty: 180 3RF atorvastatin 80 mg tablet 80 mg PO DAILY Qty: 90 3RF labetalol 200 mg tablet 200 mg PO See Instructions Qty: 135 3RF Rx Instructions: Take 1/2 tablet (100 mg) in the AM & 1 tablet (200 mg in the evening) Levemir FlexPen 100 unit/mL (3 mL) insulin pen 17 unit subcut QHS Qty: 15 3RF clopidogrel 75 mg tablet 75 mg PO DAILY Qty: 90 3RF famotidine 20 mg tablet 20 mg PO DAILY Qty: 90 3RF Discharge Instructions Instructions: COVID-19 (Coronavirus Disease 2019) (ED) Additional Instructions: Please get plenty of rest and stay well-hydrated. You may continue to take [id number] cough and cold medication along with the prescribed medication as needed for your symptoms. If you have any new or significant worsening of symptoms feel free to return the emergency department for reassessment otherwise follow-up with your primary care provider if not improving. You may return to work on the stated date below but it is important that you wear a mask until the 09 of March to prevent spread of illness to anyone else. Stand Alone Forms: Work Release Referrals: Yifan Grewal DO [Primary Care Provider] - (As needed for reassessment or if not improving in the next week) Discharge Data Discharge Date/Time-TO BE ENTERED AT DEPARTURE: 03/01/23 12:56 Medical Decision Making Patient presenting to the emergency department with chief complaint of cough and intermittent shortness of breath, some dizziness and just not feeling well. Patient states this started approximately 4 days ago. Denies any chest pain, syncope, abdominal pain nausea vomiting diarrhea. Patient has a past medical history of type 2 diabetes, hypertension, CVA, obstructive sleep apnea. Physical exam is fairly unremarkable given patient's complaints and he has stable vital signs, afebrile, no tachycardia and no hypoxia. COVID antigen test was performed in department and patient is positive for COVID. Reviewed patient's meds with pharmacy and patient does have some contraindications to receiving Paxlovid given that he is on atorvastatin but more specifically on clopidogrel. Given that he has already had symptoms for 4 days and vital signs are stable with no severe illness and he is not toxic in appearance I do feel that symptomatic conservative management would be best. Did review patient's past medical records and he did have COVID previously and had unremarkable course of illness and recovered well. Given that patient is vaccinated, has had COVID in the past with good recovery I do not feel that stopping patient's meds to get antiviral is worth the risk. Patient was in agreement with this plan of care. After discussion of diagnosis and plan of care patient has no further needs, questions, or concerns and states clear understanding to return to the emergency department for any worsening symptoms. This documentation was generated using [employer] system, please disregard any oddities of phrase or misspellings. HPI General Mode of arrival: ambulatory. Date/Time Provider Initiated Documentation: 03/01/23 11:45. Limitations to Documentation: no limitations. Information obtained by: patient and RN notes reviewed. History of Present Illness 52 year old M presents to the emergency department with the chief complaint of Cough, mild shortness of breath, generalized malaise and intermittent dizzy, described as mild and moderate, Patient started experiencing this day(s) (4) and it has been constant. No relieving factors improve symptom(s), No exacerbating factors reported . Patient did receive the following treatments prior to arrival, none Related Data Home Medications Medication Instructions Recorded Confirmed acetaminophen 500 mg tablet 1,500 mg PO TID PRN 11/02/19 01/22/23 albuterol sulfate 90 mcg/actuation 2 puff inhalation QID PRN 08/21/21 01/22/23 aerosol inhaler shortness of breath or wheezing #1 unit topiramate 100 mg tablet 100 mg PO BID #180 tabs 10/09/21 01/22/23 dexlansoprazole 60 mg 60 mg PO DAILY #90 caps 03/20/22 01/22/23 capsule,biphase delayed release (Dexilant) atorvastatin 80 mg tablet 80 mg PO DAILY #90 tabs 10/14/22 01/22/23 pen needle, diabetic 31 gauge x #100 ea 10/21/22 01/22/23 5/16 (Pen Needle) labetalol 200 mg tablet 200 mg PO See Instructions #135 10/24/22 01/22/23 tab-caps insulin detemir U-100 100 unit/mL 17 unit (0.17 mL) subcut QHS #15 mL 10/27/22 01/22/23 (3 mL) subcutaneous pen (Levemir FlexPen) clopidogrel 75 mg tablet 75 mg PO DAILY #90 tabs 10/31/22 01/22/23 famotidine 20 mg tablet 20 mg PO DAILY #90 tabs 01/01/23 01/22/23 albuterol sulfate 90 mcg/actuation 1 - 2 puff inhalation Q6H PRN 03/01/23 aerosol inhaler (Ventolin HFA) shortness of breath or wheezing #6.7 grams benzonatate 200 mg capsule 200 mg PO TID PRN cough #30 caps 03/01/23 prednisone 20 mg tablet 40 mg PO DAILY #8 tabs 03/01/23 Previous Rx's Medication Instructions Recorded albuterol sulfate 90 mcg/actuation 2 puff inhalation QID PRN 08/21/21 aerosol inhaler shortness of breath or wheezing #1 unit topiramate 100 mg tablet 100 mg PO BID #180 tabs 10/09/21 dexlansoprazole 60 mg 60 mg PO DAILY #90 caps 03/20/22 capsule,biphase delayed release (Dexilant) atorvastatin 80 mg tablet 80 mg PO DAILY #90 tabs 05/23/23 pen needle, diabetic 31 gauge x #100 ea 10/21/22 5/16 (Pen Needle) labetalol 200 mg tablet 200 mg PO See Instructions #135 10/24/22 tab-caps insulin detemir U-100 100 unit/mL 17 unit (0.17 mL) subcut QHS #15 mL 10/27/22 (3 mL) subcutaneous pen (Levemir FlexPen) clopidogrel 75 mg tablet 75 mg PO DAILY #90 tabs 10/31/22 famotidine 20 mg tablet 20 mg PO DAILY #90 tabs 01/01/23 albuterol sulfate 90 mcg/actuation 1 - 2 puff inhalation Q6H PRN 03/01/23 aerosol inhaler (Ventolin HFA) shortness of breath or wheezing #6.7 grams benzonatate 200 mg capsule 200 mg PO TID PRN cough #30 caps 03/01/23 prednisone 20 mg tablet 40 mg PO DAILY #8 tabs 03/01/23 Allergies Allergy/AdvReac Type Severity Reaction Status Date / Time metformin Allergy Severe Diarrhea Verified 10/21/22 13:43 [facility] AdvReac diarrhea Verified 10/21/22 13:43 General Stated Complaint: GenMedical EDMUND: 3 Review of Systems Constitutional Constitutional: Reports body ache(s), Reports chills, Denies fever(s), Denies headache(s), Reports lethargy and Reports malaise Eyes Eyes: Denies eye discharge ENT Ears, Nose, Mouth, and Throat: Reports as per HPI, Denies ear discharge, Denies otalgia, Denies headache(s), Reports nasal congestion, Reports nasal discharge, Denies neck pain and Denies throat swelling Cardiovascular Cardiovascular: Denies chest pain, Denies syncope and Reports dyspnea Respiratory Respiratory: Reports cough and Reports dyspnea Gastrointestinal Gastrointestinal: Denies diarrhea, Denies nausea and Denies vomiting Musculoskeletal Musculoskeletal: Denies joint swelling and Denies neck pain Integumentary/Breasts Skin/Breast: Denies rash Neurologic Neurologic: Denies syncope and Denies headache(s) Allergic/Immunologic Allergic/Immunologic: Denies throat swelling PFSH All Active Problems Essential hypertension (Acute 09/07/12) Familial hypercholesterolemia (Acute 09/07/12) Gastroesophageal reflux disease (Acute 08/29/13) Obesity (BMI 30-39.9) (Acute 01/09/15) Obstructive sleep apnea (Chronic 09/06/14) Untreated. 09/04/2014:Severe obstructive sleep apnea with associated signficant nocturnal hypoxemia; Constance 68% on RA, average 90% Sensorineural hearing loss, bilateral (Acute 12/27/13) Smoker (Acute 08/29/13) 1 ppd Vertigo (Acute 02/20/14) Type 2 diabetes mellitus without complication (Acute ~07/2017) Daily headache (Acute) Probably due to hypoxia from [place]. 68% sat on Rm Air during sleep study Nocturnal hypoxemia due to obesity (Chronic) 68% constance on room air during sleep study Tremor (Acute) COVID (Acute) Essential tremor (Acute) Medical History Anxiety (09/07/12) 11/03/18 BECKS = 26 Anxiety Borderline diabetes Constipation COVID-19 (01/2021) CVA (cerebral vascular accident) Deafness Depression 11/03/18 PHQ9 = 10 Diarrhea Diarrhea due to drug Financial problems Flat feet, bilateral GERD (gastroesophageal reflux disease) H/O acute bronchitis with bronchospasm (10/08/16) History of Irish measles (02/20/14) HTN (hypertension) Hypercholesterolemia Lipoma (08/29/13) Migraine Migraine headache (03/23/14) Nephrolithiasis (07/24/17) CHINO (obstructive sleep apnea) Sinusitis, acute Umbilical hernia Family History Mother , in 50's Essential hypertension Alcohol abuse Substance abuse Other Breast cancer Social History Smoking/Tobacco Use Status: Current every day Tobacco Type: cigarettes Quit status: not considering quitting Smoking risk assessment performed?: Yes Alcohol Intake: never Drug use: Never Substance use type: does not use Household members: none Housing: apartment Number of Children: 3 number of grandchildren: 2 Communication Needs: Hard of Hearing Do you need help understanding health information?: Often 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 [employer] Current gender identity: male What type of physical activity do you participate in: none Seatbelt use: always 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 Water heater temp set <120 deg: Yes Working smoke detector in home: Yes Fire extinguisher in home: Yes Carbon monox detector in home: Yes Do you feel safe at home: Yes Do you feel safe in your relationship?: Yes Exam Const General: cooperative, comfortable and no acute distress Orientation: alert and awake [facility] Head: normal to inspection, normocephalic and atraumatic Ears: hearing grossly normal bilaterally and TM's normal bilaterally General nose exam: external nose normal Face and sinus: no erythema Mouth: oral mucosae normal, no drooling, no muffled voice and no trismus Throat: posterior oropharynx normal Neck Neck: normal visual inspection, full ROM, no lymphadenopathy, no meningeal signs, trachea midline and supple Resp Effort & Inspection: normal respiratory effort, able to speak in complete sentences and cough Quality of cough: dry Auscultation: clear to auscultation bilaterally Cardio Rate: regular rate Rhythm: regular rhythm Heart Sounds: S1 normal, S2 normal, normal S1 and S2, no click, no gallops, no murmurs and no rubs Skin General skin exam: no rashes or lesions noted and dry skin (warm) Neuro General: patient alert, patient awake, patient oriented x3, gait normal and moves all extremities Cognition: normal cognition Speech: speech normal Course Vital Signs Vital signs: Vital Signs Pulse 77 03/01/23 11:41 Respiratory Rate 22 03/01/23 11:41 Blood Pressure 123/74 03/01/23 11:41 Pulse Oximetry 98 03/01/23 11:41 Temperature Source Oral 03/01/23 11:41 Pulse 77 03/01/23 11:41 Respiratory Rate 22 03/01/23 11:41 Respiratory Effort Normal, Non-Labored 03/01/23 11:53 Blood Pressure 123/74 03/01/23 11:41 Blood Pressure Position Sitting 03/01/23 11:41 Pulse Oximetry 98 03/01/23 11:41 Oxygen Delivery Method Room Air 03/01/23 11:41 Oxygen Flow Rate 0 03/01/23 11:41
[2023-03-01 17:43] VITALS: RESP 16
== END 2023-03-01 12:56 | disposition home or self-care (01) ==
PROVIDERS: Emergency Provider Nurse Practitioner Family; PCP Family Medicine
DX: U07.1 COVID-19 (principal)
CPT/HCPCS: 87426; 99282; 99283

== ENCOUNTER 2023-04-21 05:55 | Emergency (ER) | payer MEDICARE, SELFPAY ==
[2023-04-21 05:59] VITALS: BP 138/79; PULSE 92; RESP 18; TEMP 36.8; O2SAT 98
[2023-04-21 06:07] VITALS: BP 132/68; PULSE 78; RESP 18; TEMP 36.8; O2SAT 98
--- NOTE | 2023-04-21 06:15 | ED.GENADUL_ITS ---
Discharge Plan Disposition Patient Disposition: Home Condition: Stable Discharge Details Chief Complaint: GenMedical Clinical Impression: Viral illness Primary Care Provider: Yifan Grewal ED Provider: Damien Lloyd Home Meds and New Rx's Prescriptions: No Action (DME) pen needle, diabetic [Pen Needle] 31 gauge x 5/16 needle See Rx Instructions .ROUTE .MEDSUPPLY Qty: 100 3RF Rx Instructions: As directed to administer insulin once daily. Dispense covered brand. acetaminophen 500 mg tablet 1,500 mg PO TID PRN albuterol sulfate 90 mcg/actuation HFA aerosol inhaler 2 puff IH QID PRN (Reason: shortness of breath or wheezing) Qty: 1 12RF topiramate 100 mg tablet 100 mg PO BID Qty: 180 3RF atorvastatin 80 mg tablet 80 mg PO DAILY Qty: 90 3RF labetalol 200 mg tablet 200 mg PO See Instructions Qty: 135 3RF Rx Instructions: Take 1/2 tablet (100 mg) in the AM & 1 tablet (200 mg in the evening) Levemir FlexPen 100 unit/mL (3 mL) insulin pen 17 unit subcut QHS Qty: 15 3RF clopidogrel 75 mg tablet 75 mg PO DAILY Qty: 90 3RF famotidine 20 mg tablet 20 mg PO DAILY Qty: 90 3RF dexlansoprazole [Dexilant] 60 mg capsule,biphase delayed releas 60 mg PO DAILY Qty: 90 3RF albuterol sulfate [Ventolin HFA] 90 mcg/actuation HFA aerosol inhaler 1 - 2 puff inhalation Q6H PRN (Reason: shortness of breath or wheezing) Qty: 6.7 0RF benzonatate 200 mg capsule 200 mg PO TID PRN (Reason: cough) Qty: 30 0RF prednisone 20 mg tablet 40 mg PO DAILY Qty: 8 0RF Discharge Instructions Instructions: Viral Syndrome (ED) Additional Instructions: Please stay hydrated at home. Continue with ibuprofen and/or acetaminophen as needed for body aches and fever. Follow-up closely with your primary care physician. Stand Alone Forms: Work Release Medical Decision Making 52-year-old male presents with fatigue body aches mild nausea over the last day. Decreased energy. No vomiting no shortness of breath no cough. Patient is afebrile nontoxic appears well-hydrated, nonmeningeal neurologically intact. Likely viral illness. Trial of anti-inflammatory and antiemetics. Patient will be given time off of work to recover. Home care instructions and return precaut ions to be given HPI General Date/Time Provider Initiated Documentation: 04/21/23 05:56 . HPI Narrative: 52-year-old male presents with general body aches joint pain mild nausea fatigue over the last day. Related Data Home Medications Medication Instructions Recorded Confirmed acetaminophen 500 mg tablet 1,500 mg PO TID PRN 11/02/19 04/21/23 albuterol sulfate 90 mcg/actuation 2 puff inhalation QID PRN 08/21/21 04/21/23 aerosol inhaler shortness of breath or wheezing #1 unit topiramate 100 mg tablet 100 mg PO BID #180 tabs 10/09/21 04/21/23 atorvastatin 80 mg tablet 80 mg PO DAILY #90 tabs 10/14/22 04/21/23 pen needle, diabetic 31 gauge x #100 ea 10/21/22 04/21/23 5/16 (Pen Needle) labetalol 200 mg tablet 200 mg PO See Instructions #135 10/24/22 04/21/23 tab-caps insulin detemir U-100 100 unit/mL 17 unit (0.17 mL) subcut QHS #15 mL 10/27/22 04/21/23 (3 mL) subcutaneous pen (Levemir FlexPen) clopidogrel 75 mg tablet 75 mg PO DAILY #90 tabs 10/31/22 04/21/23 famotidine 20 mg tablet 20 mg PO DAILY #90 tabs 01/01/23 04/21/23 albuterol sulfate 90 mcg/actuation 1 - 2 puff inhalation Q6H PRN 03/01/23 04/21/23 aerosol inhaler (Ventolin HFA) shortness of breath or wheezing #6.7 grams benzonatate 200 mg capsule 200 mg PO TID PRN cough #30 caps 03/01/23 04/21/23 prednisone 20 mg tablet 40 mg (2 x 20 mg) PO DAILY #8 tabs 03/01/23 04/21/23 dexlansoprazole 60 mg 60 mg PO DAILY #90 caps 04/06/23 04/21/23 capsule,biphase delayed release (Dexilant) Previous Rx's Medication Instructions Recorded albuterol sulfate 90 mcg/actuation 2 puff inhalation QID PRN 08/21/21 aerosol inhaler shortness of breath or wheezing #1 unit topiramate 100 mg tablet 100 mg PO BID #180 tabs 10/09/21 atorvastatin 80 mg tablet 80 mg PO DAILY #90 tabs 10/14/22 pen needle, diabetic 31 gauge x #100 ea 10/21/22/16 (Pen Needle) labetalol 200 mg tablet 200 mg PO See Instructions #135 10/24/22 tab-caps insulin detemir U-100 100 unit/mL 17 unit (0.17 mL) subcut QHS #15 mL 10/27/22 (3 mL) subcutaneous pen (Levemir FlexPen) clopidogrel 75 mg tablet 75 mg PO DAILY #90 tabs 10/31/22 famotidine 20 mg tablet 20 mg PO DAILY #90 tabs 01/01/23 albuterol sulfate 90 mcg/actuation 1 - 2 puff inhalation Q6H PRN 03/01/23 aerosol inhaler (Ventolin HFA) shortness of breath or wheezing #6.7 grams benzonatate 200 mg capsule 200 mg PO TID PRN cough #30 caps 03/01/23 prednisone 20 mg tablet 40 mg (2 x 20 mg) PO DAILY #8 tabs 03/01/23 dexlansoprazole 60 mg 60 mg PO DAILY #90 caps 04/06/23 capsule,biphase delayed release (Dexilant) Allergies Allergy/AdvReac Type Severity Reaction Status Date / Time metformin Allergy Severe Diarrhea Verified 04/21/23 06:10 dulaglutide [From [facility]] AdvReac diarrhea Verified 04/21/23 06:10 General Stated Complaint: GenMedical EDMUND: 4 Review of Systems Narrative: Review of Systems Constitutional: Fatigue, body aches Eyes: negative ENT: negative Cardiovascular: negative Respiratory: negative Gastrointestinal: Nausea : negative Musculoskeletal: negative Skin: negative Neurologic: negative Psych: negative PFSH All Active Problems (Updated 04/21/23 @ 06:18 by Damien Lloyd MD) Viral illness (Acute) Essential hypertension (Acute 09/07/12) Familial hypercholesterolemia (Acute 09/07/12) Gastroesophageal reflux disease (Acute 08/29/13) Obesity (BMI 30-39.9) (Acute 01/09/15) Obstructive sleep apnea (Chronic 09/06/14) Untreated. 09/04/2014:Severe obstructive sleep apnea with associated signficant nocturnal hypoxemia; [place]stance 68% on RA, average 90% Sensorineural hearing loss, bilateral (Acute 12/27/13) Smoker (Acute 08/29/13) 1 ppd Vertigo (Acute 02/20/14) Type 2 diabetes mellitus without complication (Acute ~07/2017) Daily headache (Acute) Probably due to hypoxia from [place]. 68% sat on Rm Air during sleep study Nocturnal hypoxemia due to obesity (Chronic) 68% constance on room air during sleep study Tremor (Acute) COVID (Acute) Essential tremor (Acute) Medical History Anxiety (09/07/12) 11/03/18 BECKS = 26 Anxiety Borderline diabetes Constipation COVID-19 (01/2021) CVA (cerebral vascular accident) Deafness Depression 11/03/18 PHQ9 = 10 Diarrhea Diarrhea due to drug Financial problems Flat feet, bilateral GERD (gastroesophageal reflux disease) H/O acute bronchitis with bronchospasm (10/08/16) History of [place] measles (02/20/14) HTN (hypertension) Hypercholesterolemia Lipoma (08/29/13) Migraine Migraine headache (03/23/14) Nephrolithiasis (07/24/17) CHINO (obstructive sleep apnea) Sinusitis, acute Umbilical hernia Family History Mother , in 50's Essential hypertension Alcohol abuse Substance abuse Other Breast cancer Social History Smoking/Tobacco Use Status: Current every day Tobacco Type: cigarettes Quit status: not considering quitting Smoking risk assessment performed?: Yes Alcohol Intake: never Drug use: Never Substance use type: does not use Household members: none Housing: apartment Number of Children: 3 number of grandchildren: 2 Communication Needs: Hard of Hearing Do you need help understanding health information?: Often 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 [employer] Current gender identity: male What type of physical activity do you participate in: none Seatbelt use: always 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 Water heater temp set <120 deg: Yes Working smoke detector in home: Yes Fire extinguisher in home: Yes Carbon monox detector in home: Yes Do you feel safe at home: Yes Do you feel safe in your relationship?: Yes Exam Narrative Exam Narrative: Physical Examination General: alert, awake, cooperative, resting comfortably, no acute distress HEENT: normocephalic, atraumatic; PERRL, EOM intact, conjunctiva normal; no nasal discharge; moist mucous membranes, oral and pharyngeal mucosa normal, tolerating secretions Neck: supple, trachea midline; full ROM Chest: normal to inspection Respiratory: normal respiratory effort, speaking in full sentences Skin: no lesions, rashes or trauma appreciated Neuro: AAOx3, normal speech, moving all extremities Psych: Appropriate mood and affect Course Vital Signs Vital signs: Vital Signs Temperature 36.8 C 04/21/23 05:59 Pulse 92 H 04/21/23 05:59 Respiratory Rate 18 04/21/23 05:59 Blood Pressure 138/79 04/21/23 05:59 Pulse Oximetry 98 04/21/23 05:59 Temperature 36.8 C 04/21/23 06:07 Temperature Source Oral 04/21/23 06:07 Pulse 78 04/21/23 06:07 Respiratory Rate 18 04/21/23 06:07 Respiratory Effort Normal, Non-Labored 04/21/23 06:07 Blood Pressure 132/68 04/21/23 06:07 Pulse Oximetry 98 04/21/23 06:07 Oxygen Delivery Method Room Air 04/21/23 06:07 Oxygen Flow Rate 0 04/21/23 05:59 End Tidal Co2 5 04/21/23 05:59 Pain Level 5 04/21/23 06:07 Comment patient reported that his neck is feeling stiff 04/21/23 06:07
[2023-04-21] MEDS: Ondansetron O.D.T. 4 MG TABEF SL (06:21)
[2023-04-21] MEDS: Acetaminophen 325 MG TAB 650 MG PO (06:21)
== END 2023-04-21 06:43 | disposition home or self-care (01) ==
PROVIDERS: Emergency Provider Emergency Medicine; PCP Family Medicine
DX: B34.9 Viral infection, unspecified (principal); I10 Essential (primary) hypertension; E78.00 Pure hypercholesterolemia, unspecified; Z86.73 Personal history of transient ischemic attack (TIA), and cerebral infarction without residual deficits
CPT/HCPCS: 99283; 99282

== ENCOUNTER 2023-05-24 07:27 | Emergency (ER) | payer MEDICARE, SELFPAY ==
[2023-05-24] VITALS (56 sets, daily range): BP systolic 103–158; BP diastolic 62–79; PULSE 88–102; RESP 12–20; TEMP 36.7; O2SAT 96
[2023-05-24] MEDS: Meclizine 25 MG TAB 50 MG PO (07:48)
--- NOTE | 2023-05-24 08:00 | RT.EKG_ITS ---
APPROVED REPORT Exam: Resting ECG Reason for Exam: dizzy Patient Location: E HR:97 bpm ECG Measurements Heart Rate [address] 164 P 53 QRSd 95 QRS 25 QT 348 T 81 QTc 443 Conclusion Sinus rhythm...normal P axis, V-rate 60- 99 Inferior infarct, old...Q >35mS, II III aVF
--- NOTE | 2023-05-24 08:04 | ED.GENADUL_ITS ---
Discharge Plan Disposition Patient Disposition: Home Condition: Stable Discharge Details Clinical Impression: Vertigo Primary Care Provider: Yifan Grewal ED Provider: Derik Boston Home Meds and New Rx's Prescriptions: New meclizine 25 mg tablet 25 mg PO TID PRN (Reason: dizziness) Qty: 30 0RF Continued (DME) pen needle, diabetic [Pen Needle] 31 gauge x 5/16 needle See Rx Instructions .ROUTE .MEDSUPPLY Qty: 100 3RF Rx Instructions: As directed to administer insulin once daily. Dispense covered brand. acetaminophen 500 mg tablet 1,500 mg PO TID PRN albuterol sulfate 90 mcg/actuation HFA aerosol inhaler 2 puff IH QID PRN (Reason: shortness of breath or wheezing) Qty: 1 12RF topiramate 100 mg tablet 100 mg PO BID Qty: 180 3RF atorvastatin 80 mg tablet 80 mg PO DAILY Qty: 90 3RF labetalol 200 mg tablet 200 mg PO See Instructions Qty: 135 3RF Rx Instructions: Take 1/2 tablet (100 mg) in the AM & 1 tablet (200 mg in the evening) Levemir FlexPen 100 unit/mL (3 mL) insulin pen 17 unit subcut QHS Qty: 15 3RF clopidogrel 75 mg tablet 75 mg PO DAILY Qty: 90 3RF famotidine 20 mg tablet 20 mg PO DAILY Qty: 90 3RF dexlansoprazole [Dexilant] 60 mg capsule,biphase delayed releas 60 mg PO DAILY Qty: 90 3RF albuterol sulfate [Ventolin HFA] 90 mcg/actuation HFA aerosol inhaler 1 - 2 puff inhalation Q6H PRN (Reason: shortness of breath or wheezing) Qty: 6.7 0RF Discharge Instructions Instructions: Vertigo (ED) Additional Instructions: your blood work did not show concerning findings at this time follow up with your primary care provider within 1-2 weeks if symptoms persist if you feel more ill, have severe head pain or chest pain return to the emergency department Medical Decision Making 53 yo male with hx of htn, gerd, states prior episodes of vertigo comes in with ems with complaint of feeling dizzy similar to his prior episodes of vertigo. He states he woke up and when he stood up he felt the room was spinning. He denies falling, denies head pain, chest pain, dyspnea, states he has some nausea, no vomiting or abdominal pain. He was given meclizine just prior to my exam. He is caox4 on exam, no focal motor deficits, reassuring hints exam. Soft non tender abdomen. I suspect peripheral vertigo and given lack of chest pain/dyspnea and reassuring neuro exam doubt entities such as acs, pe, dissection or central vertigo. Will check screening labs and ekg, reassess after meclizine and fluids. pt's labs unremarkable, pt stable and speaking clearly and is able to ambulate on his own requesting d/c, offered obs admission which he declines which I feel is reasonable given reassuring workup and able to ambulate. He will f/u with his pcp and return precautions given Differential Diagnosis Differential Diagnosis: vertigo, electrolyte abnormality Lab Data Lab results reviewed: Yes I reviewed the patient's lab results. ECG Data Attestation: I personally reviewed and interpreted this ECG (s) as follows: Prior ECG tracings: available for review Interpretation: sinus rate of 97 pr 164, no stemi HPI General Mode of arrival: EMS . Date/Time Provider Initiated Documentation: 05/24/23 07:58 . Limitations to Documentation: no limitations . Information obtained by: patient . History of Present Illness 53 year old M presents to the emergency department with the chief complaint of dizzy, described as moderate, Patient started experiencing this hour(s) (2) and it has been constant. No relieving factors improve symptom(s), No exacerbating factors reported . Patient notes nausea/vomiting; denies chest pain, fever/c hills and shortness of breath. Patient did receive the following treatments prior to arrival, none Related Data Home Medications Medication Instructions Recorded Confirmed acetaminophen 500 mg tablet 1,500 mg PO TID PRN 11/02/19 05/24/23 albuterol sulfate 90 mcg/actuation 2 puff inhalation QID PRN 08/21/21 05/24/23 aerosol inhaler shortness of breath or wheezing #1 unit topiramate 100 mg tablet 100 mg PO BID #180 tabs 10/09/21 05/24/23 atorvastatin 80 mg tablet 80 mg PO DAILY #90 tabs 10/14/22 05/24/23 pen needle, diabetic 31 gauge x #100 ea 10/21/22 05/24/23 5/16 (Pen Needle) labetalol 200 mg tablet 200 mg PO See Instructions #135 10/24/22 05/24/23 tab-caps insulin detemir U-100 100 unit/mL 17 unit (0.17 mL) subcut QHS #15 mL 10/27/22 05/24/23 (3 mL) subcutaneous pen (Levemir FlexPen) clopidogrel 75 mg tablet 75 mg PO DAILY #90 tabs 10/31/22 05/24/23 famotidine 20 mg tablet 20 mg PO DAILY #90 tabs 01/01/23 05/24/23 albuterol sulfate 90 mcg/actuation 1 - 2 puff inhalation Q6H PRN 03/01/23 05/24/23 aerosol inhaler (Ventolin HFA) shortness of breath or wheezing #6.7 grams dexlansoprazole 60 mg 60 mg PO DAILY #90 caps 04/06/23 05/24/23 capsule,biphase delayed release (Dexilant) meclizine 25 mg tablet 25 mg PO TID PRN dizziness #30 tabs 05/24/23 Previous Rx's Medication Instructions Recorded albuterol sulfate 90 mcg/actuation 2 puff inhalation QID PRN 08/21/21 aerosol inhaler shortness of breath or wheezing #1 unit topiramate 100 mg tablet 100 mg PO BID #180 tabs 10/09/21 atorvastatin 80 mg tablet 80 mg PO DAILY #90 tabs 10/14/22 pen needle, diabetic 31 gauge x #100 ea 10/21/2210/07 (Pen Needle) labetalol 200 mg tablet 200 mg PO See Instructions #135 10/24/22 tab-caps insulin detemir U-100 100 unit/mL 17 unit (0.17 mL) subcut QHS #15 mL 10/27/22 (3 mL) subcutaneous pen (Levemir FlexPen) clopidogrel 75 mg tablet 75 mg PO DAILY #90 tabs 10/31/22 famotidine 20 mg tablet 20 mg PO DAILY #90 tabs 01/01/23 albuterol sulfate 90 mcg/actuation 1 - 2 puff inhalation Q6H PRN 03/01/23 aerosol inhaler (Ventolin HFA) shortness of breath or wheezing #6.7 grams dexlansoprazole 60 mg 60 mg PO DAILY #90 caps 04/06/23 capsule,biphase delayed release (Dexilant) meclizine 25 mg tablet 25 mg PO TID PRN dizziness #30 tabs 05/24/23 Allergies Allergy/AdvReac Type Severity Reaction Status Date / Time metformin Allergy Severe Diarrhea Verified 05/24/23 07:34 dulaglutide [[facility] AdvReac diarrhea Verified 05/24/23 07:34 General Stated Complaint: Dizzy/Sync EDMUND: 3 Review of Systems All systems reviewed & are unremarkable except as noted in HPI and below Constitutional Constitutional: Denies chills, Denies fever(s) and Denies weakness Eyes Eyes: Denies loss of vision Cardiovascular Cardiovascular: Denies chest pain and Denies dyspnea Respiratory Respiratory: Denies cough and Denies dyspnea Gastrointestinal Gastrointestinal: Denies abdominal pain and Denies vomiting Integumentary/Breasts Skin/Breast: Denies rash Neurologic Neurologic: Denies loss of vision and Denies weakness PFSH All Active Problems (Updated 05/24/23 @ 12:50 by Derik Boston MD) Essential hypertension (Acute 09/07/12) Familial hypercholesterolemia (Acute 09/07/12) Gastroesophageal reflux disease (Acute 08/29/13) Obesity (BMI 30-39.9) (Acute 01/09/15) Obstructive sleep apnea (Chronic 09/06/14) Untreated. 09/04/2014:Severe obstructive sleep apnea with associated signficant nocturnal hypoxemia; Constance 68% on RA, average 90% Sensorineural hearing loss, bilateral (Acute 12/27/13) Smoker (Acute 08/29/13) 1 ppd Vertigo (Acute 02/20/14) Type 2 diabetes mellitus without complication (Acute ~07/2017) Daily headache (Acute) Probably due to hypoxia from CHINO. 68% sat on Rm Air during sleep study Nocturnal hypoxemia due to obesity (Chronic) 68% constance on room air during sleep study Tremor (Acute) COVID (Acute) Essential tremor (Acute) Medical History Anxiety (09/07/12) 11/03/18 BECKS = 26 Anxiety Borderline diabetes Constipation COVID-19 (01/2021) CVA (cerebral vascular accident) Deafness Depression 11/03/18 PHQ9 = 10 Diarrhea Diarrhea due to drug Financial problems Flat feet, bilateral GERD (gastroesophageal reflux disease) H/O acute bronchitis with bronchospasm (10/08/16) History of Italian measles (02/20/14) HTN (hypertension) Hypercholesterolemia Lipoma (08/29/13) Migraine Migraine headache (03/23/14) Nephrolithiasis (07/24/17) CHINO (obstructive sleep apnea) Sinusitis, acute Umbilical hernia Family History Mother , in 50's Essential hypertension Alcohol abuse Substance abuse Other Breast cancer Social History Smoking/Tobacco Use Status: Current every day Tobacco Type: cigarettes Quit status: not considering quitting Smoking risk assessment performed?: Yes Alcohol Intake: never Drug use: Never Substance use type: does not use Household members: none Housing: apartment Number of Children: 3 number of grandchildren: 2 Communication Needs: Hard of Hearing Do you need help understanding health information?: Often 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 Current gender identity: male What type of physical activity do you participate in: none Seatbelt use: always Drive intox or ride w/intox ups driver: No Water heater temp set <120 deg: Yes Working smoke detector in home: Yes Fire extinguisher in home: Yes Carbon monox detector in home: Yes Do you feel safe at home: Yes Do you feel safe in your relationship?: Yes Exam Const General: no acute distress Orientation: alert HENMT Head: normal to inspection Ears: external ears normal General nose exam: external nose normal Mouth: moist mucous membranes Eyes General: appearance normal, both eyes and all related structures Neck Neck: normal visual inspection Resp Effort & Inspection: normal respiratory effort and able to speak in complete sentences Auscultation: clear to auscultation bilaterally Cardio Rate: regular rate Heart Sounds: no murmurs GI Palpation: soft and nontender Skin General skin exam: no rashes or lesions noted Neuro General: patient alert and patient oriented x3 Extrem General: normal to inspection Psych Mental Status: mental status grossly normal Course Vital Signs Vital signs: Vital Signs Temperature 36.7 C 05/24/23 07:29 Pulse 92 H 05/24/23 07:29 Respiratory Rate 20 05/24/23 07:29 Blood Pressure 154/78 H 05/24/23 07:29 Pulse Oximetry 96 05/24/23 07:29 Temperature 36.7 C 05/24/23 07:29 Temperature Source Temporal Artery Scan 05/24/23 07:29 Pulse 92 H 05/24/23 07:29 Respiratory Rate 20 05/24/23 07:38 Respiratory Effort Normal 05/24/23 07:38 Respiratory Depth Normal 05/24/23 07:38 Respiratory Pattern Normal 05/24/23 07:38 Blood Pressure 154/78 H 05/24/23 07:29 Blood Pressure Position Supine 05/24/23 07:29 Pulse Oximetry 96 05/24/23 07:29
[2023-05-24 08:23] LABS: Abs Immature Grans 0.08 10^3/uL (0.0-0.06); Absolute Basophil Count 0.06 10^3/uL (0.0-0.2); Absolute Eosinophil Count 0.06 10^3/uL (0.0-0.7); Absolute Lymphocyte Count 0.56 10^3/uL (1.2-3.4); Absolute Monocyte Count 0.66 10^3/uL (0.1-0.8); Absolute Neutrophil Count 6.59 10^3/uL (1.2-6.7); Basophils % 0.7; Eosinophils % 0.7; HCT 43.7 % (40.0-50.0); HGB 13.9 g/dL (13.5-17.5); MCH 27.3 pg (27.0-33.0); MCHC 31.8 % (32.0-36.0); MCV 86 fL (80-95); MPV 9.5 fL (8.0-11.0); Monocytes % 8.2; Neutrophils % 82.4; Platelet Count 300 10^3/uL (130-400); RDW 13.6 % (11.8-14.1); RDW-SD 42.3 fL; WBC 8.01 10^3/uL (4.4-10.8)
[2023-05-24 08:38] LABS: ALT 27 U/L (16-63); AST 14 U/L (15-37); Alkaline Phosphatase 73 U/L (46-116); Anion Gap 11.2 mmol/L (3-11); BUN 11 mg/dL (7-18); Bilirubin, Total 0.6 mg/dL (0.2-1.0); CO2 24.8 mmol/L (21.0-32.0); Chloride 100 mmol/L (98-107); Estimated GFR 90.56 (mL/min/1.73m2); Glucose 231 mg/dL (74-106); Lipase 20 U/L (16-77); Magnesium 1.8 mg/dL (1.8-2.4); Potassium 4.3 mmol/L (3.5-5.1); Sodium 136 mmol/L (136-145); Total Protein 7.3 g/dL (6.4-8.2); Troponin I < 50 ng/L (<or=60)
[2023-05-24] MEDS: Normal Saline 1,000 ML 1000 ML IV ×2 (08:38→12:38)
[2023-05-24] MEDS: LORazepam 2 MG/ML VIAL 1 MG IVP (09:59)
[2023-05-24] MEDS: Scopolamine 1 MG/3 DAYS PATCH TD (09:59)
[2023-05-24 11:28] LABS: Troponin I < 50 ng/L (<or=60)
[2023-05-24 12:26] LABS: Bilirubin Negative (Negative); Blood Negative (Negative); Clarity Clear (Clear); Glucose 500 mg/dL (Negative); Ketones Negative (Negative); Leukocyte Esterase Negative (Negative); Nitrite Negative (Negative); Specific Gravity 1.025 (1.005-1.025)
--- NOTE | 2023-05-28 09:00 | W.ED.FU ---
Date of service: 05/28/23 Time of Service: 09:00 Follow Up Plan: This patient return to the emergency department on my shift. He was seen 4 days ago in the setting of vertigo from which he has improved. He is requesting a retroactive work note to have the day off on 05/25/2023. I wrote him a work note. He reported to nursing that his vertigo was improved. I did not see the patient nor reassessed him.
== END 2023-05-24 13:57 | disposition home or self-care (01) ==
PROVIDERS: Emergency Provider Emergency Medicine; PCP Family Medicine
DX: R42 Dizziness and giddiness (principal); R11.2 Nausea with vomiting, unspecified; I10 Essential (primary) hypertension; E78.00 Pure hypercholesterolemia, unspecified; F17.210 Nicotine dependence, cigarettes, uncomplicated; Z79.02 Long term (current) use of antithrombotics/antiplatelets; Z79.4 Long term (current) use of insulin; Z86.73 Personal history of transient ischemic attack (TIA), and cerebral infarction without residual deficits
CPT/HCPCS: 80053; 83690; 93005; 96361; 96374; 99283; 81003; 83735; 84484; 85025; 93010; J2060

== ENCOUNTER 2023-08-07 04:11 | Emergency (ER) | payer MEDICARE, SELFPAY ==
[2023-08-07 04:15] VITALS: BP 144/64; PULSE 80; RESP 18; TEMP 36.8; O2SAT 98
[2023-08-07 05:21] LABS: Abs Immature Grans 0.06 10^3/uL (0.0-0.06); Absolute Basophil Count 0.07 10^3/uL (0.0-0.2); Absolute Eosinophil Count 0.28 10^3/uL (0.0-0.7); Absolute Lymphocyte Count 2.32 10^3/uL (1.2-3.4); Absolute Monocyte Count 0.57 10^3/uL (0.1-0.8); Absolute Neutrophil Count 5.76 10^3/uL (1.2-6.7); Basophils % 0.8; Eosinophils % 3.1; HCT 43.8 % (40.0-50.0); HGB 13.9 g/dL (13.5-17.5); Immature Grans % 0.7; Lymphocytes % 25.6; MCH 27.9 pg (27.0-33.0); MCHC 31.7 % (32.0-36.0); MCV 88 fL (80-95); MPV 9.6 fL (8.0-11.0); Monocytes % 6.3; Neutrophils % 63.5; Platelet Count 334 10^3/uL (130-400); RBC 4.98 10^6/uL (4.36-5.78); RDW 14.2 % (11.8-14.1); RDW-SD 45.3 fL; WBC 9.06 10^3/uL (4.4-10.8)
[2023-08-07] MEDS: Ketorolac 15 MG/ML VIAL IVP (05:23)
[2023-08-07] MEDS: Ondansetron 4 MG/2 ML VIAL IVP (05:23)
[2023-08-07] MEDS: Normal Saline 1,000 ML 1000 ML IV ×2 (05:23→06:10)
[2023-08-07 05:24] VITALS: BP 124/70; PULSE 70; RESP 18; O2SAT 95
[2023-08-07 05:29] LABS: Lipase 33 U/L (16-77)
[2023-08-07 05:35] LABS: ALT 27 U/L (16-63); AST 12 U/L (15-37); Albumin 3.9 g/dL (3.4-5.0); Alkaline Phosphatase 78 U/L (46-116); Anion Gap 11.2 mmol/L (3-11); BUN 17 mg/dL (7-18); Bilirubin, Total 0.3 mg/dL (0.2-1.0); CO2 23.8 mmol/L (21.0-32.0); CREATININE 0.9 mg/dL (0.70-1.30); Calcium 8.7 mg/dL (8.5-10.1); Chloride 103 mmol/L (98-107); Estimated GFR 102.76 (mL/min/1.73m2); Glucose 276 mg/dL (74-106); Magnesium 1.8 mg/dL (1.8-2.4); Potassium 4.4 mmol/L (3.5-5.1); Sodium 138 mmol/L (136-145); Total Protein 7.1 g/dL (6.4-8.2)
[2023-08-07] MEDS: ACETAMINOPHEN 1,000 MG/100 ML BTL 400 MG IVPB (06:10)
[2023-08-07 06:12] VITALS: BP 141/74; PULSE 72; RESP 18; O2SAT 97
--- NOTE | 2023-08-07 06:22 | W.ED.GENAD ---
Discharge Plan Disposition Patient Disposition: Home Condition: Improving Discharge Details Clinical Impression: Gastroenteritis Primary Care Provider: Yifan Grewal ED Provider: Thomas Brantley Home Meds and New Rx's Prescriptions: New metoclopramide HCl [Reglan] 10 mg tablet 10 mg PO Q6H PRN (Reason: nausea and vomiting) Qty: 16 0RF No Action (DME) pen needle, diabetic [Pen Needle] 31 gauge x 5/16 needle See Rx Instructions .ROUTE .MEDSUPPLY Qty: 100 3RF Rx Instructions: As directed to administer insulin once daily. Dispense covered brand. fluticasone propionate [Flonase Allergy Relief] 50 mcg/actuation spray,suspension 2 spray intranasal DAILY Qty: 16 12RF Rx Instructions: administer into each nostril acetaminophen 500 mg tablet 1,500 mg PO TID PRN Levemir FlexPen 100 unit/mL (3 mL) insulin pen 20 unit subcut QHS Qty: 15 3RF albuterol sulfate 90 mcg/actuation HFA aerosol inhaler 2 puff IH QID PRN (Reason: shortness of breath or wheezing) Qty: 1 12RF topiramate 100 mg tablet 100 mg PO BID Qty: 180 3RF atorvastatin 80 mg tablet 80 mg PO DAILY Qty: 90 3RF labetalol 200 mg tablet 200 mg PO See Instructions Qty: 135 3RF Rx Instructions: Take 1/2 tablet (100 mg) in the AM & 1 tablet (200 mg in the evening) clopidogrel 75 mg tablet 75 mg PO DAILY Qty: 90 3RF dexlansoprazole [Dexilant] 60 mg capsule,biphase delayed releas 60 mg PO DAILY Qty: 90 3RF meclizine 25 mg tablet 25 mg PO TID PRN (Reason: dizziness) Qty: 30 0RF albuterol sulfate [Ventolin HFA] 90 mcg/actuation HFA aerosol inhaler 1 - 2 puff inhalation Q6H PRN (Reason: shortness of breath or wheezing) Qty: 6.7 0RF Discharge Instructions Additional Instructions: You appear to have the locally endemic viral gastroenteritis that has been going around the community. This means you are experiencing nausea, vomiting, diarrhea, and crampy abdominal pain. The most recent version of this viral infection has been causing quite a bit of crampy abdominal pain. You have been hydrated here in the emergency room and your laboratory evaluation was normal. You can take 2-3 200 mg ibuprofen tablets every 6 hours as needed for symptoms of pain, fever, or chills. You can take 2-3 325 mg acetaminophen tablets every 4-6 hours as needed for symptoms of pain, fever, or chills. These medications can and should be used together to stay ahead of your discomfort and any fevers that you have. You can take 1 Reglan tablet every 8 hours as needed for symptoms of nausea and vomiting. This medication may make you feel a little bit sleepy, so you should avoid driving or performing any hazardous activities until you know how this medication will make you feel. Your symptoms should improve over the course of the next 24 to 36 hours. You should drink plenty of clear liquids to stay hydrated and eat foods that are easy to absorb such as toast, crackers, rice, apples, bananas, and broth based soups. If your symptoms or not improving with this care plan, contact and follow-up with regular primary care doctor for recheck and further management if needed. You can always return to the ER for any new concerns or sudden changes in your health which you feel require emergency medical attention. Discharge Data Discharge Physician: Thomas Brantley [facility] General Date/Time Provider Initiated Documentation: 08/07/23 04:13. [facility] Narrative: The patient is a 53-year-old male, with a past medical history significant for migraine headaches, hypertension, diabetes mellitus, hyperlipidemia, who has frequent visits to the emergency room for, complaints of abdominal pain and vertigo, presents this evening complaining of 3 days of nausea, vomiting, diarrhea, and lower abdominal cramping. The patient denies having any known recent sick contacts with people that have similar symptoms. The patient denies having any fevers or chills at home. Patient tells me that he had significant diarrhea for 2 days but had a relatively normal bowel movement yesterday. The patient has been having ongoing nausea with dry heaving but is not really producing much vomit at this time. He continues to have some crampy lower abdominal discomfort. Related Data Home Medications Medication Instructions Recorded Confirmed acetaminophen 500 mg tablet 1,500 mg PO TID PRN 11/02/19 08/07/23 albuterol sulfate 90 mcg/actuation 2 puff inhalation QID PRN 08/21/21 08/07/23 aerosol inhaler shortness of breath or wheezing #1 unit topiramate 100 mg tablet 100 mg PO BID #180 tabs 10/09/21 08/07/23 atorvastatin 80 mg tablet 80 mg PO DAILY #90 tabs 10/14/22 08/07/23 pen needle, diabetic 31 gauge x #100 ea 10/21/22 06/05/2310/07 (Pen Needle) labetalol 200 mg tablet 200 mg PO See Instructions #135 10/24/22 08/07/23 tab-caps clopidogrel 75 mg tablet 75 mg PO DAILY #90 tabs 10/31/22 08/07/23 albuterol sulfate 90 mcg/actuation 1 - 2 puff inhalation Q6H PRN 03/01/23 08/07/23 aerosol inhaler (Ventolin HFA) shortness of breath or wheezing #6.7 grams dexlansoprazole 60 mg 60 mg PO DAILY #90 caps 04/06/23 08/07/23 capsule,biphase delayed release (Dexilant) meclizine 25 mg tablet 25 mg PO TID PRN dizziness #30 tabs 05/24/23 08/07/23 insulin detemir U-100 100 unit/mL 20 unit (0.2 mL) subcut QHS #15 mL 06/05/23 08/07/23 (3 mL) subcutaneous pen (Levemir FlexPen) fluticasone propionate 50 2 spray intranasal DAILY #16 grams 07/16/23 08/07/23 mcg/actuation nasal spray,suspension (Flonase Allergy Relief) metoclopramide HCl 10 mg tablet 10 mg PO Q6H PRN nausea and 08/07/23 (Reglan) vomiting #16 tabs Previous Rx's Medication Instructions Recorded albuterol sulfate 90 mcg/actuation 2 puff inhalation QID PRN 08/21/21 aerosol inhaler shortness of breath or wheezing #1 unit topiramate 100 mg tablet 100 mg PO BID #180 tabs 10/09/21 atorvastatin 80 mg tablet 80 mg PO DAILY #90 tabs 10/14/22 pen needle, diabetic 31 gauge x #100 ea 10/21/2210/07 (Pen Needle) labetalol 200 mg tablet 200 mg PO See Instructions #135 10/24/22 tab-caps clopidogrel 75 mg tablet 75 mg PO DAILY #90 tabs 10/31/22 albuterol sulfate 90 mcg/actuation 1 - 2 puff inhalation Q6H PRN 03/01/23 aerosol inhaler (Ventolin HFA) shortness of breath or wheezing #6.7 grams dexlansoprazole 60 mg 60 mg PO DAILY #90 caps 04/06/23 capsule,biphase delayed release (Dexilant) meclizine 25 mg tablet 25 mg PO TID PRN dizziness #30 tabs 05/24/23 insulin detemir U-100 100 unit/mL 20 unit (0.2 mL) subcut QHS #15 mL 06/05/23 (3 mL) subcutaneous pen (Levemir FlexPen) fluticasone propionate 50 2 spray intranasal DAILY #16 grams 07/16/23 mcg/actuation nasal spray,suspension (Flonase Allergy Relief) metoclopramide HCl 10 mg tablet 10 mg PO Q6H PRN nausea and 08/07/23 (Reglan) vomiting #16 tabs Allergies Allergy/AdvReac Type Severity Reaction Status Date / Time metformin Allergy Severe Diarrhea Verified 08/07/23 04:22 dulaglutide [From Trulicity] AdvReac diarrhea Verified 08/07/23 04:22 General Stated Complaint: Abd Prob EDMUND: 3 Exam Const Other: The patient is alert and interactive with examination, he appears in no distress and has essentially normal vital signs here in the emergency room. Resp Other: The patient has normal auscultated lung sounds with good air exchange Cardio Other: There is a regular rate and rhythm without any murmurs, rubs, or gallops. GI Other: The patient's abdomen is soft, nontender, and has normal but brisk bowel sounds. The patient tells me that he has some ongoing lower abdominal cramping but that palpation of his abdomen does not change the nature of that discomfort. Skin Other: Warm, pink, and dry. There is eczema that is visualized on the face and scalp, specifically in areas that are covered by hair. Neuro Other: The patient has conductive hearing loss. There are no focal motor or sensory deficits. The visualized portions of the cranial nerves are normal. Extrem Other: There are normal pulses and all 4 extremities. There is no significant edema, erythema, or skin changes on the extremities Course Vital Signs Vital signs: Vital Signs Temperature 36.8 C 08/07/23 04:15 Pulse 80 08/07/23 04:15 Respiratory Rate 18 03/15/24 04:15 Blood Pressure 144/64 H 08/07/23 04:15 Pulse Oximetry 98 08/07/23 04:15 Temperature 36.8 C 08/07/23 04:15 Pulse 72 08/07/23 06:12 Respiratory Rate 18 08/07/23 06:12 Blood Pressure 141/74 H 08/07/23 06:12 Pulse Oximetry 97 08/07/23 06:12 Oxygen Delivery Method Room Air 08/07/23 06:12 Oxygen Flow Rate 0 08/07/23 06:12 Pain Level 5 08/07/23 04:15 Lab/Test Results Lab/Test Results: Laboratory Tests Range/Units 08/07/23 04:25 WBC (4.4-10.8) 10^3/uL 9.06 RBC (4.36-5.78) 10^6/uL 4.98 Hgb (13.5-17.5) g/dL 13.9 Hct (40.0-50.0) % 43.8 MCV (80-95) fL 88 MCH (27.0-33.0) pg 27.9 MCHC (32.0-36.0) % 31.7 L RDW (11.8-14.1) % 14.2 H Plt Count (130-400) 10^3/uL 334 MPV (8.0-11.0) fL 9.6 Immature Gran % 0.7 Neutrophils % 63.5 Lymphocytes % 25.6 Monocytes % 6.3 Eosinophils % 3.1 Basophils % 0.8 Nucleated RBC % (0.0-0.3) % 0.0 Absolute Neutrophils (1.2-6.7) 10^3/uL 5.76 Absolute Lymphocytes (1.2-3.4) 10^3/uL 2.32 Absolute Monocytes (0.1-0.8) 10^3/uL 0.57 Absolute Eosinophils (0.0-0.7) 10^3/uL 0.28 Absolute Basophils (0.0-0.2) 10^3/uL 0.07 Sodium (136-145) mmol/L 138 Potassium (3.5-5.1) mmol/L 4.4 Chloride (98-107) mmol/L 103 Carbon Dioxide (21.0-32.0) mmol/L 23.8 Anion Gap (3-11) mmol/L 11.2 H BUN (7-18) mg/dL 17 Creatinine (0.70-1.30) mg/dL 0.9 Est GFR (CKD-EPI 2020) (mL/min/1.73m2) 102.76 Glucose (74-106) mg/dL 276 H Calcium (8.5-10.1) mg/dL 8.7 Magnesium (1.8-2.4) mg/dL 1.8 Total Bilirubin (0.2-1.0) mg/dL 0.3 AST (15-37) U/L 12 L ALT (16-63) U/L 27 Alkaline Phosphatase (46-116) U/L 78 Total Protein (6.4-8.2) g/dL 7.1 Albumin (3.4-5.0) g/dL 3.9 Lipase (16-77) U/L 33 Medical Decision Making The patient was seen and examined. His symptoms are consistent with the locally endemic gastroenteritis that has been going around in the community. This is typically have more significant bowel cramps then typical gastroenteritis. Generally there is more nausea and vomiting then diarrhea present with this illness. The patient does not appear particularly unwell and has been given several analgesics, antiemetic medications, and IV fluid hydration here in the emergency room. I will provide some antiemetic therapy for the patient for home use and explained how he can use ibuprofen and acetaminophen in alternation for help with the abdominal discomfort. Quality:SDOH Health Related Social Needs: No Data to Display PFSH All Active Problems (Updated 08/07/23 @ 06:29 by Thomas Brantley MD) Gastroenteritis (Acute) Nasal congestion (Acute) Essential hypertension (Acute 09/07/12) Familial hypercholesterolemia (Acute 09/07/12) Gastroesophageal reflux disease (Acute 08/29/13) Obesity (BMI 30-39.9) (Acute 01/09/15) Obstructive sleep apnea (Chronic 09/06/14) Untreated. 09/04/2014:Severe obstructive sleep apnea with associated signficant nocturnal hypoxemia; [place]stance 68% on RA, average 90% Sensorineural hearing loss, bilateral (Acute 12/27/13) Smoker (Acute 08/29/13) 1 ppd Vertigo (Acute 02/20/14) Type 2 diabetes mellitus without complication (Acute ~07/2017) Daily headache (Acute) Probably due to hypoxia from [place]. 68% sat on Rm Air during sleep study Nocturnal hypoxemia due to obesity (Chronic) 68% constance on room air during sleep study Tremor (Acute) COVID (Acute) Essential tremor (Acute) Medical History Anxiety (09/07/12) 11/03/18 BECKS = 27 Anxiety Borderline diabetes Constipation COVID-19 (01/2021) CVA (cerebral vascular accident) Deafness Depression 11/03/18 PHQ9 = 10 Diarrhea Diarrhea due to drug Financial problems Flat feet, bilateral GERD (gastroesophageal reflux disease) H/O acute bronchitis with bronchospasm (10/08/16) History of [place] measles (02/20/14) HTN (hypertension) Hypercholesterolemia Lipoma (08/29/13) Migraine Migraine headache (03/23/14) Nephrolithiasis (07/24/17) [place] (obstructive sleep apnea) Sinusitis, acute Umbilical hernia Family History (Updated 06/05/23 @ 16:02 by Tram Armenta) Mother , in 50's Essential hypertension Alcohol abuse Substance abuse Brother Brain tumor Other Breast cancer Social History (Updated 06/05/23 @ 16:06 by Tram Armenta) Smoking/Tobacco Use Status: Current every day Tobacco Type: cigarettes Tobacco: How many years used: 35 Quit status: considering quitting Smoking risk assessment performed?: Yes Alcohol Intake: never Drug use: Never Substance use type: does not use Adopted: No Caregiver/Support person: No Foster care: No Household members: none Housing: apartment Number of Children: 3 number of grandchildren: 2 Communication Needs: Hard of Hearing Do you need help understanding health information?: Often 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 Pets and animals: No Sexually active: No Do you think of yourself as: straight/heterosexual Current gender identity: male What is your relationship status?: never How often do you talk on the phone with friends or family?: never How often do you get together with friends or relatives?: never How often do you attend denominational or yazdanism services?: decline to answer Do you belong to any clubs or organized social groups?: no Panel score (0-1 are the most socially isolated patients): 0 What type of physical activity do you participate in: none and regular exercise Duration: 15-30 minutes/day Frequency: daily Seatbelt use: always Helmet use: No (No reason for one) Drive intox or ride w/intox tow car driver: No Water heater temp set <120 deg: Yes Working smoke detector in home: Yes Fire extinguisher in home: Yes Carbon monox detector in home: Yes Do you feel safe at home: Yes Do you feel safe in your relationship?: Yes
[2023-08-07 06:40] VITALS: BP 130/81; PULSE 75; RESP 18; O2SAT 96
[2023-08-07 07:13] VITALS: BP 145/68; PULSE 66; O2SAT 96
[2023-08-07 07:28] VITALS: BP 145/78; PULSE 68; RESP 20; TEMP 36.7; O2SAT 98
--- NOTE | 2023-08-08 10:09 | NUR.NOTE ---
Accessed pt chart to determine medicaton prescribed on discharge. Pt presented today stating he left his medication in the ED. No medications found. Nursing Note:
== END 2023-08-07 07:27 | disposition home or self-care (01) ==
PROVIDERS: Emergency Provider Emergency Medicine Emergency Medical Services; PCP Family Medicine
DX: R10.32 Left lower quadrant pain (principal); R11.0 Nausea; I10 Essential (primary) hypertension
CPT/HCPCS: 36416; 80053; 82962; 83690; 96365; 96375; 99285; 83735; 85025; 99283; J0131; J1885; J2405

== ENCOUNTER 2023-08-11 19:57 | Emergency (ER) | payer MEDICARE, SELFPAY ==
[2023-08-11] VITALS (12 sets, daily range): BP systolic 144–202; BP diastolic 72–96; PULSE 85–97; RESP 16; TEMP 36.9; O2SAT 94–98
--- NOTE | 2023-08-11 20:15 | DI.CT_ITS ---
Exam(s) CT ABDOMEN PELVIS W EXAM: CT ABDOMEN PELVIS W CLINICAL HISTORY: left lower abdomen pain. TECHNIQUE: Imaging Protocol: Axial computed tomography images with coronal and sagittal reformatted images were created and reviewed CONTRAST MATERIAL: Intravenous: Omnipaque 350 Contrast volume:100 ml Oral: no COMPARISON: CT CT ABDOMEN PELVIS W from 10/18/2022 FINDINGS: ABDOMEN and PELVIS: Lung Bases: No acute findings. Liver: Normal density. No measurable mass. Gallbladder and biliary tract: No radiodense calculus or dilation. Pancreas: Normal density. No abnormal calcifications or inflammatory process. No evidence of mass. Spleen: Normal size. Defect at the inferior aspect of the spleen which is new when compared with pre vious exam and could represent a splenic infarct. The splenic vasculature currently appears patent. Kidneys: Normal size, contour and axis. No radiodense stones. No obstructive uropathy. No suspicious masses seen. Adrenal glands: No masses seen. Vasculature: Abdominal aorta non-dilated. Severe atherosclerotic changes with some luminal narrowing and mural thrombus in the midportion. Iliac arteries are heavily calcified proximally. Soft tissues: Small fatty containing umbilical hernia. Bladder: No gross wall thickening. No calculi.No focal mass. Bowel: No obstruction. No bowel wall thickening. Appendix normal. Peritoneal cavity: No ascites. No focal collection or mesenteric inflammatory response. Bones: Unremarkable for age. Reproductive organs: Within normal limits. Lymph nodes: Unremarkable. IMPRESSION:: Low-density area at the inferior spleen, new from the prior exam could represent spleni c infarct. Vasculature currently appears patent. There is severe underlying atherosclerotic disease of the abdominal aorta. RADIATION DOSE DELIVERED: Total DLP DATA REPOSITORY: All CT scans at this facility are submitted to the National Radiology Data Registry (NRDR) Dose Index Registry (DIR) with the [employer] (A[employer]). RADIATION OPTIMIZATION: All CT scans at this facility use at least one of these dose optimization te chniques: automated exposure control; mA and/or kV adjustment per patient size (includes targeted exa ms where dose is matched to clinical indication); or iterative reconstruction.
--- NOTE | 2023-08-11 20:16 | ED.GENADUL_ITS ---
Discharge Plan Disposition Patient Disposition: Home Condition: Stable Discharge Details Clinical Impression: Left lower quadrant abdominal pain Primary Care Provider: Yifan Grewal ED Provider: Derik Boston Home Meds and New Rx's Prescriptions: Continued (DME) pen needle, diabetic [Pen Needle] 31 gauge x 5/16 needle See Rx Instructions .ROUTE .MEDSUPPLY Qty: 100 3RF Rx Instructions: As directed to administer insulin once daily. Dispense covered brand. fluticasone propionate [Flonase Allergy Relief] 50 mcg/actuation spray,suspension 2 spray intranasal DAILY Qty: 16 12RF Rx Instructions: administer into each nostril acetaminophen 500 mg tablet 1,500 mg PO TID PRN Levemir FlexPen 100 unit/mL (3 mL) insulin pen 20 unit subcut QHS Qty: 15 3RF albuterol sulfate 90 mcg/actuation HFA aerosol inhaler 2 puff IH QID PRN (Reason: shortness of breath or wheezing) Qty: 1 12RF topiramate 100 mg tablet 100 mg PO BID Qty: 180 3RF atorvastatin 80 mg tablet 80 mg PO DAILY Qty: 90 3RF labetalol 200 mg tablet 200 mg PO See Instructions Qty: 135 3RF Rx Instructions: Take 1/2 tablet (100 mg) in the AM & 1 tablet (200 mg in the evening) dexlansoprazole [Dexilant] 60 mg capsule,biphase delayed releas 60 mg PO DAILY Qty: 90 3RF clopidogrel 75 mg tablet 75 mg PO DAILY Qty: 90 3RF meclizine 25 mg tablet 25 mg PO TID PRN (Reason: dizziness) Qty: 30 0RF albuterol sulfate [Ventolin HFA] 90 mcg/actuation HFA aerosol inhaler 1 - 2 puff inhalation Q6H PRN (Reason: shortness of breath or wheezing) Qty: 6.7 0RF metoclopramide HCl [Reglan] 10 mg tablet 10 mg PO Q6H PRN (Reason: nausea and vomiting) Qty: 16 0RF Discharge Instructions Additional Instructions: You can take [id number] stool softener such as Colace and laxative such as MiraLAX if you are still constipated Follow-up with your primary care provider within a week specially if symptoms continue You feel more ill, have severe worsening pain, or persistent vomiting return to the emergency department for reevaluation Stand Alone Forms: Work Release [facility] General Mode of arrival: ambulatory . Date/Time Provider Initiated Documentation: 08/11/23 19:58 . Limitations to Documentation: no limitations . Information obtained by: patient . History of Present Illness 53 year old M presents to the emergency department with the chief complaint of Abdominal pain, described as moderate, Quality is described as sharp, and is localized to the abdomen. Patient reports no radiation. Patient started experiencing this day(s) (4) and it has been intermittent. No relieving factors improve symptom(s), No exacerbating factors reported . Patient notes denies chest pain and shortness of breath. Related Data Home Medications Medication Instructions Recorded Confirmed acetaminophen 500 mg tablet 1,500 mg PO TID PRN 11/02/19 08/07/23 albuterol sulfate 90 mcg/actuation 2 puff inhalation QID PRN 08/21/21 08/07/23 aerosol inhaler shortness of breath or wheezing #1 unit topiramate 100 mg tablet 100 mg PO BID #180 tabs 10/09/21 08/07/23 atorvastatin 80 mg tablet 80 mg PO DAILY #90 tabs 10/14/22 08/07/23 pen needle, diabetic 31 gauge x #100 ea 10/21/22 06/05/23 5/16 (Pen Needle) labetalol 200 mg tablet 200 mg PO See Instructions #135 10/24/22 08/07/23 tab-caps albuterol sulfate 90 mcg/actuation 1 - 2 puff inhalation Q6H PRN 03/01/23 08/07/23 aerosol inhaler (Ventolin HFA) shortness of breath or wheezing #6.7 grams dexlansoprazole 60 mg 60 mg PO DAILY #90 caps 04/06/23 08/07/23 capsule,biphase delayed release (Dexilant) meclizine 25 mg tablet 25 mg PO TID PRN dizziness #30 tabs 05/24/23 08/07/23 insulin detemir U-100 100 unit/mL 20 unit (0.2 mL) subcut QHS #15 mL 06/05/23 08/07/23 (3 mL) subcutaneous pen (Levemir FlexPen) fluticasone propionate 50 2 spray intranasal DAILY #16 grams 07/16/23 08/07/23 mcg/actuation nasal spray,suspension (Flonase Allergy Relief) metoclopramide HCl 10 mg tablet 10 mg PO Q6H PRN nausea and 08/07/23 (Reglan) vomiting #16 tabs clopidogrel 75 mg tablet 75 mg PO DAILY #90 tabs 08/10/23 Previous Rx's Medication Instructions Recorded albuterol sulfate 90 mcg/actuation 2 puff inhalation QID PRN 08/21/21 aerosol inhaler shortness of breath or wheezing #1 unit topiramate 100 mg tablet 100 mg PO BID #180 tabs 10/09/21 atorvastatin 80 mg tablet 80 mg PO DAILY #90 tabs 10/14/22 pen needle, diabetic 31 gauge x #100 ea 10/21/22 5/16 (Pen Needle) labetalol 200 mg tablet 200 mg PO See Instructions #135 10/24/22 tab-caps albuterol sulfate 90 mcg/actuation 1 - 2 puff inhalation Q6H PRN 03/01/23 aerosol inhaler (Ventolin HFA) shortness of breath or wheezing #6.7 grams dexlansoprazole 60 mg 60 mg PO DAILY #90 caps 04/06/23 capsule,biphase delayed release (Dexilant) meclizine 25 mg tablet 25 mg PO TID PRN dizziness #30 tabs 05/24/23 insulin detemir U-100 100 unit/mL 20 unit (0.2 mL) subcut QHS #15 mL 06/05/23 (3 mL) subcutaneous pen (Levemir FlexPen) fluticasone propionate 50 2 spray intranasal DAILY #16 grams 07/16/23 mcg/actuation nasal spray,suspension (Flonase Allergy Relief) metoclopramide HCl 10 mg tablet 10 mg PO Q6H PRN nausea and 08/07/23 (Reglan) vomiting #16 tabs clopidogrel 75 mg tablet 75 mg PO DAILY #90 tabs 08/10/23 Allergies Allergy/AdvReac Type Severity Reaction Status Date / Time metformin AdvReac Severe Diarrhea Verified 08/07/23 07:12 dulaglutide [From Trulicity] AdvReac diarrhea Verified 08/07/23 04:22 General Stated Complaint: Abd Prob EDMUND: 3 Review of Systems All systems reviewed & are unremarkable except as noted in HPI and below Constitutional Constitutional: Denies chills, Denies fever(s) and Denies weakness Cardiovascular Cardiovascular: Denies chest pain and Denies dyspnea Respiratory Respiratory: Denies cough and Denies dyspnea Gastrointestinal Gastrointestinal: Reports abdominal pain and Denies vomiting Genitourinary Genitourinary: Denies dysuria Integumentary/Breasts Skin/Breast: Denies rash Neurologic Neurologic: Denies weakness Exam Const General: no acute distress Orientation: alert [facility] Head: normal to inspection Ears: external ears normal General nose exam: external nose normal Mouth: moist mucous membranes Eyes General: appearance normal, both eyes and all related structures Neck Neck: normal visual inspection Resp Effort & Inspection: normal respiratory effort and able to speak in complete se ntences Cardio Rate: regular rate GI Palpation: soft, not firm, no guarding and tender Skin General skin exam: no rashes or lesions noted Neuro General: patient alert and patient oriented x3 Extrem General: normal to inspection Psych Mental Status: mental status grossly normal Course Vital Signs Vital signs: Vital Signs Temperature 36.9 C 08/11/23 20:00 Pulse 97 H 08/11/23 20:00 Respiratory Rate 16 08/11/23 20:00 Blood Pressure 202/96 H 08/11/23 20:00 Pulse Oximetry 97 08/11/23 20:00 Temperature 36.9 C 08/11/23 20:00 Temperature Source Oral 08/11/23 20:00 Pulse 97 H 08/11/23 20:00 Respiratory Rate 16 08/11/23 20:00 Respiratory Effort Normal 08/11/23 20:05 Blood Pressure 202/96 H 08/11/23 20:00 Pulse Oximetry 97 08/11/23 20:00 Medical Decision Making 53-year-old male with a history of prior CVA, hypertension, diabetes, who comes in with continued abdominal pain. He was seen a few days ago and had labs that were unremarkable was diagnosed with likely viral gastroenteritis. He states his diarrhea has improved but he still has some lower abdominal pain primarily on the left side. Denies any vomiting but has had some nausea, no fevers, no urinary symptoms, no chest pain or difficulty breathing. He is alert and oriented x 4 on arrival, his abdomen is soft and is tender in the left lower abdomen no other tenderness elsewhere. Will proceed with CBC, CMP, lipase and CT abdomen pelvis to evaluate for diverticulitis. Patient pain-free and has no symptoms now, labs unremarkable, CT read no acute findings though they did comment that of a wedge-shaped hypodensity in the inferior spleen question of an infarct. Patient has no upper abdominal pain or tenderness at all, his pain was on the left lower quadrant and now is pain-free so doubt infarction. He feels improved and requesting discharge which I feel is reasonable, advised to follow-up with his primary care provider within a week and return precautions given Differential Diagnosis Differential Diagnosis: Diverticulitis, colitis, pancreatitis Medical Records Medical records reviewed: Yes I reviewed the patient's medical records. Imaging Data Radiologic Study: Attestation: I personally reviewed and interpreted this imaging study as follows: Imaging: CT Scan Radiologist's impression: MPRESSION: 1. Compared to 10/18/2022, interval new somewhat wedge-shaped hypodensity within the inferior spleen with trace external stranding - possible splenic infarct. 2. Otherwise, no acute intra-abdominal or pelvic process. Lab Data Lab results reviewed: Yes I reviewed the patient's lab results. Quality:SDOH Health Related Social Needs: No Data to Display PFSH All Active Problems (Updated 08/11/23 @ 21:34 by Derik Boston MD) Left lower quadrant abdominal pain (Acute) Gastroenteritis (Acute) Nasal congestion (Acute) Essential hypertension (Acute 09/07/12) Familial hypercholesterolemia (Acute 09/07/12) Gastroesophageal reflux disease (Acute 08/29/13) Obesity (BMI 30-39.9) (Acute 01/09/15) Obstructive sleep apnea (Chronic 09/06/14) Untreated. 09/04/2014:Severe obstructive sleep apnea with associated signficant nocturnal hypoxemia; Constance 68% on RA, average 90% Sensorineural hearing loss, bilateral (Acute 12/27/13) Smoker (Acute 08/29/13) 1 ppd Vertigo (Acute 02/20/14) Type 2 diabetes mellitus without complication (Acute ~07/2017) Daily headache (Acute) Probably due to hypoxia from [place]. 68% sat on Rm Air during sleep study Nocturnal hypoxemia due to obesity (Chronic) 68% constance on room air during sleep study Tremor (Acute) COVID (Acute) Essential tremor (Acute) Medical History Anxiety (09/07/12) 11/03/18 BECKS = 26 Anxiety Borderline diabetes Constipation COVID-19 (01/2021) CVA (cerebral vascular accident) Deafness Depression 11/03/18 PHQ9 = 10 Diarrhea Diarrhea due to drug Financial problems Flat feet, bilateral GERD (gastroesophageal reflux disease) H/O acute bronchitis with bronchospasm (10/08/16) History of [place] measles (02/20/14) HTN (hypertension) Hypercholesterolemia Lipoma (08/29/13) Migraine Migraine headache (03/23/14) Nephrolithiasis (07/24/17) CHINO (obstructive sleep apnea) Sinusitis, acute Umbilical hernia Family History (Updated 06/05/23 @ 16:02 by Tram Armenta) Mother , in 50's Essential hypertension Alcohol abuse Substance abuse Brother Brain tumor Other Breast cancer Social History (Updated 06/05/23 @ 16:06 by Tram Armenta) Smoking/Tobacco Use Status: Current every day Tobacco Type: cigarettes Tobacco: How many years used: 35 Quit status: considering quitting Smoking risk assessment performed?: Yes Alcohol Intake: never Drug use: Never Substance use type: does not use Adopted: No Caregiver/Support person: No Foster care: No Household members: none Housing: apartment Number of Children: 3 number of grandchildren: 2 Communication Needs: Hard of Hearing Do you need help understanding health information?: Often 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 Pets and animals: No Sexually active: No Do you think of yourself as: straight/heterosexual Current gender identity: male What is your relationship status?: never How often do you talk on the phone with friends or family?: never How often do you get together with friends or relatives?: never How often do you attend voodoo or buddhism services?: decline to answer Do you belong to any clubs or organized social groups?: no Panel score (0-1 are the most socially isolated patients): 0 What type of physical activity do you participate in: none and regular exercise Duration: 15-30 minutes/day Frequency: daily Seatbelt use: always Helmet use: No (No reason for one) Drive intox or ride w/intox 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
[2023-08-11 20:20] LABS: Abs Immature Grans 0.07 10^3/uL (0.0-0.06); Absolute Basophil Count 0.07 10^3/uL (0.0-0.2); Absolute Eosinophil Count 0.29 10^3/uL (0.0-0.7); Absolute Monocyte Count 0.67 10^3/uL (0.1-0.8); Basophils % 0.7; HCT 42.4 % (40.0-50.0); HGB 13.8 g/dL (13.5-17.5); Immature Grans % 0.7; Lymphocytes % 28.6; MCHC 32.5 % (32.0-36.0); MCV 86 fL (80-95); MPV 9.6 fL (8.0-11.0); Monocytes % 6.8; Neutrophils % 60.2; Platelet Count 341 10^3/uL (130-400); RBC 4.93 10^6/uL (4.36-5.78); RDW 13.9 % (11.8-14.1); RDW-SD 43.4 fL
[2023-08-11] MEDS: Ketorolac 15 MG/ML VIAL IVP (20:20)
[2023-08-11] MEDS: Normal Saline 1,000 ML 1000 ML IV (20:20)
[2023-08-11] MEDS: Omnipaque 350 MG/ML 100 ML BTL IJ (20:25)
[2023-08-11] MEDS: Normal Saline Flush 10 ML SYR IVP (20:26)
[2023-08-11] MEDS: Normal Saline - Diluent 50 ML VIAL IJ (20:26)
[2023-08-11 20:33] LABS: PTT Activated 26.1 sec (23.6-32.8); Prothrombin Time 9.6 sec (9.1-11.1)
[2023-08-11 20:35] LABS: ALT 28 U/L (16-63); AST 14 U/L (15-37); Albumin 3.9 g/dL (3.4-5.0); Alkaline Phosphatase 86 U/L (46-116); Anion Gap 10.6 mmol/L (3-11); BUN 22 mg/dL (7-18); Bilirubin, Total 0.4 mg/dL (0.2-1.0); CO2 27.4 mmol/L (21.0-32.0); CREATININE 0.9 mg/dL (0.70-1.30); Calcium 9.1 mg/dL (8.5-10.1); Chloride 100 mmol/L (98-107); Estimated GFR 102.76 (mL/min/1.73m2); Glucose 254 mg/dL (74-106); Lipase 31 U/L (16-77); Magnesium 1.8 mg/dL (1.8-2.4); Potassium 3.7 mmol/L (3.5-5.1); Sodium 138 mmol/L (136-145); Total Protein 7.4 g/dL (6.4-8.2)
--- NOTE | 2023-08-11 21:20 | DI.VRAD_ITS ---
PROCEDURE INFORMATION: Exam: CT Abdomen And Pelvis With Contrast Exam date and time: 08/11/2023 8:34 PM Age: 53 years old Clinical indication: Left lower quadrant (LLQ) abdominal pain TECHNIQUE: Imaging protocol: Computed tomography of the abdomen and pelvis with contrast. Radiation optimization: All CT scans at this facility use at least one of these dose optimization techniques: automated exposure control; mA and/or kV adjustment per patient size (includes targeted exams where dose is matched to clinical indication); or iterative reconstruction. Contrast material: OMNIPAQUE 350; Contrast volume: 100 ml; Contrast route: INTRAVENOUS (IV); COMPARISON: CT ABDOMEN PELVIS W 10/18/2022 8:16 AM FINDINGS: Lungs: No acute infiltrate in either lung base. Liver: Compared to 10/18/2022, 1.1 x 1.7 stable benign hypodense area within the inferomedial right lobe of the liver (e.g. image 29, series 4) - possible small geographic area of fatty infiltration. Otherwise normal liver. Gallbladder and bile ducts: Normal. No calcified stones. No ductal dilation. Pancreas: Normal. No ductal dilation. Spleen: Compared to 10/18/2022, interval new somewhat wedge-shaped hypodensity within the inferior spleen with trace external stranding - possible splenic infarct. Adrenal glands: Normal. No mass. Kidneys and ureters: No hydronephrosis. No calcified renal or ureteral stones. Inferior right renal area of cortical thinning. No perinephric stranding or perinephric fluid. 4-5 mm anterolateral right renal cortical stable hypodensity for which no follow-up imaging is recommended. Stomach and bowel: Unremarkable. No obstruction. No mucosal thickening. Appendix: Normal appendix. Intraperitoneal space: No free air. No significant fluid collection. Vasculature: No abdominal aortic aneurysm. Mixed plaque within the abdominal aorta. Scattered iliac artery calcifications. Lymph nodes: No enlarged lymph nodes. Urinary bladder: Unremarkable as visualized. Reproductive: Unremarkable as visualized. Bones/joints: Unremarkable for patient age. Soft tissues: Fat-containing umbilical hernia. IMPRESSION: 1. Compared to 10/18/2022, interval new somewhat wedge-shaped hypodensity within the inferior spleen with trace external stranding - possible splenic infarct. 2. Otherwise, no acute intra-abdominal or pelvic process. Dictated and Authenticated by: Steve Mendes MD. Ordering:EVIN More MD
[2023-08-11 21:22] LABS: Bilirubin Negative (Negative); Blood Trace-intact (Negative); Clarity Clear (Clear); Glucose 500 mg/dL (Negative); Ketones Negative (Negative); Leukocyte Esterase Negative (Negative); Nitrite Negative (Negative); Urobilinogen 0.2 mg/dL (Up to 0.2); pH 5.5 (5-8)
[2023-08-11 21:30] LABS: Bacteria Negative HPF (Negative); C & S Indicated? No; Casts Negative LPF (Negative); Crystals Negative HPF (Negative); Epithelial Cells Rare HPF (Negative); Mucus Negative (Negative); RBC 0-2 HPF (0-2); WBC Negative HPF (0-5)
--- NOTE | 2023-08-17 11:43 | NUR.NOTE ---
Nursing Note: Left a message fro patient about his medications that was left here.
--- NOTE | 2023-08-18 08:35 | NUR.NOTE ---
Nursing Note:Medications that were left here by the patient was sent to our pharmacy
== END 2023-08-11 21:42 | disposition home or self-care (01) ==
PROVIDERS: Emergency Provider Emergency Medicine; PCP Family Medicine
DX: R10.32 Left lower quadrant pain (principal); K59.00 Constipation, unspecified; I10 Essential (primary) hypertension; E11.9 Type 2 diabetes mellitus without complications; Z86.73 Personal history of transient ischemic attack (TIA), and cerebral infarction without residual deficits; Z79.01 Long term (current) use of anticoagulants; Z79.4 Long term (current) use of insulin; Z79.85 Long-term (current) use of injectable non-insulin antidiabetic drugs; F17.210 Nicotine dependence, cigarettes, uncomplicated
CPT/HCPCS: 36415; 80053; 83690; 96361; 96374; 99285; 74177; 81003; 81015; 83735; 85025; 85610; 85730; 99284; J1885; J3490

== ENCOUNTER 2023-12-13 16:50 | Emergency (ER) | payer MEDICARE, SELFPAY ==
--- NOTE | 2023-12-13 16:45 | RT.EKG_ITS ---
APPROVED REPORT Exam: Resting ECG Reason for Exam: chest pain Patient Location: E HR:80 bpm ECG Measurements Heart Rate 80 AXIS LA 148 P 31 QRSd 92 QRS -18 QT 375 T 75 QTc 431 Conclusion Sinus rhythm. 80 normal axis no stemi
[2023-12-13 17:01] VITALS: BP 157/89; PULSE 82; RESP 16; TEMP 37.4; O2SAT 100
[2023-12-13 18:16] VITALS: RESP 13
[2023-12-13 19:13] VITALS: BP 149/86; PULSE 86; RESP 16; O2SAT 96
--- NOTE | 2023-12-13 21:33 | ED.GENADUL_ITS ---
Discharge Plan Disposition Patient Disposition: Home Discharge Details Clinical Impression: Drug side effects Primary Care Provider: Yifan Grewal ED Provider: Musa Gregorio Home Meds and New Rx's Prescriptions: No Action (DME) pen needle, diabetic [Pen Needle] 31 gauge x 5/16 needle See Rx Instructions .ROUTE .MEDSUPPLY Qty: 100 3RF Rx Instructions: As directed to administer insulin once daily. Dispense covered brand. fluticasone propionate [Flonase Allergy Relief] 50 mcg/actuation spray,suspension 2 spray intranasal DAILY Qty: 16 12RF Rx Instructions: administer into each nostril acetaminophen 500 mg tablet 1,500 mg PO TID PRN Jardiance 10 mg tablet 10 mg PO DAILY Qty: 90 3RF atorvastatin 80 mg tablet 80 mg PO DAILY Qty: 90 3RF famotidine 20 mg tablet 20 mg PO DAILY clopidogrel 75 mg tablet 75 mg PO DAILY Qty: 90 3RF topiramate 100 mg tablet 100 mg PO BID Qty: 180 3RF Levemir FlexPen 100 unit/mL (3 mL) insulin pen 20 unit subcut QHS Qty: 15 3RF primidone 50 mg tablet 50 mg PO QHS Qty: 90 3RF dexlansoprazole [Dexilant] 60 mg capsule,biphase delayed releas 60 mg PO DAILY Qty: 90 3RF labetalol 200 mg tablet 200 mg PO See Instructions Qty: 135 3RF Rx Instructions: Take 1/2 tablet (100 mg) in the AM & 1 tablet (200 mg in the evening) meclizine 25 mg tablet 25 mg PO TID PRN (Reason: dizziness) Qty: 30 0RF albuterol sulfate [Ventolin HFA] 90 mcg/actuation HFA aerosol inhaler 1 - 2 puff inhalation Q6H PRN (Reason: shortness of breath or wheezing) Qty: 6.7 0RF metoclopramide HCl [Reglan] 10 mg tablet 10 mg PO Q6H PRN (Reason: nausea and vomiting) Qty: 16 0RF Discharge Instructions Additional Instructions: * Your symptoms today are likely from the dose of primidone that you took last night. * Your dose is 50mg, but you can try taking 25 mg or even 12.5 mg to start and increase the dose back to 50 slowly. If he continued to have significant fatigue after taking the medication, please follow back up with your PCP for discussion about this. HPI General Date/Time Provider Initiated Documentation: 12/13/23 17:11 . Limitations to Documentation: no limitations . Information obtained by: patient . HPI Narrative: 53-year-old gentleman with past medical history of CVA, hypertension, diabetes, essential tremor, hearing loss presents for evaluation of sleepiness. He reports that because of his tremor he was started on new medication last night called primidone. He reports that he took his first dose last night. He states that he slept all night and then woke up today feeling very tired. He states that he has had 3 naps. He states that he cannot stop feeling sleepy. He denies any fever, chills or headache. Related Data Home Medications ?Medication ?Instructions ?Recorded ?Confirmed acetaminophen 500 mg tablet 1,500 mg PO TID PRN 11/02/19 12/13/23 pen needle, diabetic 31 gauge x #100 ea 10/21/22 12/11/2310/07 (Pen Needle) albuterol sulfate 90 mcg/actuation 1 - 2 puff inhalation Q6H PRN 03/01/23 12/13/23 aerosol inhaler (Ventolin HFA) shortness of breath or wheezing #6.7 grams dexlansoprazole 60 mg 60 mg PO DAILY #90 caps 04/06/23 12/13/23 capsule,biphase delayed release (Dexilant) meclizine 25 mg tablet 25 mg PO TID PRN dizziness #30 tabs 05/24/23 12/13/23 fluticasone propionate 50 2 spray intranasal DAILY #16 grams 07/16/23 12/13/23 mcg/actuation nasal spray,suspension (Flonase Allergy Relief) metoclopramide HCl 10 mg tablet 10 mg PO Q6H PRN nausea and 08/07/23 12/13/23 (Reglan) vomiting #16 tabs atorvastatin 80 mg tablet 80 mg PO DAILY #90 tabs 09/11/23 12/13/23 empagliflozin 10 mg tablet 10 mg PO DAILY #90 tabs 09/11/23 12/13/23 (Jardiance) labetalol 200 mg tablet 200 mg PO See Instructions #135 10/20/23 12/13/23 tab-caps clopidogrel 75 mg tablet 75 mg PO DAILY #90 tabs 12/11/23 12/13/23 famotidine 20 mg tablet 20 mg PO DAILY 12/11/23 12/13/23 insulin detemir U-100 100 unit/mL 20 unit (0.2 mL) subcut QHS #15 mL 12/11/23 12/13/23 (3 mL) subcutaneous pen (Levemir FlexPen) primidone 50 mg tablet 50 mg PO QHS #90 tabs 12/11/23 12/13/23 topiramate 100 mg tablet 100 mg PO BID #180 tabs 12/11/23 12/13/23 Previous Rx's ?Medication ?Instructions ?Recorded pen needle, diabetic 31 gauge x #100 ea 10/21/2210/07 (Pen Needle) albuterol sulfate 90 mcg/actuation 1 - 2 puff inhalation Q6H PRN 03/01/23 aerosol inhaler (Ventolin HFA) shortness of breath or wheezing #6.7 grams dexlansoprazole 60 mg 60 mg PO DAILY #90 caps 04/06/23 capsule,biphase delayed release (Dexilant) meclizine 25 mg tablet 25 mg PO TID PRN dizziness #30 tabs 05/24/23 fluticasone propionate 50 2 spray intranasal DAILY #16 grams 07/16/23 mcg/actuation nasal spray,suspension (Flonase Allergy Relief) metoclopramide HCl 10 mg tablet 10 mg PO Q6H PRN nausea and 08/07/23 (Reglan) vomiting #16 tabs atorvastatin 80 mg tablet 80 mg PO DAILY #90 tabs 09/11/23 empagliflozin 10 mg tablet 10 mg PO DAILY #90 tabs 09/11/23 (Jardiance) labetalol 200 mg tablet 200 mg PO See Instructions #135 10/20/23 tab-caps clopidogrel 75 mg tablet 75 mg PO DAILY #90 tabs 12/11/23 insulin detemir U-100 100 unit/mL 20 unit (0.2 mL) subcut QHS #15 mL 12/11/23 (3 mL) subcutaneous pen (Levemir FlexPen) primidone 50 mg tablet 50 mg PO QHS #90 tabs 12/11/23 topiramate 100 mg tablet 100 mg PO BID #180 tabs 12/11/23 Allergies Allergy/AdvReac Type Severity Reaction Status Date / Time metformin AdvReac Severe Diarrhea Verified 12/13/23 18:19 dulaglutide (From [facility]) AdvReac diarrhea Verified 12/13/23 18:19 General Stated Complaint: Dizzy/Sync EDMUND: 3 Exam Narrative Exam Narrative: Review of Systems: All systems reviewed & are unremarkable except as noted in HPI and below Well-developed, no acute distress NCAT PERRL, normal conjunctiva RRR no murmur Unlabored respiratory effort clear bilaterally Nondistended abdomen Extremities w/o deformity, no cyanosis, no edema No rashes or lesions. no focal neurologic deficits Appropriate mood and affect Course Vital Signs Vital signs: Vital Signs Temperature 37.4 C 12/13/23 17:01 Pulse 82 12/13/23 17:01 Respiratory Rate 16 12/13/23 17:01 Blood Pressure 157/89 H 12/13/23 17:01 Pulse Oximetry 100 12/13/23 17:01 Temperature 37.4 C 12/13/23 17:01 Temperature Source Skin 12/13/23 17:01 Pulse 86 12/13/23 19:13 Respiratory Rate 16 12/13/23 19:13 Respiratory Effort Short of Breath 12/13/23 18:16 Respiratory Depth Normal 12/13/23 18:16 Respiratory Pattern Normal 12/13/23 18:16 Blood Pressure 149/86 H 12/13/23 19:13 Blood Pressure Position Sitting 12/13/23 17:01 Pulse Oximetry 96 12/13/23 19:13 Oxygen Delivery Method Room Air 12/13/23 17:01 Oxygen Flow Rate 0 12/13/23 17:01 Pain Level 5 12/13/23 17:01 Medical Decision Making Emergent evaluation of sleepiness. The patient has a normal neurologic exam, physical exam is unremarkable. Hemodynamically stable with normal vital signs. An EKG was obtained. I reviewed this EKG to sinus 80 normal axis, no acute ST segment changes. I suspect that the 50 mg of primidone is the cause of the patient's symptoms today. I reviewed this medication and noted that should be started at lower dose and titrated up. Recommend that he started 12.5 or 25 mg and increase as tolerated. Patient should follow-up with his PCP for further evaluation of side effects related to this medication. Quality:SDOH Health Related Social Needs: No Data to Display PFSH All Active Problems Drug side effects (Acute) Foot pain, left (Acute) Physical examination of employee (Acute) Nasal congestion (Acute) Essential hypertension (Acute 09/07/12) Familial hypercholesterolemia (Acute 09/07/12) Gastroesophageal reflux disease (Acute 08/29/13) Obesity (BMI 30-39.9) (Acute 01/09/15) Obstructive sleep apnea (Chronic 09/06/14) Untreated. 09/04/2014:Severe obstructive sleep apnea with associated signficant nocturnal hypoxemia; Constance 68% on RA, average 90% Sensorineural hearing loss, bilateral (Acute 12/27/13) Smoker (Acute 08/29/13) 1 ppd Vertigo (Acute 02/20/14) Type 2 diabetes mellitus without complication (Acute ~07/2017) Daily headache (Acute) Probably due to hypoxia from [place]. 68% sat on Rm Air during sleep study Nocturnal hypoxemia due to obesity (Chronic) 68% constance on room air during sleep study Tremor (Acute) COVID (Acute) Essential tremor (Acute) Medical History Diarrhea COVID-19 (01/2021) Diarrhea due to drug Constipation Financial problems Umbilical hernia Flat feet, bilateral Lipoma (08/29/13) Depression 11/03/18 PHQ9 = 10 GERD (gastroesophageal reflux disease) Migraine Borderline diabetes Anxiety CVA (cerebral vascular accident) HTN (hypertension) Hypercholesterolemia CHINO (obstructive sleep apnea) Nephrolithiasis (07/24/17) Migraine headache (03/23/14) History of Maltese measles (02/20/14) H/O acute bronchitis with bronchospasm (10/08/16) Anxiety (09/07/12) 11/03/18 BECKS = 26 Deafness Sinusitis, acute Family History Mother , in 50's Essential hypertension Alcohol abuse Substance abuse Brother Brain tumor Other Breast cancer Social History Smoking/Tobacco Use Status: Current every day Tobacco Type: cigarettes Tobacco: How many years used: 35 Quit status: considering quitting Smoking risk assessment performed?: Yes Alcohol Intake: never Drug use: Never Substance use type: does not use Adopted: No Caregiver/Support person: No Foster care: No Household members: none Housing: apartment Number of Children: 3 number of grandchildren: 2 Communication Needs: Hard of Hearing Do you need help understanding health information?: Often 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 Pets and animals: No Sexually active: No Do you think of yourself as: straight/heterosexual Current gender identity: male What is your relationship status?: never How often do you talk on the phone with friends or family?: never How often do you get together with friends or relatives?: never How often do you attend orthodoxy or zoroastrian services?: decline to answer Do you belong to any clubs or organized social groups?: no Panel score (0-1 are the most socially isolated patients): 0 What type of physical activity do you participate in: none and regular exercise Duration: 15-30 minutes/day Frequency: daily Seatbelt use: always Helmet use: No (No reason for one) 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
== END 2023-12-13 19:14 | disposition home or self-care (01) ==
PROVIDERS: Emergency Provider Emergency Medicine; PCP Family Medicine
DX: R42 Dizziness and giddiness (principal); R53.83 Other fatigue; R51.9 Headache, unspecified; T42.6X5A Adverse effect of other antiepileptic and sedative-hypnotic drugs, initial encounter; I10 Essential (primary) hypertension; E78.00 Pure hypercholesterolemia, unspecified; R25.1 Tremor, unspecified; E11.9 Type 2 diabetes mellitus without complications; F17.210 Nicotine dependence, cigarettes, uncomplicated; Z79.4 Long term (current) use of insulin; Z79.01 Long term (current) use of anticoagulants; Z86.73 Personal history of transient ischemic attack (TIA), and cerebral infarction without residual deficits
CPT/HCPCS: 87426; 93005; 99284; 93010; 99283

== ENCOUNTER 2024-01-12 17:58 | Emergency (ER) | payer MEDICARE, SELFPAY ==
[2024-01-12 18:02] VITALS: BP 154/81; PULSE 87; RESP 18; TEMP 36.1; O2SAT 96
--- NOTE | 2024-01-12 18:09 | ED.GENADUL_ITS ---
Discharge Plan Disposition Patient Disposition: Home Condition: Good Discharge Details Clinical Impression: URI (upper respiratory infection) Primary Care Provider: Yifan Grewal ED Provider: Silke Kang Home Meds and New Rx's Prescriptions: Continued (DME) pen needle, diabetic [Pen Needle] 31 gauge x 5/16 needle See Rx Instructions .ROUTE .MEDSUPPLY Qty: 100 3RF Rx Instructions: As directed to administer insulin once daily. Dispense covered brand. fluticasone propionate [Flonase Allergy Relief] 50 mcg/actuation spray,suspension 2 spray intranasal DAILY Qty: 16 12RF Rx Instructions: administer into each nostril acetaminophen 500 mg tablet 1,500 mg PO TID PRN Jardiance 10 mg tablet 10 mg PO DAILY Qty: 90 3RF atorvastatin 80 mg tablet 80 mg PO DAILY Qty: 90 3RF famotidine 20 mg tablet 20 mg PO DAILY clopidogrel 75 mg tablet 75 mg PO DAILY Qty: 90 3RF topiramate 100 mg tablet 100 mg PO BID Qty: 180 3RF primidone 50 mg tablet 50 mg PO QHS Qty: 90 3RF insulin glargine [Lantus Solostar U-100 Insulin] 100 unit/mL (3 mL) insulin pen 20 unit subcut QPM Qty: 15 3RF dexlansoprazole [Dexilant] 60 mg capsule,biphase delayed releas 60 mg PO DAILY Qty: 90 1RF labetalol 200 mg tablet 200 mg PO See Instructions Qty: 135 1RF Rx Instructions: Take 1/2 tablet (100 mg) in the AM & 1 tablet (200 mg in the evening) meclizine 25 mg tablet 25 mg PO TID PRN (Reason: dizziness) Qty: 30 0RF albuterol sulfate [Ventolin HFA] 90 mcg/actuation HFA aerosol inhaler 1 - 2 puff inhalation Q6H PRN (Reason: shortness of breath or wheezing) Qty: 6.7 0RF metoclopramide HCl [Reglan] 10 mg tablet 10 mg PO Q6H PRN (Reason: nausea and vomiting) Qty: 16 0RF Discharge Instructions Instructions: Upper Respiratory Infection ED Additional Instructions: Your history and exam is most consistent with a viral upper respiratory infection. This is likely viral. You were negative for flu, RSV, COVID. Symptoms typically last 1 to 2 weeks. Please encourage hydration. Tylenol as needed to help with discomfort or fevers. You may try honey or throat lozenges to help with your sore throat and cough. Please follow-up with your primary care in 2 weeks for reevaluation. If you develop inability stay hydrated, shortness of breath, chest pain or other new/worsening symptoms please seek care urgently once again. Please make sure to wash your hands frequently, wear mask when appropriate to help prevent spread of illness. Referrals: Yifan Grewal DO [Primary Care Provider] - [facility] General Date/Time Provider Initiated Documentation: 01/12/24 17:59 . Limitations to Documentation: no limitations . Information obtained by: patient and RN notes reviewed . History of Present Illness 53 year old M presents to the emergency department with the chief complaint of Sore throat, congestion, cough, described as moderate, Patient started experiencing this hour(s) and it has been constant. No relieving factors improve symptom(s), No exacerbating factors reported . Patient notes cough; denies chest pain, diaphoresis, fever/chills, headaches, loss of appetite, nausea/vomiting, rash and shortness of breath. Patient did receive the following treatments prior to arrival, none Related Data Home Medications ?Medication ?Instructions ?Recorded ?Confirmed acetaminophen 500 mg tablet 1,500 mg PO TID PRN 11/02/19 01/12/24 pen needle, diabetic 31 gauge x #100 ea 10/21/22 01/12/24/16 (Pen Needle) albuterol sulfate 90 mcg/actuation 1 - 2 puff inhalation Q6H PRN 03/01/23 01/12/24 aerosol inhaler (Ventolin HFA) shortness of breath or wheezing #6.7 grams meclizine 25 mg tablet 25 mg PO TID PRN dizziness #30 tabs 05/24/23 01/12/24 fluticasone propionate 50 2 spray intranasal DAILY #16 grams 07/16/23 01/12/24 mcg/actuation nasal spray,suspension (Flonase Allergy Relief) metoclopramide HCl 10 mg tablet 10 mg PO Q6H PRN nausea and 08/07/23 01/12/24 (Reglan) vomiting #16 tabs atorvastatin 80 mg tablet 80 mg PO DAILY #90 tabs 09/11/23 01/12/24 empagliflozin 10 mg tablet 10 mg PO DAILY #90 tabs 09/11/23 01/12/24 (Jardiance) clopidogrel 75 mg tablet 75 mg PO DAILY #90 tabs 12/11/23 01/12/24 famotidine 20 mg tablet 20 mg PO DAILY 12/11/23 01/12/24 primidone 50 mg tablet 50 mg PO QHS #90 tabs 12/11/23 01/12/24 topiramate 100 mg tablet 100 mg PO BID #180 tabs 12/11/23 01/12/24 insulin glargine 100 unit/mL (3 20 unit (0.2 mL) subcut QPM #15 mL 12/22/23 01/12/24 mL) subcutaneous pen (Lantus Solostar U-100 Insulin) dexlansoprazole 60 mg 60 mg PO DAILY #90 caps 01/04/24 01/12/24 capsule,biphase delayed release (Dexilant) labetalol 200 mg tablet 200 mg PO See Instructions #135 01/04/24 01/12/24 tab-caps Previous Rx's ?Medication ?Instructions ?Recorded pen needle, diabetic 31 gauge x #100 ea 10/21/2210/07 (Pen Needle) albuterol sulfate 90 mcg/actuation 1 - 2 puff inhalation Q6H PRN 03/01/23 aerosol inhaler (Ventolin HFA) shortness of breath or wheezing #6.7 grams meclizine 25 mg tablet 25 mg PO TID PRN dizziness #30 tabs 05/24/23 fluticasone propionate 50 2 spray intranasal DAILY #16 grams 07/16/23 mcg/actuation nasal spray,suspension (Flonase Allergy Relief) metoclopramide HCl 10 mg tablet 10 mg PO Q6H PRN nausea and 08/07/23 (Reglan) vomiting #16 tabs atorvastatin 80 mg tablet 80 mg PO DAILY #90 tabs 09/11/23 empagliflozin 10 mg tablet 10 mg PO DAILY #90 tabs 09/11/23 (Jardiance) clopidogrel 75 mg tablet 75 mg PO DAILY #90 tabs 12/11/23 primidone 50 mg tablet 50 mg PO QHS #90 tabs 12/11/23 topiramate 100 mg tablet 100 mg PO BID #180 tabs 12/11/23 insulin glargine 100 unit/mL (3 20 unit (0.2 mL) subcut QPM #15 mL 12/22/23 mL) subcutaneous pen (Lantus Solostar U-100 Insulin) dexlansoprazole 60 mg 60 mg PO DAILY #90 caps 01/04/24 capsule,biphase delayed release (Dexilant) labetalol 200 mg tablet 200 mg PO See Instructions #135 01/04/24 tab-caps Allergies Allergy/AdvReac Type Severity Reaction Status Date / Time metformin AdvReac Severe Diarrhea Verified 12/13/23 18:19 dulaglutide (From [facility]) AdvReac diarrhea Verified 12/13/23 18:19 General Stated Complaint: Sorethroat EDMUND: 4 Review of Systems Constitutional Constitutional: Reports as per HPI and Denies headache(s) Eyes Eyes: Reports as per HPI, Denies eye discharge and Denies irritation ENT Ears, Nose, Mouth, and Throat: Reports as per HPI and Denies headache(s) Cardiovascular Cardiovascular: Reports as per HPI, Denies chest pain and Denies dyspnea Respiratory Respiratory: Reports as per HPI and Denies dyspnea Gastrointestinal Gastrointestinal: Reports as per HPI, Denies abdominal pain, Denies change in bowel habits, Denies nausea and Denies vomiting Integumentary/Breasts Skin/Breast: Reports as per HPI and Denies rash Neurologic Neurologic: Reports as per HPI and Denies headache(s) Exam Const General: cooperative, healthy appearing, comfortable, no acute distress, well developed and well groomed Nutritional Appearance: average body habitus and well nourished Orientation: alert and awake [facility] Head: normal to inspection, normocephalic and atraumatic Ears: hearing grossly normal bilaterally, external ears normal and TM's normal bilaterally General nose exam: external nose normal and nares normal Face and sinus: normal facial exam, sinuses nontender and face symmetric Mouth: oral mucosae normal, lip normal, tongue normal, oropharynx normal and moist mucous membranes Teeth and gingiva: dentition normal Throat: posterior oropharynx normal, tonsils normal and uvula midline Eyes General: appearance normal, both eyes and all related structures Neck Neck: normal visual inspection, full ROM, no lymphadenopathy and no meningeal signs Resp Effort & Inspection: normal respiratory effort, able to speak in complete sentences and no respiratory distress Auscultation: clear to auscultation bilaterally, no rales, no rhonchi and no wheezes Cardio Rate: regular rate Rhythm: regular rhythm Heart Sounds: S1 normal and S2 normal Skin General skin exam: no rashes or lesions noted Neuro General: patient alert and patient awake Cognition: normal cognition Speech: speech normal Gait: normal gait Course Vital Signs Vital signs: Vital Signs Temperature 36.1 C L 01/12/24 18:02 Pulse 87 01/12/24 18:02 Respiratory Rate 18 01/12/24 18:02 Blood Pressure 154/81 H 01/12/24 18:02 Pulse Oximetry 96 01/12/24 18:02 Temperature 36.1 C L 01/12/24 18:02 Temperature Source Temporal Artery Scan 01/12/24 18:02 Pulse 87 01/12/24 18:02 Respiratory Rate 18 01/12/24 18:02 Blood Pressure 154/81 H 01/12/24 18:02 Blood Pressure Position Sitting 01/12/24 18:02 Pulse Oximetry 96 01/12/24 18:02 Oxygen Delivery Method Room Air 01/12/24 18:02 Oxygen Flow Rate 0 01/12/24 18:02 Pain Level 7 01/12/24 18:02 Medical Decision Making Patient is a pleasant 53-year-old male, well-known to my self in the department, presenting today with chief complaint of sore throat, congestion, cough began this morning. Patient is hard of hearing, did not feel that he needed a stem cutter, labeled converse well with him lipreading. He denies any fevers or chills. No known sick contacts. Denies any GI upset. Denies any shortness of breath or chest pain. Has not taken anything as of yet for his discomfort. On exam, patient appears to be at his baseline. He is hemodynamically stable. Afebrile. Normal HEENT exam. Lungs are clear. Advised that his symptoms are likely associate with a viral URI. He was negative for strep, RSV, COVID, flu. Discussed these findings with the patient. Advised likely viral etiology. Encouraged hydration and supportive care. Given dose of Tylenol here. Patient is not able to take NSAID as he is anticoagulated. Return precautions were discussed. Advise follow-up with primary care. All of his questions and concerns were addressed and he is in agreement this plan. Quality:SDOH Health Related Social Needs: No Data to Display PFSH All Active Problems (Updated 01/13/24 @ 00:09 by CHANO SOLIMAN) URI (upper respiratory infection) (Acute) Foot pain, left (Acute) Physical examination of employee (Acute) Nasal congestion (Acute) Essential hypertension (Acute 09/07/12) Familial hypercholesterolemia (Acute 09/07/12) Gastroesophageal reflux disease (Acute 08/29/13) Obesity (BMI 30-39.9) (Acute 01/09/15) Obstructive sleep apnea (Chronic 09/06/14) Untreated. 09/04/2014:Severe obstructive sleep apnea with associated signficant nocturnal hypoxemia; [place]stance 68% on RA, average 90% Sensorineural hearing loss, bilateral (Acute 12/27/13) Smoker (Acute 08/29/13) 1 ppd Vertigo (Acute 02/20/14) Type 2 diabetes mellitus without complication (Acute ~07/2017) Daily headache (Acute) Probably due to hypoxia from [place]. 68% sat on Rm Air during sleep study Nocturnal hypoxemia due to obesity (Chronic) 68% constance on room air during sleep study Tremor (Acute) COVID (Acute) Essential tremor (Acute) Medical History Diarrhea COVID-19 (01/2021) Diarrhea due to drug Constipation Financial problems Umbilical hernia Flat feet, bilateral Lipoma (08/29/13) Depression 11/03/18 PHQ9 = 10 GERD (gastroesophageal reflux disease) Migraine Borderline diabetes Anxiety CVA (cerebral vascular accident) HTN (hypertension) Hypercholesterolemia CHINO (obstructive sleep apnea) Nephrolithiasis (07/24/17) Migraine headache (03/23/14) History of Sinhala measles (02/20/14) H/O acute bronchitis with bronchospasm (10/08/16) Anxiety (09/07/12) 11/03/18 BECKS = 26 Deafness Sinusitis, acute Family History Mother , in 50's Essential hypertension Alcohol abuse Substance abuse Brother Brain tumor Other Breast cancer Social History Smoking/Tobacco Use Status: Current every day Tobacco Type: cigarettes Tobacco: How many years used: 35 Quit status: considering quitting Smoking risk assessment performed?: Yes Alcohol Intake: never Drug use: Never Substance use type: does not use Adopted: No Caregiver/Support person: No Foster care: No Household members: none Housing: apartment Number of Children: 3 number of grandchildren: 2 Communication Needs: Hard of Hearing Do you need help understanding health information?: Often current occupation: [employer] Pets and animals: No Sexually active: No Do you think of yourself as: straight/heterosexual Current gender identity: male What is your relationship status?: never How often do you talk on the phone with friends or family?: never How often do you get together with friends or relatives?: never How often do you attend methodist or denominational services?: decline to answer Do you belong to any clubs or organized social groups?: no Panel score (0-1 are the most socially isolated patients): 0 What type of physical activity do you participate in: none and regular exercise Duration: 15-30 minutes/day Frequency: daily Seatbelt use: always Helmet use: No (No reason for one) 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
[2024-01-12] MEDS: Acetaminophen 325 MG TAB 650 MG PO (20:08)
== END 2024-01-12 20:06 | disposition home or self-care (01) ==
PROVIDERS: Emergency Provider Physician Assistant; PCP Family Medicine
DX: J06.9 Acute upper respiratory infection, unspecified (principal)
CPT/HCPCS: 36416; 82962; 87426; 87880; 99283; 87081

== ENCOUNTER 2024-01-14 03:58 | Emergency (ER) | payer MEDICARE, SELFPAY ==
[2024-01-14 04:01] VITALS: BP 184/96; PULSE 88; RESP 16; TEMP 36.7; O2SAT 98
--- NOTE | 2024-01-14 04:15 | ED.GENADUL_ITS ---
Discharge Plan Disposition Patient Disposition: Home Condition: Good Discharge Details Chief Complaint: Recheck Clinical Impression: Acute dehydration, Peripheral vertigo Primary Care Provider: Yifan Grewal ED Provider: Jeffry Marin Home Meds and New Rx's Prescriptions: No Action (DME) pen needle, diabetic [Pen Needle] 31 gauge x 5/16 needle See Rx Instructions .ROUTE .MEDSUPPLY Qty: 100 3RF Rx Instructions: As directed to administer insulin once daily. Dispense covered brand. fluticasone propionate [Flonase Allergy Relief] 50 mcg/actuation spray,suspension 2 spray intranasal DAILY Qty: 16 12RF Rx Instructions: administer into each nostril acetaminophen 500 mg tablet 1,500 mg PO TID PRN Jardiance 10 mg tablet 10 mg PO DAILY Qty: 90 3RF atorvastatin 80 mg tablet 80 mg PO DAILY Qty: 90 3RF famotidine 20 mg tablet 20 mg PO DAILY clopidogrel 75 mg tablet 75 mg PO DAILY Qty: 90 3RF topiramate 100 mg tablet 100 mg PO BID Qty: 180 3RF primidone 50 mg tablet 50 mg PO QHS Qty: 90 3RF insulin glargine [Lantus Solostar U-100 Insulin] 100 unit/mL (3 mL) insulin pen 20 unit subcut QPM Qty: 15 3RF dexlansoprazole [Dexilant] 60 mg capsule,biphase delayed releas 60 mg PO DAILY Qty: 90 1RF labetalol 200 mg tablet 200 mg PO See Instructions Qty: 135 1RF Rx Instructions: Take 1/2 tablet (100 mg) in the AM & 1 tablet (200 mg in the evening) meclizine 25 mg tablet 25 mg PO TID PRN (Reason: dizziness) Qty: 30 0RF albuterol sulfate [Ventolin HFA] 90 mcg/actuation HFA aerosol inhaler 1 - 2 puff inhalation Q6H PRN (Reason: shortness of breath or wheezing) Qty: 6.7 0RF metoclopramide HCl [Reglan] 10 mg tablet 10 mg PO Q6H PRN (Reason: nausea and vomiting) Qty: 16 0RF Discharge Instructions Instructions: Dehydration, Adult (DC) Additional Instructions: At this time you have been rehydrated. Please drink plenty of fluids at home. I would recommend 8 to 12 cups of water or electrolyte solution per day. Please try to cut down on your coffee consumption. If you notice any worsening of your symptoms, or any new symptoms such as vomiting, diarrhea, fever, chills, shortness of breath, chest pain, numbness, weakness, or fainting , please return immediately to the emergency department for reevaluation. Please follow up with your primary care provider as soon as possible for reassessment and reevaluation. As always, it was a pleasure participating in your medical care today. Referrals: Yifan Grewal DO [Primary Care Provider] - [facility] General Date/Time Provider Initiated Documentation: 01/14/24 04:02 . HPI Narrative: 53-year-old male with past medical history of type 2 diabetes, hypertension, obstructive sleep apnea, obesity, daily smoker, high cholesterol and bilateral hearing loss and vertigo presents today for slight dizziness. P irene states he was seen and assessed a few days ago here, he had mild viral upper respiratory symptoms, COVID flu and RSV testing were negative. He was discharged home, he had been doing well and was recommended to hydrate, but rather than hydrating she has been drinking coffee every night. He states that tonight he woke up and he felt slightly dizzy. He drank 4 cups of water but still felt lightheaded and dizzy. He denies any syncope. He denies any significant headache. He denies any fever or chills. His cough and sore throat have resolved. No other complaints at this time. No other modifying factors. He denies any tinnitus. No room spinning sensation. Related Data Home Medications ?Medication ?Instructions ?Recorded ?Confirmed acetaminophen 500 mg tablet 1,500 mg PO TID PRN 11/02/19 01/14/24 pen needle, diabetic 31 gauge x #100 ea 10/21/22 01/14/24/16 (Pen Needle) albuterol sulfate 90 mcg/actuation 1 - 2 puff inhalation Q6H PRN 03/01/23 01/14/24 aerosol inhaler (Ventolin HFA) shortness of breath or wheezing #6.7 grams meclizine 25 mg tablet 25 mg PO TID PRN dizziness #30 tabs 05/24/23 01/14/24 fluticasone propionate 50 2 spray intranasal DAILY #16 grams 07/16/23 01/14/24 mcg/actuation nasal spray,suspension (Flonase Allergy Relief) metoclopramide HCl 10 mg tablet 10 mg PO Q6H PRN nausea and 08/07/23 01/14/24 (Reglan) vomiting #16 tabs atorvastatin 80 mg tablet 80 mg PO DAILY #90 tabs 09/11/23 01/14/24 empagliflozin 10 mg tablet 10 mg PO DAILY #90 tabs 09/11/23 01/14/24 (Jardiance) clopidogrel 75 mg tablet 75 mg PO DAILY #90 tabs 12/11/23 01/14/24 famotidine 20 mg tablet 20 mg PO DAILY 12/11/23 01/14/24 primidone 50 mg tablet 50 mg PO QHS #90 tabs 12/11/23 01/14/24 topiramate 100 mg tablet 100 mg PO BID #180 tabs 12/11/23 01/14/24 insulin glargine 100 unit/mL (3 20 unit (0.2 mL) subcut QPM #15 mL 12/22/23 01/14/24 mL) subcutaneous pen (Lantus Solostar U-100 Insulin) dexlansoprazole 60 mg 60 mg PO DAILY #90 caps 01/04/24 01/14/24 capsule,biphase delayed release (Dexilant) labetalol 200 mg tablet 200 mg PO See Instructions #135 01/04/24 01/14/24 tab-caps Previous Rx's ?Medication ?Instructions ?Recorded pen needle, diabetic 31 gauge x #100 ea 10/21/2210/07 (Pen Needle) albuterol sulfate 90 mcg/actuation 1 - 2 puff inhalation Q6H PRN 03/01/23 aerosol inhaler (Ventolin HFA) shortness of breath or wheezing #6.7 grams meclizine 25 mg tablet 25 mg PO TID PRN dizziness #30 tabs 05/24/23 fluticasone propionate 50 2 spray intranasal DAILY #16 grams 07/16/23 mcg/actuation nasal spray,suspension (Flonase Allergy Relief) metoclopramide HCl 10 mg tablet 10 mg PO Q6H PRN nausea and 08/07/23 (Reglan) vomiting #16 tabs atorvastatin 80 mg tablet 80 mg PO DAILY #90 tabs 09/11/23 empagliflozin 10 mg tablet 10 mg PO DAILY #90 tabs 09/11/23 (Jardiance) clopidogrel 75 mg tablet 75 mg PO DAILY #90 tabs 12/11/23 primidone 50 mg tablet 50 mg PO QHS #90 tabs 12/11/23 topiramate 100 mg tablet 100 mg PO BID #180 tabs 12/11/23 insulin glargine 100 unit/mL (3 20 unit (0.2 mL) subcut QPM #15 mL 12/22/23 mL) subcutaneous pen (Lantus Solostar U-100 Insulin) dexlansoprazole 60 mg 60 mg PO DAILY #90 caps 01/04/24 capsule,biphase delayed release (Dexilant) labetalol 200 mg tablet 200 mg PO See Instructions #135 01/04/24 tab-caps Allergies Allergy/AdvReac Type Severity Reaction Status Date / Time metformin AdvReac Severe Diarrhea Verified 01/14/24 04:06 [facility] AdvReac diarrhea Verified 01/14/24 04:06 General Stated Complaint: Recheck EDMUND: 4 Review of Systems All systems reviewed & are unremarkable except as noted in HPI and below Exam Narrative Exam Narrative: 1.Const: Well-nourished, Well-developed, appearing stated age 2.Eyes: PERRL, no conjunctival injection, and symmetrical lids. Minimal horizontal nystagmus. No vertical or rotatory nystagmus. 3.ENT: Atraumatic external nose and ears. dry MM. Neck: Symmetric, trachea midline, No thyromegaly. 4.CVS: +S1/S2, No murmurs or gallops. Peripheral pulses 2+ and equal in all extremities. Brisk capillary refill in all extremities. 5.RESP: Unlabored respiratory effort. Clear to auscultation bilaterally. No wheezes rales or rhonchi 6.GI: Soft, Nontender/Nondistended, No hepatosplenomegaly. No guarding or rebound. 7.MSK: Normocephalic/Atraumatic, Extremities w/o deformity or ttp No cyanosis or clubbing, Normal movement of all extremities 8.Skin: Warm, Dry. No rashes or lesions. 9.Neuro: transfer agent II-XII grossly intact. Sensation grossly intact, no focal neurologic deficits. 10.Psych: (AAO) x3. Appropriate mood and affect Course Vital Signs Vital signs: Vital Signs Temperature 36.7 C 01/14/24 04:01 Pulse 88 08/22/24 04:01 Respiratory Rate 16 01/14/24 04:01 Blood Pressure 184/96 H 01/14/24 04:01 Pulse Oximetry 98 01/14/24 04:01 Temperature 36.7 C 01/14/24 04:01 Temperature Source Temporal Artery Scan 01/14/24 04:01 Pulse 88 01/14/24 04:01 Respiratory Rate 16 01/14/24 04:01 Respiratory Effort Normal, Non-Labored 01/14/24 04:06 Blood Pressure 184/96 H 01/14/24 04:01 Blood Pressure Position Sitting 01/14/24 04:01 Pulse Oximetry 98 01/14/24 04:01 Oxygen Delivery Method Room Air 01/14/24 04:01 Oxygen Flow Rate 0 01/14/24 04:01 Pain Level 0 01/14/24 04:01 Medical Decision Making 53-year-old male with past medical history of type 2 diabetes, hypertension, obstructive sleep apnea, obesity, daily smoker, high cholesterol and bilateral hearing loss and vertigo presents today for slight dizziness. Patient states he was seen and assessed a few days ago here, he had mild viral upper respiratory symptoms, COVID flu and RSV testing were negative. He was discharged home, he had been doing well and was recommended to hydrate, but rather than hydrating she has been drinking coffee every night. He states that tonight he woke up and he felt slightly dizzy. He drank 4 cups of water but still felt lightheaded and dizzy. He denies any syncope. He denies any significant headache. He denies any fever or chills. His cough and sore throat have resolved. No other complaints at this time. No other modifying factors. He denies any tinnitus. No room spinning sensation. Exam demonstrates dry mucous membranes, minimal horizontal nystagmus. No other abnormalities. Symptoms consistent with mild dehydration, potentially mild peripheral vertigo. Patient ambulates well. Symptoms inconsistent with cerebellar stroke. No ataxia or concerning abnormality otherwise. We will r ehydrate with a liter of LR, will give meclizine, monitor closely and reassess. 5:21 AM On reassessment patient feels much better, symptoms have resolved, vital signs stable, electrolytes normal, CBC normal. Calcium minimally low at 8 3. Patient's symptoms have resolved. Patient will be discharged home. Diagnosis dehydration with minimal peripheral vertigo. I have extensively reviewed the t reatment plan and discharge instructions with the patient. I have addressed all patient concerns at this time. The patient was made aware of what symptoms to monitor for that would warrant a return to the emergency department. Discussed the plan with the patient, they demonstrate verbal understanding and agreement with our assessment and plan at this time. The documentation in this chart was dictated using [employer] dictation software. Please excuse any dictation errors. Quality:SDOH Health Related Social Needs: No Data to Display PFSH All Active Problems (Updated 01/14/24 @ 05:23 by Jeffry Marin DO) Peripheral vertigo (Acute) Acute dehydration (Acute) URI (upper respiratory infection) (Acute) Foot pain, left (Acute) Physical examination of employee (Acute) Nasal congestion (Acute) Essential hypertension (Acute 09/07/12) Familial hypercholesterolemia (Acute 09/07/12) Gastroesophageal reflux disease (Acute 08/29/13) Obesity (BMI 30-39.9) (Acute 01/09/15) Obstructive sleep apnea (Chronic 09/06/14) Untreated. 09/04/2014:Severe obstructive sleep apnea with associated signficant nocturnal hypoxemia; Constance 68% on RA, average 90% Sensorineural hearing loss, bilateral (Acute 12/27/13) Smoker (Acute 08/29/13) 1 ppd Vertigo (Acute 02/20/14) Type 2 diabetes mellitus without complication (Acute ~07/2017) Daily headache (Acute) Probably due to hypoxia from [place]. 68% sat on Rm Air during sleep study Nocturnal hypoxemia due to obesity (Chronic) 68% constance on room air during sleep study Tremor (Acute) COVID (Acute) Essential tremor (Acute) Medical History Diarrhea COVID-19 (01/2021) Diarrhea due to drug Constipation Financial problems Umbilical hernia Flat feet, bilateral Lipoma (08/29/13) Depression 11/03/18 PHQ9 = 10 GERD (gastroesophageal reflux disease) Migraine Borderline diabetes Anxiety CVA (cerebral vascular accident) HTN (hypertension) Hypercholesterolemia [place] (obstructive sleep apnea) Nephrolithiasis (07/24/17) Migraine headache (03/23/14) History of [place] measles (02/20/14) H/O acute bronchitis with bronchospasm (10/08/16) Anxiety (09/07/12) 11/03/18 BECKS = 26 Deafness Sinusitis, acute Family History Mother , in 50's Essential hypertension Alcohol abuse Substance abuse Brother Brain tumor Other Breast cancer Social History Smoking/Tobacco Use Status: Current every day Tobacco Type: cigarettes Tobacco: How many years used: 35 Quit status: considering quitting Smoking risk assessment performed?: Yes Alcohol Intake: never Drug use: Never Substance use type: does not use Adopted: No Caregiver/Support person: No Foster care: No Household members: none Housing: apartment Number of Children: 3 number of grandchildren: 2 Communication Needs: Hard of Hearing Do you need help understanding health information?: Often 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 Pets and animals: No Sexually active: No Do you think of yourself as: straight/heterosexual Current gender identity: male What is your relationship status?: never How often do you talk on the phone with friends or family?: never How often do you get together with friends or relatives?: never How often do you attend pentecostalism or samaritan services?: decline to answer Do you belong to any clubs or organized social groups?: no Panel score (0-1 are the most socially isolated patients): 0 What type of physical activity do you participate in: none and regular exercise Duration: 15-30 minutes/day Frequency: daily Seatbelt use: always Helmet use: No (No reason for one) Drive intox or ride w/intox passenger coach driver: No Water heater temp set <120 deg: Yes Working smoke detector in home: Yes Fire extinguisher in home: Yes Carbon monox detector in home: Yes Do you feel safe at home: Yes Do you feel safe in your relationship?: Yes
--- NOTE | 2024-01-14 04:15 | RT.EKG_ITS ---
APPROVED REPORT Exam: Resting ECG Reason for Exam: Dizzy Patient Location: E HR:84 bpm ECG Measurements Heart Rate 84 AXIS NV 142 P 9 QRSd 92 QRS -7 QT 373 T 44 QTc 441 Conclusion Sinus rhythm...normal P axis, V-rate 60- 99 Inferior infarct, old...Q >35mS, II III aVF Physician: no stemi, intervals normal
[2024-01-14] MEDS: Lactated Ringers 1,000 ML 1000 ML IV (04:23)
[2024-01-14 04:26] LABS: Abs Immature Grans 0.06 10^3/uL (0.0-0.06); Absolute Basophil Count 0.06 10^3/uL (0.0-0.2); Absolute Eosinophil Count 0.15 10^3/uL (0.0-0.7); Absolute Monocyte Count 0.63 10^3/uL (0.1-0.8); Basophils % 0.8 %; Eosinophils % 2.1 %; HCT 43.3 % (40.0-50.0); HGB 13.8 g/dL (13.5-17.5); Immature Grans % 0.8 %; Lymphocytes % 21.1 %; MCH 27.9 pg (27.0-33.0); MCHC 31.9 % (32.0-36.0); MCV 88 fL (80-95); MPV 9.5 fL (8.0-11.0); Monocytes % 8.9 %; Neutrophils % 66.3 %; Platelet Count 263 10^3/uL (130-400); RBC 4.94 10^6/uL (4.36-5.78); RDW 14.1 % (11.8-14.1); RDW-SD 45.4 fL
[2024-01-14] MEDS: Meclizine 25 MG TAB PO (04:36)
[2024-01-14 04:40] LABS: ALT 28 U/L (16-63); AST 6 U/L (15-37); Albumin 3.5 g/dL (3.4-5.0); Alkaline Phosphatase 82 U/L (46-116); Anion Gap 9.1 mmol/L (3-11); BUN 9 mg/dL (7-18); Bilirubin, Total 0.29 mg/dL (0.2-1.0); CO2 25.9 mmol/L (21.0-32.0); CREATININE 0.8 mg/dL (0.70-1.30); Calcium 8.3 mg/dL (8.5-10.1); Chloride 104 mmol/L (98-107); Estimated GFR 106.48 (mL/min/1.73m2); Glucose 224 mg/dL (74-106); Potassium 3.5 mmol/L (3.5-5.1); Sodium 139 mmol/L (136-145); Total Protein 6.6 g/dL (6.4-8.2)
[2024-01-14 05:28] VITALS: BP 167/84; PULSE 82; RESP 18; TEMP 36.4; O2SAT 97
== END 2024-01-14 05:24 | disposition home or self-care (01) ==
PROVIDERS: Emergency Provider Student in an Organized Health Care Education/Training Program; PCP Family Medicine
DX: E86.0 Dehydration (principal); H81.399 Other peripheral vertigo, unspecified ear; I10 Essential (primary) hypertension; E78.00 Pure hypercholesterolemia, unspecified; E11.9 Type 2 diabetes mellitus without complications; Z79.4 Long term (current) use of insulin; Z79.84 Long term (current) use of oral hypoglycemic drugs; Z79.01 Long term (current) use of anticoagulants; F17.210 Nicotine dependence, cigarettes, uncomplicated
CPT/HCPCS: 36415; 80053; 93005; 96360; 99284; 85025; 93010

== ENCOUNTER 2024-03-28 06:54 | Emergency (ER) | payer MEDICARE, SELFPAY ==
[2024-03-28] VITALS (31 sets, daily range): BP systolic 147–200; BP diastolic 79–98; PULSE 85–103; RESP 10–21; TEMP 36.5–36.6; O2SAT 94–100
--- NOTE | 2024-03-28 07:00 | RT.EKG_ITS ---
APPROVED REPORT Exam: Resting ECG Reason for Exam: Dizziness Patient Location: E HR:89 bpm ECG Measurements Heart Rate 89 AXIS WY 142 P 12 QRSd 102 QRS -10 QT 391 T 60 QTc 476 Conclusion Sinus rhythm...normal P axis, V-rate 60- 99 Inferior infarct, old...Q >35mS, II III aVF Physician: no stemi
--- NOTE | 2024-03-28 07:15 | DI.CT_ITS ---
Exam(s) CT HEAD WO EXAM: CT HEAD WO CLINICAL HISTORY: dizzy, r/o bleed/stroke. TECHNIQUE: Imaging Protocol: Axial computed tomography images with coronal and sagittal reformatted images were created and reviewed COMPARISON: CT CT BRAIN NECK CTA from 03/04/2021 FINDINGS: Ventricles and Extra axial spaces: Normal in size and morphology for the patient's age. Hemorrhage: None. Cerebral parenchyma: No evidence of an acute territorial infarct. No mass effect is identified. Midline shift: None. Brainstem/Cerebellum: Normal. Calvarium: Normal. Visualized Paranasal sinuses/Mastoids: Clear. Soft Tissues: Unremarkable. IMPRESSION: No acute intracranial process. RADIATION DOSE DELIVERED: 875.63mGy.cm Total DLP DATA REPOSITORY: All CT scans at this facility are submitted to the National Radiology Data Registry (NRDR) Dose Index Registry (DIR) with the [employer] (ACR). RADIATION OPTIMIZATION: All CT scans at this facility use at least one of these dose optimization te chniques: automated exposure control; mA and/or kV adjustment per patient size (includes targeted exa ms where dose is matched to clinical indication); or iterative reconstruction.
[2024-03-28 07:29] LABS: Abs Immature Grans 0.07 10^3/uL (0.0-0.06); Absolute Basophil Count 0.08 10^3/uL (0.0-0.2); Absolute Eosinophil Count 0.23 10^3/uL (0.0-0.7); Absolute Lymphocyte Count 2.94 10^3/uL (1.2-3.4); Absolute Monocyte Count 0.71 10^3/uL (0.1-0.8); Absolute Neutrophil Count 6.23 10^3/uL (1.2-6.7); Basophils % 0.8 %; Eosinophils % 2.2 %; HCT 48.3 % (40.0-50.0); HGB 15.6 g/dL (13.5-17.5); Immature Grans % 0.7 %; Lymphocytes % 28.7 %; MCH 28.3 pg (27.0-33.0); MCHC 32.3 % (32.0-36.0); MCV 88 fL (80-95); MPV 9.9 fL (8.0-11.0); Monocytes % 6.9 %; Neutrophils % 60.7 %; Platelet Count 353 10^3/uL (130-400); RBC 5.52 10^6/uL (4.36-5.78); RDW-SD 44.8 fL; WBC 10.26 10^3/uL (4.4-10.8)
[2024-03-28] MEDS: Meclizine 25 MG TAB 50 MG PO (07:34)
[2024-03-28] MEDS: Ondansetron 4 MG/2 ML VIAL IVP (07:47)
--- NOTE | 2024-03-28 07:51 | DI.VRAD_ITS ---
PROCEDURE INFORMATION: Exam: CT Head Without Contrast Exam date and time: 03/28/2024 7:36 AM Age: 53 years old Clinical indication: Dizziness; Patient HX: Dizzy, R/O bleed/stroke TECHNIQUE: Imaging protocol: Computed tomography of the head without contrast. COMPARISON: CT BRAIN NECK CTA 03/04/2021 9:06 PM FINDINGS: Brain: No intracranial hemorrhage appreciated. No significant focal mass effect or significant midline shift. Cerebral ventricles: No disproportionate ventriculomegaly. Paranasal sinuses: No air-fluid levels seen. Mastoid air cells: No mastoid effusion. Bones: No acute cranial vault fracture seen. Soft tissues: No acute findings. IMPRESSION: No acute intracranial abnormality is appreciated. Dictated and Authenticated by: Bhavna Reveles MD. Ordering:HAYLEE Teran MD
[2024-03-28 08:10] LABS: ALT 23 U/L (16-63); AST 12 U/L (15-37); Albumin 4.3 g/dL (3.4-5.0); Alkaline Phosphatase 84 U/L (46-116); Anion Gap 10.1 mmol/L (3-11); BUN 11 mg/dL (7-18); Bilirubin, Total 1.03 mg/dL (0.2-1.0); CO2 26.9 mmol/L (21.0-32.0); CREATININE 0.9 mg/dL (0.70-1.30); Calcium 9.4 mg/dL (8.5-10.1); Chloride 102 mmol/L (98-107); Estimated GFR 102.76 (mL/min/1.73m2); Glucose 267 mg/dL (74-106); Lipase 25 U/L (16-77); Potassium 3.6 mmol/L (3.5-5.1); Sodium 139 mmol/L (136-145); Total Protein 7.8 g/dL (6.4-8.2); Troponin I 10 ng/L (<or=76)
--- NOTE | 2024-03-28 08:46 | ED.GENADUL_ITS ---
Discharge Plan Disposition Patient Disposition: Home Condition: Good Discharge Details Clinical Impression: Vertigo Primary Care Provider: Yifan Grewal ED Provider: Jeffry Marin Home Meds and New Rx's Prescriptions: New meclizine 25 mg tablet 25 mg PO TID Qty: 60 0RF No Action (DME) pen needle, diabetic [Pen Needle] 31 gauge x 5/16 needle See Rx Instructions .ROUTE .MEDSUPPLY Qty: 100 3RF Rx Instructions: As directed to administer insulin once daily. Dispense covered brand. fluticasone propionate [Flonase Allergy Relief] 50 mcg/actuation spray,suspension 2 spray intranasal DAILY Qty: 16 12RF Rx Instructions: administer into each nostril insulin glargine [Lantus Solostar U-100 Insulin] 100 unit/mL (3 mL) insulin pen 25 unit subcut QPM Qty: 15 3RF albuterol sulfate [Ventolin HFA] 90 mcg/actuation HFA aerosol inhaler 1 - 2 puff inhalation Q6H PRN (Reason: shortness of breath or wheezing) Qty: 6.7 0RF acetaminophen 500 mg tablet 1,500 mg PO TID PRN Jardiance 10 mg tablet 10 mg PO DAILY Qty: 90 3RF atorvastatin 80 mg tablet 80 mg PO DAILY Qty: 90 3RF clopidogrel 75 mg tablet 75 mg PO DAILY Qty: 90 3RF topiramate 100 mg tablet 100 mg PO BID Qty: 180 3RF primidone 50 mg tablet 50 mg PO QHS Qty: 90 3RF dexlansoprazole [Dexilant] 60 mg capsule,biphase delayed releas 60 mg PO DAILY Qty: 90 1RF labetalol 200 mg tablet 200 mg PO See Instructions Qty: 135 1RF Rx Instructions: Take 1/2 tablet (100 mg) in the AM & 1 tablet (200 mg in the evening) famotidine 20 mg tablet See Rx Instructions .ROUTE .COMPLEX Qty: 90 3RF Dose Instruction: TAKE 1 TABLET BY MOUTH DAILY Rx Instructions: TAKE 1 TABLET BY MOUTH DAILY meclizine 25 mg tablet 25 mg PO TID PRN (Reason: dizziness) Qty: 30 0RF metoclopramide HCl [Reglan] 10 mg tablet 10 mg PO Q6H PRN (Reason: nausea and vomiting) Qty: 16 0RF Discharge Instructions Instructions: Vertigo ED Additional Instructions: At this time your workup is returned reassuring. There is no evidence of heart attack, stroke or bleed. Please stay well-hydrated and drink plenty fluids at home. Please take the meclizine as needed for dizziness. We have made sure that your labetalol order is in at the pharmacy. They will have it refilled by sometime in the afternoon tomorrow. Please make sure that you are taking half a tablet in the morning and half a tablet in the evening. If you notice any worsening of your symptoms, or any new symptoms such as vomiting, diarrhea, fever, chills, shortness of breath, chest pain, numbness, weakness, or fainting , please return immediately to the emergency department for reevaluation. Please follow up with your primary care provider as soon as possible for reassessment and reevaluation. As always, it was a pleasure participating in your medical care today. Stand Alone Forms: Work Release Referrals: Yifan Grewal DO [Primary Care Provider] - Discharge Data Discharge Date/Time-TO BE ENTERED AT DEPARTURE: 03/28/24 10:35 HPI General Date/Time Provider Initiated Documentation: 03/28/24 07:21 . HPI Narrative: 53-year-old male with past medical history of type 2 diabetes, hypertension, obstructive sleep apnea, obesity, daily smoker, high cholesterol and bilateral hearing loss, chronic vertigo, previous stroke, chronic left-sided tremor, who presents today for evaluation of dizziness. Patient states that he has been out of his meclizine and labetalol for the last month or so. He has not received a text from his pharmacy to pick them up and so he has not gone to pick them up. Patient states that this morning he woke up at 6 AM and felt sweaty nauseous and the room was spinning, particularly to the left. He denies any headache chest pain or shortness of breath. He denies any vomiting but does admit to notable nausea. He denies any vision changes otherwise. No other complaints at this time. Related Data Home Medications ?Medication ?Instructions ?Recorded ?Confirmed acetaminophen 500 mg tablet 1,500 mg PO TID PRN 11/02/19 03/28/24 pen needle, diabetic 31 gauge x #100 ea 10/21/22 03/28/2410/07 (Pen Needle) meclizine 25 mg tablet 25 mg PO TID PRN dizziness #30 tabs 05/24/23 03/28/24 fluticasone propionate 50 2 spray intranasal DAILY #16 grams 07/16/23 03/28/24 mcg/actuation nasal spray,suspension (Flonase Allergy Relief) metoclopramide HCl 10 mg tablet 10 mg PO Q6H PRN nausea and 08/07/23 03/28/24 (Reglan) vomiting #16 tabs atorvastatin 80 mg tablet 80 mg PO DAILY #90 tabs 09/11/23 03/28/24 empagliflozin 10 mg tablet 10 mg PO DAILY #90 tabs 09/11/23 03/28/24 (Jardiance) clopidogrel 75 mg tablet 75 mg PO DAILY #90 tabs 12/11/23 03/28/24 primidone 50 mg tablet 50 mg PO QHS #90 tabs 12/11/23 03/28/24 topiramate 100 mg tablet 100 mg PO BID #180 tabs 12/11/23 03/28/24 dexlansoprazole 60 mg 60 mg PO DAILY #90 caps 01/04/24 03/28/24 capsule,biphase delayed release (Dexilant) labetalol 200 mg tablet 200 mg PO See Instructions #135 01/04/24 03/28/24 tab-caps famotidine 20 mg tablet See Rx Instructions .Route 02/02/24 03/28/24 .COMPLEX #90 tabs albuterol sulfate 90 mcg/actuation 1 - 2 puff inhalation Q6H PRN 03/11/24 03/28/24 aerosol inhaler (Ventolin HFA) shortness of breath or wheezing #6.7 grams insulin glargine 100 unit/mL (3 25 unit (0.25 mL) subcut QPM #15 mL 03/11/24 03/28/24 mL) subcutaneous pen (Lantus Solostar U-100 Insulin) meclizine 25 mg tablet 25 mg PO TID #60 tabs 03/28/24 Previous Rx's ?Medication ?Instructions ?Recorded pen needle, diabetic 31 gauge x #100 ea 10/21/2210/07 (Pen Needle) meclizine 25 mg tablet 25 mg PO TID PRN dizziness #30 tabs 05/24/23 fluticasone propionate 50 2 spray intranasal DAILY #16 grams 07/16/23 mcg/actuation nasal spray,suspension (Flonase Allergy Relief) metoclopramide HCl 10 mg tablet 10 mg PO Q6H PRN nausea and 08/07/23 (Reglan) vomiting #16 tabs atorvastatin 80 mg tablet 80 mg PO DAILY #90 tabs 09/11/23 empagliflozin 10 mg tablet 10 mg PO DAILY #90 tabs 09/11/23 (Jardiance) clopidogrel 75 mg tablet 75 mg PO DAILY #90 tabs 12/11/23 primidone 50 mg tablet 50 mg PO QHS #90 tabs 12/11/23 topiramate 100 mg tablet 100 mg PO BID #180 tabs 12/11/23 dexlansoprazole 60 mg 60 mg PO DAILY #90 caps 01/04/24 capsule,biphase delayed release (Dexilant) labetalol 200 mg tablet 200 mg PO See Instructions #135 01/04/24 tab-caps famotidine 20 mg tablet See Rx Instructions .Route 02/02/24 .COMPLEX #90 tabs albuterol sulfate 90 mcg/actuation 1 - 2 puff inhalation Q6H PRN 03/11/24 aerosol inhaler (Ventolin HFA) shortness of breath or wheezing #6.7 grams insulin glargine 100 unit/mL (3 25 unit (0.25 mL) subcut QPM #15 mL 03/11/24 mL) subcutaneous pen (Lantus Solostar U-100 Insulin) meclizine 25 mg tablet 25 mg PO TID #60 tabs 03/28/24 Allergies Allergy/AdvReac Type Severity Reaction Status Date / Time metformin AdvReac Severe Diarrhea Verified 03/28/24 07:04 dulaglutide (From [facility]) AdvReac diarrhea Verified 03/28/24 07:04 General Stated Complaint: GenMedical EDMUND: 3 Review of Systems All systems reviewed & are unremarkable except as noted in HPI and below Exam Narrative Exam Narrative: 1.Const: Well-nourished, Well-developed, appearing stated age 2.Eyes: PERRL, no conjunctival injection, and symmetrical lids. Mild horizontal unilateral fatigable nystagmus to the left. No vertical or rotatory nystagmus. Positive head impulse test 3.ENT: Atraumatic external nose and ears. Notably dry MM. Neck: Symmetric, trachea midline, No thyromegaly. 4.CVS: +S1/S2, Peripheral pulses 2+ and equal in all extremities. Brisk capillary refill in all extremities. 5.RESP: Unlabored respiratory effort. Clear to auscultation bilaterally. No wheezes rales or rhonchi 6.GI: Soft, Nontender/Nondistended, No hepatosplenomegaly. No guarding or rebound. 7.MSK: Normocephalic/Atraumatic, Extremities w/o deformity or ttp No cyanosis or clubbing, Normal movement of all extremities 8.Skin: Warm, Dry. No rashes or lesions. 9.Neuro: artificial cherry maker II-XII grossly intact. Sensation grossly intact, no focal neurologic deficits. All 6 cardinal planes of vision are fully intact. No evidence of rotatory or vertical nystagmus. The patient demonstrated a normal [id number], good dexterity. There was no evidence of dysdiadochokinesia. Patient was able to ambulate without difficulty. There was no wide-based gait. Romberg testing was normal. [id number]-op-[id number] testing was normal. Sensation was intact bilaterally as well as muscle strength bilaterally for all extremities. Patient was able to verbalize butter cup with no slurring, or miss pronunciation. Cerebellar function testing is normal. The patient demonstrates no findings concerning for a central event. No vertical nystagmus. Normal test of skew. No suggestion of a central cerebellar event. Patient ambulates well with no ataxic gait 10.Psych: (AAO) x3. Appropriate mood and affect Course Vital Signs Vital signs: Vital Signs Pulse 103 H 03/28/24 06:59 Respiratory Rate 14 03/28/24 06:59 Blood Pressure 178/91 H 03/28/24 06:59 Pulse Oximetry 98 03/28/24 06:59 Temperature 36.6 C 03/28/24 07:19 Temperature Source Oral 03/28/24 07:19 Pulse 92 H 03/28/24 08:31 Pulse 92 H 03/28/24 08:31 Respiratory Rate 10 L 03/28/24 08:31 Respiratory Effort Normal, Non-Labored 03/28/24 07:35 Respiratory Depth Normal 03/28/24 07:35 Respiratory Pattern Normal 03/28/24 07:35 Blood Pressure 191/89 H 03/28/24 08:31 Blood Pressure Mean 129 03/28/24 08:31 Pulse Oximetry 97 03/28/24 08:31 Oxygen Delivery Method Room Air 03/28/24 07:19 Oxygen Flow Rate 0 03/28/24 07:19 Pain Level 5 03/28/24 07:19 Comment MD aware of BP 03/28/24 08:16 Lab/Test Results Lab/Test Results: Laboratory Tests Range/Units 03/28/24 07:16 WBC (4.4-10.8) 10^3/uL 10.26 RBC (4.36-5.78) 10^6/uL 5.52 Hgb (13.5-17.5) g/dL 15.6 Hct (40.0-50.0) % 48.3 MCV (80-95) fL 88 MCH (27.0-33.0) pg 28.3 MCHC (32.0-36.0) % 32.3 RDW (11.8-14.1) % 14.0 Plt Count (130-400) 10^3/uL 353 MPV (8.0-11.0) fL 9.9 Immature Gran % % 0.7 Neutrophils % % 60.7 Lymphocytes % % 28.7 Monocytes % % 6.9 Eosinophils % % 2.2 Basophils % % 0.8 Nucleated RBC % (0.0-0.3) % 0.0 Absolute Neutrophils (1.2-6.7) 10^3/uL 6.23 Absolute Lymphocytes (1.2-3.4) 10^3/uL 2.94 Absolute Monocytes (0.1-0.8) 10^3/uL 0.71 Absolute Eosinophils (0.0-0.7) 10^3/uL 0.23 Absolute Basophils (0.0-0.2) 10^3/uL 0.08 Sodium (136-145) mmol/L 139 Potassium (3.5-5.1) mmol/L 3.6 Chloride (98-107) mmol/L 102 Carbon Dioxide (21.0-32.0) mmol/L 26.9 Anion Gap (3-11) mmol/L 10.1 BUN (7-18) mg/dL 11 Creatinine (0.70-1.30) mg/dL 0.9 Est GFR (CKD-EPI 2020) (mL/min/1.73m2) 102.76 Glucose (74-106) mg/dL 267 H Calcium (8.5-10.1) mg/dL 9.4 Total Bilirubin (0.2-1.0) mg/dL 1.03 H AST (15-37) U/L 12 L ALT (16-63) U/L 23 Alkaline Phosphatase (46-116) U/L 84 Troponin I (<or=76) ng/L 10 Total Protein (6.4-8.2) g/dL 7.8 Albumin (3.4-5.0) g/dL 4.3 Lipase (16-77) U/L 25 Medical Decision Making 53-year-old male with past medical history of type 2 diabetes, hypertension, obstructive sleep apnea, obesity, daily smoker, high cholesterol and bilateral hearing loss, chronic vertigo, previous stroke, chronic left-sided tremor, who presents today for evaluation of dizziness. Patient states that he has been out of his meclizine and labetalol for the last month or so. He has not received a text from his pharmacy to pick them up and so he has not gone to pick them up. Patient states that this morning he woke up at 6 AM and felt sweaty nauseous and the room was spinning, particularly to the left. He denies any headache chest pain or shortness of breath. He denies any vomiting but does admit to notable nausea. He denies any vision changes otherwise. No other complaints at this time. Physical exam demonstrates horizontal fatigable unidirectional left-sided nystagmus, positive head impulse test. Negative test of skew. No concerning red flags of vertical nystagmus, rotatory nystagmus, or ataxia. Symptoms appear clinically consistent with peripheral vertigo. Out of an abundance of precaution we will get CT imaging to evaluate for any space-occupying lesion or bleed. Or major signs of stroke. Patient feels that the symptoms are identical to his previous episodes of peripheral vertigo. Additionally I suspect that the incidence of this is likely brought about by not having taken his labetalol for the last month or so. I did question him about this, and he states that he has been taking 1 full tablet in the morning and half a tab at night, however reviewing his prescription it appears that he is supposed to be taking half in the morning and half at night. This is likely why he is out of his medications. 12:07 PM Patient has been rehydrated with a liter of Plasma-Lyte, he has been given meclizine, CT scan of the head is negative for acute process. Laboratory workup is benign. No significant electrolyte abnormalities, cardiac workup is benign, no significant elevation in his troponin. Lipase normal. Patient's nausea significantly improved. Patient feels well and feels comfortable going home. Will give a work note for the next few days. Will recommend continued rest, h ome hydration, and meclizine. We did contact the pharmacy, and they will do an early refill for his labetalol. Should be ready by tomorrow. Patient otherwise stable for discharge. Symptoms at this time appear clinically inconsistent with cerebellar stroke or infarct, and no evidence of central ischemic or hemorrhagic event. I have extensively reviewed the treatment plan and discharge instruct ions with the patient. I have addressed all patient concerns at this time. The patient was made aware of what symptoms to monitor for that would warrant a return to the emergency department. Discussed the plan with the patient, they demonstrate verbal understanding and agreement with our assessment and plan at this time. The documentation in this chart was dictated using Snapguide dictation software. Please excuse any dictation errors. FINDINGS: Ventricles and Extra axial spaces: Normal in size and morphology for the patient's age. Hemorrhage: None. Cerebral parenchyma: No evidence of an acute territorial infarct. No mass effect is identified. Midline shift: None. Brainstem/Cerebellum: Normal. Calvarium: Normal. Visualized Paranasal sinuses/Mastoids: Clear. Soft Tissues: Unremarkable. IMPRESSION: No acute intracranial process. Quality:SDOH Health Related Social Needs: No Data to Display PFSH All Active Problems Vertigo (Acute) Foot pain, left (Acute) Physical examination of employee (Acute) Nasal congestion (Acute) Essential hypertension (Acute 09/07/12) Familial hypercholesterolemia (Acute 09/07/12) Gastroesophageal reflux disease (Acute 08/29/13) Obesity (BMI 30-39.9) (Acute 01/09/15) Obstructive sleep apnea (Chronic 09/06/14) Untreated. 09/04/2014:Severe obstructive sleep apnea with associated signficant nocturnal hypoxemia; Constance 68% on RA, average 90% Sensorineural hearing loss, bilateral (Acute 12/27/13) Smoker (Acute 08/29/13) 1 ppd Vertigo (Acute 02/20/14) Type 2 diabetes mellitus without complication (Acute ~07/2017) Daily headache (Acute) Probably due to hypoxia from [place]. 68% sat on Rm Air during sleep study Nocturnal hypoxemia due to obesity (Chronic) 68% constance on room air during sleep study Tremor (Acute) COVID (Acute) Essential tremor (Acute) Medical History Diarrhea COVID-19 (01/2021) Diarrhea due to drug Constipation Financial problems Umbilical hernia Flat feet, bilateral Lipoma (08/29/13) Depression 11/03/18 PHQ9 = 10 GERD (gastroesophageal reflux disease) Migraine Borderline diabetes Anxiety CVA (cerebral vascular accident) HTN (hypertension) Hypercholesterolemia [place] (obstructive sleep apnea) Nephrolithiasis (07/24/17) Migraine headache (03/23/14) History of [place] measles (02/20/14) H/O acute bronchitis with bronchospasm (10/08/16) Anxiety (09/07/12) 11/03/18 BECKS = 26 Deafness Sinusitis, acute Family History Mother , in 50's Essential hypertension Alcohol abuse Substance abuse Brother Brain tumor Other Breast cancer Social History Smoking/Tobacco Use Status: Current every day Tobacco Type: cigarettes Tobacco: How many years used: 35 Quit status: considering quitting Smoking risk assessment performed?: Yes Alcohol Intake: never Drug use: Never Substance use type: does not use Adopted: No Caregiver/Support person: No Foster care: No Household members: none Housing: apartment Number of Children: 3 number of grandchildren: 2 Communication Needs: Hard of Hearing Do you need help understanding health information?: Often 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 Pets and animals: No Sexually active: No Do you think of yourself as: straight/heterosexual Current gender identity: male What is your relationship status?: never How often do you talk on the phone with friends or family?: never How often do you get together with friends or relatives?: never How often do you attend pentecostalism or samaritan services?: decline to answer Do you belong to any clubs or organized social groups?: no Panel score (0-1 are the most socially isolated patients): 0 What type of physical activity do you participate in: none and regular exercise Duration: 15-30 minutes/day Frequency: daily Seatbelt use: always Helmet use: No (No reason for one) Drive intox or ride w/intox utility driver: No Water heater temp set <120 deg: Yes Working smoke detector in home: Yes Fire extinguisher in home: Yes Carbon monox detector in home: Yes Do you feel safe at home: Yes Do you feel safe in your relationship?: Yes
[2024-03-28 09:06] LABS: Troponin I 11 ng/L (<or=76)
[2024-03-28] MEDS: Labetalol 100 MG TAB PO (10:14)
== END 2024-03-28 10:35 | disposition home or self-care (01) ==
PROVIDERS: Emergency Provider Student in an Organized Health Care Education/Training Program; PCP Family Medicine
DX: R42 Dizziness and giddiness (principal); I10 Essential (primary) hypertension; E11.9 Type 2 diabetes mellitus without complications; Z91.148 Patient's other noncompliance with medication regimen for other reason
CPT/HCPCS: 36415; 80053; 83690; 93005; 96365; 96375; 99285; 70450; 84484; 85025; 93010; 99284; J2405

== ENCOUNTER 2024-05-07 04:16 | Emergency (ER) | payer MEDICARE, SELFPAY ==
[2024-05-07] VITALS (39 sets, daily range): BP systolic 99–183; BP diastolic 59–87; PULSE 72–90; RESP 9–17; TEMP 35.8; O2SAT 92–99
--- NOTE | 2024-05-07 04:15 | RT.EKG_ITS ---
APPROVED REPORT Exam: Resting ECG Reason for Exam: chest pain Patient Location: E HR:77 bpm ECG Measurements Heart Rate 77 AXIS VT 144 P 2 QRSd 98 QRS -3 QT 384 T 39 QTc 434 Conclusion Sinus rhythm...normal P axis, V-rate 60- 99 Inferior infarct, old...Q >35mS, II III aVF appropriate intervals Within limits, no ST segement or T wave abnormalitites to suggest occlusive [place]
--- NOTE | 2024-05-07 04:15 | RT.EKG_ITS ---
APPROVED REPORT Exam: Resting ECG Reason for Exam: chest pain Patient Location: E HR:79 bpm ECG Measurements Heart Rate 79 AXIS MT 143 P 27 QRSd 94 QRS -7 QT 372 T 56 QTc 428 Conclusion Sinus rhythm...normal P axis, V-rate 60- 99 appropriate intervals limited interp 2/t artifcant II/III; repeat requested Within limits, no ST segement or T wave abnormalitites to suggest occlusive [place]
--- NOTE | 2024-05-07 04:19 | W.ED.GENAD ---
Discharge Plan Discharge Details Chief Complaint: Chest Pain Primary Care Provider: Yifan Grewal ED Provider: Yocasta Mauro Home Meds and New Rx's Prescriptions: No Action (DME) pen needle, diabetic [Pen Needle] 31 gauge x 5/16 needle See Rx Instructions .ROUTE .MEDSUPPLY Qty: 100 3RF Rx Instructions: As directed to administer insulin once daily. Dispense covered brand. fluticasone propionate [Flonase Allergy Relief] 50 mcg/actuation spray,suspension 2 spray intranasal DAILY Qty: 16 12RF Rx Instructions: administer into each nostril insulin glargine [Lantus Solostar U-100 Insulin] 100 unit/mL (3 mL) insulin pen 25 unit subcut QPM Qty: 15 3RF albuterol sulfate [Ventolin HFA] 90 mcg/actuation HFA aerosol inhaler 1 - 2 puff inhalation Q6H PRN (Reason: shortness of breath or wheezing) Qty: 6.7 0RF acetaminophen 500 mg tablet 1,500 mg PO TID PRN Jardiance 10 mg tablet 10 mg PO DAILY Qty: 90 3RF atorvastatin 80 mg tablet 80 mg PO DAILY Qty: 90 3RF clopidogrel 75 mg tablet 75 mg PO DAILY Qty: 90 3RF topiramate 100 mg tablet 100 mg PO BID Qty: 180 3RF primidone 50 mg tablet 50 mg PO QHS Qty: 90 3RF dexlansoprazole [Dexilant] 60 mg capsule,biphase delayed releas 60 mg PO DAILY Qty: 90 1RF labetalol 200 mg tablet 200 mg PO See Instructions Qty: 135 1RF Rx Instructions: Take 1/2 tablet (100 mg) in the AM & 1 tablet (200 mg in the evening) famotidine 20 mg tablet See Rx Instructions .ROUTE .COMPLEX Qty: 90 3RF Dose Instruction: TAKE 1 TABLET BY MOUTH DAILY Rx Instructions: TAKE 1 TABLET BY MOUTH DAILY meclizine 25 mg tablet 25 mg PO TID PRN (Reason: dizziness) Qty: 30 0RF metoclopramide HCl [Reglan] 10 mg tablet 10 mg PO Q6H PRN (Reason: nausea and vomiting) Qty: 16 0RF meclizine 25 mg tablet 25 mg PO TID Qty: 60 0RF HPI General Mode of arrival: ambulatory. Date/Time Provider Initiated Documentation: 05/07/24 04:17. Limitations to Documentation: no limitations. Information obtained by: patient and old records reviewed (neurology visit note 08/13/22). HPI Narrative: 54yo M with hx HTN, HLD, T2DM, GERD, migraines, vertigo, essential tremor, prior CVA, presenting for chest pain. Woke around 0300 this morning with moderate dull substernal chest pain radiating up to his neck and the left side of his face. Left face feels 'funny', 'a little numb'. No alleviating or aggravating factors. Not exertional. Did not take anything at home for pain. Also reports dry mouth. No shortness of breath, LE edema, diaphoresis, nausea, vomiting, abdominal pain, back pain, diaphoresis, vertigo, vision changes, focal weakness, headache, or other concerns. States he hasn't eaten anything for the past three days because he has no money. Is also having conflict with his significant other which has been very stressful. Otherwise in his usual state of health with no fevers, chills, rash, dysuria, hematuria, or other concerns. Related Data Home Medications ?Medication ?Instructions ?Recorded ?Confirmed acetaminophen 500 mg tablet 1,500 mg PO TID PRN 11/02/19 05/07/24 pen needle, diabetic 31 gauge x #100 ea 10/21/22 05/07/24/ (Pen Needle) meclizine 25 mg tablet 25 mg PO TID PRN dizziness #30 tabs 05/24/23 05/07/24 fluticasone propionate 50 2 spray intranasal DAILY #16 grams 07/16/23 05/07/24 mcg/actuation nasal spray,suspension (Flonase Allergy Relief) metoclopramide HCl 10 mg tablet 10 mg PO Q6H PRN nausea and 08/07/23 05/07/24 (Reglan) vomiting #16 tabs atorvastatin 80 mg tablet 80 mg PO DAILY #90 tabs 09/11/23 05/07/24 empagliflozin 10 mg tablet 10 mg PO DAILY #90 tabs 09/11/23 05/07/24 (Jardiance) clopidogrel 75 mg tablet 75 mg PO DAILY #90 tabs 12/11/23 05/07/24 primidone 50 mg tablet 50 mg PO QHS #90 tabs 12/11/23 05/07/24 topiramate 100 mg tablet 100 mg PO BID #180 tabs 12/11/23 05/07/24 dexlansoprazole 60 mg 60 mg PO DAILY #90 caps 01/04/24 05/07/24 capsule,biphase delayed release (Dexilant) labetalol 200 mg tablet 200 mg PO See Instructions #135 01/04/24 05/07/24 tab-caps famotidine 20 mg tablet See Rx Instructions .Route 02/02/24 05/07/24 .COMPLEX #90 tabs albuterol sulfate 90 mcg/actuation 1 - 2 puff inhalation Q6H PRN 03/11/24 05/07/24 aerosol inhaler (Ventolin HFA) shortness of breath or wheezing #6.7 grams insulin glargine 100 unit/mL (3 25 unit (0.25 mL) subcut QPM #15 mL 03/11/24 05/07/24 mL) subcutaneous pen (Lantus Solostar U-100 Insulin) meclizine 25 mg tablet 25 mg PO TID #60 tabs 03/28/24 Previous Rx's ?Medication ?Instructions ?Recorded pen needle, diabetic 31 gauge x #100 ea 10/21/2210/07 (Pen Needle) meclizine 25 mg tablet 25 mg PO TID PRN dizziness #30 tabs 05/24/23 fluticasone propionate 50 2 spray intranasal DAILY #16 grams 07/16/23 mcg/actuation nasal spray,suspension (Flonase Allergy Relief) metoclopramide HCl 10 mg tablet 10 mg PO Q6H PRN nausea and 08/07/23 (Reglan) vomiting #16 tabs atorvastatin 80 mg tablet 80 mg PO DAILY #90 tabs 09/11/23 empagliflozin 10 mg tablet 10 mg PO DAILY #90 tabs 09/11/23 (Jardiance) clopidogrel 75 mg tablet 75 mg PO DAILY #90 tabs 12/11/23 primidone 50 mg tablet 50 mg PO QHS #90 tabs 12/11/23 topiramate 100 mg tablet 100 mg PO BID #180 tabs 12/11/23 dexlansoprazole 60 mg 60 mg PO DAILY #90 caps 01/04/24 capsule,biphase delayed release (Dexilant) labetalol 200 mg tablet 200 mg PO See Instructions #135 01/04/24 tab-caps famotidine 20 mg tablet See Rx Instructions .Route 02/02/24 .COMPLEX #90 tabs albuterol sulfate 90 mcg/actuation 1 - 2 puff inhalation Q6H PRN 03/11/24 aerosol inhaler (Ventolin HFA) shortness of breath or wheezing #6.7 grams insulin glargine 100 unit/mL (3 25 unit (0.25 mL) subcut QPM #15 mL 03/11/24 mL) subcutaneous pen (Lantus Solostar U-100 Insulin) meclizine 25 mg tablet 25 mg PO TID #60 tabs 03/28/24 Allergies Allergy/AdvReac Type Severity Reaction Status Date / Time metformin AdvReac Severe Diarrhea Verified 05/07/24 06:16 dulaglutide (From [facility]) AdvReac diarrhea Verified 05/07/24 06:16 General EDMUND: 3 Review of Systems Narrative: see HPI Exam Narrative Exam Narrative: General: Alert, well appearing, well nourished, in no acute distress. Head: Normocephalic, atraumatic Neck: Trachea midline, ?Neck supple. ENT: ?MMM.? No oropharygeal lesions or exudate. Cardiac: ?RRR, no murmurs appreciated Resp: No respiratory distress. CTAB. Abd: ?Soft, non-distended, nontender Extremities: ?No deformities.? No peripheral edema. Neuro: ? GCS 15.? PERRL.? EOMI.? Fluent speech, no dysarthria. Left armor tremor. Motor- 5/5 strength symmetric bilateral upper and lower extremities including shoulder abductors/adductors, elbow flexors/extensors, wrist flexors/extensors, finger abductors/adductors, hipflexors/extensors, knee flexors/extensors, ankle dorsiflexors and planter flexors. Sensation- ?Intact to light touch and symmetric multiple dermatomes including upper and lower extremities Coordination- No dysmetria on finger to nose Gait/station: ?Normal stance.? No truncal ataxia. Steady gait with equal normal steps CRANIAL NERVES: II: Pupils equal and reactive, III, IV, : EOM intact, no gaze preference or deviation, no nystagmus. V: sensation intact to light touch in V1, V2, and V3 segments bilaterally VII: no asymmetry, no nasolabial fold flattening VIII: normal hearing to speech IX, X: normal palatal elevation, no uvular deviation XI: 5/5 head turn and 5/5 shoulder shrug bilaterally XII: midline tongue protrusion Medical Decision Making 54yo M with hx HTN, HLD, T2DM, GERD, migraines, vertigo, essential tremor, prior CVA, presenting for moderate dull substernal chest pain radiating into his neck and left face, onset around 0300 this morning at rest. Left face feels 'funny', 'a little numb'. States he hasn't eaten anything for the past three days because he has no money, and that he is having conflict with his significant other which has been very stressful. Otherwise in his usual state of health. Hypertensive on arrival 180's/80's, improved to 151/86 at time of my assessment without prior intervention. EKG with SR, appropriate intervals, no ST segment or T wave abnormalities to suggest occlusive NC. No focal neurologic deficits on exam, does report subjectively diminished sensation to entire left face but is intact to light touch and feels 'about the same' as the right side of his face. Neurology note from 08/13/22 reviewed, prior stroke symptoms included left face numbness/right body numbness with residual left face decreased temperature sensation; based on imaging that was done at the time of his prior event neurology feels may have been 2/t hypertensive encephalopathy vs true CVA. History and exam today not suggestive of acute CVA and exam appears to be at baseline based on record review; would not workup further with CT/CTA/MRI at this time, certainly no indication for thrombolysis. More concerning is his primary complaint of chest pain as he does have significant risk factors. Certainly could also be worsening GERD in the setting of minimal PO intake. Will treat initially with 325mg ASA for potential cardiac event, as well as GI cocktail, while awaiting results of workup. Labs reviewed as below, CBC with mild leukocytosis (nonspecific) and no anemia, CMP with no actionable abnormalities, Mg normal, lipase normal (unlikely pancreatitis), coags normal, dimer negative, BNP normal (not suggestive of CHF), initial troponin normal and 1 hour delta reassuring. CXR independently reviewed, no focal pneumonia or pneumothorax on my view; radiology read pending. On reassessment pt reports chest pain has improved after GI cocktail, does now have vertigo which is typical for his usual vertigo for which he takes meclizine at home. He requests meclizine here which was given. BP now normalized, 113/59. HEART score 4 (hx 1, EKG 0, age 1, RF 2, troponin 0), moderate risk. Will send third trop and contact care management for resources to assist with financial situation. Will be signed out to oncoming physician, plan to followup third troponin and await care management. Lab Data Lab results reviewed: Yes I reviewed the patient's lab results. Labs: Laboratory Tests Range/Units 05/07/24 05/07/24 04:45 05:45 WBC (4.4-10.8) 10^3/uL 11.13 H RBC (4.36-5.78) 10^6/uL 4.90 Hgb (13.5-17.5) g/dL 13.9 Hct (40.0-50.0) % 44.0 MCV (80-95) fL 90 MCH (27.0-33.0) pg 28.4 MCHC (32.0-36.0) % 31.6 L RDW (11.8-14.1) % 13.5 Plt Count (130-400) 10^3/uL 333 MPV (8.0-11.0) fL 9.5 Immature Gran % % 0.4 Neutrophils % % 62.6 Lymphocytes % % 28.0 Monocytes % % 6.7 Eosinophils % % 1.6 Basophils % % 0.7 Nucleated RBC % (0.0-0.3) % 0.0 Absolute Neutrophils (1.2-6.7) 10^3/uL 6.97 H Absolute Lymphocytes (1.2-3.4) 10^3/uL 3.12 Absolute Monocytes (0.1-0.8) 10^3/uL 0.75 Absolute Eosinophils (0.0-0.7) 10^3/uL 0.18 Absolute Basophils (0.0-0.2) 10^3/uL 0.08 PT (9.1-11.1) sec 10.1 INR (0.9-1.1) 1.0 APTT (23.6-32.8) sec 24.9 D-Dimer (<500) ng/mlFEU 499 Sodium (136-145) mmol/L 144 Potassium (3.5-5.1) mmol/L 3.5 Chloride (98-107) mmol/L 106 Carbon Dioxide (21.0-32.0) mmol/L 29.1 Anion Gap (3-11) mmol/L 8.9 BUN (7-18) mg/dL 11 Creatinine (0.70-1.30) mg/dL 0.9 Est GFR (CKD-EPI 2020) (mL/min/1.73m2) 102.12 Glucose (74-106) mg/dL 111 H Calcium (8.5-10.1) mg/dL 8.8 Magnesium (1.8-2.4) mg/dL 2.0 Total Bilirubin (0.2-1.0) mg/dL 0.40 AST (15-37) U/L 20 ALT (16-63) U/L 24 Alkaline Phosphatase (46-116) U/L 68 Troponin I (<or=76) ng/L 8 6 NT-Pro-B Natriuret Pep (<300) pg/mL 92 Total Protein (6.4-8.2) g/dL 6.9 Albumin (3.4-5.0) g/dL 4.0 Lipase (<78) U/L 35 Quality:SDOH Health Related Social Needs: No Data to Display PFSH All Active Problems (Updated 04/28/24 @ 00:08 by CHANO SOLIMAN) Foot pain, left (Acute) Physical examination of employee (Acute) Nasal congestion (Acute) Essential hypertension (Acute 09/07/12) Familial hypercholesterolemia (Acute 09/07/12) Gastroesophageal reflux disease (Acute 08/29/13) Obesity (BMI 30-39.9) (Acute 01/09/15) Obstructive sleep apnea (Chronic 09/06/14) Untreated. 09/04/2014:Severe obstructive sleep apnea with associated signficant nocturnal hypoxemia; Constance 68% on RA, average 90% Sensorineural hearing loss, bilateral (Acute 12/27/13) Smoker (Acute 08/29/13) 1 ppd Vertigo (Acute 02/20/14) Type 2 diabetes mellitus without complication (Acute ~07/2017) Daily headache (Acute) Probably due to hypoxia from [place]. 68% sat on Rm Air during sleep study Nocturnal hypoxemia due to obesity (Chronic) 68% constance on room air during sleep study Tremor (Acute) COVID (Acute) Essential tremor (Acute) Medical History Diarrhea COVID-19 (01/2021) Diarrhea due to drug Constipation Financial problems Umbilical hernia Flat feet, bilateral Lipoma (08/29/13) Depression 11/03/18 PHQ9 = 10 GERD (gastroesophageal reflux disease) Migraine Borderline diabetes Anxiety CVA (cerebral vascular accident) HTN (hypertension) Hypercholesterolemia [place] (obstructive sleep apnea) Nephrolithiasis (07/24/17) Migraine headache (03/23/14) History of Nepali measles (02/20/14) H/O acute bronchitis with bronchospasm (10/08/16) Anxiety (09/07/12) 11/03/18 BECKS = 26 Deafness Sinusitis, acute Family History Mother , in 50's Essential hypertension Alcohol abuse Substance abuse Brother Brain tumor Other Breast cancer Social History Smoking/Tobacco Use Status: Current every day Tobacco Type: cigarettes Tobacco: How many years used: 35 Quit status: considering quitting Smoking risk assessment performed?: Yes Alcohol Intake: never Drug use: Never Substance use type: does not use Adopted: No Caregiver/Support person: No Foster care: No Household members: none Housing: apartment Number of Children: 3 number of grandchildren: 2 Communication Needs: Hard of Hearing Do you need help understanding health information?: Often 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 Pets and animals: No Sexually active: No Do you think of yourself as: straight/heterosexual Current gender identity: male What is your relationship status?: never How often do you talk on the phone with friends or family?: never How often do you get together with friends or relatives?: never How often do you attend oriental orthodox or oriental orthodox services?: decline to answer Do you belong to any clubs or organized social groups?: no Panel score (0-1 are the most socially isolated patients): 0 What type of physical activity do you participate in: none and regular exercise Duration: 15-30 minutes/day Frequency: daily Seatbelt use: always Helmet use: No (No reason for one) Drive intox or ride w/intox personal driver: No Water heater temp set <120 deg: Yes Working smoke detector in home: Yes Fire extinguisher in home: Yes Carbon monox detector in home: Yes Do you feel safe at home: Yes Do you feel safe in your relationship?: Yes
--- NOTE | 2024-05-07 04:45 | DI.RAD_ITS ---
Exam(s) XR CHEST 2V PA LATERAL EXAM: XR CHEST 2V PA LATERAL CLINICAL HISTORY: chest pain. TECHNIQUE: 2D digital imaging was performed. COMPARISON: CR XR PORTABLE CHEST AP from 04/16/2022 FINDINGS: 2 views: Heart size is upper normal. The mediastinum is not widened. Lungs are clear. No infiltrates nor pleural effusions. IMPRESSION: No acute pulmonary findings. DATA REPOSITORY: RADIATION DOSE DELIVERED:
[2024-05-07 04:57] LABS: Abs Immature Grans 0.04 10^3/uL (0.0-0.06); Absolute Basophil Count 0.08 10^3/uL (0.0-0.2); Absolute Eosinophil Count 0.18 10^3/uL (0.0-0.7); Absolute Lymphocyte Count 3.12 10^3/uL (1.2-3.4); Absolute Monocyte Count 0.75 10^3/uL (0.1-0.8); Basophils % 0.7 %; Eosinophils % 1.6 %; HGB 13.9 g/dL (13.5-17.5); Immature Grans % 0.4 %; MCH 28.4 pg (27.0-33.0); MCHC 31.6 % (32.0-36.0); MCV 90 fL (80-95); MPV 9.5 fL (8.0-11.0); Monocytes % 6.7 %; Neutrophils % 62.6 %; Platelet Count 333 10^3/uL (130-400); RDW 13.5 % (11.8-14.1); RDW-SD 44.4 fL; WBC 11.13 10^3/uL (4.4-10.8)
[2024-05-07 04:59] LABS: Absolute Neutrophil Count 6.97 10^3/uL (1.2-6.7)
[2024-05-07] MEDS: Lidocaine 2% Viscous 15 ML CUP PO (04:59)
[2024-05-07 05:11] LABS: PTT Activated 24.9 sec (23.6-32.8); Prothrombin Time 10.1 sec (9.1-11.1)
[2024-05-07 05:18] LABS: ALT 24 U/L (16-63); AST 20 U/L (15-37); Alkaline Phosphatase 68 U/L (46-116); Anion Gap 8.9 mmol/L (3-11); BUN 11 mg/dL (7-18); CO2 29.1 mmol/L (21.0-32.0); CREATININE 0.9 mg/dL (0.70-1.30); Calcium 8.8 mg/dL (8.5-10.1); Chloride 106 mmol/L (98-107); Estimated GFR 102.12 (mL/min/1.73m2); Glucose 111 mg/dL (74-106); Lipase 35 U/L (<78); Potassium 3.5 mmol/L (3.5-5.1); Sodium 144 mmol/L (136-145); Total Protein 6.9 g/dL (6.4-8.2); Troponin I 8 ng/L (<or=76)
[2024-05-07 05:36] LABS: D-Dimer 499 ng/mlFEU (<500)
[2024-05-07 05:46] LABS: NT-proBNP 92 pg/mL (<300)
[2024-05-07] MEDS: Meclizine 25 MG TAB PO (05:48)
[2024-05-07 06:07] LABS: Troponin I 6 ng/L (<or=76)
--- NOTE | 2024-05-07 06:58 | DI.VRAD_ITS ---
PROCEDURE INFORMATION: Exam: XR Chest Exam date and time: 05/07/2024 5:16 AM Age: 54 years old Clinical indication: Other: Chest pain TECHNIQUE: Imaging protocol: Radiologic exam of the chest. Views: 2 views. COMPARISON: CR XR PORTABLE CHEST AP 04/16/2022 2:44 PM FINDINGS: Lungs: Unremarkable. No consolidation. Pleural spaces: Unremarkable. No pleural effusion. No pneumothorax. Heart/Mediastinum: Unremarkable. No cardiomegaly. Bones/joints: Unremarkable. IMPRESSION: No acute findings. Dictated and Authenticated by: Casey Rodriguez MD. Ordering:ASIF Rust MD
--- NOTE | 2024-05-07 07:24 | W.EDPROG ---
Date of service: 05/07/24 Time of Service: 07:24 Medical Decision Making I received signout on this 54-year-old male in the emergency department in the setting of chest pain. He is medically cleared however pending care management. 8:03 AM I met with the patient as he did not want to wait for care management. He felt improved. We discussed that he should return for worsening chest pain. He understood his return indications. I advised PCP follow-up. Quality:SDOH Health Related Social Needs: No Data to Display Discharge Plan Disposition Patient Disposition: Home Discharge Details Clinical Impression: Chest pain, unspecified Primary Care Provider: Yifan Grewal ED Provider: Mitchell Hicks Home Meds and New Rx's Prescriptions: Continued (DME) pen needle, diabetic [Pen Needle] 31 gauge x 5/16 needle See Rx Instructions .ROUTE .MEDSUPPLY Qty: 100 3RF Rx Instructions: As directed to administer insulin once daily. Dispense covered brand. fluticasone propionate [Flonase Allergy Relief] 50 mcg/actuation spray,suspension 2 spray intranasal DAILY Qty: 16 12RF Rx Instructions: administer into each nostril insulin glargine [Lantus Solostar U-100 Insulin] 100 unit/mL (3 mL) insulin pen 25 unit subcut QPM Qty: 15 3RF albuterol sulfate [Ventolin HFA] 90 mcg/actuation HFA aerosol inhaler 1 - 2 puff inhalation Q6H PRN (Reason: shortness of breath or wheezing) Qty: 6.7 0RF acetaminophen 500 mg tablet 1,500 mg PO TID PRN Jardiance 10 mg tablet 10 mg PO DAILY Qty: 90 3RF atorvastatin 80 mg tablet 80 mg PO DAILY Qty: 90 3RF clopidogrel 75 mg tablet 75 mg PO DAILY Qty: 90 3RF topiramate 100 mg tablet 100 mg PO BID Qty: 180 3RF primidone 50 mg tablet 50 mg PO QHS Qty: 90 3RF dexlansoprazole [Dexilant] 60 mg capsule,biphase delayed releas 60 mg PO DAILY Qty: 90 1RF labetalol 200 mg tablet 200 mg PO See Instructions Qty: 135 1RF Rx Instructions: Take 1/2 tablet (100 mg) in the AM & 1 tablet (200 mg in the evening) famotidine 20 mg tablet See Rx Instructions .ROUTE .COMPLEX Qty: 90 3RF Dose Instruction: TAKE 1 TABLET BY MOUTH DAILY Rx Instructions: TAKE 1 TABLET BY MOUTH DAILY meclizine 25 mg tablet 25 mg PO TID PRN (Reason: dizziness) Qty: 30 0RF metoclopramide HCl [Reglan] 10 mg tablet 10 mg PO Q6H PRN (Reason: nausea and vomiting) Qty: 16 0RF Discharge Instructions Instructions: Chest pain Additional Instructions: You were seen in the emergency department for your chest pain. Your blood work showed no sign of heart attack. As we discussed please return if you develop worsening chest pain or if you want to meet with care management.
--- NOTE | 2024-05-07 08:43 | PDOC.CMACT ---
Date of service: 05/07/24 Time of Service: 08:43 Care Management Activity Note Activity Note Text Activity Note Text: CM met with Alon during his ED visit to address his food insecurities. Alon reports that he is unable to afford food and hasn't eaten for several days. Patient ate while in the ED and CM provided him with resources to local food pantries within a 20 mile radius that are open today. He lives in [facility] and [facility] in [facility] are the most local pantries. Alon is familiar with these local resources, he is also familiar with [facility] and has met with [facility] at [facility] several times this year and plans to contact them Thursday.
== END 2024-05-07 08:16 | disposition home or self-care (01) ==
PROVIDERS: Student in an Organized Health Care Education/Training Program; Emergency Provider Emergency Medicine; PCP Family Medicine
DX: R07.9 Chest pain, unspecified (principal); I10 Essential (primary) hypertension; E78.01 Familial hypercholesterolemia; K21.9 Gastro-esophageal reflux disease without esophagitis; E11.9 Type 2 diabetes mellitus without complications; Z86.73 Personal history of transient ischemic attack (TIA), and cerebral infarction without residual deficits
CPT/HCPCS: 00123; 36415; 80053; 83690; 93005; 99284; 71046; 83735; 83880; 84484; 85025; 85379; 85610; 85730; 93010

== ENCOUNTER 2024-08-24 18:48 | Emergency (ER) | payer MEDICARE, SELFPAY ==
[2024-08-24 18:52] VITALS: BP 202/102; PULSE 89; RESP 18; TEMP 36.9; O2SAT 98
[2024-08-24 18:55] VITALS: BP 202/102; PULSE 89; RESP 18; TEMP 36.9; O2SAT 98
--- NOTE | 2024-08-24 19:01 | W.ED.GENAD ---
Discharge Plan Disposition Patient Disposition: Home Condition: Stable Discharge Details Clinical Impression: Toothache Primary Care Provider: Yifan Grewal ED Provider: Derik Boston Home Meds and New Rx's Prescriptions: New amoxicillin-pot clavulanate 875-125 mg tablet 1 tab PO BID Qty: 19 0RF Continued (DME) pen needle, diabetic [Pen Needle] 31 gauge x 5/16 needle See Rx Instructions .ROUTE .MEDSUPPLY Qty: 100 3RF Rx Instructions: As directed to administer insulin once daily. Dispense covered brand. fluticasone propionate [Flonase Allergy Relief] 50 mcg/actuation spray,suspension 2 spray intranasal DAILY Qty: 16 12RF Rx Instructions: administer into each nostril albuterol sulfate [Ventolin HFA] 90 mcg/actuation HFA aerosol inhaler 1 - 2 puff inhalation Q6H PRN (Reason: shortness of breath or wheezing) Qty: 6.7 0RF acetaminophen 500 mg tablet 1,500 mg PO TID PRN atorvastatin 80 mg tablet 80 mg PO DAILY Qty: 90 3RF topiramate 100 mg tablet 100 mg PO BID Qty: 180 3RF dexlansoprazole [Dexilant] 60 mg capsule,biphase delayed releas 60 mg PO DAILY Qty: 90 1RF labetalol 200 mg tablet 200 mg PO See Instructions Qty: 135 1RF Rx Instructions: Take 1/2 tablet (100 mg) in the AM & 1 tablet (200 mg in the evening) famotidine 20 mg tablet See Rx Instructions .ROUTE .COMPLEX Qty: 90 3RF Dose Instruction: TAKE 1 TABLET BY MOUTH DAILY Rx Instructions: TAKE 1 TABLET BY MOUTH DAILY clopidogrel 75 mg tablet 75 mg PO DAILY Qty: 90 3RF meclizine 25 mg tablet 25 mg PO TID PRN (Reason: dizziness) Qty: 30 0RF Discharge Instructions Additional Instructions: Follow-up with a dentist as soon as you can. You can take 1000 mg of acetaminophen and 600 mg of ibuprofen every 6 hours. If you feel more ill or have new symptoms such as high fevers or inability to swallow liquids return to the emergency department for reevaluation Stand Alone Forms: Work Release HPI General Mode of arrival: ambulatory. Date/Time Provider Initiated Documentation: 08/24/24 18:51. Limitations to Documentation: no limitations. Information obtained by: patient. History of Present Illness 54 year old M presents to the emergency department with the chief complaint of toothache, described as mild, Patient started experiencing this day(s) (2) and it has been constant. No relieving factors improve symptom(s), No exacerbating factors reported . Patient notes no other symptoms.. Patient did receive the following treatments prior to arrival, none Related Data Home Medications ?Medication ?Instructions ?Recorded ?Confirmed acetaminophen 500 mg tablet 1,500 mg PO TID PRN 11/02/19 08/24/24 pen needle, diabetic 31 gauge x #100 ea 10/21/22 08/24/2410/07 (Pen Needle) meclizine 25 mg tablet 25 mg PO TID PRN dizziness #30 tabs 05/24/23 08/24/24 fluticasone propionate 50 2 spray intranasal DAILY #16 grams 07/16/23 08/24/24 mcg/actuation nasal spray,suspension (Flonase Allergy Relief) atorvastatin 80 mg tablet 80 mg PO DAILY #90 tabs 09/11/23 08/24/24 topiramate 100 mg tablet 100 mg PO BID #180 tabs 12/11/23 08/24/24 dexlansoprazole 60 mg 60 mg PO DAILY #90 caps 01/04/24 08/24/24 capsule,biphase delayed release (Dexilant) labetalol 200 mg tablet 200 mg PO See Instructions #135 01/04/24 08/24/24 tab-caps famotidine 20 mg tablet See Rx Instructions .Route 02/02/24 08/24/24 .COMPLEX #90 tabs albuterol sulfate 90 mcg/actuation 1 - 2 puff inhalation Q6H PRN 03/11/24 08/24/24 aerosol inhaler (Ventolin HFA) shortness of breath or wheezing #6.7 grams clopidogrel 75 mg tablet 75 mg PO DAILY #90 tabs 08/09/24 08/24/24 amoxicillin 875 mg-potassium 1 tab PO BID #19 tabs 08/24/24 clavulanate 125 mg tablet Previous Rx's ?Medication ?Instructions ?Recorded pen needle, diabetic 31 gauge x #100 ea 10/21/2210/07 (Pen Needle) meclizine 25 mg tablet 25 mg PO TID PRN dizziness #30 tabs 05/24/23 fluticasone propionate 50 2 spray intranasal DAILY #16 grams 07/16/23 mcg/actuation nasal spray,suspension (Flonase Allergy Relief) atorvastatin 80 mg tablet 80 mg PO DAILY #90 tabs 09/11/23 topiramate 100 mg tablet 100 mg PO BID #180 tabs 12/11/23 dexlansoprazole 60 mg 60 mg PO DAILY #90 caps 01/04/24 capsule,biphase delayed release (Dexilant) labetalol 200 mg tablet 200 mg PO See Instructions #135 01/04/24 tab-caps famotidine 20 mg tablet See Rx Instructions .Route 02/02/24 .COMPLEX #90 tabs albuterol sulfate 90 mcg/actuation 1 - 2 puff inhalation Q6H PRN 03/11/24 aerosol inhaler (Ventolin HFA) shortness of breath or wheezing #6.7 grams clopidogrel 75 mg tablet 75 mg PO DAILY #90 tabs 08/09/24 amoxicillin 875 mg-potassium 1 tab PO BID #19 tabs 08/24/24 clavulanate 125 mg tablet Allergies Allergy/AdvReac Type Severity Reaction Status Date / Time metformin AdvReac Severe Diarrhea Verified 08/24/24 18:55 [facility] AdvReac diarrhea Verified 08/24/24 18:55 General Stated Complaint: DentalOral EDMUND: 3 Review of Systems All systems reviewed & are unremarkable except as noted in HPI and below Constitutional Constitutional: Denies chills, Denies fever(s) and Denies weakness Cardiovascular Cardiovascular: Denies chest pain and Denies dyspnea Respiratory Respiratory: Denies dyspnea Gastrointestinal Gastrointestinal: Denies abdominal pain, Denies nausea and Denies vomiting Neurologic Neurologic: Denies weakness Exam Const General: no acute distress Orientation: alert [facility] Head: normal to inspection Ears: external ears normal General nose exam: external nose normal Mouth: moist mucous membranes and no trismus Teeth and gingiva: abnormal tooth or associated gingiva Eyes General: appearance normal, both eyes and all related structures Neck Neck: normal visual inspection Resp Effort & Inspection: normal respiratory effort and able to speak in complete sentences Cardio Rate: regular rate Skin General skin exam: no rashes or lesions noted Neuro General: patient alert and patient oriented x3 Extrem General: normal to inspection Psych Mental Status: mental status grossly normal Course Vital Signs Vital signs: Vital Signs Temperature 36.9 C 08/24/24 18:52 Pulse 89 08/24/24 18:52 Respiratory Rate 18 08/24/24 18:52 Blood Pressure 202/102 H 08/24/24 18:52 Pulse Oximetry 98 08/24/24 18:52 Temperature 36.9 C 08/24/24 18:55 Pulse 89 08/24/24 18:55 Respiratory Rate 18 08/24/24 18:55 Blood Pressure 202/102 H 08/24/24 18:55 Pulse Oximetry 98 08/24/24 18:55 Oxygen Delivery Method Room Air 08/24/24 18:55 Oxygen Flow Rate 0 08/24/24 18:55 Pain Level 10 08/24/24 18:55 Medical Decision Making 54-year-old male comes in with 2 days of right lower anterior molar pain. He says he has very poor teeth and has issues with his teeth currently. Denies any fevers or difficulty swallowing. He has numerous eroded teeth, he only has 1 molar left on the right lower and this is severely eroded. There is no apical abscess visible. No submandibular swelling, uvula is midline and is not restricted neck movements. He has no findings on exam or history to suggest entities such as Gunner's, peritonsillar abscess, retropharyngeal abscess or epiglottitis. I will start him on Augmentin, follow-up with a dentist, return precautions given Quality:SDOH Health Related Social Needs: No Data to Display PFSH All Active Problems (Updated 08/24/24 @ 19:02 by Derik Boston MD) Toothache (Acute) Foot pain, left (Acute) Physical examination of employee (Acute) Nasal congestion (Acute) Essential hypertension (Acute 09/07/12) Familial hypercholesterolemia (Acute 09/07/12) Gastroesophageal reflux disease (Acute 08/29/13) Obesity (BMI 30-39.9) (Acute 01/09/15) Obstructive sleep apnea (Chronic 09/06/14) Untreated. 09/04/2014:Severe obstructive sleep apnea with associated signficant nocturnal hypoxemia; Constance 68% on RA, average 90% Sensorineural hearing loss, bilateral (Acute 12/27/13) Smoker (Acute 08/29/13) 1 ppd Vertigo (Acute 02/20/14) Type 2 diabetes mellitus without complication (Acute ~07/2017) Daily headache (Acute) Probably due to hypoxia from [place]. 68% sat on Rm Air during sleep study Nocturnal hypoxemia due to obesity (Chronic) 68% constance on room air during sleep study Tremor (Acute) COVID (Acute) Essential tremor (Acute) Medical History Diarrhea COVID-19 (01/2021) Diarrhea due to drug Constipation Financial problems Umbilical hernia Flat feet, bilateral Lipoma (08/29/13) Depression 11/03/18 PHQ9 = 10 GERD (gastroesophageal reflux disease) Migraine Borderline diabetes Anxiety CVA (cerebral vascular accident) HTN (hypertension) Hypercholesterolemia CHINO (obstructive sleep apnea) Nephrolithiasis (07/24/17) Migraine headache (03/23/14) History of Hebrew measles (02/20/14) H/O acute bronchitis with bronchospasm (10/08/16) Anxiety (09/07/12) 11/03/18 BECKS = 26 Deafness Sinusitis, acute Family History Mother , in 50's Essential hypertension Alcohol abuse Substance abuse Brother Brain tumor Other Breast cancer Social History Smoking/Tobacco Use Status: Current every day Tobacco Type: cigarettes Tobacco: How many years used: 35 Quit status: considering quitting Smoking risk assessment performed?: Yes Alcohol Intake: never Drug use: Never Substance use type: does not use Adopted: No Caregiver/Support person: No Foster care: No Household members: none Housing: apartment Number of Children: 3 number of grandchildren: 2 Communication Needs: Hard of Hearing Do you need help understanding health information?: Often 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 Pets and animals: No Sexually active: No Do you think of yourself as: straight/heterosexual Current gender identity: male What is your relationship status?: never How often do you talk on the phone with friends or family?: never How often do you get together with friends or relatives?: never How often do you attend buddhism or shinto services?: decline to answer Do you belong to any clubs or organized social groups?: no Panel score (0-1 are the most socially isolated patients): 0 What type of physical activity do you participate in: none and regular exercise Duration: 15-30 minutes/day Frequency: daily Seatbelt use: always Helmet use: No (No reason for one) 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
[2024-08-24] MEDS: Benzocaine 20% Gel 30 GM JAR MM (19:09)
[2024-08-24] MEDS: Amoxicillin 875/Clav. 125 TAB PO (19:09)
== END 2024-08-24 19:07 | disposition home or self-care (01) ==
LOC: ER 19:50
PROVIDERS: Emergency Provider Emergency Medicine; PCP Family Medicine
DX: K08.89 Other specified disorders of teeth and supporting structures (principal); R68.84 Jaw pain
CPT/HCPCS: 99283

== ENCOUNTER 2024-08-25 03:59 | Emergency (ER) | payer MEDICARE, SELFPAY ==
[2024-08-25 04:02] VITALS: BP 193/84; PULSE 79; RESP 22; TEMP 35.9; O2SAT 99
--- NOTE | 2024-08-25 04:19 | W.ED.GENAD ---
Discharge Plan Disposition Patient Disposition: Home Condition: Good Discharge Details Clinical Impression: Pain, dental Primary Care Provider: Yifan Grewal ED Provider: Yocasta Mauro Home Meds and New Rx's Prescriptions: Continued (DME) pen needle, diabetic [Pen Needle] 31 gauge x 5/16 needle See Rx Instructions .ROUTE .MEDSUPPLY Qty: 100 3RF Rx Instructions: As directed to administer insulin once daily. Dispense covered brand. albuterol sulfate [Ventolin HFA] 90 mcg/actuation HFA aerosol inhaler 1 - 2 puff inhalation Q6H PRN (Reason: shortness of breath or wheezing) Qty: 6.7 0RF acetaminophen 500 mg tablet 1,500 mg PO TID PRN atorvastatin 80 mg tablet 80 mg PO DAILY Qty: 90 3RF topiramate 100 mg tablet 100 mg PO BID Qty: 180 3RF dexlansoprazole [Dexilant] 60 mg capsule,biphase delayed releas 60 mg PO DAILY Qty: 90 1RF labetalol 200 mg tablet 200 mg PO See Instructions Qty: 135 1RF Rx Instructions: Take 1/2 tablet (100 mg) in the AM & 1 tablet (200 mg in the evening) famotidine 20 mg tablet See Rx Instructions .ROUTE .COMPLEX Qty: 90 3RF Dose Instruction: TAKE 1 TABLET BY MOUTH DAILY Rx Instructions: TAKE 1 TABLET BY MOUTH DAILY clopidogrel 75 mg tablet 75 mg PO DAILY Qty: 90 3RF meclizine 25 mg tablet 25 mg PO TID PRN (Reason: dizziness) Qty: 30 0RF primidone 50 mg tablet 50 mg PO QHS Patient Comments: TAKE 1 TABLET BY MOUTH EVERY DAY AT BEDTIME amoxicillin-pot clavulanate 875-125 mg tablet 1 tab PO BID Qty: 19 0RF Discharge Instructions Instructions: Dental Pain ED Additional Instructions: Call a dentist first thing in the morning to schedule an appointment to be seen as soon as possible, ideally within 24-48 hours. Tell them you were in the emergency department and the doctor gave you antibiotics told you to be seen right away. Continue taking over the counter pain medication; follow the directions on the bottle. Please also call your primary care doctor to schedule an appointment to follow up on your visit here; at that visit discuss your blood pressure which is high here today. Return to the emergency department for new or worsening symptoms including fever, facial swelling, struggling to swallow, or if you have any other concerns. Referrals: Yifan Grewal DO [Primary Care Provider] - Discharge Data Discharge Date/Time-TO BE ENTERED AT DEPARTURE: 08/25/24 04:34 HPI General Mode of arrival: ambulatory. Date/Time Provider Initiated Documentation: 08/25/24 04:05. Limitations to Documentation: no limitations. Information obtained by: patient and old records reviewed. HPI Narrative: 54yo M hx DM presenting for dental pain. Pain started 2-3 days ago, right lower, worse with chewing. Radiates to his left jaw and face. No fevers. No facial swelling. No difficulty swallowing. Seen in this ED yesterday evening and discharged on Augmentin with plan for dental followup. Pain kept him up last night despite taking ibuprofen at home. No other changes. Was not able to pick his antibiotic up from the pharmacy. Otherwise in his usual state of health. Related Data Home Medications ?Medication ?Instructions ?Recorded ?Confirmed acetaminophen 500 mg tablet 1,500 mg PO TID PRN 11/02/19 08/25/24 pen needle, diabetic 31 gauge x #100 ea 10/21/22 08/25/24/16 (Pen Needle) meclizine 25 mg tablet 25 mg PO TID PRN dizziness #30 tabs 05/24/23 08/25/24 atorvastatin 80 mg tablet 80 mg PO DAILY #90 tabs 09/11/23 08/25/24 topiramate 100 mg tablet 100 mg PO BID #180 tabs 12/11/23 08/25/24 dexlansoprazole 60 mg 60 mg PO DAILY #90 caps 01/04/24 08/25/24 capsule,biphase delayed release (Dexilant) labetalol 200 mg tablet 200 mg PO See Instructions #135 01/04/24 08/25/24 tab-caps famotidine 20 mg tablet See Rx Instructions .Route 02/02/24 08/25/24 .COMPLEX #90 tabs albuterol sulfate 90 mcg/actuation 1 - 2 puff inhalation Q6H PRN 03/11/24 08/25/24 aerosol inhaler (Ventolin HFA) shortness of breath or wheezing #6.7 grams clopidogrel 75 mg tablet 75 mg PO DAILY #90 tabs 08/09/24 08/25/24 amoxicillin 875 mg-potassium 1 tab PO BID #19 tabs 08/24/24 08/25/24 clavulanate 125 mg tablet primidone 50 mg tablet 50 mg PO QHS 08/25/24 08/25/24 Previous Rx's ?Medication ?Instructions ?Recorded pen needle, diabetic 31 gauge x #100 ea 10/21/2210/07 (Pen Needle) meclizine 25 mg tablet 25 mg PO TID PRN dizziness #30 tabs 05/24/23 atorvastatin 80 mg tablet 80 mg PO DAILY #90 tabs 09/11/23 topiramate 100 mg tablet 100 mg PO BID #180 tabs 12/11/23 dexlansoprazole 60 mg 60 mg PO DAILY #90 caps 01/04/24 capsule,biphase delayed release (Dexilant) labetalol 200 mg tablet 200 mg PO See Instructions #135 01/04/24 tab-caps famotidine 20 mg tablet See Rx Instructions .Route 02/02/24 .COMPLEX #90 tabs albuterol sulfate 90 mcg/actuation 1 - 2 puff inhalation Q6H PRN 03/11/24 aerosol inhaler (Ventolin HFA) shortness of breath or wheezing #6.7 grams clopidogrel 75 mg tablet 75 mg PO DAILY #90 tabs 08/09/24 amoxicillin 875 mg-potassium 1 tab PO BID #19 tabs 08/24/24 clavulanate 125 mg tablet Allergies Allergy/AdvReac Type Severity Reaction Status Date / Time metformin AdvReac Severe Diarrhea Verified 08/24/24 18:55 dulaglutide (From [facility]) AdvReac diarrhea Verified 08/24/24 18:55 General Stated Complaint: DentalOral EDMUND: 3 Review of Systems Narrative: see HPI Exam Narrative Exam Narrative: General: Alert, well appearing, well nourished, in no acute distress. Head: Normocephalic, atraumatic. No facial swelling. Neck: Trachea midline, ?Neck supple. No anterior neck tenderness. ENT: ?MMM.? No evident intraoral abscess. Extremely poor dentition, multiple missing teeth, cracked teeth, carious teeth. Cardiac: ?No cyanosis. Resp: No respiratory distress. Speaking in full sentences Abd: ?Non-distended Extremities: ?No deformities.? Neurologic: GCS 15. ? Moves all extremities freely against gravity Course Vital Signs Vital signs: Vital Signs Temperature 35.9 C L 08/25/24 04:02 Pulse 79 08/25/24 04:02 Respiratory Rate 22 08/25/24 04:02 Blood Pressure 193/84 H 08/25/24 04:02 Pulse Oximetry 99 08/25/24 04:02 Temperature 35.9 C L 08/25/24 04:02 Temperature Source Temporal Artery Scan 08/25/24 04:02 Pulse 79 08/25/24 04:02 Respiratory Rate 22 08/25/24 04:02 Blood Pressure 193/84 H 08/25/24 04:02 Blood Pressure Position Sitting 08/25/24 04:02 Pulse Oximetry 99 08/25/24 04:02 Oxygen Delivery Method Room Air 08/25/24 04:02 Oxygen Flow Rate 0 08/25/24 04:02 Pain Level 10 08/25/24 04:07 Medical Decision Making 54yo M hx DM presenting for dental pain. Seen in this ED yesterday evening (ED visit note reviewed) and discharged on Augmentin with plan for dental followup. Pain kept him up last night and so he re-presents for evaluation; no other changes. Vital signs reassuring on arrival. Poor dentition, multiple carious teeth TTP, worse right lower molar. Exam not concerning for blayne's, vincent's, buccal space infection, peritonsillar abscess, retropharygneal abscess, deep space neck infection, periapical abscess. Agree with initial assessment and plan for outpatient abx and close dental followup. Given dose of abx here as pt has not been able to get from pharmacy yet, as well as IM toradol for pain. Discharged home; discharge instructions and return precautions were reviewed with patient who verbalized understanding. All questions were answered and he is in full agreement with the plan. Quality:SDOH Health Related Social Needs: No Data to Display PFSH All Active Problems (Updated 08/25/24 @ 04:21 by Yocasta Mauro MD) Pain, dental (Acute) Toothache (Acute) Foot pain, left (Acute) Physical examination of employee (Acute) Nasal congestion (Acute) Essential hypertension (Acute 09/07/12) Familial hypercholesterolemia (Acute 09/07/12) Gastroesophageal reflux disease (Acute 08/29/13) Obesity (BMI 30-39.9) (Acute 01/09/15) Obstructive sleep apnea (Chronic 09/06/14) Untreated. 09/04/2014:Severe obstructive sleep apnea with associated signficant nocturnal hypoxemia; Constance 68% on RA, average 90% Sensorineural hearing loss, bilateral (Acute 12/27/13) Smoker (Acute 08/29/13) 1 ppd Vertigo (Acute 02/20/14) Type 2 diabetes mellitus without complication (Acute ~07/2017) Daily headache (Acute) Probably due to hypoxia from [place]. 68% sat on Rm Air during sleep study Nocturnal hypoxemia due to obesity (Chronic) 68% constance on room air during sleep study Tremor (Acute) COVID (Acute) Essential tremor (Acute) Medical History Diarrhea COVID-19 (01/2021) Diarrhea due to drug Constipation Financial problems Umbilical hernia Flat feet, bilateral Lipoma (08/29/13) Depression 11/03/18 PHQ9 = 10 GERD (gastroesophageal reflux disease) Migraine Borderline diabetes Anxiety CVA (cerebral vascular accident) HTN (hypertension) Hypercholesterolemia CHINO (obstructive sleep apnea) Nephrolithiasis (07/24/17) Migraine headache (03/23/14) History of Green[place]ic measles (02/20/14) H/O acute bronchitis with bronchospasm (10/08/16) Anxiety (09/07/12) 11/03/18 BECKS = 26 Deafness Sinusitis, acute Family History Mother , in 50's Essential hypertension Alcohol abuse Substance abuse Brother Brain tumor Other Breast cancer Social History Smoking/Tobacco Use Status: Current every day Tobacco Type: cigarettes Tobacco: How many years used: 35 Quit status: considering quitting Smoking risk assessment performed?: Yes Alcohol Intake: never Drug use: Never Substance use type: does not use Adopted: No Caregiver/Support person: No Foster care: No Household members: none Housing: apartment Number of Children: 3 number of grandchildren: 2 Communication Needs: Hard of Hearing Do you need help understanding health information?: Often 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 Pets and animals: No Sexually active: No Do you think of yourself as: straight/heterosexual Current gender identity: male What is your relationship status?: never How often do you talk on the phone with friends or family?: never How often do you get together with friends or relatives?: never How often do you attend restorationist or mormonism services?: decline to answer Do you belong to any clubs or organized social groups?: no Panel score (0-1 are the most socially isolated patients): 0 What type of physical activity do you participate in: none and regular exercise Duration: 15-30 minutes/day Frequency: daily Seatbelt use: always Helmet use: No (No reason for one) 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
[2024-08-25] MEDS: Amoxicillin 875/Clav. 125 TAB PO (04:31)
[2024-08-25] MEDS: Ketorolac 15 MG/ML VIAL IM (04:31)
== END 2024-08-25 04:34 | disposition home or self-care (01) ==
LOC: ER 04:24
PROVIDERS: Emergency Provider Student in an Organized Health Care Education/Training Program; PCP Family Medicine
DX: K08.89 Other specified disorders of teeth and supporting structures (principal); R68.84 Jaw pain
CPT/HCPCS: 96372; 99284; 99283; J1885

== ENCOUNTER 2024-10-06 14:38 | Outpatient (CLI) | payer OTHER, SELFPAY ==
--- NOTE | 2024-10-06 12:40 | DI.RAD_ITS ---
Exam(s) XR WRIST RT COMPLETE EXAM: XR WRIST RT COMPLETE CLINICAL HISTORY: eval fx, M25.539 WRIST PAIN. TECHNIQUE: 2D digital imaging was performed of the right wrist. Three views were obtained. PA, lat eral and oblique views were obtained. COMPARISON: No exams were available for comparison FINDINGS: BONES: No acute fracture is present. No bony destructive lesion is seen. JOINTS: The carpal bones are normally aligned. SOFT TISSUE: Normal. IMPRESSION: No acute fracture or dislocation. DATA REPOSITORY: RADIATION DOSE DELIVERED:
== END 2024-10-06 14:58 ==
PROVIDERS: PCP Family Medicine; Visit Provider Nurse Practitioner Family
DX: M25.531 Pain in right wrist (principal)
CPT/HCPCS: 73110

== ENCOUNTER 2024-11-23 02:15 | Outpatient (CLI) | payer OTHER, SELFPAY ==
--- NOTE | 2024-11-23 07:15 | DI.MRI_ITS ---
Exam(s) MR UPPER JOINT RT WO EXAM: MR UPPER JOINT RT WO CLINICAL HISTORY: eval pathology,work injury, foreign body eye,T15.90xa,rt wrist pain. TECHNIQUE: Multiplanar multisequence MRI was performed. COMPARISON: Plain films 06 Oct 2014 FINDINGS: BONES: There is no fracture or contusion pattern. JOINTS: The radiocarpal joint is unremarkable. The carpal joints are unremarkable. TENDONS: Flexors: Unremarkable. Extensors: Unremarkable. MUSCLES: Unremarkable. MEDIAN NERVE: Unremarkable on this noncontrast examination. SOFT TISSUES: There is a 10 by 5 by 11 millimeter cyst deep to the extensor digitorum tendons at the level of the capitate, consistent with a ganglion cyst. Ligaments: Scapholunate ligament is intact. The radial and ulnar collateral l ligaments of the thumb appear intact TRIANGULAR FIBROCARTILAGE: Unremarkable. OTHER: IMPRESSION: Ganglion cyst at the level of the capitate deep to the extensor digitorum tendons. No tendon abnormalities identified. DATA REPOSITORY:
--- NOTE | 2024-11-23 10:17 | DI.RAD_ITS ---
Exam(s) XR EYE FOREIGN BODY EXAM: XR EYE FOREIGN BODY INDICATION: Evaluate for tendon or ligament damage,rt wrist pain,work injury,M25.531. COMPARISON: No exams were available for comparison TECHNIQUE: 2D digital imaging was performed. Three views. FINDINGS: No evidence of radiopaque foreign body. No evidence of fracture. The sinuses appear grossly clear as visualized. IMPRESSION: No evidence of metallic orbital foreign body. DATA REPOSITORY: RADIATION DOSE DELIVERED:
== END 2024-11-23 02:35 ==
LOC: DI 02:16
PROVIDERS: PCP Family Medicine; Visit Provider Nurse Practitioner Family
DX: T15.90XA Foreign body on external eye, part unspecified, unspecified eye, initial encounter (principal); M25.531 Pain in right wrist
CPT/HCPCS: 70030; 73221

== ENCOUNTER 2024-11-25 23:42 | Emergency (ER) | payer SELFPAY ==
[2024-11-25 23:45] VITALS: BP 190/88; PULSE 91; RESP 18; TEMP 37.2; O2SAT 98
--- NOTE | 2024-11-26 00:06 | W.ED.GENAD ---
Discharge Plan Disposition Patient Disposition: Home Condition: Improving Discharge Details Clinical Impression: Headache, Gastroesophageal reflux disease, Hyperglycemia due to diabetes mellitus Primary Care Provider: Yifan Grewal ED Provider: Dwayne Crowell Home Meds and New Rx's Prescriptions: Continued (DME) pen needle, diabetic [Pen Needle] 31 gauge x 5/16 needle See Rx Instructions .ROUTE .MEDSUPPLY Qty: 100 3RF Rx Instructions: As directed to administer insulin once daily. Dispense covered brand. albuterol sulfate [Ventolin HFA] 90 mcg/actuation HFA aerosol inhaler 1 - 2 puff inhalation Q6H PRN (Reason: shortness of breath or wheezing) Qty: 6.7 0RF acetaminophen 500 mg tablet 1,500 mg PO TID PRN topiramate 100 mg tablet 100 mg PO BID Qty: 180 3RF clopidogrel 75 mg tablet 75 mg PO DAILY Qty: 90 3RF labetalol 200 mg tablet 200 mg PO See Instructions Qty: 135 3RF Rx Instructions: Take 100 mg in the AM & 200 mg in the evening) primidone 50 mg tablet 50 mg PO QHS Patient Comments: TAKE 1 TABLET BY MOUTH EVERY DAY AT BEDTIME atorvastatin 80 mg tablet 80 mg PO DAILY Qty: 15 0RF dexlansoprazole 60 mg capsule,biphase delayed releas 60 mg PO DAILY Qty: 15 0RF Changed famotidine 20 mg tablet 20 mg PO DAILY Qty: 15 0RF Dose Instruction: TAKE 1 TABLET BY MOUTH DAILY Rx Instructions: TAKE 1 TABLET BY MOUTH DAILY Discharge Instructions Additional Instructions: You were seen in the ED for a headache and epigastric pain both of which you have had previously. Your exam and laboratory studies overall reassuring. 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 I have provided you with prescriptions for the atorvastatin, famotidine, dexlansoprazole that you are out of until you can get to your primary care in 2 weeks. Return to ED for any neurologic change, worsening abdominal pain, fever, persistent vomiting, other concerns. Referrals: Yifan Grewal DO [Primary Care Provider, Medicine] [facility] General Mode of arrival: ambulatory. Date/Time Provider Initiated Documentation: 11/26/24 00:04. Limitations to Documentation: no limitations. Information obtained by: patient and RN notes reviewed. HPI Narrative: Patient presents to ED with complaint of headache, reflux, being out of medications. Patient reports he has daily headaches. This headache is the same just worse and will not go away, preventing him from sleeping. He is also having symptoms from his reflux and has been out of his medication for this. He reports that he does have an appointment with his primary care to get refills on the . He denies any chest pain or shortness of breath. He denies any neurologic change. He has not been vomiting. He is just unable to sleep tonight because of the headache. Related Data Home Medications ?Medication ?Instructions ?Recorded ?Confirmed acetaminophen 500 mg tablet 1,500 mg PO TID PRN 11/02/19 11/25/24 pen needle, diabetic 31 gauge x #100 ea 10/21/22 10/30/2410/07 (Pen Needle) topiramate 100 mg tablet 100 mg PO BID #180 tabs 12/11/23 11/25/24 albuterol sulfate 90 mcg/actuation 1 - 2 puff inhalation Q6H PRN 03/11/24 11/25/24 aerosol inhaler (Ventolin HFA) shortness of breath or wheezing #6.7 grams clopidogrel 75 mg tablet 75 mg PO DAILY #90 tabs 08/09/24 11/25/24 primidone 50 mg tablet 50 mg PO QHS 08/25/24 11/25/24 labetalol 200 mg tablet 200 mg PO See Instructions #135 10/25/24 11/25/24 tab-caps atorvastatin 80 mg tablet 80 mg PO DAILY #15 tabs 11/26/24 dexlansoprazole 60 mg 60 mg PO DAILY #15 caps 11/26/24 capsule,biphase delayed release famotidine 20 mg tablet 20 mg PO DAILY #15 tabs 11/26/24 Previous Rx's ?Medication ?Instructions ?Recorded pen needle, diabetic 31 gauge x #100 ea 10/21/2210/07 (Pen Needle) topiramate 100 mg tablet 100 mg PO BID #180 tabs 12/11/23 albuterol sulfate 90 mcg/actuation 1 - 2 puff inhalation Q6H PRN 03/11/24 aerosol inhaler (Ventolin HFA) shortness of breath or wheezing #6.7 grams clopidogrel 75 mg tablet 75 mg PO DAILY #90 tabs 08/09/24 labetalol 200 mg tablet 200 mg PO See Instructions #135 10/25/24 tab-caps atorvastatin 80 mg tablet 80 mg PO DAILY #15 tabs 11/26/24 dexlansoprazole 60 mg 60 mg PO DAILY #15 caps 11/26/24 capsule,biphase delayed release famotidine 20 mg tablet 20 mg PO DAILY #15 tabs 11/26/24 Allergies Allergy/AdvReac Type Severity Reaction Status Date / Time metformin AdvReac Severe Diarrhea Verified 11/25/24 23:48 dulaglutide (From [facility]) AdvReac diarrhea Verified 11/25/24 23:48 General Stated Complaint: Abd Prob EDMUND: 3 Exam Narrative Exam Narrative: Const: WDWN male in NAD. VS per triage. HEENT: NC/AT. Normal facial exam. Neck: Supple. Trachea midline. Lungs: Normal respiratory effort. Lungs are clear. Cor: RRR with murmur. Good radial pulses. GI: Soft/ND/NT. Neuro: A+O x 3. Normal speech, mentation, gait. Cranial nerves II - XII grossly intact. No gross motor or sensory deficit. Course Vital Signs Vital signs: Vital Signs Temperature 98.9 F 11/25/24 23:45 Pulse 91 H 11/25/24 23:45 Respiratory Rate 18 11/25/24 23:45 Blood Pressure 190/88 H 11/25/24 23:45 Pulse Oximetry 98 11/25/24 23:45 Temperature 98.9 F 11/25/24 23:45 Temperature Source Oral 11/25/24 23:45 Pulse 91 H 11/25/24 23:45 Respiratory Rate 18 11/25/24 23:45 Blood Pressure 190/88 H 11/25/24 23:45 Pulse Oximetry 98 11/25/24 23:45 Pain Level 5 11/25/24 23:45 Medical Decision Making Patient presenting to ED with complaint of headache which is a daily occurrence but worse than usual and not allowing him to sleep. Also reporting reflux symptoms and being out of his medications for this. His exam is unremarkable. Will place IV so that we may give fluids, prochlorperazine, ketorolac for his headache. Abdomen is benign and he reports being out of famotidine and dexlansoprazole for couple weeks. Will check belly labs but not overly concerned with his complaint of epigastric abdominal pain. Patient's laboratory studies are fairly unremarkable. Only significant finding is a glucose of 305. Patient reports that he does have a refill of his insulin at the pharmacy he just needs to pick it up. He is strongly encouraged to do so. He does not have an appointment to see his primary care until the . I have agreed to give him a 2-week supply with prescriptions for his famotidine, dexlansoprazole and atorvastatin. His headache is completely resolved and he is requesting discharge. Follow-up with primary care as scheduled. Return precautions provided. Medical Records Medical records reviewed: Yes I reviewed the patient's medical records. Lab Data Lab results reviewed: Yes I reviewed the patient's lab results. Lab results narrative: See [facility] PFS All Active Problems Hyperglycemia due to diabetes mellitus (Acute) Headache (Acute) Rupture of extensor tendon of right hand (Acute) Right elbow pain (Acute) Right wrist pain (Acute) Obesity (BMI 30-39.9) (Acute 01/09/15) Obstructive sleep apnea (Chronic 09/06/14) Untreated. 09/04/2014:Severe obstructive sleep apnea with associated signficant nocturnal hypoxemia; Constance 68% on RA, average 90% Sensorineural hearing loss, bilateral (Acute 12/27/13) Smoker (Acute 08/29/13) 1 ppd Vertigo (Acute 02/20/14) Daily headache (Acute) Probably due to hypoxia from [place]. 68% sat on Rm Air during sleep study Nocturnal hypoxemia due to obesity (Chronic) 68% constance on room air during sleep study Medical History Cerebrovascular accident (08/29/10) [facility] on 09/18/10 with left hemiparesis, dysarthria, and dysphagia. His BP was 254/136! CTH was negative by report. CTA head and neck reportedly showed left vertebral occlusi common carotids bilaterally. An MRI of the brain was read as being a right occipital ischemia, however when you look at the details, it is noted 2 small foci of hyperintensity on DWI and F carotid ultrasound which was normal as well as a TTE with an EF 65% and normal atria/ventricles/etc. (Armando Vang M.D.) Gastroesophageal reflux disease (08/29/13) Type 2 diabetes mellitus without complication (~07/2017) Essential tremor Financial problems Umbilical hernia Flat feet, bilateral Lipoma (08/29/13) Depression 11/03/18 PHQ9 = 10 GERD (gastroesophageal reflux disease) Migraine HTN (hypertension) Hypercholesterolemia [place]INO (obstructive sleep apnea) Nephrolithiasis (07/24/17) History of [place] measles (02/20/14) Anxiety (09/07/12) 11/03/18 BECKS = 26 Deafness Family History Mother , in 50's Essential hypertension Alcohol abuse Substance abuse Brother Brain tumor Other Breast cancer Social History Smoking/Tobacco Use Status: Current every day Tobacco Type: cigarettes Tobacco: How many years used: 35 Quit status: considering quitting Smoking risk assessment performed?: Yes Alcohol Intake: never Drug use: Never Substance use type: does not use Adopted: No Caregiver/Support person: No Foster care: No Household members: none Housing: apartment Number of Children: 3 number of grandchildren: 2 Communication Needs: Hard of Hearing Do you need help understanding health information?: Often 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 Pets and animals: No Sexually active: No Do you think of yourself as: straight/heterosexual Current gender identity: male What is your relationship status?: never How often do you talk on the phone with friends or family?: never How often do you get together with friends or relatives?: never How often do you attend islam or restorationism services?: decline to answer Do you belong to any clubs or organized social groups?: no Panel score (0-1 are the most socially isolated patients): 0 What type of physical activity do you participate in: none and regular exercise Duration: 15-30 minutes/day Frequency: daily Seatbelt use: always Helmet use: No (No reason for one) Drive intox or ride w/intox local hazmat driver: No Water heater temp set <120 deg: Yes Working smoke detector in home: Yes Fire extinguisher in home: Yes Carbon monox detector in home: Yes Do you feel safe at home: Yes Do you feel safe in your relationship?: Yes
[2024-11-26] MEDS: Normal Saline 1,000 ML 1000 ML IV (00:26)
[2024-11-26] MEDS: Ketorolac 15 MG/ML VIAL IVP (00:27)
[2024-11-26] MEDS: Prochlorperazine 10 MG/2 ML VIAL IVP (00:29)
[2024-11-26 00:30] LABS: Abs Immature Grans 0.08 10^3/uL (0.0-0.06); HCT 42.0 % (40.0-50.0); HGB 13.7 g/dL (13.5-17.5); Immature Grans % 0.9 %; MCH 28.5 pg (27.0-33.0); MCHC 32.6 % (32.0-36.0); MCV 88 fL (80-95); MPV 9.7 fL (8.0-11.0); Platelet Count 245 10^3/uL (130-400); RBC 4.80 10^6/uL (4.36-5.78); RDW 14.1 % (11.8-14.1); RDW-SD 44.8 fL; WBC 8.61 10^3/uL (4.4-10.8)
[2024-11-26 00:48] LABS: ALT 28 U/L (16-63); AST 8 U/L (15-37); Albumin 3.6 g/dL (3.4-5.0); Alkaline Phosphatase 73 U/L (46-116); Anion Gap 8.3 mmol/L (3-11); BUN 16 mg/dL (7-18); Bilirubin, Total 0.1 mg/dL (0.2-1.0); CO2 27.7 mmol/L (21.0-32.0); Calcium 9.0 mg/dL (8.5-10.1); Chloride 103 mmol/L (98-107); Estimated GFR 110.18 (mL/min/1.73m2); Glucose 305 mg/dL (74-106); Lipase 43 U/L (<78); Potassium 3.9 mmol/L (3.5-5.1); Sodium 139 mmol/L (136-145); Total Protein 6.5 g/dL (6.4-8.2)
[2024-11-26 01:14] VITALS: BP 182/78; PULSE 88; RESP 16; TEMP 37.1; O2SAT 97
== END 2024-11-26 01:27 | disposition home or self-care (01) ==
PROVIDERS: Emergency Provider Emergency Medicine; PCP Family Medicine
DX: R10.9 Unspecified abdominal pain (principal); K21.9 Gastro-esophageal reflux disease without esophagitis; R51.9 Headache, unspecified; E11.65 Type 2 diabetes mellitus with hyperglycemia
CPT/HCPCS: 99284 ×2; 96374; 96375; 80053; 83690; 96361; 85025; J0780; J1885

== ENCOUNTER 2024-12-18 21:52 | Emergency (ER) | payer SELFPAY ==
[2024-12-18 21:56] VITALS: BP 130/84; PULSE 90; RESP 16; TEMP 36.8; O2SAT 99
[2024-12-18 22:02] VITALS: RESP 16
--- NOTE | 2024-12-18 22:15 | DI.CT_ITS ---
Exam(s) CT BRAIN NECK CTA EXAM: CT BRAIN NECK CTA CLINICAL HISTORY: right sided headache. TECHNIQUE: Imaging Protocol: Axial CT angiography was performed with multi- slice acquisition and multi-planar and/or 3D reconstructions. CONTRAST MATERIAL: Intravenous: Omnipaque 350 Contrast volume:70 mL COMPARISON: CT CT BRAIN NECK CTA from 03/04/[address] HEAD WO from 03/28/2024 FINDINGS: CTA Neck W: Aortic arch anatomy: There appears to be some enlargement of the ascending thoracic aorta. No dissection. There is mild-moderate circumferential plaque at the origin the brachiocephalic artery and left common carotid artery. Mild- moderate atherosclerotic involvement is noted at the origin left subclavian artery. Anterior circulation: Both common carotid arteries ascend with normal luminal diameters. At the right carotid bulb and proximal right ICA there is both calcified and noncalcified plaque with moderate stenosis evident. Above this level the right ICA in the upper right neck appears nicely patent as well as within the right skull base-right carotid canal. There is mild-moderate plaque in the left common carotid artery. The at the level the carotid bifurcation and proximal left ICA there is moderate stenosis evident. The left ICA in the upper neck is nicely patent as well as within the skull base-left carotid canal. Posterior circulation: There is mild stenosis at the origin of the right vertebral artery off of the right subclavian artery. An the right vertebral artery is dominant and ascends with a luminal diameter of 3.8 mm within the right foramen transversarium. 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 These left vertebral findings were also evident on prior study of February 2021. CTA Brain W: Anterior circulation: Both internal carotid arteries are patent in the skull base-carotid canals as well as within the cavernous sinuses. Some calcified plaque seen in the peripheral intra cavernous internal carotid arteries but no critical stenosis. The supraclinoid aspects of the ICAs are patent. Both A1 segments are patent as are the anterior cerebral arteries and there is no evidence of aneurysm at the level of the anterior communicating artery. Both middle cerebral arteries are patent with no evidence of significant stenosis nor intraluminal thrombus. There also no aneurysms of these vessels. Posterior circulation: The basilar artery ascends in the midline. Distally it gives off patent bilateral superior cerebellar arteries. Above this level the basilar artery terminates as patent bilateral posterior cerebral arteries. There is no evidence of aneurysm at the tip of the basilar artery nor elsewhere in the [id number]. CT BRAIN: There is no evidence of intracranial hemorrhage, mass effect, or shift of midline structures. There are no extra-axial fluid collections. Ventricles are not enlarged or shifted. There are no ring enhancing lesions in the brain and no abnormal meningeal enhancement. IMPRESSION: 1. No significant change compared to the prior CT angio performed March 04, 2021. 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 2. Moderate stenosis at the level both proximal internal carotid arteries. There is also some mild stenosis at the origin of the great vessels off the aortic arch. 3. Patent intracranial arteries. No significant stenosis nor dissection of the intracranial arteries. No aneurysms evident 4. No acute intracranial findings. Preliminary virtual Radiology report was reviewed. RADIATION DOSE DELIVERED: 2,112.83mGy.cm Total DLP DATA REPOSITORY: All CT scans at this facility are submitted to the National Radiology Data Registry (NRDR) Dose Index Registry (DIR) with the [employer] (A[employer]). RADIATION OPTIMIZATION: All CT scans at this facility use at least one of these dose optimization techniques: automated exposure control; mA and/or kV adjustment per patient size (includes targeted exams where dose is matched to clinical indication); or iterative reconstruction.
[2024-12-18] MEDS: diphenhydrAMINE 50 MG/ML VIAL 25 MG IVP (23:05)
[2024-12-18] MEDS: methylPREDNISolone SUCC 125 MG VIAL IVP (23:05)
[2024-12-18] MEDS: Prochlorperazine 10 MG/2 ML VIAL IVP (23:06)
[2024-12-18] MEDS: Lactated Ringers 1,000 ML 1000 ML IV (23:06)
[2024-12-18] MEDS: ACETAMINOPHEN 1,000 MG/100 ML BAG 400 MG (23:07)
[2024-12-18 23:20] LABS: Abs Immature Grans 0.06 10^3/uL (0.0-0.06); HCT 46.3 % (40.0-50.0); HGB 15.0 g/dL (13.5-17.5); Immature Grans % 0.7 %; MCH 27.9 pg (27.0-33.0); MCHC 32.4 % (32.0-36.0); MCV 86 fL (80-95); MPV 9.8 fL (8.0-11.0); Platelet Count 307 10^3/uL (130-400); RBC 5.37 10^6/uL (4.36-5.78); RDW 13.5 % (11.8-14.1); RDW-SD 42.3 fL; WBC 8.72 10^3/uL (4.4-10.8)
--- NOTE | 2024-12-18 23:32 | W.ED.GENAD ---
Discharge Plan Disposition Patient Disposition: Home Condition: Good Discharge Details Clinical Impression: Headache Primary Care Provider: Yifan Grewal ED Provider: Jeffry Marin Home Meds and New Rx's Prescriptions: No Action albuterol sulfate [Ventolin HFA] 90 mcg/actuation HFA aerosol inhaler 1 - 2 puff inhalation Q6H PRN (Reason: shortness of breath or wheezing) Qty: 6.7 0RF acetaminophen 500 mg tablet 1,500 mg PO TID PRN atorvastatin 80 mg tablet 80 mg PO DAILY Qty: 90 3RF pantoprazole 40 mg tablet,delayed release (DR/EC) 40 mg PO DAILY Qty: 90 3RF famotidine 20 mg tablet 20 mg PO DAILY Qty: 90 3RF Dose Instruction: TAKE 1 TABLET BY MOUTH DAILY Rx Instructions: TAKE 1 TABLET BY MOUTH DAILY (DME) pen needle, diabetic [Pen Needle] 31 gauge x 5/16 needle See Rx Instructions .ROUTE .MEDSUPPLY Qty: 100 3RF Rx Instructions: As directed to administer insulin once daily. Dispense covered brand. insulin glargine [Lantus Solostar U-100 Insulin] 100 unit/mL (3 mL) insulin pen 25 unit subcut QPM Qty: 15 3RF topiramate 100 mg tablet 100 mg PO BID Qty: 180 3RF clopidogrel 75 mg tablet 75 mg PO DAILY Qty: 90 3RF labetalol 200 mg tablet 200 mg PO See Instructions Qty: 135 3RF Rx Instructions: Take 100 mg in the AM & 200 mg in the evening) primidone 50 mg tablet 50 mg PO QHS Patient Comments: TAKE 1 TABLET BY MOUTH EVERY DAY AT BEDTIME Discharge Instructions Instructions: Headache, Adult ED Additional Instructions: At this time your headache symptoms have resolved, and your CAT scan and labs have returned with no significant abnormalities. At this time I suspect your symptoms are secondary to your migraine component. Please drink plenty of fluids, take Tylenol and Motrin as needed for pain. If you notice any worsening of your symptoms, or any new symptoms such as vomiting, diarrhea, fever, chills, shortness of breath, chest pain, numbness, weakness, or fainting , please return immediately to the emergency department for reevaluation. Please follow up with your primary care provider as soon as possible for reassessment and reevaluation. As always, it was a pleasure participating in your medical care today. Referrals: Yifan Grewal DO [Primary Care Provider, Medicine] [facility] General Date/Time Provider Initiated Documentation: 12/18/24 22:07. HPI Narrative: This is a pleasant 54-year-old male with a past medical history of type 2 diabetes, hypertension, obstructive sleep apnea, obesity, daily smoker, high cholesterol, bilateral hearing loss, chronic vertigo, chronic migraines, previous stroke, chronic left-sided tremor, who presents today for evaluation of headache. Patient states that starting this morning he developed a moderate headache starting from the back of his neck to the right holiness. It is not necessarily made worse with light, and he does not hear well so there is no hearing component. He denies fever or chills. The headache comes and goes in severity. He did take Tylenol and Motrin without any significant improvement. He denies any trauma. No other complaints at this time. Related Data Home Medications ?Medication ?Instructions ?Recorded ?Confirmed acetaminophen 500 mg tablet 1,500 mg PO TID PRN 11/02/19 12/18/24 albuterol sulfate 90 mcg/actuation 1 - 2 puff inhalation Q6H PRN 03/11/24 12/18/24 aerosol inhaler (Ventolin HFA) shortness of breath or wheezing #6.7 grams clopidogrel 75 mg tablet 75 mg PO DAILY #90 tabs 08/09/24 12/18/24 primidone 50 mg tablet 50 mg PO QHS 08/25/24 12/18/24 Held on 12/09/24. Instructions: Home Medication placed on hold at Doctor's office labetalol 200 mg tablet 200 mg PO See Instructions #135 10/25/24 12/18/24 tab-caps atorvastatin 80 mg tablet 80 mg PO DAILY #90 tabs 12/09/24 12/18/24 famotidine 20 mg tablet 20 mg PO DAILY #90 tabs 12/09/24 12/18/24 insulin glargine 100 unit/mL (3 25 unit (0.25 mL) subcut QPM #15 mL 12/09/24 12/18/24 mL) subcutaneous pen (Lantus Solostar U-100 Insulin) pantoprazole 40 mg tablet,delayed 40 mg PO DAILY #90 tabs 12/09/24 12/18/24 release pen needle, diabetic 31 gauge x #100 ea 12/09/24 12/18/24 5/16 (Pen Needle) topiramate 100 mg tablet 100 mg PO BID #180 tabs 12/09/24 12/18/24 Previous Rx's ?Medication ?Instructions ?Recorded albuterol sulfate 90 mcg/actuation 1 - 2 puff inhalation Q6H PRN 03/11/24 aerosol inhaler (Ventolin HFA) shortness of breath or wheezing #6.7 grams clopidogrel 75 mg tablet 75 mg PO DAILY #90 tabs 08/09/24 labetalol 200 mg tablet 200 mg PO See Instructions #135 10/25/24 tab-caps atorvastatin 80 mg tablet 80 mg PO DAILY #90 tabs 12/09/24 famotidine 20 mg tablet 20 mg PO DAILY #90 tabs 12/09/24 insulin glargine 100 unit/mL (3 25 unit (0.25 mL) subcut QPM #15 mL 12/09/24 mL) subcutaneous pen (Lantus Solostar U-100 Insulin) pantoprazole 40 mg tablet,delayed 40 mg PO DAILY #90 tabs 12/09/24 release pen needle, diabetic 31 gauge x #100 ea 12/09/24 5 (Pen Needle) topiramate 100 mg tablet 100 mg PO BID #180 tabs 12/09/24 Allergies Allergy/AdvReac Type Severity Reaction Status Date / Time metformin AdvReac Severe Diarrhea Verified 12/18/24 22:00 dulaglutide (From [facility]) AdvReac diarrhea Verified 12/18/24 22:00 General Stated Complaint: [facility] EDMUND: 3 Exam Narrative Exam Narrative: 1.Const: Well-nourished, Well-developed, appearing stated age 2.Eyes: PERRL, no conjunctival injection, and symmetrical lids. 3.ENT: Atraumatic external nose and ears. Moist MM. Neck: Symmetric, trachea midline, No thyromegaly. Patient demonstrates good movement of cervical neck. There is no nuchal rigidity, no nuchal tenderness. Patient is able to flex the neck without any difficulty or significant pain. Negative Kernig's and Brudzinski sign. 4.CVS: +S1/S2, Peripheral pulses 2+ and equal in all extremities. Brisk capillary refill in all extremities. 5.RESP: Unlabored respiratory effort. Clear to auscultation bilaterally. No wheezes rales or rhonchi 6.GI: Soft, Nontender/Nondistended, No hepatosplenomegaly. No guarding or rebound. 7.MSK: Normocephalic/Atraumatic, Extremities w/o deformity or ttp No cyanosis or clubbing, Normal movement of all extremities 8.Skin: Warm, Dry. No rashes or lesions. 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 Sensation grossly intact, no focal neurologic deficits. All 6 cardinal planes of vision are fully intact. No evidence of rotatory or vertical nystagmus. The patient demonstrated a normal [id number], good dexterity. There was no evidence of dysdiadochokinesia. Patient was able to ambulate without difficulty. There was no wide-based gait. Romberg testing was normal. [id number]-[id number] testing was normal. Sensation was intact bilaterally as well as muscle strength bilaterally for all extremities. Patient was able to verbalize butter cup with no slurring, or miss pronunciation. 10.Psych: (AAO) x3. Appropriate mood and affect Course Vital Signs Vital signs: Vital Signs Temperature 36.8 C 12/18/24 21:56 Pulse 90 12/18/24 21:56 Respiratory Rate 16 12/18/24 21:56 Blood Pressure 130/84 12/18/24 21:56 Pulse Oximetry 99 12/18/24 21:56 Temperature 36.8 C 12/18/24 21:56 Temperature Source Oral 12/18/24 21:56 Pulse 90 12/18/24 21:56 Respiratory Rate 16 12/18/24 22:02 Respiratory Effort Normal, Non-Labored 12/18/24 22:02 Respiratory Depth Normal 12/18/24 22:02 Respiratory Pattern Normal 12/18/24 22:02 Blood Pressure 130/84 12/18/24 21:56 Blood Pressure Position Sitting 12/18/24 21:56 Pulse Oximetry 99 12/18/24 21:56 Oxygen Delivery Method Room Air 12/18/24 21:56 Oxygen Flow Rate 0 12/18/24 21:56 Pain Level 10 12/18/24 21:56 Comment Headache, back of head 12/18/24 21:56 Lab/Test Results Lab/Test Results: Laboratory Tests Range/Units 12/18/24 23:05 WBC (4.4-10.8) 10^3/uL 8.72 RBC (4.36-5.78) 10^6/uL 5.37 Hgb (13.5-17.5) g/dL 15.0 Hct (40.0-50.0) % 46.3 MCV (80-95) fL 86 MCH (27.0-33.0) pg 27.9 MCHC (32.0-36.0) % 32.4 RDW (11.8-14.1) % 13.5 Plt Count (130-400) 10^3/uL 307 MPV (8.0-11.0) fL 9.8 Immature Gran % % 0.7 Neutrophils % % 58.4 Lymphocytes % % 31.1 Monocytes % % 6.8 Eosinophils % % 2.2 Basophils % % 0.8 Nucleated RBC % (0.0-0.3) % 0.0 Absolute Neutrophils (1.2-6.7) 10^3/uL 5.10 Absolute Lymphocytes (1.2-3.4) 10^3/uL 2.71 Absolute Monocytes (0.1-0.8) 10^3/uL 0.59 Absolute Eosinophils (0.0-0.7) 10^3/uL 0.19 Absolute Basophils (0.0-0.2) 10^3/uL 0.07 Medical Decision Making This is a pleasant 54-year-old male with a past medical history of type 2 diabetes, hypertension, obstructive sleep apnea, obesity, daily smoker, high cholesterol, bilateral hearing loss, chronic vertigo, chronic migraines, previous stroke, chronic left-sided tremor, who presents today for evaluation of headache. Patient states that starting this morning he developed a moderate headache starting from the back of his neck to the right holiness. It is not necessarily made worse with light, and he does not hear well so there is no hearing component. He denies fever or chills. The headache comes and goes in severity. He did take Tylenol and Motrin without any significant improvement. He denies any trauma. No other complaints at this time. The patient denies any headache red flags of worst headache of life, thunderclap headache, neck pain, fever, chills, concerning family history of polycystic kidney disease, Marfan syndrome, Dereck-Danlos syndrome, abdominal aortic aneurysm, aortic dissection, or intracranial aneurysm. Physical exam demonstrates well-appearing male, no nuchal rigidity, no evidence of meningismus. No focal neurologic deficits. Differential appears most consistent with migraine headache, however vertebral or coronary artery etiology is of concern. No thunderclap headache to suggest acute subarachnoid hemorrhage. No meningismus to suggest meningitis. No fever or chills. Will get CT imaging out of concern for these differentials, will treat with migraine cocktail, monitor closely and reassess. 12:[address] scan has returned negative for acute process, laboratory workup normal. On reassessment patient has complete resolution of his headache. Symptoms appear clinically inconsistent with meningitis, subarachnoid hemorrhage, or other life-threatening etiology. Patient stable for discharge. Discussed red flags for which to return. Patient is requesting discharge at this time. I have extensively reviewed the treatment plan and discharge instructions with the patient. I have addressed all patient concerns at this time. The patient was made aware of what symptoms to monitor for that would warrant a return to the emergency department. Discussed the plan with the patient, they demonstrate verbal understanding and agreement with our assessment and plan at this time. The documentation in this chart was dictated using [employer] dictation software. Please excuse any dictation errors. FINDINGS: ANTERIOR CIRCULATION: Right internal carotid artery: Intracranial segment is patent with no significant stenosis or occlusion. No aneurysm. Right middle cerebral artery: No occlusion or significant stenosis. No aneurysm. Right anterior cerebral artery: No occlusion or significant stenosis. No aneurysm. Left internal carotid artery: Intracranial segment is patent with no significant stenosis. No aneurysm. Left middle cerebral artery: No occlusion or significant stenosis. No aneurysm. Left anterior cerebral artery: No occlusion or significant stenosis. No aneurysm. POSTERIOR CIRCULATION: Right vertebral artery: No occlusion or significant stenosis. No aneurysm. Left vertebral artery: No occlusion or significant stenosis. No aneurysm. Basilar artery: No occlusion or significant stenosis. No aneurysm. Right posterior cerebral artery: No occlusion or significant stenosis. No aneurysm. Left posterior cerebral artery: No occlusion or significant stenosis. No aneurysm. HEAD: Brain: Normal. No hemorrhage. Unremarkable white matter. No mass effect. Cerebral ventricles: Normal. No ventriculomegaly. Bones: Unremarkable. No acute fracture. Paranasal sinuses: Visualized sinuses are normal. No fluid levels. Mastoid air cells: Visualized mastoids are normal. No mastoid effusion. Soft tissues: Unremarkable. IMPRESSION: 1. No large vessel occlusion. 2. Unremarkable CT head. FINDINGS: Right common carotid artery: No stenosis. No dissection or occlusion. Right internal carotid artery: Moderate stenosis of the origin of the right internal carotid artery secondary to mixed atherosclerotic plaque. Right external carotid artery: No occlusion or stenosis of the origin. Left common carotid artery: No stenosis. No dissection or occlusion. Left internal carotid artery: Moderate short-segment stenosis of the proximal left internal carotid artery secondary to mixed atherosclerotic plaque. Left external carotid artery: No occlusion or stenosis of the origin. Right vertebral artery: No stenosis. No dissection or occlusion. Left vertebral artery: Occlusion of the entire left vertebral artery except for a short distal portion, unchanged compared to prior study from 03/04/2021. Soft tissues: Normal. No significant soft tissue swelling. Bones/joints: No acute fracture. IMPRESSION: No acute vascular findings. REFERENCES: NASCET CRITERIA. The degree of stenosis in the cervical segment of the internal carotid artery is based on NASCET criteria. Normal is no stenosis. Mild is less than 50% stenosis. Moderate is 50- 69% stenosis. Severe is 70% to 99% stenosis. Total occlusion is no detectable patent lumen. Thank you for allowing us to participate in the care of your patient. Dictated and Authenticated by: Casey Rodriguez MD 12/19/2024 12:45 AM Eastern Time ([place] & [place]) [facility] All Active Problems (Updated 12/19/24 @ 00:56 by Jeffry Marin DO) Headache (Acute) Hyperglycemia due to diabetes mellitus (Acute) Headache (Acute) Rupture of extensor tendon of right hand (Acute) Right elbow pain (Acute) Right wrist pain (Acute) Obesity (BMI 30-39.9) (Acute 01/09/15) Obstructive sleep apnea (Chronic 09/06/14) Untreated. 09/04/2014:Severe obstructive sleep apnea with associated signficant nocturnal hypoxemia; Constance 68% on RA, average 90% Sensorineural hearing loss, bilateral (Acute 12/27/13) Smoker (Acute 08/29/13) 1 ppd Vertigo (Acute 02/20/14) Daily headache (Acute) Probably due to hypoxia from [place]. 68% sat on Rm Air during sleep study Nocturnal hypoxemia due to obesity (Chronic) 68% constance on room air during sleep study Medical History Cerebrovascular accident (08/29/10) [facility] on 09/18/10 with left hemiparesis, dysarthria, and dysphagia. His BP was 254/136! CTH was negative by report. CTA head and neck reportedly showed left vertebral occlusi common carotids bilaterally. An MRI of the brain was read as being a right occipital ischemia, however when you look at the details, it is noted 2 small foci of hyperintensity on DWI and F carotid ultrasound which was normal as well as a TTE with an EF 65% and normal atria/ventricles/etc. (Armando Vang M.D.) Gastroesophageal reflux disease (08/29/13) Type 2 diabetes mellitus without complication (~07/2017) Essential tremor Financial problems Umbilical hernia Flat feet, bilateral Lipoma (08/29/13) Depression 11/03/18 PHQ9 = 10 GERD (gastroesophageal reflux disease) Migraine HTN (hypertension) Hypercholesterolemia [place] (obstructive sleep apnea) Nephrolithiasis (07/24/17) History of [place] measles (02/20/14) Anxiety (09/07/12) 11/03/18 BECKS = 26 Deafness Family History Mother , in 50's Essential hypertension Alcohol abuse Substance abuse Brother Brain tumor Other Breast cancer Social History Smoking/Tobacco Use Status: Current every day Tobacco Type: cigarettes Tobacco: How many years used: 35 Quit status: considering quitting Smoking risk assessment performed?: Yes Alcohol Intake: never Drug use: Never Substance use type: does not use Adopted: No Caregiver/Support person: No Foster care: No Household members: none Housing: apartment Number of Children: 3 number of grandchildren: 2 Communication Needs: Hard of Hearing Do you need help understanding health information?: Often 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 Pets and animals: No Sexually active: No Do you think of yourself as: straight/heterosexual Current gender identity: male What is your relationship status?: never How often do you talk on the phone with friends or family?: never How often do you get together with friends or relatives?: never How often do you attend temple or confucianism services?: decline to answer Do you belong to any clubs or organized social groups?: no Panel score (0-1 are the most socially isolated patients): 0 What type of physical activity do you participate in: none and regular exercise Duration: 15-30 minutes/day Frequency: daily Seatbelt use: always Helmet use: No (No reason for one) Drive intox or ride w/intox diesel truck driver: No Water heater temp set <120 deg: Yes Working smoke detector in home: Yes Fire extinguisher in home: Yes Carbon monox detector in home: Yes Do you feel safe at home: Yes Do you feel safe in your relationship?: Yes
[2024-12-18 23:52] LABS: ALT 32 U/L (16-63); AST 14 U/L (15-37); Albumin 4.1 g/dL (3.4-5.0); Alkaline Phosphatase 69 U/L (46-116); Anion Gap 10.8 mmol/L (3-11); BUN 14 mg/dL (7-18); Bilirubin, Total 0.6 mg/dL (0.2-1.0); CO2 25.2 mmol/L (21.0-32.0); Calcium 9.1 mg/dL (8.5-10.1); Chloride 103 mmol/L (98-107); Estimated GFR 105.82 (mL/min/1.73m2); Glucose 148 mg/dL (74-106); Potassium 4.0 mmol/L (3.5-5.1); Sodium 139 mmol/L (136-145); Total Protein 7.2 g/dL (6.4-8.2)
[2024-12-18] MEDS: Omnipaque 350 MG/ML 100 ML BTL IJ (23:58)
[2024-12-18 23:59] VITALS: BP 160/88; PULSE 72; RESP 16; O2SAT 98
[2024-12-18] MEDS: Normal Saline Flush 10 ML SYR IVP (23:59)
[2024-12-19] MEDS: Normal Saline - Diluent 50 ML VIAL IJ (00:01)
--- NOTE | 2024-12-19 00:46 | DI.VRAD_ITS ---
PROCEDURE INFORMATION: Exam: CTA Head Without And With Contrast, Arteriography Exam date and time: 12/19/2024 12:00 AM Age: 54 years old Clinical indication: Pain; R sided headache TECHNIQUE: Imaging protocol: Computed tomographic angiography of the head without and with contrast. Exam focused on the arteries. 3D rendering (Not supervised by radiologist): MIP and/or 3D reconstructed images were created by the technologist. Radiation optimization: All CT scans at this facility use at least one of these dose optimization techniques: automated exposure control; mA and/or kV adjustment per patient size (includes targeted exams where dose is matched to clinical indication); or iterative reconstruction. Contrast material: OMNIPAQUE 350; Contrast volume: 70 ml; Contrast route: INTRAVENOUS (IV); COMPARISON: CT BRAIN NECK CTA 03/04/2021 9:06 PM FINDINGS: ANTERIOR CIRCULATION: Right internal carotid artery: Intracranial segment is patent with no significant stenosis or occlusion. No aneurysm. Right middle cerebral artery: No occlusion or significant stenosis. No aneurysm. Right anterior cerebral artery: No occlusion or significant stenosis. No aneurysm. Left internal carotid artery: Intracranial segment is patent with no significant stenosis. No aneurysm. Left middle cerebral artery: No occlusion or significant stenosis. No aneurysm. Left anterior cerebral artery: No occlusion or significant stenosis. No aneurysm. POSTERIOR CIRCULATION: Right vertebral artery: No occlusion or significant stenosis. No aneurysm. Left vertebral artery: No occlusion or significant stenosis. No aneurysm. Basilar artery: No occlusion or significant stenosis. No aneurysm. Right posterior cerebral artery: No occlusion or significant stenosis. No aneurysm. Left posterior cerebral artery: No occlusion or significant stenosis. No aneurysm. HEAD: Brain: Normal. No hemorrhage. Unremarkable white matter. No mass effect. Cerebral ventricles: Normal. No ventriculomegaly. Bones: Unremarkable. No acute fracture. Paranasal sinuses: Visualized sinuses are normal. No fluid levels. Mastoid air cells: Visualized mastoids are normal. No mastoid effusion. Soft tissues: Unremarkable. IMPRESSION: 1. No large vessel occlusion. 2. Unremarkable CT head. PROCEDURE INFORMATION: Exam: CTA Neck Without And With Contrast Exam date and time: 12/19/2024 12:00 AM Age: 54 years old Clinical indication: Pain; R sided headache TECHNIQUE: Imaging protocol: Computed tomographic angiography of the neck without and with contrast. Exam focused on the cervical segments of the vasculature. 3D rendering (Not supervised by radiologist): MIP and/or 3D reconstructed images were created by the technologist. Radiation optimization: All CT scans at this facility use at least one of these dose optimization techniques: automated exposure control; mA and/or kV adjustment per patient size (includes targeted exams where dose is matched to clinical indication); or iterative reconstruction. Contrast material: OMNIPAQUE 350; Contrast volume: 70 ml; Contrast route: INTRAVENOUS (IV); COMPARISON: CT BRAIN NECK CTA 03/04/2021 9:06 PM FINDINGS: Right common carotid artery: No stenosis. No dissection or occlusion. Right internal carotid artery: Moderate stenosis of the origin of the right internal carotid artery secondary to mixed atherosclerotic plaque. Right external carotid artery: No occlusion or stenosis of the origin. Left common carotid artery: No stenosis. No dissection or occlusion. Left internal carotid artery: Moderate short-segment stenosis of the proximal left internal carotid artery secondary to mixed atherosclerotic plaque. Left external carotid artery: No occlusion or stenosis of the origin. Right vertebral artery: No stenosis. No dissection or occlusion. Left vertebral artery: Occlusion of the entire left vertebral artery except for a short distal portion, unchanged compared to prior study from 03/04/2021. Soft tissues: Normal. No significant soft tissue swelling. Bones/joints: No acute fracture. IMPRESSION: No acute vascular findings. REFERENCES: NASCET CRITERIA. The degree of stenosis in the cervical segment of the internal carotid artery is based on NASCET criteria. Normal is no stenosis. Mild is less than 50% stenosis. Moderate is 50-69% stenosis. Severe is 70% to 99% stenosis. Total occlusion is no detectable patent lumen. Dictated and Authenticated by: Casey Rodriguez MD. Orderin Tomas Teran MD
[2024-12-19 00:58] VITALS: BP 150/80; PULSE 77; RESP 16; O2SAT 98
== END 2024-12-19 01:06 | disposition home or self-care (01) ==
LOC: ER 12-19 01:04
PROVIDERS: Emergency Provider Student in an Organized Health Care Education/Training Program; PCP Family Medicine
DX: R51.9 Headache, unspecified (principal); E11.69 Type 2 diabetes mellitus with other specified complication; I10 Essential (primary) hypertension
CPT/HCPCS: 99285; 99284; 96374; 96375; 70496; 70498; 80053; 96361; 85025; J0131; J0780; J1200; J2919; J3490

== ENCOUNTER 2025-02-16 14:08 | Emergency (ER) | payer SELFPAY ==
[2025-02-16 14:17] VITALS: BP 150/77; PULSE 86; RESP 20; TEMP 36.8; O2SAT 93
--- NOTE | 2025-02-16 14:25 | W.ED.GENAD ---
Discharge Plan Disposition Patient Disposition: Home Condition: Good Discharge Details Clinical Impression: Bilateral pain of leg and foot Primary Care Provider: Yifan Grewal ED Provider: Dwayne Crowell Meds and New Rx's Prescriptions: Continued albuterol sulfate [Ventolin HFA] 90 mcg/actuation HFA aerosol inhaler 1 - 2 puff inhalation Q6H PRN (Reason: shortness of breath or wheezing) Qty: 6.7 0RF acetaminophen 500 mg tablet 1,500 mg PO TID PRN atorvastatin 80 mg tablet 80 mg PO DAILY Qty: 90 3RF famotidine 20 mg tablet 20 mg PO DAILY Qty: 90 3RF Dose Instruction: TAKE 1 TABLET BY MOUTH DAILY Rx Instructions: TAKE 1 TABLET BY MOUTH DAILY (DME) pen needle, diabetic [Pen Needle] 31 gauge x 5/16 needle See Rx Instructions .ROUTE .MEDSUPPLY Qty: 100 3RF Rx Instructions: As directed to administer insulin once daily. Dispense covered brand. insulin glargine [Lantus Solostar U-100 Insulin] 100 unit/mL (3 mL) insulin pen 25 unit subcut QPM Qty: 15 3RF topiramate 100 mg tablet 100 mg PO BID Qty: 180 3RF clopidogrel 75 mg tablet 75 mg PO DAILY Qty: 90 3RF labetalol 200 mg tablet 200 mg PO See Instructions Qty: 135 3RF Rx Instructions: Take 100 mg in the AM & 200 mg in the evening) primidone 50 mg tablet 50 mg PO QHS Patient Comments: TAKE 1 TABLET BY MOUTH EVERY DAY AT BEDTIME Discharge Instructions Additional Instructions: You were seen in the ED for ultrasound evaluation to rule out blood clots. Your ultrasound shows no evidence of clots in the venous system. Your symptoms seem compatible with decrease in arterial flow which is why the pain occurs with exertion. You will need special arterial ultrasound performed at some point. Please contact primary care for follow-up. Return to ED for any severe worsening pain especially at rest, blue or white discoloration of lower extremities, chest pain, syncope, shortness of breath. Referrals: Yifan Grewal DO [Primary Care Provider, Medicine] [facility] General Mode of arrival: ambulatory. Date/Time Provider Initiated Documentation: 02/16/25 14:12. Limitations to Documentation: no limitations. Information obtained by: patient, RN notes reviewed and old records reviewed. HPI Narrative: Patient sent to ED by PCP for evaluation of possible DVT. Patient has been having bilateral leg pain left greater than right for the last 3 weeks. Pain is in the distal lower extremity/calf and foot area. Gets some tingling at the same time. Only occurs with exertion. Much better while at rest especially at night. No type of chest pain or shortness of breath. No prior history of blood clots. He does have a history of diabetes. He is currently on clopidogrel for history of CVA. Related Data Home Medications ?Medication ?Instructions ?Recorded ?Confirmed acetaminophen 500 mg tablet 1,500 mg PO TID PRN 11/02/19 02/16/25 clopidogrel 75 mg tablet 75 mg PO DAILY #90 tabs 08/09/24 02/16/25 primidone 50 mg tablet 50 mg PO QHS 08/25/24 02/16/25 labetalol 200 mg tablet 200 mg PO See Instructions #135 10/25/24 02/16/25 tab-caps atorvastatin 80 mg tablet 80 mg PO DAILY #90 tabs 12/09/24 02/16/25 famotidine 20 mg tablet 20 mg PO DAILY #90 tabs 12/09/24 02/16/25 insulin glargine 100 unit/mL (3 25 unit (0.25 mL) subcut QPM #15 mL 12/09/24 02/16/25 mL) subcutaneous pen (Lantus Solostar U-100 Insulin) pen needle, diabetic 31 gauge x #100 ea 12/09/24 02/16/25 5/16 (Pen Needle) topiramate 100 mg tablet 100 mg PO BID #180 tabs 12/09/24 02/16/25 albuterol sulfate 90 mcg/actuation 1 - 2 puff inhalation Q6H PRN 02/16/25 02/16/25 aerosol inhaler (Ventolin HFA) shortness of breath or wheezing #6.7 grams Previous Rx's ?Medication ?Instructions ?Recorded clopidogrel 75 mg tablet 75 mg PO DAILY #90 tabs 08/09/24 labetalol 200 mg tablet 200 mg PO See Instructions #135 10/25/24 tab-caps atorvastatin 80 mg tablet 80 mg PO DAILY #90 tabs 12/09/24 famotidine 20 mg tablet 20 mg PO DAILY #90 tabs 12/09/24 insulin glargine 100 unit/mL (3 25 unit (0.25 mL) subcut QPM #15 mL 12/09/24 mL) subcutaneous pen (Lantus Solostar U-100 Insulin) pen needle, diabetic 31 gauge x #100 ea 12/09/24 5/16 (Pen Needle) topiramate 100 mg tablet 100 mg PO BID #180 tabs 12/09/24 albuterol sulfate 90 mcg/actuation 1 - 2 puff inhalation Q6H PRN 02/16/25 aerosol inhaler (Ventolin HFA) shortness of breath or wheezing #6.7 grams Allergies Allergy/AdvReac Type Severity Reaction Status Date / Time metformin AdvReac Severe Diarrhea Verified 02/16/25 14:23 dulaglutide (From [facility]) AdvReac diarrhea Verified 02/16/25 14:23 General Stated Complaint: Vascular EDMUND: 3 Exam Narrative Exam Narrative: Const: WDWN male in NAD. VS per triage. HEENT: NC/AT. Normal facial exam. Neck: Supple. Trachea midline. Lungs: Normal respiratory effort. Cor: RRR. RLE with palpable PT and dopplerable DP. LLE with dopplerable PT no DP found. Neuro: A+O x 3. Normal speech, mentation, gait. Cranial nerves II - XII grossly intact. No gross motor or sensory deficit. Ext: No C/C/E. Good cap refill and warm feet/toes. Course Vital Signs Vital signs: Vital Signs Temperature 98.3 F 02/16/25 14:17 Pulse 86 02/16/25 14:17 Respiratory Rate 20 02/16/25 14:17 Blood Pressure 150/77 H 02/16/25 14:17 Pulse Oximetry 93 02/16/25 14:17 Temperature 98.3 F 02/16/25 14:17 Temperature Source Oral 02/16/25 14:17 Pulse 86 02/16/25 14:17 Respiratory Rate 20 02/16/25 14:17 Blood Pressure 150/77 H 02/16/25 14:17 Blood Pressure Position Sitting 02/16/25 14:17 Pulse Oximetry 93 02/16/25 14:17 Oxygen Delivery Method Room Air 02/16/25 14:17 Oxygen Flow Rate 0 02/16/25 14:17 Pain Level 8 02/16/25 14:17 Medical Decision Making Patient sent into ED to rule out DVT. Bilateral lower extremity ultrasound ordered. History is more consistent with PAD and intermittent claudication. Left lower extremity with evidence of decreased circulation compared to right which is also same as symptoms. His feet are warm and have good capillary refill. Cannot find a DP pulse on the left. Does have a dopplerable PT pulse. Do not believe he requires lab work. I did speak with ultrasound regarding possibility of ABIs. We apparently do not do arterial studies here. DVT ultrasounds to be obtained. Per radiology ultrasound of both legs negative for DVT. Patient be discharged home to follow-up with primary care for further evaluation and will need referral for arterial studies of the lower extremity as I suspect his symptoms are related to intermittent claudication. Discussed with patient. Return precautions provided. Medical Records Medical records reviewed: Yes I reviewed the patient's medical records. Medical records narrative: PCP note PFSH All Active Problems (Updated 02/16/25 @ 15:22 by Dwayne Crowell MD) Bilateral pain of leg and foot (Acute) Homans sign present (Acute) Ganglion cyst of dorsum of right wrist (Acute) Rupture of extensor tendon of right hand (Acute) Right elbow pain (Acute) Right wrist pain (Acute) Obesity (BMI 30-39.9) (Acute 01/09/15) Obstructive sleep apnea (Chronic 09/06/14) Untreated. 09/04/2014:Severe obstructive sleep apnea with associated signficant nocturnal hypoxemia; Constance 68% on RA, average 90% Sensorineural hearing loss, bilateral (Acute 12/27/13) Smoker (Acute 08/29/13) 1 ppd Vertigo (Acute 02/20/14) Daily headache (Acute) Probably due to hypoxia from [place]. 68% sat on Rm Air during sleep study Nocturnal hypoxemia due to obesity (Chronic) 68% constance on room air during sleep study Medical History Cerebrovascular accident (08/29/10) [facility] on 09/18/10 with left hemiparesis, dysarthria, and dysphagia. His BP was 254/136! CTH was negative by report. CTA head and neck reportedly showed left vertebral occlusi common carotids bilaterally. An MRI of the brain was read as being a right occipital ischemia, however when you look at the details, it is noted 2 small foci of hyperintensity on DWI and F carotid ultrasound which was normal as well as a TTE with an EF 65% and normal atria/ventricles/etc. (Armando Vang M.D.) Gastroesophageal reflux disease (08/29/13) Type 2 diabetes mellitus without complication (~07/2017) Essential tremor Financial problems Umbilical hernia Flat feet, bilateral Lipoma (08/29/13) Depression 11/03/18 PHQ9 = 10 GERD (gastroesophageal reflux disease) Migraine HTN (hypertension) Hypercholesterolemia CHINO (obstructive sleep apnea) Nephrolithiasis (07/24/17) History of Prydeinig measles (02/20/14) Anxiety (09/07/12) 11/03/18 BECKS = 27 Deafness Family History Mother , in 50's Essential hypertension Alcohol abuse Substance abuse Brother Brain tumor Other Breast cancer Social History Smoking/Tobacco Use Status: Current every day Tobacco Type: cigarettes Tobacco: How many years used: 35 Quit status: considering quitting Smoking risk assessment performed?: Yes Alcohol Intake: never Drug use: Never Substance use type: does not use Adopted: No Caregiver/Support person: No Foster care: No Household members: none Housing: apartment Number of Children: 3 number of grandchildren: 2 Communication Needs: Hard of Hearing Do you need help understanding health information?: Often 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 Pets and animals: No Sexually active: No Do you think of yourself as: straight/heterosexual Current gender identity: male What is your relationship status?: never How often do you talk on the phone with friends or family?: never How often do you get together with friends or relatives?: never How often do you attend buddhist or hoahaoism services?: decline to answer Do you belong to any clubs or organized social groups?: no Panel score (0-1 are the most socially isolated patients): 0 What type of physical activity do you participate in: none and regular exercise Duration: 15-30 minutes/day Frequency: daily Seatbelt use: always Helmet use: No (No reason for one) Drive intox or ride w/intox feedmobile driver: No Water heater temp set <120 deg: Yes Working smoke detector in home: Yes Fire extinguisher in home: Yes Carbon monox detector in home: Yes Do you feel safe at home: Yes Do you feel safe in your relationship?: Yes
--- NOTE | 2025-02-16 14:30 | DI.US_ITS ---
Exam(s) US EXTREMITY VENOUS BI EXAM: US EXTREMITY VENOUS BI CLINICAL HISTORY: BLE calf pain/swelling. TECHNIQUE: Bilateral lower extremity venous ultrasound performed using grayscale, color-flow, and spectral Doppler analysis. COMPARISON: No exams were available for comparison FINDINGS: The bilateral common femoral, femoral and popliteal veins demonstrate normal compressibility, augmentation, and color Doppler. The posterior tibial and peroneal veins are patent. IMPRESSION: Right: Negative for DVT Left: Negative for DVT DATA REPOSITORY:
[2025-02-16 15:32] VITALS: BP 133/78; PULSE 81; O2SAT 95
== END 2025-02-16 15:38 | disposition home or self-care (01) ==
PROVIDERS: Emergency Provider Emergency Medicine; PCP Family Medicine
DX: M79.604 Pain in right leg (principal); M79.605 Pain in left leg; M79.671 Pain in right foot; M79.672 Pain in left foot
CPT/HCPCS: 99283; 99284; 93970

== ENCOUNTER 2025-02-21 21:27 | Emergency (ER) | payer MEDICARE, SELFPAY ==
[2025-02-21 21:29] VITALS: BP 165/95; PULSE 95; RESP 18; TEMP 36.2; O2SAT 93
[2025-02-21 21:45] VITALS: BP 165/95; PULSE 95; RESP 18; TEMP 36.2; O2SAT 93
--- NOTE | 2025-02-21 23:15 | DI.RAD_ITS ---
Exam(s) XR FOOT LT COMPLETE EXAM: XR FOOT LT COMPLETE CLINICAL HISTORY: pain in ball of foot with walking. TECHNIQUE: 2D digital imaging was performed. Three views. COMPARISON: No exams were available for comparison FINDINGS: BONES: No acute fracture is present. No bony destructive lesion is seen. Small heel spurs. JOINTS: No dislocation present. No significant degenerative changes SOFT TISSUE: Normal. IMPRESSION: Heel spurs. No acute abnormality. The preliminary [facility] report was reviewed. DATA REPOSITORY: RADIATION DOSE DELIVERED:
--- NOTE | 2025-02-21 23:38 | W.ED.GENAD ---
Discharge Plan Disposition Patient Disposition: Home Condition: Stable Discharge Details Clinical Impression: Lower extremity pain, left Primary Care Provider: Yifan Grewal ED Provider: Thomas Brantley Home Meds and New Rx's Prescriptions: New gabapentin 300 mg capsule 300 mg PO TID Qty: 30 0RF No Action albuterol sulfate [Ventolin HFA] 90 mcg/actuation HFA aerosol inhaler 1 - 2 puff inhalation Q6H PRN (Reason: shortness of breath or wheezing) Qty: 6.7 0RF acetaminophen 500 mg tablet 1,500 mg PO TID PRN atorvastatin 80 mg tablet 80 mg PO DAILY Qty: 90 3RF famotidine 20 mg tablet 20 mg PO DAILY Qty: 90 3RF Dose Instruction: TAKE 1 TABLET BY MOUTH DAILY Rx Instructions: TAKE 1 TABLET BY MOUTH DAILY (DME) pen needle, diabetic [Pen Needle] 31 gauge x 5/16 needle See Rx Instructions .ROUTE .MEDSUPPLY Qty: 100 3RF Rx Instructions: As directed to administer insulin once daily. Dispense covered brand. insulin glargine [Lantus Solostar U-100 Insulin] 100 unit/mL (3 mL) insulin pen 25 unit subcut QPM Qty: 15 3RF topiramate 100 mg tablet 100 mg PO BID Qty: 180 3RF clopidogrel 75 mg tablet 75 mg PO DAILY Qty: 90 3RF labetalol 200 mg tablet 200 mg PO See Instructions Qty: 135 3RF Rx Instructions: Take 100 mg in the AM & 200 mg in the evening) primidone 50 mg tablet 50 mg PO QHS Patient Comments: TAKE 1 TABLET BY MOUTH EVERY DAY AT BEDTIME Discharge Instructions Instructions: Leg Pain (ED) Additional Instructions: There may be several things that are contributing to the pain in your left lower extremity. You may have some impaired blood flow through the arteries of your leg that are causing you to have symptoms. You may also have some component of a diabetic neuropathy. This is pain caused by inflammation in the nerves which is common in people that have longstanding diabetes. You may also have an overuse injury that is causing you to have pain in your leg and foot from standing on your feet for 8 hours a day. You can take three 325 mg acetaminophen tablets or two 500 mg acetaminophen capsules every 4-6 hours as needed for symptoms of pain. Do not take more than twelve 325 mg acetaminophen tablets or eight 500 mg acetaminophen capsules in a 24-hour period. Take 300 mg of oral gabapentin every 8 hours, for the next 10 days to see if this helps improve the pain in your left lower extremity and foot. You should contact and follow-up by phone tomorrow with your primary care doctor's office to schedule additional testing for an ultrasound test of your arteries called an MARLENE. You will need to go to [facility], likely to their vascular clinic, to obtain this testing. You could also consider physical therapy for ongoing improvement in the discomfort in your left lower extremity. You can develop a chronic pain care plan with your primary care office for ongoing management of your symptoms. You can always return to the ER for any new concerns or sudden changes in your health which you feel require emergency medical attention. HPI General Date/Time Provider Initiated Documentation: 02/21/25 21:35. HPI Narrative: The patient is a 54-year-old male, who returns to the emergency department this evening 5 days after being seen here in the emergency department for complaint of pain in the left lower extremity with walking. The patient reports that he has pain from his calf all the way down to his foot, but that he specifically has significant discomfort in the ball of his foot when he puts weight on it. The patient had ultrasound testing through the emergency department on 02/16/2025, as he was referred from his primary care doctor. This testing was negative for a DVT. The patient was referred back to primary care for send out testing for ABIs to [facility] or [facility], as arterial studies are not done at this facility. The patient tells me that he contact his primary care doctor but did not hear back from their office. There is a note from the care coordination service that the patient requested a gas card for transportation to the [facility], but when I spoke to Dr. Crowell from the emergency department, it sounds as though the patient never had a follow-up appointment scheduled to the vascular clinic down there prior to this request. The patient tells me that he is taking ibuprofen and acetaminophen for the pain which is not improving his symptoms. The patient tells me that he has no real pain in his left leg or foot when he is at rest. When he walks however up and down the hallway, or more than about 50 feet, he develops the discomfort. The patient also reports that he is on his feet for 8 hours a day at his job and that this causes him a significant amount of discomfort. Related Data Home Medications ?Medication ?Instructions ?Recorded ?Confirmed acetaminophen 500 mg tablet 1,500 mg PO TID PRN 11/02/19 02/21/25 clopidogrel 75 mg tablet 75 mg PO DAILY #90 tabs 08/09/24 02/21/25 primidone 50 mg tablet 50 mg PO QHS 08/25/24 02/21/25 labetalol 200 mg tablet 200 mg PO See Instructions #135 10/25/24 02/21/25 tab-caps atorvastatin 80 mg tablet 80 mg PO DAILY #90 tabs 12/09/24 02/21/25 famotidine 20 mg tablet 20 mg PO DAILY #90 tabs 12/09/24 02/21/25 insulin glargine 100 unit/mL (3 25 unit (0.25 mL) subcut QPM #15 mL 12/09/24 02/21/25 mL) subcutaneous pen (Lantus Solostar U-100 Insulin) pen needle, diabetic 31 gauge x #100 ea 12/09/24 02/21/2510/07 (Pen Needle) topiramate 100 mg tablet 100 mg PO BID #180 tabs 12/09/24 02/21/25 albuterol sulfate 90 mcg/actuation 1 - 2 puff inhalation Q6H PRN 02/16/25 02/21/25 aerosol inhaler (Ventolin HFA) shortness of breath or wheezing #6.7 grams gabapentin 300 mg capsule 300 mg PO TID #30 caps 02/22/25 Previous Rx's ?Medication ?Instructions ?Recorded clopidogrel 75 mg tablet 75 mg PO DAILY #90 tabs 08/09/24 labetalol 200 mg tablet 200 mg PO See Instructions #135 10/25/24 tab-caps atorvastatin 80 mg tablet 80 mg PO DAILY #90 tabs 12/09/24 famotidine 20 mg tablet 20 mg PO DAILY #90 tabs 12/09/24 insulin glargine 100 unit/mL (3 25 unit (0.25 mL) subcut QPM #15 mL 12/09/24 mL) subcutaneous pen (Lantus Solostar U-100 Insulin) pen needle, diabetic 31 gauge x #100 ea 12/09/2410/07 (Pen Needle) topiramate 100 mg tablet 100 mg PO BID #180 tabs 12/09/24 albuterol sulfate 90 mcg/actuation 1 - 2 puff inhalation Q6H PRN 02/16/25 aerosol inhaler (Ventolin HFA) shortness of breath or wheezing #6.7 grams gabapentin 300 mg capsule 300 mg PO TID #30 caps 02/22/25 Allergies Allergy/AdvReac Type Severity Reaction Status Date / Time metformin AdvReac Severe Diarrhea Verified 02/21/25 21:34 dulaglutide (From [facility]) AdvReac diarrhea Verified 02/21/25 21:34 General Stated Complaint: [facility]Medical EDMUND: 3 Exam Extrem Other: The patient's left lower extremity has relatively normal coloration, lacking any pallor or cyanosis. The foot is mildly cooler than the contralateral right side. The patient has palpable posterior tibialis pulses bilaterally, I was unable to appreciate dorsalis pedis's in either foot anteriorly. The patient reports pain to palpation of the dorsum of the foot especially in the midfoot. The patient has no redness, swelling, or ecchymosis. Course The patient did not get any improvement in his pain symptoms in his leg with the pneumatic boot that was trialed here in the emergency room. The patient's x-ray of his foot was negative for any acute stress fractures, dislocations or subluxations, or generalized arthritic changes in any of the bones. The patient will be started on a trial of oral gabapentin as a bridge to primary care follow-up. The patient has already taking a relatively elevated dose of atorvastatin and is taking clopidogrel, which would be first-line agents to help improve symptoms of claudication. Additional antiplatelet therapy is likely not indicated at this time, however alternative medical therapy could be considered such as phosphodiesterase inhibitors like Cilostazol or pentoxifylline, under management from vascular surgery. The patient should have MARLENE testing obtained and consider other management options for either claudication and neuropathic diabetic pain in the foot, depending on the ultimate diangosis settled upon. I offered the patient a worknote, but he declined. Vital Signs Vital signs: Vital Signs Temperature 36.2 C L 02/21/25 21:29 Pulse 95 H 02/21/25 21:29 Respiratory Rate 18 02/21/25 21:29 Blood Pressure 165/95 H 02/21/25 21:29 Pulse Oximetry 93 02/21/25 21:29 Temperature 36.2 C L 02/21/25 21:45 Pulse 95 H 02/21/25 21:45 Respiratory Rate 18 02/21/25 21:45 Respiratory Effort Normal, Non-Labored 02/21/25 21:45 Respiratory Depth Normal 02/21/25 21:45 Respiratory Pattern Normal 02/21/25 21:45 Blood Pressure 165/95 H 02/21/25 21:45 Pulse Oximetry 93 02/21/25 21:45 Pain Level 5 02/21/25 21:45 Medical Decision Making The patient was seen and examined. I agree that there is likely some amount of peripheral artery disease in the patient's left lower extremity compared to the right. Bedside ultrasound of the arterial signals in the posterior tibialis appeared relatively normal in terms of waveform and amplitude. The bilateral dorsalis pedis pulses were also dopplerable but were significantly diminished in terms of waveform and amplitude. Alternatively, this could also represent some form of diabetic neuropathy, although this would be less likely as the pain extinguishes with rest. This could also be some form of overuse injury or stress fracture in the midfoot, given that the patient is on his feet for multiple hours a day. While the patient does have peripheral artery disease and this should be evaluated by MARLENE, currently the patient does not have a frankly ischemic foot that requires obvious emergent intervention. I offered the patient a trial of crutches to use here in the emergency room but he flatly refused. He told me that he would not consider using crutches as an outpatient so he is not interested in trying to see if they would be helpful in alleviating his discomfort. The patient did agree to trial a short leg pneumatic boot to see if this would be helpful for improvement of his discomfort. The patient will have a x-ray of the left foot to ensure that there is not any obvious stress fracture present. Assuming that the x-ray is negative, I would recommend the patient continue to use an alternation of an anti-inflammatory and acetaminophen, in addition to prescribing him some oral gabapentin to see if this is helpful as a bridge to primary care follow-up for ongoing management with referral to vascular clinic for MARLENE and vascular consultation, and to consider potential physical therapy to help improve the symptoms. PFSH All Active Problems (Updated 02/22/25 @ 00:13 by Thomas Brantley MD) Lower extremity pain, left (Acute) Bilateral pain of leg and foot (Acute) Homans sign present (Acute) Ganglion cyst of dorsum of right wrist (Acute) Rupture of extensor tendon of right hand (Acute) Right elbow pain (Acute) Right wrist pain (Acute) Obesity (BMI 30-39.9) (Acute 01/09/15) Obstructive sleep apnea (Chronic 09/06/14) Untreated. 09/04/2014:Severe obstructive sleep apnea with associated signficant nocturnal hypoxemia; Constance 68% on RA, average 90% Sensorineural hearing loss, bilateral (Acute 12/27/13) Smoker (Acute 08/29/13) 1 ppd Vertigo (Acute 02/20/14) Daily headache (Acute) Probably due to hypoxia from CHINO. 68% sat on Rm Air during sleep study Nocturnal hypoxemia due to obesity (Chronic) 68% constance on room air during sleep study Medical History Cerebrovascular accident (08/29/10) [facility] on 09/18/10 with left hemiparesis, dysarthria, and dysphagia. His BP was 254/136! CTH was negative by report. CTA head and neck reportedly showed left vertebral occlusi common carotids bilaterally. An MRI of the brain was read as being a right occipital ischemia, however when you look at the details, it is noted 2 small foci of hyperintensity on DWI and F carotid ultrasound which was normal as well as a TTE with an EF 65% and normal atria/ventricles/etc. (Armando Vang M.D.) Gastroesophageal reflux disease (08/29/13) Type 2 diabetes mellitus without complication (~07/2017) Essential tremor Financial problems Umbilical hernia Flat feet, bilateral Lipoma (08/29/13) Depression 11/03/18 PHQ9 = 10 GERD (gastroesophageal reflux disease) Migraine HTN (hypertension) Hypercholesterolemia CHINO (obstructive sleep apnea) Nephrolithiasis (07/24/17) History of American measles (02/20/14) Anxiety (09/07/12) 11/03/18 BECKS = 26 Deafness Family History Mother , in 50's Essential hypertension Alcohol abuse Substance abuse Brother Brain tumor Other Breast cancer Social History Smoking/Tobacco Use Status: Current every day Tobacco Type: cigarettes Tobacco: How many years used: 35 Quit status: considering quitting Smoking risk assessment performed?: Yes Alcohol Intake: never Drug use: Never Substance use type: does not use Adopted: No Caregiver/Support person: No Foster care: No Household members: none Housing: apartment Number of Children: 3 number of grandchildren: 2 Communication Needs: Hard of Hearing Do you need help understanding health information?: Often 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 Pets and animals: No Sexually active: No Do you think of yourself as: straight/heterosexual Current gender identity: male What is your relationship status?: never How often do you talk on the phone with friends or family?: never How often do you get together with friends or relatives?: never How often do you attend latter-day or mormon services?: decline to answer Do you belong to any clubs or organized social groups?: no Panel score (0-1 are the most socially isolated patients): 0 What type of physical activity do you participate in: none and regular exercise Duration: 15-30 minutes/day Frequency: daily Seatbelt use: always Helmet use: No (No reason for one) Drive 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
--- NOTE | 2025-02-22 00:18 | DI.VRAD_ITS ---
PROCEDURE INFORMATION: Exam: XR Left Foot Exam date and time: 02/21/2025 11:42 PM Age: 54 years old Clinical indication: Left; Pain in ball of foot with walking TECHNIQUE: Imaging protocol: Radiologic exam of the left foot. Views: 3 or more views. COMPARISON: US EXTREMITY VENOUS BI 02/16/2025 2:46 PM FINDINGS: Bones/joints: No acute fracture. No acute malalignment. Plantar calcaneal spur. Soft tissues: Normal. IMPRESSION: No acute bony abnormality. Dictated and Authenticated by: Jame Rouse MD. Orderin Fercho Guzman MD
[2025-02-22] MEDS: Gabapentin 300 MG CAP PO (00:26)
[2025-02-22 00:33] VITALS: BP 147/67; PULSE 80; RESP 16; TEMP 36.8; O2SAT 95
--- NOTE | 2025-02-22 13:36 | W.ED.FU ---
Date of service: 02/22/25 Time of Service: 13:37 Follow Up Plan: This patient was seen in the ED. A POCUS was performed by the patient's provider. I ordered the POCUS study retroactively. I did not see this patient during her ED visit.
== END 2025-02-22 00:38 | disposition home or self-care (01) ==
PROVIDERS: Emergency Provider Emergency Medicine Emergency Medical Services; PCP Family Medicine
DX: M79.605 Pain in left leg (principal)
CPT/HCPCS: 99283 ×2; 73630

== ENCOUNTER 2025-02-28 05:02 | Emergency (ER) | payer OTHER, SELFPAY ==
[2025-02-28 05:05] VITALS: BP 123/71; PULSE 97; RESP 16; TEMP 36.8; O2SAT 100
--- NOTE | 2025-02-28 05:18 | W.ED.GENAD ---
Discharge Plan Disposition Patient Disposition: Home Condition: Good Discharge Details Clinical Impression: Pharyngitis Primary Care Provider: Yifan Grewal ED Provider: Dwayne Crowell Meds and New Rx's Prescriptions: Continued albuterol sulfate [Ventolin HFA] 90 mcg/actuation HFA aerosol inhaler 1 - 2 puff inhalation Q6H PRN (Reason: shortness of breath or wheezing) Qty: 6.7 0RF acetaminophen 500 mg tablet 1,500 mg PO TID PRN atorvastatin 80 mg tablet 80 mg PO DAILY Qty: 90 3RF famotidine 20 mg tablet 20 mg PO DAILY Qty: 90 3RF Dose Instruction: TAKE 1 TABLET BY MOUTH DAILY Rx Instructions: TAKE 1 TABLET BY MOUTH DAILY (DME) pen needle, diabetic [Pen Needle] 31 gauge x 5/16 needle See Rx Instructions .ROUTE .MEDSUPPLY Qty: 100 3RF Rx Instructions: As directed to administer insulin once daily. Dispense covered brand. insulin glargine [Lantus Solostar U-100 Insulin] 100 unit/mL (3 mL) insulin pen 25 unit subcut QPM Qty: 15 3RF topiramate 100 mg tablet 100 mg PO BID Qty: 180 3RF clopidogrel 75 mg tablet 75 mg PO DAILY Qty: 90 3RF labetalol 200 mg tablet 200 mg PO See Instructions Qty: 135 3RF Rx Instructions: Take 100 mg in the AM & 200 mg in the evening) primidone 50 mg tablet 50 mg PO QHS Patient Comments: TAKE 1 TABLET BY MOUTH EVERY DAY AT BEDTIME gabapentin 300 mg capsule 300 mg PO TID Qty: 30 0RF Discharge Instructions Instructions: Sore Throat, Adult ED Additional Instructions: You were seen for a sore throat. The rapid strep is negative. A throat culture is pending. Use Tylenol or Motrin for fever/pain, stay hydrated, salt water gargles and Cepacol lozenges will help with the throat pain. Follow up with PCP next week if not improved. Return to ED for inability to swallow, difficulty breathing, chest pain, other concerns. Stand Alone Forms: Work Release HPI General Mode of arrival: ambulatory. Date/Time Provider Initiated Documentation: 02/28/25 05:17. Limitations to Documentation: no limitations. Information obtained by: patient and RN notes reviewed. HPI Narrative: Patient presents to ED with complaint of sore throat. He also has a slight cough. Denies any fever. Denies any chest pain, shortness of breath, earache, headache. Symptoms began yesterday. He has not taken anything for his symptoms. Related Data Home Medications ?Medication ?Instructions ?Recorded ?Confirmed acetaminophen 500 mg tablet 1,500 mg PO TID PRN 11/02/19 02/28/25 clopidogrel 75 mg tablet 75 mg PO DAILY #90 tabs 08/09/24 02/28/25 primidone 50 mg tablet 50 mg PO QHS 08/25/24 02/28/25 labetalol 200 mg tablet 200 mg PO See Instructions #135 10/25/24 02/28/25 tab-caps atorvastatin 80 mg tablet 80 mg PO DAILY #90 tabs 12/09/24 02/28/25 famotidine 20 mg tablet 20 mg PO DAILY #90 tabs 12/09/24 02/28/25 insulin glargine 100 unit/mL (3 25 unit (0.25 mL) subcut QPM #15 mL 12/09/24 02/28/25 mL) subcutaneous pen (Lantus Solostar U-100 Insulin) pen needle, diabetic 31 gauge x #100 ea 12/09/24 02/28/25/16 (Pen Needle) topiramate 100 mg tablet 100 mg PO BID #180 tabs 12/09/24 02/28/25 albuterol sulfate 90 mcg/actuation 1 - 2 puff inhalation Q6H PRN 02/16/25 02/28/25 aerosol inhaler (Ventolin HFA) shortness of breath or wheezing #6.7 grams gabapentin 300 mg capsule 300 mg PO TID #30 caps 02/22/25 02/28/25 Previous Rx's ?Medication ?Instructions ?Recorded clopidogrel 75 mg tablet 75 mg PO DAILY #90 tabs 08/09/24 labetalol 200 mg tablet 200 mg PO See Instructions #135 10/25/24 tab-caps atorvastatin 80 mg tablet 80 mg PO DAILY #90 tabs 12/09/24 famotidine 20 mg tablet 20 mg PO DAILY #90 tabs 12/09/24 insulin glargine 100 unit/mL (3 25 unit (0.25 mL) subcut QPM #15 mL 12/09/24 mL) subcutaneous pen (Lantus Solostar U-100 Insulin) pen needle, diabetic 31 gauge x #100 ea 12/09/24 5/16 (Pen Needle) topiramate 100 mg tablet 100 mg PO BID #180 tabs 12/09/24 albuterol sulfate 90 mcg/actuation 1 - 2 puff inhalation Q6H PRN 02/16/25 aerosol inhaler (Ventolin HFA) shortness of breath or wheezing #6.7 grams gabapentin 300 mg capsule 300 mg PO TID #30 caps 02/22/25 Allergies Allergy/AdvReac Type Severity Reaction Status Date / Time metformin AdvReac Severe Diarrhea Verified 02/28/25 05:08 dulaglutide (From [facility]) AdvReac diarrhea Verified 02/28/25 05:08 General Stated Complaint: Sorethroat EDMUND: 4 Exam Narrative Exam Narrative: Const: WDWN male in NAD. VS per triage. HEENT: NC/AT. Normal facial exam. Normal TMs bilaterally. Oropharynx and posterior oropharynx with some mild erythema. There is no edema, exudate, ulceration. Neck: Supple. Trachea midline. Lungs: Normal respiratory effort. Lungs are clear. Cor: RRR without murmur. Neuro: A+O x 3. Normal speech, mentation, gait. Cranial nerves II - XII grossly intact. No gross motor or sensory deficit. Course Vital Signs Vital signs: Vital Signs Temperature 98.3 F 02/28/25 05:05 Pulse 97 H 02/28/25 05:05 Respiratory Rate 16 02/28/25 05:05 Blood Pressure 123/71 02/28/25 05:05 Pulse Oximetry 100 02/28/25 05:05 Temperature 98.3 F 02/28/25 05:05 Temperature Source Oral 02/28/25 05:05 Pulse 97 H 02/28/25 05:05 Respiratory Rate 16 02/28/25 05:05 Blood Pressure 123/71 02/28/25 05:05 Blood Pressure Position Sitting 02/28/25 05:05 Pulse Oximetry 100 02/28/25 05:05 Oxygen Delivery Method Room Air 02/28/25 05:05 Oxygen Flow Rate 0 02/28/25 05:05 Lab/Test Results Lab/Test Results: 02/28/25 05:16 Tonsil - Not Specified Group A Streptococcus Culture - Pending POC Strep Test-CASS(Rapid) Start: 02/28/25 05:10 Freq: .Rapid Strep Test Status: Active Protocol: Document 02/28/25 05:15 [id number] (Rec: 02/28/25 05:15 MATHEUS [id number]) Strep test-CASS(Rapid)-POC POC-Strep test-CASS ( Negative Rapid) POC-Strep test-CASS (Rapid) Negative Medical Decision Making Patient presenting to ED with sore throat. He is afebrile and vital signs are normal with O2 saturations are 100%. He has some mild erythema to the oropharynx but no exudate, swelling, ulcers. I rapid strep is negative. His exam is otherwise unremarkable with normal TM, normal lung sounds, no distress. Will not treat for strep unless culture positive. Likely viral in nature. Recommend hydration, Tylenol or Motrin as needed, salt water gargles and Cepacol lozenges for throat pain. Follow-up with primary care next week if not improving. Return precautions provided. Lab Data Lab results reviewed: Yes I reviewed the patient's lab results. PFSH All Active Problems Pharyngitis (Acute) Lower extremity pain, left (Acute) Bilateral pain of leg and foot (Acute) Homans sign present (Acute) Ganglion cyst of dorsum of right wrist (Acute) Rupture of extensor tendon of right hand (Acute) Right elbow pain (Acute) Right wrist pain (Acute) Obesity (BMI 30-39.9) (Acute 01/09/15) Obstructive sleep apnea (Chronic 09/06/14) Untreated. 09/04/2014:Severe obstructive sleep apnea with associated signficant nocturnal hypoxemia; Constance 68% on RA, average 90% Sensorineural hearing loss, bilateral (Acute 12/27/13) Smoker (Acute 08/29/13) 1 ppd Vertigo (Acute 02/20/14) Daily headache (Acute) Probably due to hypoxia from [place]. 68% sat on Rm Air during sleep study Nocturnal hypoxemia due to obesity (Chronic) 68% constance on room air during sleep study Medical History Cerebrovascular accident (08/29/10) [facility] on 09/18/10 with left hemiparesis, dysarthria, and dysphagia. His BP was 254/136! CTH was negative by report. CTA head and neck reportedly showed left vertebral occlusi common carotids bilaterally. An MRI of the brain was read as being a right occipital ischemia, however when you look at the details, it is noted 2 small foci of hyperintensity on DWI and F carotid ultrasound which was normal as well as a TTE with an EF 65% and normal atria/ventricles/etc. (Armando Vang M.D.) Gastroesophageal reflux disease (08/29/13) Type 2 diabetes mellitus without complication (~07/2017) Essential tremor Financial problems Umbilical hernia Flat feet, bilateral Lipoma (08/29/13) Depression 11/03/18 PHQ9 = 10 GERD (gastroesophageal reflux disease) Migraine HTN (hypertension) Hypercholesterolemia CHINO (obstructive sleep apnea) Nephrolithiasis (07/24/17) History of [place] measles (02/20/14) Anxiety (09/07/12) 11/03/18 BECKS = 26 Deafness Family History Mother , in 50's Essential hypertension Alcohol abuse Substance abuse Brother Brain tumor Other Breast cancer Social History Smoking/Tobacco Use Status: Current every day Tobacco Type: cigarettes Tobacco: How many years used: 35 Quit status: considering quitting Smoking risk assessment performed?: Yes Alcohol Intake: never Drug use: Never Substance use type: does not use Adopted: No Caregiver/Support person: No Foster care: No Household members: none Housing: apartment Number of Children: 3 number of grandchildren: 2 Communication Needs: Hard of Hearing Do you need help understanding health information?: Often 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 Pets and animals: No Sexually active: No Do you think of yourself as: straight/heterosexual Current gender identity: male What is your relationship status?: never How often do you talk on the phone with friends or family?: never How often do you get together with friends or relatives?: never How often do you attend tenriism or lutheran services?: decline to answer Do you belong to any clubs or organized social groups?: no Panel score (0-1 are the most socially isolated patients): 0 What type of physical activity do you participate in: none and regular exercise Duration: 15-30 minutes/day Frequency: daily Seatbelt use: always Helmet use: No (No reason for one) Drive intox or ride w/intox driver helper: No Water heater temp set <120 deg: Yes Working smoke detector in home: Yes Fire extinguisher in home: Yes Carbon monox detector in home: Yes Do you feel safe at home: Yes Do you feel safe in your relationship?: Yes
== END 2025-02-28 05:36 | disposition home or self-care (01) ==
PROVIDERS: Emergency Provider Emergency Medicine; PCP Family Medicine
DX: J02.9 Acute pharyngitis, unspecified (principal)
CPT/HCPCS: 99282; 99283; 87081

== ENCOUNTER 2025-03-10 05:38 | Emergency (ER) | payer OTHER, SELFPAY ==
[2025-03-10] VITALS (14 sets, daily range): BP systolic 116–148; BP diastolic 58–77; PULSE 74–84; RESP 11–18; TEMP 37; O2SAT 92–97
--- NOTE | 2025-03-10 05:30 | RT.EKG_ITS ---
APPROVED REPORT Exam: Resting ECG Reason for Exam: dizziness Patient Location: E HR:76 bpm ECG Measurements Heart Rate 76 AXIS AL 143 P 7 QRSd 90 QRS -14 QT 402 T 67 QTc 454 Conclusion Sinus rhythm...normal P axis, V-rate 60- 99 Inferior infarct, old...Q >35mS, II III aVF no ST segment or T wave abnormalities to suggest occlusive MN
[2025-03-10 06:26] LABS: BE (Venous) -1 mmol/L (-2-3); HCO3 (Venous) 25 mmol/L (23-28); O2 Sat (Venous) 89 %; TCO2 (Venous) 22 mmol/L (24-29); pCO2 (Venous) 43 mmHg (41-51); pO2 (Venous) 55 mmHg
[2025-03-10 06:30] LABS: Abs Immature Grans 0.08 10^3/uL (0.0-0.06); HCT 43.0 % (40.0-50.0); HGB 14.0 g/dL (13.5-17.5); Immature Grans % 1.1 %; MCH 27.6 pg (27.0-33.0); MCHC 32.6 % (32.0-36.0); MCV 85 fL (80-95); MPV 9.5 fL (8.0-11.0); Platelet Count 358 10^3/uL (130-400); RBC 5.07 10^6/uL (4.36-5.78); RDW 13.3 % (11.8-14.1); RDW-SD 41.1 fL; WBC 7.61 10^3/uL (4.4-10.8)
--- NOTE | 2025-03-10 06:36 | NUR.NOTE ---
MARLENE index left brachial, 130, left foot post/tib 58, notified physician of results Nursing Note:
--- NOTE | 2025-03-10 06:48 | W.ED.GENAD ---
Discharge Plan Discharge Details Chief Complaint: GenMedical Primary Care Provider: Yifan Grewal ED Provider: Yocasta Mauro Home Meds and New Rx's Prescriptions: No Action albuterol sulfate [Ventolin HFA] 90 mcg/actuation HFA aerosol inhaler 1 - 2 puff inhalation Q6H PRN (Reason: shortness of breath or wheezing) Qty: 6.7 0RF acetaminophen 500 mg tablet 1,500 mg PO TID PRN atorvastatin 80 mg tablet 80 mg PO DAILY Qty: 90 3RF famotidine 20 mg tablet 20 mg PO DAILY Qty: 90 3RF Dose Instruction: TAKE 1 TABLET BY MOUTH DAILY Rx Instructions: TAKE 1 TABLET BY MOUTH DAILY (DME) pen needle, diabetic [Pen Needle] 31 gauge x 5/16 needle See Rx Instructions .ROUTE .MEDSUPPLY Qty: 100 3RF Rx Instructions: As directed to administer insulin once daily. Dispense covered brand. insulin glargine [Lantus Solostar U-100 Insulin] 100 unit/mL (3 mL) insulin pen 25 unit subcut QPM Qty: 15 3RF topiramate 100 mg tablet 100 mg PO BID Qty: 180 3RF ranolazine 500 mg tablet extended release 12 hr 500 mg PO BID Qty: 30 0RF clopidogrel 75 mg tablet 75 mg PO DAILY Qty: 90 3RF labetalol 200 mg tablet 200 mg PO See Instructions Qty: 135 3RF Rx Instructions: Take 100 mg in the AM & 200 mg in the evening) primidone 50 mg tablet 50 mg PO QHS Patient Comments: TAKE 1 TABLET BY MOUTH EVERY DAY AT BEDTIME gabapentin 300 mg capsule 300 mg PO TID Qty: 30 0RF HPI General Mode of arrival: ambulatory. Date/Time Provider Initiated Documentation: 03/10/25 05:40. Limitations to Documentation: no limitations. Information obtained by: patient and old records reviewed. HPI Narrative: 54yo M with hx HTN, HLD, T2DM, smoker, left leg claudication, presenting for chest pain and lightheadedness. He has difficulty characterizing his symptoms; unclear onset (possibly a week but seems worse this morning?), dull, involving his whole chest. No associated shortness of breath or nausea however does feel lightheaded and like he might pass out. Has not passed out, no recent head injuries. Has had vertigo in the past and this does not feel anything like that. He wonders if his symptoms may be related to his leg pain; has sharp burning left leg pain worse with any activity; [facility] records show he was seen in this ED for this last month with negative foot XR and bilateral DVT studies and also had an office visit 03/03 with referral for MARLENE. His leg pain is unchanged today and not worse than it has been over the past three weeks. He is otherwise in his usual state of health with no fevers, chills, rash, vomiting, abdominal pain, numbness, weakness, vision changes, dysuria, hematuria, or other concerns. Related Data Home Medications ?Medication ?Instructions ?Recorded ?Confirmed acetaminophen 500 mg tablet 1,500 mg PO TID PRN 11/02/19 03/10/25 clopidogrel 75 mg tablet 75 mg PO DAILY #90 tabs 08/09/24 03/10/25 primidone 50 mg tablet 50 mg PO QHS 08/25/24 03/10/25 labetalol 200 mg tablet 200 mg PO See Instructions #135 10/25/24 03/10/25 tab-caps atorvastatin 80 mg tablet 80 mg PO DAILY #90 tabs 12/09/24 03/10/25 famotidine 20 mg tablet 20 mg PO DAILY #90 tabs 12/09/24 03/10/25 insulin glargine 100 unit/mL (3 25 unit (0.25 mL) subcut QPM #15 mL 12/09/24 03/10/25 mL) subcutaneous pen (Lantus Solostar U-100 Insulin) pen needle, diabetic 31 gauge x #100 ea 12/09/24 03/10/2510/07 (Pen Needle) topiramate 100 mg tablet 100 mg PO BID #180 tabs 12/09/24 03/10/25 albuterol sulfate 90 mcg/actuation 1 - 2 puff inhalation Q6H PRN 02/16/25 03/10/25 aerosol inhaler (Ventolin HFA) shortness of breath or wheezing #6.7 grams gabapentin 300 mg capsule 300 mg PO TID #30 caps 02/22/25 03/10/25 ranolazine 500 mg tablet,extended 500 mg PO BID #30 tabs 03/03/25 03/10/25 release,12 hr Previous Rx's ?Medication ?Instructions ?Recorded clopidogrel 75 mg tablet 75 mg PO DAILY #90 tabs 08/09/24 labetalol 200 mg tablet 200 mg PO See Instructions #135 10/25/24 tab-caps atorvastatin 80 mg tablet 80 mg PO DAILY #90 tabs 12/09/24 famotidine 20 mg tablet 20 mg PO DAILY #90 tabs 12/09/24 insulin glargine 100 unit/mL (3 25 unit (0.25 mL) subcut QPM #15 mL 12/09/24 mL) subcutaneous pen (Lantus Solostar U-100 Insulin) pen needle, diabetic 31 gauge x #100 ea 12/09/2410/07 (Pen Needle) topiramate 100 mg tablet 100 mg PO BID #180 tabs 12/09/24 albuterol sulfate 90 mcg/actuation 1 - 2 puff inhalation Q6H PRN 02/16/25 aerosol inhaler (Ventolin HFA) shortness of breath or wheezing #6.7 grams gabapentin 300 mg capsule 300 mg PO TID #30 caps 02/22/25 ranolazine 500 mg tablet,extended 500 mg PO BID #30 tabs 03/03/25 release,12 hr Allergies Allergy/AdvReac Type Severity Reaction Status Date / Time metformin AdvReac Severe Diarrhea Verified 03/10/25 06:40 dulaglutide (From [facility]) AdvReac diarrhea Verified 03/10/25 06:40 General Stated Complaint: GenMedical EDMUND: 3 Review of Systems Narrative: see HPI Exam Narrative Exam Narrative: General: Alert, well appearing, well nourished, in no acute distress. Head: Normocephalic, atraumatic Neck: Trachea midline, ?Neck supple. ENT: ?MMM.? No oropharygeal lesions or exudate. Cardiac: ?RRR, no murmurs appreciated Resp: No respiratory distress. CTAB. Abd: ?Soft, non-distended, nontender : ?No suprapubic tenderness. No CVA tenderness. Extremities: ?No deformities.? No peripheral edema. LLE warm but slightly cooler than right. No color changes. Capillary refill at toes on left 3-4 sec compared to 2-3 on right. Sensation intact and symmetric throughout. PT pulses palpable and symmetric bilaterally. No palpable DP pulse in either LE; does have dopplerable pulses bilaterally though L fainter than right. Neuro: ? GCS 15.? PERRL.? EOMI.? Fluent speech, no dysarthria. Motor- 5/5 strength symmetric bilateral upper and lower extremities Sensation- ?Intact to light touch and symmetric multiple dermatomes including upper and lower extremities Coordination- No dysmetria on finger to nose Reflexes- 2/4 achilles & patellar, no clonus Gait/station: ?Normal stance.? No truncal ataxia. CRANIAL NERVES: II: Pupils equal and reactive, III, IV, : EOM intact, no gaze preference or deviation, no nystagmus. V: normal sensation in V1, V2, and V3 segments bilaterally VII: no asymmetry, no nasolabial fold flattening VIII: normal hearing to speech IX, X: normal palatal elevation, no uvular deviation XI: 5/5 head turn and 5/5 shoulder shrug bilaterally XII: midline tongue protrusion Course Vital Signs Vital signs: Vital Signs Temperature 37.0 C 03/10/25 05:43 Pulse 78 03/10/25 05:43 Respiratory Rate 14 03/10/25 05:43 Blood Pressure 120/60 03/10/25 05:43 Pulse Oximetry 96 03/10/25 05:43 Temperature 37.0 C 03/10/25 05:43 Temperature Source Oral 03/10/25 05:43 Pulse 78 03/10/25 05:43 Respiratory Rate 14 03/10/25 05:54 Respiratory Effort Normal, Non-Labored 03/10/25 05:54 Respiratory Depth Normal 03/10/25 05:54 Respiratory Pattern Normal 03/10/25 05:54 Blood Pressure 120/60 03/10/25 05:43 Blood Pressure Position Sitting 03/10/25 05:43 Pulse Oximetry 96 03/10/25 05:43 Oxygen Delivery Method Room Air 03/10/25 05:43 Oxygen Flow Rate 0 03/10/25 05:43 Pain Level 42 03/10/25 06:16 Comment left leg pain for 3 weeks( no improvement) , dizziness, generalized not feeling well 03/10/25 05:51 Lab/Test Results Lab/Test Results: Laboratory Tests Range/Units 03/10/25 06:06 WBC (4.4-10.8) 10^3/uL 7.61 RBC (4.36-5.78) 10^6/uL 5.07 Hgb (13.5-17.5) g/dL 14.0 Hct (40.0-50.0) % 43.0 MCV (80-95) fL 85 MCH (27.0-33.0) pg 27.6 MCHC (32.0-36.0) % 32.6 RDW (11.8-14.1) % 13.3 Plt Count (130-400) 10^3/uL 358 MPV (8.0-11.0) fL 9.5 Immature Gran % % 1.1 Neutrophils % % 68.6 Lymphocytes % % 22.5 Monocytes % % 5.3 Eosinophils % % 1.7 Basophils % % 0.8 Nucleated RBC % (0.0-0.3) % 0.0 Absolute Neutrophils (1.2-6.7) 10^3/uL 5.23 Absolute Lymphocytes (1.2-3.4) 10^3/uL 1.71 Absolute Monocytes (0.1-0.8) 10^3/uL 0.40 Absolute Eosinophils (0.0-0.7) 10^3/uL 0.13 Absolute Basophils (0.0-0.2) 10^3/uL 0.06 VBG pH (7.31-7.41) 7.36 VBG pCO2 (41-51) mmHg 43 VBG pO2 mmHg 55 VBG HCO3 (23-28) mmol/L 25 VBG Total CO2 (24-29) mmol/L 22 L VBG O2 Saturation % 89 VBG Base Excess (-2-3) mmol/L -1 Medical Decision Making 54yo M with hx HTN, HLD, T2DM, smoker, left leg claudication, presenting for chest pain and lightheadedness. He has difficulty characterizing his symptoms; unclear onset (possibly a week but seems worse this morning?), dull, involving his whole chest. He wonders if his symptoms may be related to his leg pain; has sharp burning left leg pain worse with any activity for the past three weeks and is being worked up outpatient for this; his leg pain is unchanged today. Vital signs reassuring on arrival. Non toxic on exam, lungs CTAB, nonfocal neurologic exam (not suggestive of CVA), no LE edema. LLE is warm but slightly cooler than right; palpable PT pulses symmetric bilaterally. No palpable DP pulse in either LE; does have dopplerable pulses though L much fainter than right. Not suggestive of acute limb ischemia though quite concerning for PAD; will get MARLENE (anticipate abnormal) and likely will need outpatient referral to vascular surgery. Will workup for chest pain and presyncope; broad differential given poorly characterized symptoms. No tachycardia, hypoxia, or pleuritic pain to suggest pulmonary embolism. -EKG NSR, appropriate intervals, no ST segment or T wave abnormalities to suggest occlusive MD. -Labs reviewed as below, CBC reassuring with no leukocytosis or anemia, CMP with hyperglycemia and no actionable abnormalities, Mg normal, BNP not suggestive of heart failure, initial troponin normal at 9. -Nursing performed ABIs (see their documentation for details) , LLE MARLENE 0.45 (58/130) suggestive of moderate to severe peripheral arterial disease. VBG, lipase, respiratory viral swab, delta troponin, orthostatic vital signs, CXR, and UA pending. Will be signed out to oncoming physician, plan to followup results and reassess. Further workup and management per oncoming physician. Disposition pending results and clinical course. Quality:SDOH Health Related Social Needs: Health related social needs risk of homeless Health related social needs details has 1 month left at apt before eviction [facility] All Active Problems (Updated 03/03/25 @ 16:55 by Yifan Grewal DO) Type II diabetes mellitus (Chronic) Left leg claudication (Acute) Pharyngitis (Acute) Lower extremity pain, left (Acute) Bilateral pain of leg and foot (Acute) Homans sign present (Acute) Ganglion cyst of dorsum of right wrist (Acute) Rupture of extensor tendon of right hand (Acute) Right elbow pain (Acute) Right wrist pain (Acute) Obesity (BMI 30-39.9) (Acute 01/09/15) Obstructive sleep apnea (Chronic 09/06/14) Untreated. 09/04/2014:Severe obstructive sleep apnea with associated signficant nocturnal hypoxemia; Constance 68% on RA, average 90% Sensorineural hearing loss, bilateral (Acute 12/27/13) Smoker (Acute 08/29/13) 1 ppd Vertigo (Acute 02/20/14) Daily headache (Acute) Probably due to hypoxia from [place]. 68% sat on Rm Air during sleep study Nocturnal hypoxemia due to obesity (Chronic) 68% constance on room air during sleep study Medical History Cerebrovascular accident (08/29/10) [facility] on 09/18/10 with left hemiparesis, dysarthria, and dysphagia. His BP was 254/136! CTH was negative by report. CTA head and neck reportedly showed left vertebral occlusi common carotids bilaterally. An MRI of the brain was read as being a right occipital ischemia, however when you look at the details, it is noted 2 small foci of hyperintensity on DWI and F carotid ultrasound which was normal as well as a TTE with an EF 65% and normal atria/ventricles/etc. (Armando Vang M.D.) Gastroesophageal reflux disease (08/29/13) Type 2 diabetes mellitus without complication (~07/2017) Essential tremor Financial problems Umbilical hernia Flat feet, bilateral Lipoma (08/29/13) Depression 11/03/18 PHQ9 = 10 GERD (gastroesophageal reflux disease) Migraine HTN (hypertension) Hypercholesterolemia CHINO (obstructive sleep apnea) Nephrolithiasis (07/24/17) History of [place] measles (02/20/14) Anxiety (09/07/12) 11/03/18 BECKS = 26 Deafness Family History Mother , in 50's Essential hypertension Alcohol abuse Substance abuse Brother Brain tumor Other Breast cancer Social History Smoking/Tobacco Use Status: Current every day Tobacco Type: cigarettes Tobacco: How many years used: 35 Quit status: considering quitting Smoking risk assessment performed?: Yes Alcohol Intake: never Drug use: Never Substance use type: does not use Adopted: No Caregiver/Support person: No Foster care: No Household members: none Housing: apartment Number of Children: 3 number of grandchildren: 2 Communication Needs: Hard of Hearing Do you need help understanding health information?: Often 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 Pets and animals: No Sexually active: No Do you think of yourself as: straight/heterosexual Current gender identity: male What is your relationship status?: never How often do you talk on the phone with friends or family?: never How often do you get together with friends or relatives?: never How often do you attend roman catholic or evangelical services?: decline to answer Do you belong to any clubs or organized social groups?: no Panel score (0-1 are the most socially isolated patients): 0 What type of physical activity do you participate in: none and regular exercise Duration: 15-30 minutes/day Frequency: daily Seatbelt use: always Helmet use: No (No reason for one) Drive intox or ride w/intox party bus driver: No Water heater temp set <120 deg: Yes Working smoke detector in home: Yes Fire extinguisher in home: Yes Carbon monox detector in home: Yes Do you feel safe at home: Yes Do you feel safe in your relationship?: Yes
[2025-03-10 06:52] LABS: ALT 19 U/L (16-63); AST 16 U/L (15-37); Albumin 3.9 g/dL (3.4-5.0); Alkaline Phosphatase 74 U/L (46-116); Anion Gap 12.3 mmol/L (3-11); BUN 11 mg/dL (7-18); Bilirubin, Total 0.7 mg/dL (0.2-1.0); CO2 24.7 mmol/L (21.0-32.0); Calcium 8.7 mg/dL (8.5-10.1); Chloride 101 mmol/L (98-107); Estimated GFR 90.00 (mL/min/1.73m2); Glucose 258 mg/dL (74-106); Magnesium 2.1 mg/dL (1.8-2.4); NT-proBNP 50 pg/mL (<300); Potassium 4.1 mmol/L (3.5-5.1); Sodium 138 mmol/L (136-145); Total Protein 6.8 g/dL (6.4-8.2); Troponin I 9 ng/L (<or=76)
[2025-03-10 07:00] LABS: Lipase 24 U/L (<78)
[2025-03-10 07:17] LABS: COVID-19 PCR Negative (Negative); RSV PCR Negative (Negative)
--- NOTE | 2025-03-10 07:22 | DI.RAD_ITS ---
Exam(s) XR CHEST 2V PA LATERAL EXAM: XR CHEST 2V PA LATERAL CLINICAL HISTORY: Chest pain TECHNIQUE: 2D digital imaging was performed. Two views. COMPARISON: No exams were available for comparison FINDINGS: HEART: Normal size. Aorta: Not dilated. PULMONARY VASCULATURE: Normal. MEDIASTINUM: Unremarkable. LUNGS: There are increased densities seen in the lingula not present previously, suspicious for infiltrate. The right lung appears clear PLEURAL SPACE: No pleural effusion or pneumothorax. BONE:Unremarkable for age. SOFT TISSUES: Unremarkable. IMPRESSION: Lingular infiltrate. The preliminary [facility] report was reviewed. DATA REPOSITORY: RADIATION DOSE DELIVERED:
[2025-03-10 07:26] LABS: Troponin I 8 ng/L (<or=76)
--- NOTE | 2025-03-10 07:26 | W.ED.FU ---
Date of service: 03/10/25 Time of Service: 07:30 Follow Up Plan: In brief, this is a 54-year-old male patient with history of diabetes, CHINO, deaf, presenting for evaluation of chest discomfort and left lower leg claudication symptoms. At the time that I took over his care, he had reassuring initial laboratory studies including an initial negative troponin, had an MARLENE of 0.45 concerning for moderate to severe peripheral vascular disease, but no evidence for critical limb ischemia. He was awaiting completion of a chest x-ray, urinalysis, and delta troponin. I reviewed the patient's 1 hour troponin, which is negative and without significant interval change to suggest acute active ischemia. His chest x-ray does show a lingular pneumonia, for which he received his first dose of amoxicillin here in our emergency department. He does not have any tachycardia, leukocytosis, nor new hypoxia which suggest that he would not be appropriate for outpatient management of this finding. His COVID and influenza test was negative. I discussed the patient's leg claudication symptoms with him, he has struggled to make appointments given his inability to hear people speaking on the phone (the patient reads lips at baseline), and for this reason I reached out to vascular surgery with [facility] to ensure adequate follow-up of his left lower extremity claudication. They were able to schedule the patient for an outpatient appointment next Thursday, he was made aware of this visit and will be able to go to that appointment for testing and discussion with the provider about his claudication. A prescription for the remainder of his course of amoxicillin for his pneumonia was sent to his pharmacy. At this time, the patient has had a full medical evaluation and is safe for discharge to home. They are hemodynamically stable, ambulatory, and tolerating PO. They are understanding of the follow-up plan and return precautions. They left our facility without incident. Bibi Flaherty MD
--- NOTE | 2025-03-10 08:26 | DI.[facility]AD_ITS ---
PROCEDURE INFORMATION: Exam: XR Chest Exam date and time: 03/10/2025 7:22 AM Age: 54 years old Clinical indication: Other: Chest pain TECHNIQUE: Imaging protocol: Radiologic exam of the chest. Views: 2 views. COMPARISON: CR XR CHEST 2V PA LATERAL 05/07/2024 5:16 AM FINDINGS: Lungs: Opacity in the lingula. Streaky bibasilar opacities. Pleural spaces: No large pleural effusion seen. Heart/Mediastinum: No cardiomegaly. Bones/joints: No acute abnormality. IMPRESSION: Pulmonary opacities suspicious for pneumonia. Follow-up as clinically warranted. Dictated and Authenticated by: Bhavna Reveles MD. Orderin Zunilda Rust MD
[2025-03-10] MEDS: Amoxicillin 500 MG CAP 1000 MG PO (08:40)
[2025-03-10 08:43] LABS: Glucose 500 mg/dL (Negative)
== END 2025-03-10 10:13 | disposition home or self-care (01) ==
PROVIDERS: Student in an Organized Health Care Education/Training Program; Emergency Provider Emergency Medicine; PCP Family Medicine
DX: J18.9 Pneumonia, unspecified organism (principal); I73.9 Peripheral vascular disease, unspecified; M79.605 Pain in left leg; E11.9 Type 2 diabetes mellitus without complications; R07.9 Chest pain, unspecified; R42 Dizziness and giddiness; Z72.0 Tobacco use; Z59.811 Housing instability, housed, with risk of homelessness
CPT/HCPCS: 99284 ×2; 36415; 36416; 82962; 80053; 82805; 83690; 87637; 93005; 71046; 81003; 83735; 83880; 84484; 85025; 93010

== ENCOUNTER 2025-04-06 05:17 | Emergency (ER) | payer OTHER, SELFPAY ==
--- NOTE | 2025-04-06 05:15 | RT.EKG_ITS ---
APPROVED REPORT Exam: Resting ECG Reason for Exam: Chest pain Patient Location: E HR:76 bpm ECG Measurements Heart Rate 76 AXIS GA 144 P 13 QRSd 90 QRS -17 QT 391 T 61 QTc 439 Conclusion Sinus rhythm...normal P axis, V-rate 60- 99 Inferior infarct, old...Q >35mS, II III aVF Physician: No STEMI
[2025-04-06 05:20] VITALS: BP 112/67; PULSE 79; RESP 18; TEMP 36.3; O2SAT 96
[2025-04-06 05:27] VITALS: BP 112/67; PULSE 79; RESP 18; TEMP 36.3; O2SAT 96
--- NOTE | 2025-04-06 05:30 | W.ED.GENAD ---
Discharge Plan Disposition Patient Disposition: Home Condition: Good Discharge Details Clinical Impression: Pneumonia Primary Care Provider: Yifan Grewal ED Provider: Jeffry Marin Home Meds and New Rx's Prescriptions: New amoxicillin-pot clavulanate 875-125 mg tablet 1 tab PO BID 10 Days Qty: 20 0RF doxycycline hyclate 100 mg tablet 100 mg PO BID Qty: 20 0RF prednisone 50 mg tablet 50 mg PO DAILY Qty: 5 0RF No Action albuterol sulfate [Ventolin HFA] 90 mcg/actuation HFA aerosol inhaler 1 - 2 puff inhalation Q6H PRN (Reason: shortness of breath or wheezing) Qty: 6.7 0RF acetaminophen 500 mg tablet 1,500 mg PO TID PRN atorvastatin 80 mg tablet 80 mg PO DAILY Qty: 90 3RF famotidine 20 mg tablet 20 mg PO DAILY Qty: 90 3RF Dose Instruction: TAKE 1 TABLET BY MOUTH DAILY Rx Instructions: TAKE 1 TABLET BY MOUTH DAILY (DME) pen needle, diabetic [Pen Needle] 31 gauge x 5/16 needle See Rx Instructions .ROUTE .MEDSUPPLY Qty: 100 3RF Rx Instructions: As directed to administer insulin once daily. Dispense covered brand. insulin glargine [Lantus Solostar U-100 Insulin] 100 unit/mL (3 mL) insulin pen 25 unit subcut QPM Qty: 15 3RF topiramate 100 mg tablet 100 mg PO BID Qty: 180 3RF ranolazine 500 mg tablet extended release 12 hr 500 mg PO BID Qty: 30 0RF clopidogrel 75 mg tablet 75 mg PO DAILY Qty: 90 3RF labetalol 200 mg tablet 200 mg PO See Instructions Qty: 135 3RF Rx Instructions: Take 100 mg in the AM & 200 mg in the evening) aspirin 81 mg tablet 81 mg PO DAILY primidone 50 mg tablet 50 mg PO QHS Patient Comments: TAKE 1 TABLET BY MOUTH EVERY DAY AT BEDTIME gabapentin 300 mg capsule 300 mg PO TID Qty: 30 0RF Discharge Instructions Instructions: Pneumonia, Adult ED Additional Instructions: In your lungs. At this time your x-ray shows evidence of pneumonia Please take the antibiotics as prescribed. They have been sent to your pharmacy on file. Please make sure to take the doxycycline with food as it will cause significant nausea or vomiting if taken on an empty stomach. Please avoid any milk or dairy or calcium supplements while on the medication as they will decrease doxycycline's effectiveness. Please also take the Symbicort inhaler, 2 puffs every 12 hours. If you notice any worsening of your symptoms, or any new symptoms such as vomiting, diarrhea, fever, chills, shortness of breath, chest pain, numbness, weakness, or fainting , please return immediately to the emergency department for reevaluation. Please follow up with your primary care provider as soon as possible for reassessment and reevaluation. As always, it was a pleasure participating in your medical care today. Stand Alone Forms: Portal Information, Work Release Referrals: Yifan Grewal DO [Primary Care Provider, Medicine] [facility] General Date/Time Provider Initiated Documentation: 04/06/25 05:19. HPI Narrative: This is a pleasant 54-year-old male with a past medical history of type 2 diabetes, hypertension, obstructive sleep apnea, obesity, daily smoker, high cholesterol, bilateral hearing loss, chronic vertigo, chronic migraines, previous stroke, chronic left-sided tremor, who presents today for evaluation of cough. Patient states that he has had a mild cough for the last 3 days, he has had productive green-yellow sputum. He admits to a mild amount of chest tightness associated with a cough. He does smoke actively. He denies any hemoptysis. He denies any tearing or ripping sensation. He denies any history of ACS or [place]. He denies taking his albuterol as of late. No other complaints at this time. No other modifying factors. Related Data Home Medications Medication Instructions Recorded Confirmed acetaminophen 500 mg tablet 1,500 mg PO TID PRN 11/02/19 04/06/25 clopidogrel 75 mg tablet 75 mg PO DAILY #90 tabs 08/09/24 04/06/25 primidone 50 mg tablet 50 mg PO QHS 08/25/24 04/06/25 labetalol 200 mg tablet 200 mg PO See Instructions #135 10/25/24 04/06/25 tab-caps atorvastatin 80 mg tablet 80 mg PO DAILY #90 tabs 12/09/24 04/06/25 famotidine 20 mg tablet 20 mg PO DAILY #90 tabs 12/09/24 04/06/25 insulin glargine 100 unit/mL (3 25 unit (0.25 mL) subcut QPM #15 mL 12/09/24 04/06/25 mL) subcutaneous pen (Lantus Solostar U-100 Insulin) pen needle, diabetic 31 gauge x #100 ea 12/09/24 04/06/2510/07 (Pen Needle) topiramate 100 mg tablet 100 mg PO BID #180 tabs 12/09/24 04/06/25 albuterol sulfate 90 mcg/actuation 1 - 2 puff inhalation Q6H PRN 02/16/25 04/06/25 aerosol inhaler (Ventolin HFA) shortness of breath or wheezing #6.7 grams gabapentin 300 mg capsule 300 mg PO TID #30 caps 02/22/25 04/06/25 ranolazine 500 mg tablet,extended 500 mg PO BID #30 tabs 03/03/25 04/06/25 release,12 hr aspirin 81 mg tablet 81 mg PO DAILY PAD 03/21/25 04/06/25 amoxicillin 875 mg-potassium 1 tab PO BID 10 days #20 tabs 04/06/25 clavulanate 125 mg tablet doxycycline hyclate 100 mg tablet 100 mg PO BID #20 tabs 04/06/25 prednisone 50 mg tablet 50 mg PO DAILY #5 tabs 04/06/25 Previous Rx's Medication Instructions Recorded clopidogrel 75 mg tablet 75 mg PO DAILY #90 tabs 08/09/24 labetalol 200 mg tablet 200 mg PO See Instructions #135 10/25/24 tab-caps atorvastatin 80 mg tablet 80 mg PO DAILY #90 tabs 12/09/24 famotidine 20 mg tablet 20 mg PO DAILY #90 tabs 12/09/24 insulin glargine 100 unit/mL (3 25 unit (0.25 mL) subcut QPM #15 mL 12/09/24 mL) subcutaneous pen (Lantus Solostar U-100 Insulin) pen needle, diabetic 31 gauge x #100 ea 12/09/2410/07 (Pen Needle) topiramate 100 mg tablet 100 mg PO BID #180 tabs 12/09/24 albuterol sulfate 90 mcg/actuation 1 - 2 puff inhalation Q6H PRN 02/16/25 aerosol inhaler (Ventolin HFA) shortness of breath or wheezing #6.7 grams gabapentin 300 mg capsule 300 mg PO TID #30 caps 02/22/25 ranolazine 500 mg tablet,extended 500 mg PO BID #30 tabs 03/03/25 release,12 hr amoxicillin 875 mg-potassium 1 tab PO BID 10 days #20 tabs 04/06/25 clavulanate 125 mg tablet doxycycline hyclate 100 mg tablet 100 mg PO BID #20 tabs 04/06/25 prednisone 50 mg tablet 50 mg PO DAILY #5 tabs 04/06/25 Allergies Allergy/AdvReac Type Severity Reaction Status Date / Time metformin AdvReac Severe Diarrhea Verified 04/06/25 05:31 dulaglutide ([facility] AdvReac diarrhea Verified 04/06/25 05:31 General Stated Complaint: RespSymp EDMUND: 3 Exam Narrative Exam Narrative: 1.Const: Well-nourished, Well-developed, appearing stated age 2.Eyes: PERRL, no conjunctival injection, and symmetrical lids. 3.ENT: Atraumatic external nose and ears. Moist MM. Neck: Symmetric, trachea midline, No thyromegaly. 4.CVS: +S1/S2, Peripheral pulses 2+ and equal in all extremities. Brisk capillary refill in all extremities. 5.RESP: Unlabored respiratory effort. Mild wheeze, no rhonchi or rails. 6.GI: Soft, Nontender/Nondistended, No hepatosplenomegaly. No guarding or rebound. 7.MSK: Normocephalic/Atraumatic, Extremities w/o deformity or ttp No cyanosis or clubbing, Normal movement of all extremities 8.Skin: Warm, Dry. No rashes or lesions. 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 Sensation grossly intact, no focal neurologic deficits. 10.Psych: (AAO) x3. Appropriate mood and affect Course Vital Signs Vital signs: Vital Signs Temperature 36.3 C L 04/06/25 05:20 Pulse 79 04/06/25 05:20 Respiratory Rate 18 04/06/25 05:20 Blood Pressure 112/67 04/06/25 05:20 Pulse Oximetry 96 04/06/25 05:20 Temperature 36.3 C L 04/06/25 05:27 Temperature Source Oral 04/06/25 05:27 Pulse 79 04/06/25 05:27 Respiratory Rate 18 04/06/25 05:27 Respiratory Effort Normal, Non-Labored 04/06/25 05:27 Respiratory Depth Normal 04/06/25 05:27 Blood Pressure 112/67 04/06/25 05:27 Blood Pressure Position Supine 04/06/25 05:27 Pulse Oximetry 96 04/06/25 05:27 Oxygen Delivery Method Room Air 04/06/25 05:27 Oxygen Flow Rate 0 04/06/25 05:27 Pain Level 5 04/06/25 05:27 Procedure Smoking Cessation Time Spent Discussing Smoking Cessation with Patient: 00:10 Patient Acknowledges Need for Cessation: Yes Medical Decision Making This is a pleasant 54-year-old male with a past medical history of type 2 diabetes, hypertension, obstructive sleep apnea, obesity, daily smoker, high cholesterol, bilateral hearing loss, chronic vertigo, chronic migraines, previous stroke, chronic left-sided tremor, who presents today for evaluation of cough. Patient states that he has had a mild cough for the last 3 days, he has had productive green-yellow sputum. He admits to a mild amount of chest tightness associated with a cough. He does smoke actively. He denies any hemoptysis. He denies any tearing or ripping sensation. He denies any history of ACS or [place]. He denies taking his albuterol as of late. No other complaints at this time. No other modifying factors. Exam demonstrates well-appearing male, no hypoxemia or tachypnea. He denies any exertional chest discomfort to suggest ACS. With his cough, productive sputum, and current tobacco use I suspect he may be suffering from bronchitis, pneumonia or a mild asthma exacerbation. Will give a DuoNeb, steroid, get a chest x-ray, monitor closely and reassess. Screening EKG was performed and shows no evidence of STEMI or other abnormality to suggest cardiac etiology. 6:18 AM Chest x-ray shows evidence of pneumonia. Patient's oxygen is stable. Patient feels better after breathing treatment. Will send home with Symbicort inhaler, and because of his comorbidities doxycycline and Augmentin. First doses will be given here. Will do a short course of prednisone as well for his reactive airway disease. Discussed red flags which to return. Patient has no hypoxemia or tachycardia to suggest need for inpatient admission. I have extensively reviewed the treatment plan and discharge instructions with the patient. I have addressed all patient concerns at this time. The patient was made aware of what symptoms to monitor for that would warrant a return to the emergency department. Discussed the plan with the patient, they demonstrate verbal understanding and agreement with our assessment and plan at this time. The documentation in this chart was dictated using Cangrade dictation software. Please excuse any dictation errors. FINDINGS: Lungs: Minimal streaky bibasilar opacities. Pleural spaces: No large pleural effusion seen. Heart/Mediastinum: No cardiomegaly. Bones/joints: No acute abnormality. IMPRESSION: Minimal bibasilar opacities. Consider atelectasis, pneumonia. Follow-up as clinically warranted. Thank you for allowing us to participate in the care of your patient. Dictated and Authenticated by: Bhavna Reveles MD 04/06/2025 6:11 AM Eastern Time ([place] & [place]) Quality:SDOH Health Related Social Needs: Health related social needs risk of homeless Health related social needs details has 1 month left at apt before eviction PFSH All Active Problems (Updated 04/06/25 @ 06:13 by Jeffry Marin DO) Pneumonia (Acute) Peripheral artery disease (Acute) Pneumonia involving left lung (Acute) Type II diabetes mellitus (Chronic) Left leg claudication (Acute) Homans sign present (Acute) Ganglion cyst of dorsum of right wrist (Acute) Rupture of extensor tendon of right hand (Acute) Right elbow pain (Acute) Right wrist pain (Acute) Obesity (BMI 30-39.9) (Acute 01/09/15) Obstructive sleep apnea (Chronic 09/06/14) Untreated. 09/04/2014:Severe obstructive sleep apnea with associated signficant nocturnal hypoxemia; Constance 68% on RA, average 90% Sensorineural hearing loss, bilateral (Acute 12/27/13) Smoker (Acute 08/29/13) 1 ppd Vertigo (Acute 02/20/14) Daily headache (Acute) Probably due to hypoxia from CHINO. 68% sat on Rm Air during sleep study Nocturnal hypoxemia due to obesity (Chronic) 68% constance on room air during sleep study Medical History Cerebrovascular accident (08/29/10) [facility] on 09/18/10 with left hemiparesis, dysarthria, and dysphagia. His BP was 254/136! CTH was negative by report. CTA head and neck reportedly showed left vertebral occlusi common carotids bilaterally. An MRI of the brain was read as being a right occipital ischemia, however when you look at the details, it is noted 2 small foci of hyperintensity on DWI and F carotid ultrasound which was normal as well as a TTE with an EF 65% and normal atria/ventricles/etc. (Armando Vang M.D.) Gastroesophageal reflux disease (08/29/13) Type 2 diabetes mellitus without complication (~07/2017) Essential tremor Financial problems Umbilical hernia Flat feet, bilateral Lipoma (08/29/13) Depression 11/03/18 PHQ9 = 10 GERD (gastroesophageal reflux disease) Migraine HTN (hypertension) Hypercholesterolemia CHINO (obstructive sleep apnea) Nephrolithiasis (07/24/17) History of Monegasque measles (02/20/14) Anxiety (09/07/12) 11/03/18 BECKS = 26 Deafness Family History Mother , in 50's Essential hypertension Alcohol abuse Substance abuse Brother Brain tumor Other Breast cancer Social History Smoking/Tobacco Use Status: Current every day Tobacco Type: cigarettes Tobacco: How many years used: 35 Quit status: considering quitting Smoking risk assessment performed?: Yes Alcohol Intake: never Drug use: Never Substance use type: does not use Adopted: No Caregiver/Support person: No Foster care: No Household members: none Housing: apartment Number of Children: 3 number of grandchildren: 2 Communication Needs: Hard of Hearing Do you need help understanding health information?: Often 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 Pets and animals: No Sexually active: No Do you think of yourself as: straight/heterosexual Current gender identity: male What is your relationship status?: never How often do you talk on the phone with friends or family?: never How often do you get together with friends or relatives?: never How often do you attend christian or gnosticist services?: decline to answer Do you belong to any clubs or organized social groups?: no Panel score (0-1 are the most socially isolated patients): 0 What type of physical activity do you participate in: none and regular exercise Duration: 15-30 minutes/day Frequency: daily Seatbelt use: always Helmet use: No (No reason for one) Drive intox or ride w/intox non cdl driver: No Water heater temp set <120 deg: Yes Working smoke detector in home: Yes Fire extinguisher in home: Yes Carbon monox detector in home: Yes Do you feel safe at home: Yes Do you feel safe in your relationship?: Yes
[2025-04-06] MEDS: Albuterol/Ipratropium 3 ML UPD VIAL UPD (05:36)
[2025-04-06] MEDS: predniSONE 20 MG TAB 60 MG PO (05:36)
--- NOTE | 2025-04-06 06:09 | DI.RAD_ITS ---
Exam(s) XR CHEST 2V PA LATERAL EXAM: XR CHEST 2V PA LATERAL CLINICAL HISTORY: cough, eval for pneumonia. TECHNIQUE: 2D digital imaging was performed. COMPARISON: CR,XR XR CHEST 2V PA LATERAL from 03/10/2025 FINDINGS: 2 views: Heart size is normal. The mediastinum is not widened. Previously present infiltrate in the lingular segment of the left lung is mostly resolved. Density in the right lung base again noted which is most probably the breast nipple. There are no pleural effusions. IMPRESSION: Almost complete clearing of the previously present infiltrate in the lingular segment of the left lung. DATA REPOSITORY: RADIATION DOSE DELIVERED:
--- NOTE | 2025-04-06 06:12 | DI.VRAD_ITS ---
PROCEDURE INFORMATION: Exam: XR Chest Exam date and time: 04/06/2025 6:00 AM Age: 54 years old Clinical indication: Cough, eval for pneumonia TECHNIQUE: Imaging protocol: Radiologic exam of the chest. Views: 2 views. COMPARISON: CR XR CHEST 2V PA LATERAL 03/10/2025 7:22 AM FINDINGS: Lungs: Minimal streaky bibasilar opacities. Pleural spaces: No large pleural effusion seen. Heart/Mediastinum: No cardiomegaly. Bones/joints: No acute abnormality. IMPRESSION: Minimal bibasilar opacities. Consider atelectasis, pneumonia. Follow-up as clinically warranted. Dictated and Authenticated by: Bhavna Reveles MD. Orderin Tomas Teran MD
[2025-04-06 06:17] LABS: COVID-19 PCR Negative (Negative); RSV PCR Negative (Negative)
[2025-04-06] MEDS: Budesonide/Formoterol 160/4.5 6 GM 60 PUFF INH IH (06:23)
[2025-04-06] MEDS: Doxycycline Hyclate 100 MG CAP PO (06:23)
[2025-04-06] MEDS: Amoxicillin 875/Clav. 125 TAB PO (06:23)
== END 2025-04-06 06:24 | disposition home or self-care (01) ==
PROVIDERS: Emergency Provider Student in an Organized Health Care Education/Training Program; PCP Family Medicine
DX: J18.9 Pneumonia, unspecified organism (principal)
CPT/HCPCS: 99284 ×2; 94640; 87637; 93005; 71046; 93010; J7512; J7620